=== PATIENT | male | born 1985 | race Caucasian/White ===

== ENCOUNTER 2017-02-12 20:01 | Emergency (ER) | payer MEDICAID ==
--- NOTE | 2017-02-12 22:30 | RADIOLOGY REPORT (SQ) ---
EXAM DESCRIPTION: FINGER RIGHT COMPLETED DATE/TIME: 02/12/2017 10:16 pm REASON FOR STUDY: Pain s/p injury COMPARISON: None. NUMBER OF VIEWS: Three views. TECHNIQUE: AP, lateral, and oblique images acquired of the right second finger. LIMITATIONS: None. FINDINGS: MINERALIZATION: Normal. BONES: No acute fracture or dislocation. No worrisome bone lesions. SOFT TISSUES: No soft tissue swelling. No foreign body. OTHER: No other significant finding. IMPRESSION: NO RADIOGRAPHIC EVIDENCE OF ACUTE INJURY. COMMENT: SITE OF TRAUMA/COMPLAINT MARKED/STAMP COMPLETED: NO. TECHNICAL DOCUMENTATION: JOB ID: [id number] [employer]- All Rights Reserved
--- NOTE | 2017-02-12 22:31 | RADIOLOGY REPORT (SQ) ---
EXAM DESCRIPTION: KNEE RIGHT 3 VIEWS COMPLETED DATE/TIME: 02/12/2017 10:16 pm REASON FOR STUDY: Pain s/p injury COMPARISON: None. NUMBER OF VIEWS: Four views. TECHNIQUE: AP, lateral and a single oblique radiographic images acquired of the right knee. LIMITATIONS: None. FINDINGS: MINERALIZATION: Normal. BONES: No acute fracture or dislocation. No worrisome bone lesions. JOINT: No effusion. SOFT TISSUES: No soft tissue swelling. No radio-opaque foreign body. OTHER: No other significant finding. IMPRESSION: NEGATIVE STUDY OF THE RIGHT KNEE. NO RADIOGRAPHIC EVIDENCE OF ACUTE INJURY. TECHNICAL DOCUMENTATION: JOB ID: [id number] [employer]- All Rights Reserved
[2017-02-12] MEDS ORDERED: IBUPROFEN 800 MG TABLET PO ONE (22:43)
--- NOTE | 2017-02-12 22:43 | ER Document Report ---
HPI - HPI Patient complains to provider of: stepped in hole Onset: Last week Onset/Duration: Gradual Pain Level: 3 Context: 32 yo male stepped in hole and twisted right knee and right index finger. both are swollen and hurt. No fever or chills. Has been to xray already. - CONSTITUTIONAL Constitutional: DENIES: Fever, Chills - EENT EENT: DENIES: Sore Throat, Ear Pain, Congestion - NEURO Neurology: DENIES: Headache - CARDIOVASCULAR Cardiovascular: DENIES: Chest pain - RESPIRATORY Respiratory: DENIES: Trouble Breathing, Coughing - GASTROINTESTINAL Gastrointestinal: DENIES: Abdominal Pain - URINARY Urinary: DENIES: Dysuria - REPRODUCTIVE Reproductive: DENIES: : - MUSCULOSKELETAL Musculoskeletal: REPORTS: Extremity pain - R knee, Swelling - R index finger. DENIES: Back Pain, Neck Pain - DERM Skin Color: Normal, [place] Skin Problems: None - NURSING COMMENTS Comment: Pt presents with c/o R index finger and R knee pain s/p fall while weed eating. States that he must have stepped in a hole and twisted his knee and somehow hurt his finger. R index finger appears swollen, hurts to move. R knee minimal swelling but painful. A/O, ambulates well. Past Medical History - General Information source: Patient - Social History Smoking Status: Current Every Day Smoker Frequency of alcohol use: None Drug Abuse: None Lives with: Family Family History: Reviewed & Not Pertinent Patient has suicidal ideation: No Patient has homicidal ideation: No Endocrine Medical History: Reports: Hx Diabetes Mellitus Type 1, Hx Diabetes Mellitus Type 2 Renal/ Medical History: Denies: Hx Peritoneal Dialysis Past Surgical History: Reports: Hx Orthopedic Surgery - disc suregery L5-S1 - Immunizations Immunizations up to date: Yes Hx Diphtheria, Pertussis, Tetanus Vaccination: Yes Vertical Provider Document - CONSTITUTIONAL Agree With Documented VS: Yes Exam Limitations: No Limitations General Appearance: No Apparent Distress - INFECTION CONTROL TRAVEL OUTSIDE OF THE [place] IN LAST 30 DAYS: No - HEENT HEENT: Normocephalic - NECK Neck: Supple - RESPIRATORY O2 Sat by Pulse Oximetry: 98 - MUSCULOSKELETAL/EXTREMETIES Musculoskeletal/Extremeties: MAEW, FROM, Non-Tender Notes: mild swelling to right index finger, no signs of infection, FROM, no ecchymosis , no swelling or effusion to right knee, non tender. FRM - NEURO Level of Consciousness: Awake, Alert, Appropriate Motor/Sensory: No Motor Deficit, No Sensory Deficit - DERM Integumentary: Warm, Dry, No Rash Course - Re-evaluation Re-evalutation: 02/12/17 22:47 X-rays are negative - Vital Signs Vital signs: Temp Pulse Resp BP Pulse Ox 98.2 F 93 20 139/83 H 98 02/12/17 20:39 02/12/17 20:39 02/12/17 20:39 02/12/17 20:39 02/12/17 20:39 Procedures - Immobilization Right Knee Time completed: 22:47 Pre-Proc Neuro Vasc Exam: Normal Immobilizer type: Gilles wrap Post-Proc Neuro Vasc Exam: Normal Alignment checked and good: Yes Discharge - Discharge Clinical Impression: Right index finger sprain, Right knee sprain Disposition: HOME, SELF-CARE Instructions: Acetaminophen, Anti-Inflammatory Medication ([facility]), Gilles Wrap ([facility]) , Sprained Finger ([facility]), Sprain ([facility]) Additional Instructions: gilles wrap for comfort copy of negative x-rays Return to the emergency room if worse See orthopedic doctor if persists Prescriptions: Ibuprofen [Motrin 800 mg Tablet] 800 mg PO Q8HP PRN #30 tablet PRN Reason: Forms: Return to Work Referrals: ARIEL MONTERO MD [ACTIVE STAFF] - Follow up as needed
[2017-02-12 22:59] VITALS: BP 129/77
== END 2017-02-12 22:57 | disposition home or self-care (01) ==
LOC: ER 20:01
DX: S63.610A Unspecified sprain of right index finger, initial encounter (principal); S83.91XA Sprain of unspecified site of right knee, initial encounter; M25.561 Pain in right knee; M79.644 Pain in right finger(s); M79.89 Other specified soft tissue disorders; W17.2XXA Fall into hole, initial encounter; F17.200 Nicotine dependence, unspecified, uncomplicated
CPT/HCPCS: 99283

== ENCOUNTER 2017-04-29 07:04 | Inpatient (IN) | payer MEDICAID ==
--- NOTE | 2017-04-29 07:49 | ER Document Report ---
ED Neck/Back Problem - General Chief Complaint: Back Pain Stated Complaint: BACK PAIN Time Seen by Provider: 04/29/17 07:49 Information source: Patient Notes: 32 yo smoker, non etoh, No IV drugs, male c/o severe low back pain where the scars are since yesterday morning. Has hardware. Surgery x 2 ortho matthias, herniated discs. Fusion L4-S1. had to dress him, can't walk due to pain. 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 Takes percocet 7.5mg four times per day. Last dose at 0630 with ibuprofen 5 at a times. [facility] integrated pain management, started 2 months ago. Alannah in room, pt is anxious, cussing wanting injection of Dilaudid. She is trying to calm him down. Pt is type 1 diabetic, refusing IV fluid, hx gastritis, nerve problems in legs, medical dr. jaylin tripp. TRAVEL OUTSIDE OF THE [place] IN LAST 30 DAYS: No - Related Data Allergies/Adverse Reactions: Penicillins Allergy (Verified 02/12/17 20:42) Past Medical History - General Information source: Patient - Social History Smoking Status: Current Every Day Smoker Frequency of alcohol use: None Drug Abuse: None Occupation: yard care Lives with: Spouse/Significant other Family History: Reviewed & Not Pertinent Patient has suicidal ideation: No Patient has homicidal ideation: No Endocrine Medical History: Reports: Hx Diabetes Mellitus Type 1 Renal/ Medical History: Denies: Hx Peritoneal Dialysis Past Surgical History: Reports: Hx Orthopedic Surgery - disc suregery L5-S1 - Immunizations Immunizations up to date: Yes Hx Diphtheria, Pertussis, Tetanus Vaccination: Yes Review of Systems - Review of Systems Constitutional: No symptoms reported EENT: No symptoms reported Cardiovascular: No symptoms reported Respiratory: No symptoms reported Gastrointestinal: No symptoms reported Genitourinary: No symptoms reported Male Genitourinary: No symptoms reported Musculoskeletal: See HPI Skin: No symptoms reported Hematologic/Lymphatic: No symptoms reported Neurological/Psychological: No symptoms reported Physical Exam - Vital signs Vitals: Temp Pulse Resp BP Pulse Ox 97.7 F 91 16 134/102 H 100 04/29/17 07:12 04/29/17 07:12 04/29/17 07:12 04/29/17 07:12 04/29/17 07:12 Interpretation: Normal - General General appearance: Alert, Anxious, Other - looks dry In distress: None - HEENT Head: Normocephalic, Atraumatic Eyes: Normal Conjunctiva: Normal Pupils: PERRL Neck: Supple. No: Lymphadenopathy - Respiratory Respiratory status: No respiratory distress Chest status: Nontender Breath sounds: Normal Chest palpation: Normal - Cardiovascular Rhythm: Regular Heart sounds: Normal auscultation Murmur: No - Abdominal Inspection: Normal Distension: No distension Bowel sounds: Normal Tenderness: Nontender. No: Tender Organomegaly: No organomegaly - Back Back: Normal, Nontender, Scars - bilateral lumbar, vertical. No: Tender, CVA tenderness - Extremities General upper extremity: Normal inspection, Nontender, Normal color, Normal ROM , Normal temperature General lower extremity: Normal inspection, Nontender, Normal color, Normal ROM , Normal temperature, Normal weight bearing. No: Yoel's sign - Neurological Neuro grossly intact: Yes Cognition: Normal Orientation: AAOx4 [place] Coma Scale Eye Opening: Spontaneous [place] Coma Scale Verbal: Oriented [place] Coma Scale Motor: Obeys Commands [place] Coma Scale Total: 15 Speech: Normal Motor strength normal: LUE, RUE, LLE, RLE Sensory: Normal Knee - Reflex grade: 2 = Normal Ankle - Reflex grade: 0 = Absent - right, 2+ left (pt unsure when he lost the right ankle reflex. - Psychological Associated symptoms: Normal affect, Normal mood - Skin Skin Temperature: Warm Skin Moisture: Dry Skin Color: Normal Skin irregularity: negative: Rash Course - Re-evaluation Re-evalutation: 04/29/17 09:29 [place], [place] [address] [place] [address] pt. states he will take care of speaking with them about the percocet 7.5 not controlling his pain. He is calm now. Xray shows post surgical changes. 04/29/17 09:32 called Lexii Gomez [employer]PERATOR provider at the office to discuss the case since he was so angry and frustrated as witnessed by his significant other. He has not gotten MR of his spine at his last appt. April 16 and has hx of anxiety. She stated that he has certain time frame for the imaging, which is supposed to be done by next appt. and she states that he is aware of it. 04/29/17 09:53 white count 22,000, discussed case with dr. bryant, getting MRI lumbar combo to r /o abscess. Dr. chacko says its OK to get the MRI 04/29/17 10:05 10 units insulin R IV per dr. bryant 04/29/17 12:51 The MRI shows unchanged protrusion L4-L5, post surgery L5-S1. No abscess. I had the patient sit on the side of the bed there is no ankle reflex on the right which he does not know how long it has been there, he will not stand on his legs he is dramatic complaining that the pain is a lot of pressure on his back, almost drops to the floor. 04/29/17 13:[address] Hernandez and said that the kidneys look okay on MRI because I was thinking of doing need to do any imaging since now his urinalysis shows urinary tract infection I did order Levaquin 750 mg IV to be given, blood cultures and lactic acid have been ordered. 04/29/17 13:[address] calderon who says to try to "sell it" to dr. arizmendi, she doesn't think he necessarily needs to be admitted. pt is hyperglycemic, leukocytosis. called dr. chacko back, no imaging that I can do to prove or disprove pyelonephritis that dr. calderon asked me about. dr. bryant rec. admission. 04/29/17 13:45 04/29/17 13:54 dr arizmendi will observation to medical floor, pt stated his urine has been smelling bad, but no dysuria. - Vital Signs Vital signs: Temp Pulse Resp BP Pulse Ox 97.7 F 94 16 118/72 99 04/29/17 07:15 04/29/17 07:15 04/29/17 12:31 04/29/17 12:31 04/29/17 12:31 - Laboratory Result Diagrams: 04/29/17 09:00 04/29/17 09:00 Laboratory results interpreted by me: 04/29/17 04/29/17 04/29/17 09:00 09:00 09:00 WBC 22.0 H RBC 4.33 L Hgb 12.2 L Hct 36.9 L RDW 14.1 H Seg Neuts % (Manual) 88 H Lymphocytes % (Manual) 8 L Monocytes % (Manual) 1 L Abs Neuts (Manual) 20.0 H ESR 68 H Sodium 132.3 L Glucose 442 H* POC Glucose Direct Bilirubin 0.5 H AST 13 L Alkaline Phosphatase 182 H Urine Protein Urine Glucose (UA) Urine Blood Ur Leukocyte Esterase 04/29/17 04/29/17 11:56 12:02 WBC RBC Hgb Hct RDW Seg Neuts % (Manual) Lymphocytes % (Manual) Monocytes % (Manual) Abs Neuts (Manual) ESR Sodium Glucose POC Glucose 322 H Direct Bilirubin AST Alkaline Phosphatase Urine Protein 30 H Urine Glucose (UA) >=500 H Urine Blood LARGE H Ur Leukocyte Esterase MODERATE H Discharge - Discharge Clinical Impression: Hyperglycemia, mild right disc bulge, unchanged, Right ankle reflex absent Diabetes Qualifiers: Diabetes mellitus type: type 1 Diabetes mellitus complication status: with hyperglycemia Qualified Code(s): E10.65 - Type 1 diabetes mellitus with hyperglycemia Urinary tract infection Qualifiers: Urinary tract infection type: acute cystitis Hematuria presence: with hematuria Qualified Code(s): N30.01 - Acute cystitis with hematuria Chronic low back pain Qualifiers: Back pain laterality: bilateral Sciatica presence: without sciatica Qualified Code(s): M54.5 - Low back pain; G89.29 - Other chronic pain Leukocytosis Qualifiers: Leukocytosis type: other Qualified Code(s): D72.828 - Other elevated white blood cell count Condition: Stable Disposition: ADMITTED OBSERVATION Admitting Provider: Hospitalist Unit Admitted: Medical Floor
[2017-04-29] MEDS ORDERED: ONDANSETRON 4 MG TAB.RAPDIS PO ONE (08:33)
[2017-04-29] MEDS ORDERED: ACETAMINOPHEN 325 MG TABLET PO ONE (08:34)
--- NOTE | 2017-04-29 09:08 | RADIOLOGY REPORT (SQ) ---
EXAM DESCRIPTION: L SPINE WHOLE COMPLETED DATE/TIME: 04/29/2017 8:55 am REASON FOR STUDY: low back pain COMPARISON: None. NUMBER OF VIEWS: Five views including obliques. TECHNIQUE: AP, lateral, oblique, and sacral radiographic images acquired of the lumbar spine. LIMITATIONS: None. FINDINGS: MINERALIZATION: Normal. SEGMENTATION: Normal. No transitional anatomy. ALIGNMENT: Normal. VERTEBRAE: Maintained height. No fracture or worrisome bone lesion. DISCS: Preserved height. No significant osteophytes or end plate irregularity. POSTERIOR ELEMENTS: Pedicles and facets are intact. No pars defect or posterior arch defects. HARDWARE: There are postsurgical changes at L5-S1. PARASPINAL SOFT TISSUES: Normal. PELVIS: Intact as visualized. No fractures or worrisome bone lesions. SI joints intact. OTHER: No other significant finding. IMPRESSION: Postsurgical changes at L5-S1. No acute findings. TECHNICAL DOCUMENTATION: JOB ID: [id number] [employer]- All Rights Reserved
[2017-04-29 09:27] LABS: HEMATOCRIT 36.9 % (37.9-51.0); HEMOGLOBIN 12.2 g/dL (13.5-17.0); HGB HCT DIFFERENCE -0.3; MEAN CORPUSCULAR HEMOGLOBIN 28.2 pg (27.0-33.4); MEAN CORPUSCULAR VOLUME 85 fl (80-97); RED BLOOD COUNT 4.33 10^6/uL (4.35-5.55); RED CELL DISTRIBUTION WIDTH 14.1 % (11.5-14.0)
[2017-04-29 09:47] LABS: ALANINE AMINOTRANSFERASE 27 U/L (21-72); ALBUMIN 3.6 g/dL (3.5-5.0); ALKALINE PHOSPHATASE 182 U/L (38-126); ANION GAP 11 (5-19); ASPARTATE AMINO TRANSFERASE 13 U/L (17-59); BILIRUBIN,DIRECT 0.5 mg/dL (0.0-0.4); BILIRUBIN,TOTAL 1.3 mg/dL (0.2-1.3); BLOOD UREA NITROGEN 15 mg/dL (7-20); CALCIUM 9.5 mg/dL (8.4-10.2); CARBON DIOXIDE 23 mmol/L (22-30); CHLORIDE 98 mmol/L (98-107); CREATININE RESULT 0.95 mg/dL (0.52-1.25); POTASSIUM 4.4 mmol/L (3.6-5.0); SODIUM 132.3 mmol/L (137-145); TOTAL PROTEIN 6.4 g/dL (6.3-8.2)
[2017-04-29 09:57] LABS: BAND NEUTROPHILS % (MANUAL) 3 % (3-5); BASOPHILS % (MANUAL) 0 % (0-2); EOSINOPHILS % (MANUAL) 0 % (0-6); LYMPHOCYTES % (MANUAL) 8 % (13-45); POLYCHROMASIA SLIGHT; TOTAL CELLS COUNTED 100; TOXIC GRANULATION 1+
[2017-04-29 09:58] LABS: GLUCOSE 442 mg/dL (75-110)
[2017-04-29] MEDS ORDERED: NORMAL SALINE 1000 ML 1,000 ML IV ONE ×2 (09:59→13:02)
[2017-04-29] MEDS ORDERED: INSULIN REG, HUMAN 100 UNIT/ML 3 ML VIAL (PYX) IV ONE (10:03)
--- NOTE | 2017-04-29 12:27 | RADIOLOGY REPORT (SQ) ---
EXAM DESCRIPTION: MRI LUMBAR SPINE COMBO COMPLETED DATE/TIME: 04/29/2017 12:07 pm REASON FOR STUDY: low back pain, elevated WBC COMPARISON: 2013. Radiographs from today. TECHNIQUE: Sagittal and Axial imaging includes T1, T1 post gadolinium, T2, STIR and gradient echo se quences. Coronal T2/HASTE imaging. CONTRAST TYPE AND DOSE: 15 mL MultiHance RENAL FUNCTION: GFR > 60. LIMITATIONS: None. FINDINGS: VISUALIZED UPPER ABDOMEN: Limited evaluation. No acute or suspicious findings suggested. SEGMENTATION: No transitional anatomy. The lowest well-developed disc space is labeled L5-S1. ALIGNMENT: Anatomic. VERTEBRAE: Intact. No fractures. BONE MARROW: Normal. No marrow replacement or reactive changes. DISC SIGNAL: Mild decreased signal and height at L4-5. Postoperative artifact obscures the L5-S1 dis c. POSTERIOR ELEMENTS: No pars defect. Bilateral instrumentation at L5-S1, rods and screws and disc fi xation. HARDWARE: As above. CORD AND CONUS: Normal in size and signal intensity. Conus at the appropriate level. SOFT TISSUES: No aortic aneurysm seen. No bulky retroperitoneal adenopathy or mass. No paraspinal mas s or fluid. L1-L2: No significant spinal stenosis or exit foraminal stenosis. L2-L3: No significant spinal stenosis or exit foraminal stenosis. L3-L4: No significant spinal stenosis or exit foraminal stenosis. L4-L5: Mild broad right paracentral protrusion indents the ventral thecal sac. Mild mass-effect on t he proximal left L5 nerve root. L5-S1: Postoperative changes with no evidence of recurrent disc hernia or nerve root compression. No central stenosis. Neural foramina look relatively patent. LOWER THORACIC: Incompletely imaged. No stenosis seen. SACRUM: Visualized upper sacrum intact. ENHANCEMENT: No abnormal enhancement. No evidence of epidural abscess. OTHER: No other significant findings. IMPRESSION: 1. Postoperative changes at L5-S1 without spinal stenosis here. 2. Mild persistent or recurrent disc protrusion at L4-5 with regional mass effect on the thecal sac. 3. No suspicious en hancement. No epidural abscess appreciated. TECHNICAL DOCUMENTATION: JOB ID: [id number] [email or web address]- All Rights Reserved
[2017-04-29 12:49] LABS: APPEARANCE,URINE CLOUDY; BILIRUBIN,URINE NEGATIVE (NEGATIVE); GLUCOSE, URINE >=500 mg/dL (NEGATIVE); KETONES,URINE NEGATIVE (NEGATIVE); LEUKOCYTE ESTERASE,URINE MODERATE (NEGATIVE); NITRITE,URINE NEGATIVE (NEGATIVE); PROTEIN,URINE 30 mg/dL (NEGATIVE); URINE SPECIFIC GRAVITY 1.033; UROBILINOGEN,URINE NEGATIVE mg/dL (<2.0)
[2017-04-29] MEDS ORDERED: HYDROMORPHONE HCL INJ/PF 2 MG/ML AMPULE IV ONE (12:51)
[2017-04-29] MEDS: LEVOFLOXACIN 750 MG/D5W RTU 750 MG/150 ML RTUPB IV SCH ×2 (13:18→13:24)
[2017-04-29 13:26] LABS: URINE BARBITURATES SCREEN NEGATIVE; URINE METHADONE SCREEN NEGATIVE; URINE OPIATES LOW UNCONFIRMED POSITIVE; URINE PHENCYCLIDINE SCREEN NEGATIVE
[2017-04-29] MEDS ORDERED: ONDANSETRON HCL INJ/PF 4 MG/2 ML SDV IV PRN (14:58)
[2017-04-29] MEDS ORDERED: ALBUTEROL SULFATE 0.083% NEB 2.5 MG/3 ML AMPUL NEB PRN (14:58)
[2017-04-29] MEDS ORDERED: ONDANSETRON 4 MG TAB.RAPDIS PO PRN (14:58)
[2017-04-29] MEDS ORDERED: DEXTROSE 40% GEL 15 GM TUBE PO PRN ×2 (15:09)
[2017-04-29] MEDS ORDERED: DEXTROSE 50%-WATER 25 GM/50 ML DISP.SYRIN IV PRN ×2 (15:09)
[2017-04-29] MEDS ORDERED: GLUCAGON,HUMAN RECOMB 1 MG INJ IM PRN (15:09)
--- NOTE | 2017-04-29 15:28 | PDOC H&P ---
History of Present Illness Admission Date/PCP: 04/29/17 14:42 Patient complains of: Back pain History of Present Illness: RAYMOND BRAY is a 32 year old male with a history of chronic low back pain. 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 The patient reports that yesterday he awoke and he had pain in his lower back. It did not radiate. It was worse when he stood up. He did report having some chills but he did not check his temperature. Patient presented to emergency room and was found to have a white count of 22, 000. There was concern of whether this may represent epidural abscess given his history of having back surgery although it has been over 4 years since his back surgery. He had an MRI which showed no obvious abnormalities. Urinalysis did show him to have pyuria consistent with a urinary tract infection and possible pyelonephritis. The patient denies any bowel or bladder dysfunction. He denies any urinary retention. He denies any weakness or paresthesias. Denies any paresthesias in the saddle area. He does have some decreased reflex in the ankles is not sure whether these of been there previously. He normally takes Percocet 7.5 mg 4 times daily. He has required Dilaudid for his pain in the emergency room. Past Medical History Cardiac Medical History: Reports: None Pulmonary Medical History: Reports: None EENT Medical History: Reports: None Neurological History Note: Peripheral neuropathy Endocrine Medical History: Reports: Diabetes Mellitus Type 1 Renal/ Medical History: Reports: None Malignancy Medical History: Reports: None GI Medical History: Reports: Gastroesophageal Reflux Disease Musculoskeletal History Note: Chronic low back pain after a discectomy and then spinal fusion of L5-S1 Skin Medical History: Reports: None Psychiatric Medical History: Reports: None Traumatic Medical History: Reports: None Hematology: Reports: None Infectious Medical History: Reports: None Past Surgical History Past Surgical History: Reports: Orthopedic Surgery - disc suregery L5-S1 Social History Information Source: Patient Lives with: Spouse/Significant other Smoking Status: Current Every Day Smoker Frequency of Alcohol Use: None Hx Recreational Drug Use: No Drugs: None - Advance Directive Resuscitation Status: Full Code Family History Family History: Father 63 alive and has diabetes. Mother 60 alive and healthy. Parental Family History Reviewed: Yes Children Family History Reviewed: No Sibling(s) Family History Reviewed.: No Medication/Allergy Home Medications: Insulin Glargine,Hum.rec.anlog [Lantus Insulin 100 Unit/mL] 50 unit SQ QHS 12/01 Hydrocodone/Acetaminophen [Hydrocodon-Acetaminoph 7.5-325] 1 tab PO Q6HP PRN Insulin Aspart [Novolog Flexpen] 15 unit SQ DAILY 04/29/17 Tizanidine HCl [Zanaflex 4 Mg Tablet] 4 mg PO HSP PRN 04/29/17 Allergies/Adverse Reactions: Penicillins Allergy (Verified 02/12/17 20:42) Review of Systems Constitutional: PRESENT: chills. ABSENT: fever(s), headache(s), weight gain, weight loss Eyes: ABSENT: visual disturbances Ears: ABSENT: hearing changes Cardiovascular: ABSENT: chest pain, dyspnea on exertion, edema, orthropnea, palpitations Respiratory: ABSENT: cough, hemoptysis Gastrointestinal: ABSENT: abdominal pain, constipation, diarrhea, hematemesis, hematochezia, nausea, vomiting Genitourinary: ABSENT: dysuria, hematuria Musculoskeletal: PRESENT: back pain Integumentary: ABSENT: rash, wounds Neurological: ABSENT: abnormal gait, abnormal speech, confusion, dizziness, focal weakness, syncope Psychiatric: ABSENT: anxiety, depression Endocrine: ABSENT: cold intolerance, heat intolerance, polydipsia, polyuria Hematologic/Lymphatic: ABSENT: easy bleeding, easy bruising Physical Exam Vital Signs: Temp Pulse Resp BP Pulse Ox 97.7 F 94 16 124/59 L 98 04/29/17 07:15 04/29/17 07:15 04/29/17 12:31 04/29/17 14:31 04/29/17 14:31 General appearance: PRESENT: no acute distress, well-developed, well-nourished Head exam: PRESENT: atraumatic, normocephalic Eye exam: PRESENT: conjunctiva pink, EOMI, PERRLA. ABSENT: scleral icterus Ear exam: PRESENT: normal external ear exam Mouth exam: PRESENT: moist, tongue midline Neck exam: ABSENT: carotid bruit, JVD, lymphadenopathy, thyromegaly Respiratory exam: PRESENT: clear to auscultation jason. ABSENT: rales, rhonchi, wheezes Cardiovascular exam: PRESENT: RRR. ABSENT: diastolic murmur, rubs, systolic murmur GI/Abdominal exam: PRESENT: normal bowel sounds, soft. ABSENT: distended, guarding, mass, organolmegaly, rebound, tenderness Rectal exam: PRESENT: deferred Extremities exam: ABSENT: calf tenderness, clubbing, pedal edema Neurological exam: PRESENT: alert, awake, oriented to person, oriented to place , oriented to time, oriented to situation, CN II-XII grossly intact, other - Decreased ankle reflex.. ABSENT: motor sensory deficit Psychiatric exam: PRESENT: appropriate affect Skin exam: PRESENT: dry, intact, warm. ABSENT: cyanosis, rash Results Impressions: Lumbar Spine X-Ray 04/29/17 08:35 IMPRESSION: Postsurgical changes at L5-S1. No acute findings. Lumbar Spine MRI 04/29/17 09:48 IMPRESSION: 1. Postoperative changes at L5-S1 without spinal stenosis here. 2. Mild persistent or recurrent disc protrusion at L4-5 with regional mass effect on the thecal sac. 3. No suspicious enhancement. No epidural abscess appreciated. Assessment & Plan - Diagnosis (1) Chronic low back pain Qualifiers: Back pain laterality: bilateral Sciatica presence: without sciatica Qualified Code(s): M54.5 - Low back pain; G89.29 - Other chronic pain Is this a current diagnosis for this admission?: Yes Plan: The patient does not have any CVA tenderness but given his degree of back pain in the pyuria suspicious for possible pyelonephritis. Will start on Levaquin and IV fluids. Patient does not have any point tenderness over the vertebra. The possibility of a vertebral abscess is considered but is unlikely given the lack of point tenderness and a normal MRI. Will give Dilaudid as needed. (2) Urinary tract infection Qualifiers: Urinary tract infection type: acute cystitis Hematuria presence: with hematuria Qualified Code(s): N30.01 - Acute cystitis with hematuria Is this a current diagnosis for this admission?: Yes Plan: The patient has pyuria and back pain. He also is a white count of 22,000. Will give Levaquin and follow. He may have pyelonephritis. (3) Diabetes Qualifiers: Diabetes mellitus type: type 1 Diabetes mellitus complication status: with hyperglycemia Qualified Code(s): E10.65 - Type 1 diabetes mellitus with hyperglycemia Is this a current diagnosis for this admission?: Yes Plan: We will continue with his Lantus and NovoLog insulin. - Time Time Spent: 50 to 70 Minutes - Plan Summary Plan Summary: We will admit as an observation. I anticipate he can be discharged home tomorrow if his pain improves as well as his white count improves.
[2017-04-29] MEDS: NORMAL SALINE 1000 ML 1,000 ML IV PRN (16:38)
[2017-04-29] MEDS: HYDROMORPHONE HCL INJ/PF 2 MG/ML AMPULE IV PRN ×3 (16:38→23:57)
[2017-04-29] MEDS: ACETAMINOPHEN 325 MG TABLET PO PRN ×3 (16:38→23:58)
[2017-04-29] MEDS: INSULIN LISPRO 100 UNIT/ML 3 ML VIAL SUBCUT SCH (16:39)
[2017-04-29] MEDS: INSULIN LISPRO 100 UNIT/ML 3 ML VIAL SUBCUT PRN ×2 (16:39→22:28)
[2017-04-29] MEDS ORDERED: CIPROFLOXACIN 400 MG/D5W RTU 400 MG/200 ML RTUPB IV SCH (18:00)
[2017-04-29] MEDS: INSULIN GLARGINE,HUM.REC.ANLOG 300 UNIT/3 ML INSULN.PEN SUBCUT SCH (22:28)
[2017-04-30] MEDS: ACETAMINOPHEN 325 MG TABLET PO PRN ×2 (03:27→20:16)
[2017-04-30] MEDS: HYDROMORPHONE HCL INJ/PF 2 MG/ML AMPULE IV PRN ×5 (03:27→20:09)
[2017-04-30 07:03] LABS: HEMATOCRIT 33.4 % (37.9-51.0); HEMOGLOBIN 11.4 g/dL (13.5-17.0); HGB HCT DIFFERENCE 0.8; MEAN CORPUSCULAR HEMOGLOBIN 28.8 pg (27.0-33.4); MEAN CORPUSCULAR HGB CONC 34.1 g/dL (32.0-36.0); MEAN CORPUSCULAR VOLUME 84 fl (80-97); RED BLOOD COUNT 3.96 10^6/uL (4.35-5.55); RED CELL DISTRIBUTION WIDTH 14.2 % (11.5-14.0); WHITE BLOOD COUNT 15.3 10^3/uL (4.0-10.5)
[2017-04-30 07:22] LABS: ANION GAP 9 (5-19); BLOOD UREA NITROGEN 10 mg/dL (7-20); CALCIUM 8.8 mg/dL (8.4-10.2); CARBON DIOXIDE 24 mmol/L (22-30); CHLORIDE 104 mmol/L (98-107); CREATININE RESULT 0.76 mg/dL (0.52-1.25); GLUCOSE 67 mg/dL (75-110); POTASSIUM 3.6 mmol/L (3.6-5.0); SODIUM 137.1 mmol/L (137-145)
[2017-04-30] MEDS: INSULIN LISPRO 100 UNIT/ML 3 ML VIAL SUBCUT SCH ×3 (08:18→18:08)
--- NOTE | 2017-04-30 09:42 | Physician Advisory Note ---
Physician Advisor ProgressNote .: Pursuant to the plan for [facility], I have reviewed the medical record for this patient. Physician Advisor Statement: Please consider documentin. "Early Sepsis due to UTI/pyelo, present on admission, evidenced by leukocytosis, tachycardia, (+)BCs" 2. "Acute pyelonephritis" [need to specify ac vs chr] 3. "ACute hyponatremia, suspect due to ____" [?intravascular volume depletion? ] Status: Appropriate to make Inpatient given (+) BCs, ongoing leukocytosis, need for continued IV abx while awaiting cx sensitivities, needing IV Dilaudid 5x already overnight for acute pain control .... Thanks! CK
[2017-04-30] MEDS ORDERED: LEVOFLOXACIN 750 MG/D5W RTU 750 MG/150 ML RTUPB IV SCH (10:00)
[2017-04-30] MEDS: NORMAL SALINE 1000 ML 1,000 ML IV PRN ×2 (11:22→18:11)
[2017-04-30] MEDS ORDERED: ERTAPENEM SODIUM INJ 1 GM VIAL IV SCH (14:30)
--- NOTE | 2017-04-30 14:35 | PDOC PROGRESS REPORT ---
Subjective Progress Note for:: 04/30/17 Subjective:: Patient continues to have some back pain but denies having high fever. No nausea or vomiting. Denies dysuria or hematuria. Denies any recent injury. History of back surgery twice done in [place]. Patient reports no numbness at this time. Physical Exam Vital Signs: Temp Pulse Resp BP Pulse Ox 99.7 F 91 18 125/59 L 94 04/30/17 12:01 04/30/17 12:01 04/30/17 12:01 04/30/17 12:01 04/30/17 12:01 General appearance: PRESENT: no acute distress, cooperative Head exam: PRESENT: normocephalic Eye exam: PRESENT: EOMI Mouth exam: PRESENT: moist, neck supple Neck exam: ABSENT: JVD Respiratory exam: PRESENT: clear to auscultation jason. ABSENT: rhonchi, wheezes Cardiovascular exam: PRESENT: RRR. ABSENT: gallop GI/Abdominal exam: PRESENT: soft. ABSENT: distended, tenderness Extremities exam: ABSENT: pedal edema Neurological exam: PRESENT: alert, awake, oriented to situation Skin exam: PRESENT: dry, warm. ABSENT: cyanosis Results Impressions: Lumbar Spine X-Ray 04/29/17 08:35 IMPRESSION: Postsurgical changes at L5-S1. No acute findings. Lumbar Spine MRI 04/29/17 09:48 IMPRESSION: 1. Postoperative changes at L5-S1 without spinal stenosis here. 2. Mild persistent or recurrent disc protrusion at L4-5 with regional mass effect on the thecal sac. 3. No suspicious enhancement. No epidural abscess appreciated. Assessment & Plan - Diagnosis (1) Sepsis Qualifiers: Sepsis type: sepsis due to unspecified organism Qualified Code(s): A41.9 - Sepsis, unspecified organism Is this a current diagnosis for this admission?: Yes (2) Urinary tract infection Qualifiers: Urinary tract infection type: acute cystitis Hematuria presence: with hematuria Qualified Code(s): N30.01 - Acute cystitis with hematuria Is this a current diagnosis for this admission?: Yes (3) Peripheral neuropathy Qualifiers: Peripheral neuropathy type: polyneuropathy, unspecified Qualified Code(s): G62.9 - Polyneuropathy, unspecified Is this a current diagnosis for this admission?: Yes (4) GERD (gastroesophageal reflux disease) Qualifiers: Esophagitis presence: without esophagitis Qualified Code(s): K21.9 - Gastro -esophageal reflux disease without esophagitis Is this a current diagnosis for this admission?: Yes (5) History of diabetes mellitus Is this a current diagnosis for this admission?: Yes (6) Chronic low back pain Qualifiers: Back pain laterality: bilateral Sciatica presence: without sciatica Qualified Code(s): M54.5 - Low back pain; G89.29 - Other chronic pain Is this a current diagnosis for this admission?: Yes - Time Time Spent with patient: 25-34 minutes - Plan Summary Plan Summary: We are going to try the patient on Flexeril. Discontinue Levaquin and begin intravenous Invanz. Continue hydration. Continue supportive care. Follow cultures.
[2017-04-30] MEDS ORDERED: CYCLOBENZAPRINE HCL 10 MG TABLET PO ONE (14:45)
[2017-04-30] MEDS: ERTAPENEM SODIUM 1 GM in NORMAL SALINE 50 ML IV SCH (15:06)
[2017-04-30] MEDS ORDERED: CIPROFLOXACIN 400 MG/D5W RTU 400 MG/200 ML RTUPB IV SCH (16:00)
[2017-04-30] MEDS: CYCLOBENZAPRINE HCL 10 MG TABLET PO SCH (23:13)
[2017-04-30] MEDS: INSULIN GLARGINE,HUM.REC.ANLOG 300 UNIT/3 ML INSULN.PEN SUBCUT SCH (23:14)
[2017-05-01] MEDS: HYDROMORPHONE HCL INJ/PF 2 MG/ML AMPULE IV PRN ×6 (00:14→23:54)
[2017-05-01] MEDS: NORMAL SALINE 1000 ML 1,000 ML IV PRN ×2 (00:17→05:05)
[2017-05-01 04:20] LABS: HEMATOCRIT 36.8 % (37.9-51.0); HEMOGLOBIN 12.1 g/dL (13.5-17.0); HGB HCT DIFFERENCE -0.5; MEAN CORPUSCULAR HEMOGLOBIN 27.8 pg (27.0-33.4); MEAN CORPUSCULAR HGB CONC 32.9 g/dL (32.0-36.0); MEAN CORPUSCULAR VOLUME 85 fl (80-97); RED BLOOD COUNT 4.35 10^6/uL (4.35-5.55); RED CELL DISTRIBUTION WIDTH 14.3 % (11.5-14.0); WHITE BLOOD COUNT 14.2 10^3/uL (4.0-10.5)
[2017-05-01] MEDS: ACETAMINOPHEN 325 MG TABLET PO PRN ×3 (05:01→18:50)
[2017-05-01] MEDS: CYCLOBENZAPRINE HCL 10 MG TABLET PO SCH ×3 (05:02→22:31)
--- NOTE | 2017-05-01 06:19 | Physician Advisory Note ---
Physician Advisor ProgressNote .: [facility], I have reviewed the medical record for this patient. Physician Advisor Statement: Please consider documentin. "Early Sepsis due to UTI/pyelo, present on admission, evidenced by leukocytosis, tachycardia, (+)BCs, hypotension with MAP as low as 69, total bili 1.3" (meets Sepsis-2 & Sepsis-3/SOFA criteria) 2. "Acute pyelonephritis" [need to specify ac vs chr] 3. "ACute hyponatremia, suspect due to ____" [?intravascular volume depletion? ] Thanks! CK
[2017-05-01] MEDS: INSULIN LISPRO 100 UNIT/ML 3 ML VIAL SUBCUT PRN ×3 (08:32→18:04)
[2017-05-01] MEDS ORDERED: NORMAL SALINE 1000 ML 1,000 ML IV PRN (09:04)
--- NOTE | 2017-05-01 09:12 | PDOC PROGRESS REPORT ---
Subjective Progress Note for:: 05/01/17 Subjective:: Patient continues to have some back pain but denies numbness or tingling sensation in the lower extremities. Patient is able to walk. No diarrhea. No nausea or vomiting. Denies dysuria or hematuria. History of back surgery twice done in [place]. Patient takes 7.5 mg of Percocet every 4 hours as needed at home for pain relief.. Physical Exam Vital Signs: Temp Pulse Resp BP Pulse Ox 98.9 F 76 20 140/70 H 91 L 05/01/17 08:00 05/01/17 08:00 05/01/17 08:00 05/01/17 08:00 05/01/17 08:00 Intake & Output 04/30/17 05/01/17 05/02/17 06:59 06:59 06:59 Intake Total 3670 Output Total 1475 Balance 2195 Weight 76.4 kg General appearance: PRESENT: no acute distress, cooperative Head exam: PRESENT: normocephalic Eye exam: PRESENT: EOMI Mouth exam: PRESENT: moist, neck supple Neck exam: ABSENT: JVD Respiratory exam: PRESENT: clear to auscultation jason. ABSENT: rhonchi, wheezes Cardiovascular exam: PRESENT: RRR. ABSENT: gallop GI/Abdominal exam: PRESENT: soft. ABSENT: distended, tenderness Extremities exam: ABSENT: pedal edema Neurological exam: PRESENT: alert, awake, oriented to situation Skin exam: PRESENT: dry, warm. ABSENT: cyanosis Results Laboratory Results: 05/01/17 04:10 05/01/17 04:10 WBC 14.2 H RBC 4.35 Hgb 12.1 L Hct 36.8 L MCV 85 MCH 27.8 MCHC 32.9 RDW 14.3 H Plt Count 215 Impressions: Lumbar Spine X-Ray 04/29/17 08:35 IMPRESSION: Postsurgical changes at L5-S1. No acute findings. Lumbar Spine MRI 04/29/17 09:48 IMPRESSION: 1. Postoperative changes at L5-S1 without spinal stenosis here. 2. Mild persistent or recurrent disc protrusion at L4-5 with regional mass effect on the thecal sac. 3. No suspicious enhancement. No epidural abscess appreciated. Assessment & Plan - Diagnosis (1) Sepsis Qualifiers: Sepsis type: sepsis due to unspecified organism Qualified Code(s): A41.9 - Sepsis, unspecified organism Is this a current diagnosis for this admission?: Yes (2) Urinary tract infection Qualifiers: Urinary tract infection type: acute cystitis Hematuria presence: with hematuria Qualified Code(s): N30.01 - Acute cystitis with hematuria Is this a current diagnosis for this admission?: Yes (3) Peripheral neuropathy Qualifiers: Peripheral neuropathy type: polyneuropathy, unspecified Qualified Code(s): G62.9 - Polyneuropathy, unspecified Is this a current diagnosis for this admission?: Yes (4) GERD (gastroesophageal reflux disease) Qualifiers: Esophagitis presence: without esophagitis Qualified Code(s): K21.9 - Gastro -esophageal reflux disease without esophagitis Is this a current diagnosis for this admission?: Yes (5) History of diabetes mellitus Is this a current diagnosis for this admission?: Yes (6) Chronic low back pain Qualifiers: Back pain laterality: bilateral Sciatica presence: without sciatica Qualified Code(s): M54.5 - Low back pain; G89.29 - Other chronic pain Is this a current diagnosis for this admission?: Yes - Time Time Spent with patient: 25-34 minutes - Plan Summary Plan Summary: We are going to continue current antibiotics at this time. We will repeat blood cultures. We will plan 7 days of IV antibiotics and subsequently switched to oral. Continue supportive care, as needed muscle relaxant, and add oxycodone as needed for pain. Follow results of cultures.
[2017-05-01] MEDS: INSULIN LISPRO 100 UNIT/ML 3 ML VIAL SUBCUT SCH ×3 (09:51→18:04)
[2017-05-01] MEDS: OXYCODONE HCL IR 5 MG TABLET PO PRN ×3 (14:23→23:54)
--- NOTE | 2017-05-01 15:03 | RADIOLOGY REPORT (SQ) ---
EXAM DESCRIPTION: CHEST SINGLE VIEW COMPLETED DATE/TIME: 05/01/2017 2:35 pm REASON FOR STUDY: Pt has low O2 Sat COMPARISON: 07/03/2016 EXAM PARAMETERS: NUMBER OF VIEWS: One view. TECHNIQUE: Single frontal radiographic view of the chest acquired. RADIATION DOSE: NA LIMITATIONS: None. FINDINGS: LUNGS AND PLEURA: Abnormal density in the right parahilar region and probably the left par ahilar region most consistent with pneumonia. There is a nodular component on the right and follow-u p films after treatment are recommended. No effusions. MEDIASTINUM AND HILAR STRUCTURES: No masses. Contour normal. HEART AND VASCULAR STRUCTURES: Heart normal in size. Normal vasculature. BONES: No acute findings. HARDWARE: None in the chest. OTHER: No other significant finding. IMPRESSION: Abnormal density in the parahilar regions most suggestive of pneumonia. Follow-up films after treatment is recommended. TECHNICAL DOCUMENTATION: JOB ID: [id number]
[2017-05-01] MEDS: ERTAPENEM SODIUM 1 GM in NORMAL SALINE 50 ML IV SCH (16:18)
[2017-05-01] MEDS: INSULIN GLARGINE,HUM.REC.ANLOG 300 UNIT/3 ML INSULN.PEN SUBCUT SCH (22:31)
[2017-05-02] MEDS: OXYCODONE HCL IR 5 MG TABLET PO PRN (04:53)
[2017-05-02] MEDS: HYDROMORPHONE HCL INJ/PF 2 MG/ML AMPULE IV PRN ×4 (04:53→23:00)
[2017-05-02] MEDS: CYCLOBENZAPRINE HCL 10 MG TABLET PO SCH ×3 (05:14→22:59)
[2017-05-02] MEDS: INSULIN LISPRO 100 UNIT/ML 3 ML VIAL SUBCUT PRN ×4 (07:38→23:00)
[2017-05-02] MEDS: INSULIN LISPRO 100 UNIT/ML 3 ML VIAL SUBCUT SCH ×3 (08:26→18:00)
--- NOTE | 2017-05-02 09:39 | PDOC PROGRESS REPORT ---
Subjective Progress Note for:: 05/02/17 Subjective:: Still having back pain and stiffness. No reported chills nor fever. No N/V/ diarrhea. No dysuria, urgency nor frequency. Physical Exam Vital Signs: Temp Pulse Resp BP Pulse Ox 97.4 F 69 18 128/76 H 98 05/02/17 07:46 05/02/17 07:46 05/02/17 07:46 05/02/17 07:46 05/02/17 07:46 Intake & Output 05/01/17 05/02/17 05/03/17 06:59 06:59 06:59 Intake Total 3670 1650 Output Total 1475 625 Balance 2195 1025 Weight 76.4 kg 78.9 kg General appearance: PRESENT: no acute distress, cooperative Head exam: PRESENT: normocephalic Eye exam: PRESENT: EOMI Mouth exam: PRESENT: moist, neck supple Neck exam: ABSENT: JVD Respiratory exam: PRESENT: clear to auscultation jason. ABSENT: rhonchi, wheezes Cardiovascular exam: PRESENT: RRR. ABSENT: gallop GI/Abdominal exam: PRESENT: soft. ABSENT: distended, tenderness Extremities exam: ABSENT: pedal edema Neurological exam: PRESENT: alert, awake, oriented to situation Skin exam: PRESENT: dry, warm. ABSENT: cyanosis Results Laboratory Results: 05/01/17 04:10 Impressions: Lumbar Spine X-Ray 04/29/17 08:35 IMPRESSION: Postsurgical changes at L5-S1. No acute findings. Lumbar Spine MRI 04/29/17 09:48 IMPRESSION: 1. Postoperative changes at L5-S1 without spinal stenosis here. 2. Mild persistent or recurrent disc protrusion at L4-5 with regional mass effect on the thecal sac. 3. No suspicious enhancement. No epidural abscess appreciated. Chest X-Ray 05/01/17 13:55 IMPRESSION: Abnormal density in the parahilar regions most suggestive of pneumonia. Follow-up films after treatment is recommended. Assessment & Plan - Diagnosis (1) Sepsis Qualifiers: Sepsis type: sepsis due to unspecified organism Qualified Code(s): A41.9 - Sepsis, unspecified organism Is this a current diagnosis for this admission?: Yes (2) Urinary tract infection Qualifiers: Urinary tract infection type: acute cystitis Hematuria presence: with hematuria Qualified Code(s): N30.01 - Acute cystitis with hematuria Is this a current diagnosis for this admission?: Yes (3) Peripheral neuropathy Qualifiers: Peripheral neuropathy type: polyneuropathy, unspecified Qualified Code(s): G62.9 - Polyneuropathy, unspecified Is this a current diagnosis for this admission?: Yes (4) GERD (gastroesophageal reflux disease) Qualifiers: Esophagitis presence: without esophagitis Qualified Code(s): K21.9 - Gastro -esophageal reflux disease without esophagitis Is this a current diagnosis for this admission?: Yes (5) History of diabetes mellitus Is this a current diagnosis for this admission?: Yes (6) Chronic low back pain Qualifiers: Back pain laterality: bilateral Sciatica presence: without sciatica Qualified Code(s): M54.5 - Low back pain; G89.29 - Other chronic pain Is this a current diagnosis for this admission?: Yes - Time Time Spent with patient: 25-34 minutes - Plan Summary Plan Summary: Try mobic and decadron. Increase dilaudid and flexeril. Begin PT. Day 4/7 of IV antibiotics. Continue supportive care. D/C IVF. Change antibx to cipro.
[2017-05-02] MEDS ORDERED: DEXAMETHASONE SOD PHOS INJ 10 MG/1 ML VIAL IV ONE (09:45)
[2017-05-02] MEDS ORDERED: MELOXICAM 15 MG TABLET PO ONE (10:00)
[2017-05-02] MEDS: CIPROFLOXACIN 400 MG/D5W RTU 400 MG/200 ML RTUPB IV SCH ×2 (10:26→23:00)
[2017-05-02] MEDS: INSULIN GLARGINE,HUM.REC.ANLOG 300 UNIT/3 ML INSULN.PEN SUBCUT SCH (23:00)
[2017-05-03] MEDS: CYCLOBENZAPRINE HCL 10 MG TABLET PO SCH ×3 (06:03→22:16)
[2017-05-03] MEDS: HYDROMORPHONE HCL INJ/PF 2 MG/ML AMPULE IV PRN ×4 (06:07→22:12)
[2017-05-03] MEDS: INSULIN LISPRO 100 UNIT/ML 3 ML VIAL SUBCUT SCH ×3 (08:40→17:29)
[2017-05-03] MEDS: INSULIN LISPRO 100 UNIT/ML 3 ML VIAL SUBCUT PRN ×4 (08:40→22:16)
--- NOTE | 2017-05-03 09:08 | PDOC PROGRESS REPORT ---
Subjective Progress Note for:: 05/03/17 Subjective:: No reported temperature spikes no respiratory distress. patient anxious about what is going on. He did not complain of pain today regarding his back. Denies any coughing or shortness of breath. He does not think he has pneumonia. He is concerned about the source of the urinary tract infection but denies any recent instrumentation. IV line has been infiltrated last night. WBC was trending down. Chest x-ray suggestive of pneumonia. Physical Exam Vital Signs: Temp Pulse Resp BP Pulse Ox 97.8 F 57 L 16 127/98 H 97 05/03/17 07:39 05/03/17 07:39 05/03/17 07:39 05/03/17 07:39 05/03/17 07:39 Intake & Output 05/02/17 05/03/17 05/04/17 06:59 06:59 06:59 Intake Total 1650 1060 Output Total 625 1 Balance 1025 1059 Weight 78.9 kg 78.7 kg General appearance: PRESENT: no acute distress, cooperative Results Laboratory Results: 05/01/17 04:10 Impressions: Lumbar Spine X-Ray 04/29/17 08:35 IMPRESSION: Postsurgical changes at L5-S1. No acute findings. Lumbar Spine MRI 04/29/17 09:48 IMPRESSION: 1. Postoperative changes at L5-S1 without spinal stenosis here. 2. Mild persistent or recurrent disc protrusion at L4-5 with regional mass effect on the thecal sac. 3. No suspicious enhancement. No epidural abscess appreciated. Chest X-Ray 05/01/17 13:55 IMPRESSION: Abnormal density in the parahilar regions most suggestive of pneumonia. Follow-up films after treatment is recommended. Assessment & Plan - Diagnosis (1) Sepsis Qualifiers: Sepsis type: sepsis due to unspecified organism Qualified Code(s): A41.9 - Sepsis, unspecified organism Is this a current diagnosis for this admission?: Yes (2) Urinary tract infection Qualifiers: Urinary tract infection type: acute cystitis Hematuria presence: with hematuria Qualified Code(s): N30.01 - Acute cystitis with hematuria Is this a current diagnosis for this admission?: Yes (3) Peripheral neuropathy Qualifiers: Peripheral neuropathy type: polyneuropathy, unspecified Qualified Code(s): G62.9 - Polyneuropathy, unspecified Is this a current diagnosis for this admission?: Yes (4) GERD (gastroesophageal reflux disease) Qualifiers: Esophagitis presence: without esophagitis Qualified Code(s): K21.9 - Gastro -esophageal reflux disease without esophagitis Is this a current diagnosis for this admission?: Yes (5) History of diabetes mellitus Is this a current diagnosis for this admission?: Yes (6) Chronic low back pain Qualifiers: Back pain laterality: bilateral Sciatica presence: without sciatica Qualified Code(s): M54.5 - Low back pain; G89.29 - Other chronic pain Is this a current diagnosis for this admission?: Yes - Time Time Spent with patient: 15-24 minutes - Plan Summary Plan Summary: Explained to the patient regarding urinary tract infection and possible source. He understood. Explained to him that he needs 7 days of IV antibiotics and then transitioned to oral if repeat blood cultures were negative. In the meantime IV fluid was discontinued. Patient's appetite is good as per staff. No reported diarrhea. WBC is trending down. We will continue to monitor. Patient is on day 5 of IV antibiotics today.
[2017-05-03] MEDS: CIPROFLOXACIN 400 MG/D5W RTU 400 MG/200 ML RTUPB IV SCH ×2 (09:46→22:16)
[2017-05-03] MEDS: OXYCODONE HCL IR 5 MG TABLET PO PRN (18:58)
[2017-05-03] MEDS: INSULIN GLARGINE,HUM.REC.ANLOG 300 UNIT/3 ML INSULN.PEN SUBCUT SCH (22:16)
[2017-05-04] MEDS: OXYCODONE HCL IR 5 MG TABLET PO PRN (00:40)
[2017-05-04] MEDS: CYCLOBENZAPRINE HCL 10 MG TABLET PO SCH ×3 (05:58→21:44)
[2017-05-04] MEDS: HYDROMORPHONE HCL INJ/PF 2 MG/ML AMPULE IV PRN ×4 (07:27→20:48)
[2017-05-04] MEDS: INSULIN LISPRO 100 UNIT/ML 3 ML VIAL SUBCUT PRN ×2 (08:30→21:44)
[2017-05-04] MEDS: INSULIN LISPRO 100 UNIT/ML 3 ML VIAL SUBCUT SCH ×3 (08:30→16:28)
[2017-05-04] MEDS ORDERED: METHYLPREDNISOLONE DOSEPAK (4 MG/TAB) 21 TAB/DSPK PO PRN (08:46)
--- NOTE | 2017-05-04 08:51 | PDOC PROGRESS REPORT ---
Subjective Progress Note for:: 05/04/17 Subjective:: Back pain is better. Responded to anti-inflammatory well. No diarrhea, chills nor fever, no nausea nor vomiting. Physical Exam Vital Signs: Temp Pulse Resp BP Pulse Ox 97.5 F 54 L 18 140/79 H 97 05/04/17 00:43 05/04/17 00:43 05/04/17 00:43 05/04/17 00:43 05/04/17 00:43 Intake & Output 05/03/17 05/04/17 05/05/17 06:59 06:59 06:59 Intake Total 1060 2840 Output Total 1 Balance 1059 2840 Weight 78.7 kg 78.7 kg General appearance: PRESENT: no acute distress, cooperative Head exam: PRESENT: normocephalic Eye exam: PRESENT: EOMI Mouth exam: PRESENT: moist, neck supple Neck exam: ABSENT: JVD Respiratory exam: PRESENT: clear to auscultation jason. ABSENT: rhonchi, wheezes Cardiovascular exam: PRESENT: RRR GI/Abdominal exam: PRESENT: soft. ABSENT: distended, tenderness Extremities exam: ABSENT: pedal edema Neurological exam: PRESENT: alert, awake, oriented to situation Skin exam: PRESENT: dry, warm. ABSENT: cyanosis Results Laboratory Results: 05/01/17 04:10 Impressions: Lumbar Spine X-Ray 04/29/17 08:35 IMPRESSION: Postsurgical changes at L5-S1. No acute findings. Lumbar Spine MRI 04/29/17 09:48 IMPRESSION: 1. Postoperative changes at L5-S1 without spinal stenosis here. 2. Mild persistent or recurrent disc protrusion at L4-5 with regional mass effect on the thecal sac. 3. No suspicious enhancement. No epidural abscess appreciated. Chest X-Ray 05/01/17 13:55 IMPRESSION: Abnormal density in the parahilar regions most suggestive of pneumonia. Follow-up films after treatment is recommended. Assessment & Plan - Diagnosis (1) Sepsis Qualifiers: Sepsis type: sepsis due to unspecified organism Qualified Code(s): A41.9 - Sepsis, unspecified organism Is this a current diagnosis for this admission?: Yes (2) Urinary tract infection Qualifiers: Urinary tract infection type: acute cystitis Hematuria presence: with hematuria Qualified Code(s): N30.01 - Acute cystitis with hematuria Is this a current diagnosis for this admission?: Yes (3) Peripheral neuropathy Qualifiers: Peripheral neuropathy type: polyneuropathy, unspecified Qualified Code(s): G62.9 - Polyneuropathy, unspecified Is this a current diagnosis for this admission?: Yes (4) GERD (gastroesophageal reflux disease) Qualifiers: Esophagitis presence: without esophagitis Qualified Code(s): K21.9 - Gastro -esophageal reflux disease without esophagitis Is this a current diagnosis for this admission?: Yes (5) History of diabetes mellitus Is this a current diagnosis for this admission?: Yes (6) Chronic low back pain Qualifiers: Back pain laterality: bilateral Sciatica presence: without sciatica Qualified Code(s): M54.5 - Low back pain; G89.29 - Other chronic pain Is this a current diagnosis for this admission?: Yes - Time Time Spent with patient: 25-34 minutes - Plan Summary Plan Summary: Begin medrol dose pack. Continue muscle relaxant and pain management. Day 6/7 of IV antibiotics.
[2017-05-04] MEDS: CIPROFLOXACIN 400 MG/D5W RTU 400 MG/200 ML RTUPB IV SCH ×2 (09:31→17:38)
[2017-05-04] MEDS ORDERED: MEDROL DOSEPAK (DAY 1 LUNCH & SUPPER) (EDIT AFTER 0800) PO SCH ×2 (13:00→18:00)
[2017-05-04] MEDS ORDERED: MEDROL DOSEPAK (DAY 1 BRKFST) (EDIT AFTER 0800) PO SCH (14:00)
[2017-05-04] MEDS: INSULIN GLARGINE,HUM.REC.ANLOG 300 UNIT/3 ML INSULN.PEN SUBCUT SCH (21:43)
[2017-05-04] MEDS ORDERED: MEDROL DOSEPAK (DAY 1 BEDTIME DOSE) (EDIT AFTER 0800) PO SCH ×2 (22:00)
[2017-05-05] MEDS: HYDROMORPHONE HCL INJ/PF 2 MG/ML AMPULE IV PRN ×4 (01:55→16:16)
[2017-05-05] MEDS: CYCLOBENZAPRINE HCL 10 MG TABLET PO SCH ×2 (06:04→13:14)
[2017-05-05] MEDS: CIPROFLOXACIN 400 MG/D5W RTU 400 MG/200 ML RTUPB IV SCH ×2 (06:04→16:16)
[2017-05-05] MEDS: INSULIN LISPRO 100 UNIT/ML 3 ML VIAL SUBCUT PRN ×3 (07:11→16:16)
[2017-05-05] MEDS ORDERED: MEDROL DOSEPAK (DAY 2 BRKFST, LUNCH, SUPPER) PO SCH (08:00)
[2017-05-05] MEDS ORDERED: MEDROL DOSEPAK (DAY 1 BRKFST) (EDIT AFTER 0800) PO SCH (08:00)
[2017-05-05] MEDS: INSULIN LISPRO 100 UNIT/ML 3 ML VIAL SUBCUT SCH ×3 (08:17→16:16)
[2017-05-05] MEDS: MEDROL DOSEPAK (DAY 2 BRKFST, LUNCH, SUPPER) PO SCH ×2 (12:16→16:39)
--- NOTE | 2017-05-05 14:54 | PDOC DISCHARGE SUMMARY ---
General - Admit/Disc Date/PCP Admission Date/Primary Care Provider: 04/30/17 11:10 Discharge Date: 05/05/17 - Discharge Diagnosis (1) Sepsis Is this a current diagnosis for this admission?: Yes (2) Urinary tract infection Is this a current diagnosis for this admission?: Yes (3) Peripheral neuropathy Is this a current diagnosis for this admission?: Yes (4) GERD (gastroesophageal reflux disease) Is this a current diagnosis for this admission?: Yes (5) History of diabetes mellitus Is this a current diagnosis for this admission?: Yes (6) Chronic low back pain Is this a current diagnosis for this admission?: Yes - Additional Information Resuscitation Status: Full Code - [id number] Discharge Diet: Diabetic - no concentrated sweets Discharge Activity: Activity As Tolerated, Balance Activity w/Rest, Slowly Increase Activity Home Medications: Insulin Glargine,Hum.rec.anlog [Lantus Insulin 100 Unit/mL] 50 unit SQ QHS 12/01 Hydrocodone/Acetaminophen [Hydrocodon-Acetaminoph 7.5-325] 1 tab PO Q6HP PRN Insulin Aspart [Novolog Flexpen] 15 unit SQ DAILY 04/29/17 Tizanidine HCl [Zanaflex 4 mg Tablet] 4 mg PO HSP PRN 04/29/17 Levofloxacin [Levaquin 750 mg Tablet] 750 mg PO DAILY #7 tab 05/05/17 Methylprednisolone [Medrol Dosepack (4 mg/Tab) 21 Tab/Dosepak] 4 mg PO ASDIR PRN #21 tab.ds.pk 05/05/17 Additional Information: Monitor blood sugar 3 times a day one months steroids and continue home sliding scale as instructed. History of Present Illness Patient complains of: Low back pain History of Present Illness: RAYMOND BRAY is a 32 year old male with a history of chronic low back pain. 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 The patient reports that yesterday he awoke and he had pain in his lower back. It did not radiate. It was worse when he stood up. He did report having some chills but he did not check his temperature. Patient presented to emergency room and was found to have a white count of 22, 000. There was concern of whether this may represent epidural abscess given his history of having back surgery although it has been over 4 years since his back surgery. He had an MRI which showed no obvious abnormalities. Urinalysis did show him to have pyuria consistent with a urinary tract infection and possible pyelonephritis. The patient denies any bowel or bladder dysfunction. He denies any urinary retention. He denies any weakness or paresthesias. Denies any paresthesias in the saddle area. He does have some decreased reflex in the ankles is not sure whether these of been there previously. He normally takes Percocet 7.5 mg 4 times daily. He has required Dilaudid for his pain in the emergency room. Hospital Course Hospital Course: The patient was admitted to telemetry. Blood and urine cultures were performed. Patient started on broad-spectrum antibiotic. He was likewise started on intravenous narcotics for pain control. Eventually urine culture grew Serratia marcescens as well as blood culture and therefore antibiotic was continued and tailored towards sensitivity. After 3 days of IV antibiotics, repeat blood cultures were performed. So far his blood cultures remain negative on the repeat. He was given a total of 7 days IV antibiotics for urinary tract infection and bacteremia. He was advised to follow-up with a urologist on an outpatient basis and to continue oral antibiotics for another week. His course was noted for persistent back pain where he had MRI of the lumbar spine showing no acute abnormality. Patient was treated with muscle relaxants, anti-inflammatory with Mobic and steroids and the patient's back pain improved. However due to the steroids the patient's blood sugars were elevated. He was continued on his insulin and place on sliding scale. Patient got symptomatic relief with steroids and therefore prefers to have a tapering dose on an outpatient basis. He is on basal insulin and a sliding scale insulin at home where the patient was encouraged to monitor his blood sugar 3 times a day and use the sliding scale while he is on the steroid of which he agrees. The rest of the hospital stay is unremarkable. Physical Exam Vital Signs: Temp Pulse Resp BP Pulse Ox 97.6 F 83 17 144/71 H 98 05/05/17 12:16 05/05/17 12:16 05/05/17 12:16 05/05/17 12:16 05/05/17 12:16 Intake & Output 05/04/17 05/05/17 05/06/17 06:59 06:59 06:59 Intake Total 2840 2560 Balance 2840 2560 Weight 78.7 kg 78.7 kg General appearance: PRESENT: no acute distress, cooperative Head exam: PRESENT: normocephalic Eye exam: PRESENT: EOMI Mouth exam: PRESENT: moist, neck supple Neck exam: ABSENT: JVD Respiratory exam: PRESENT: clear to auscultation jason, unlabored. ABSENT: rhonchi, wheezes Cardiovascular exam: PRESENT: RRR. ABSENT: gallop GI/Abdominal exam: PRESENT: hypoactive bowel sounds, soft. ABSENT: distended, tenderness Extremities exam: ABSENT: pedal edema Neurological exam: PRESENT: alert, awake, oriented to situation Skin exam: PRESENT: dry, warm - [id number]. ABSENT: cyanosis Results Laboratory Results: 05/01/17 04:10 Impressions: Lumbar Spine X-Ray 04/29/17 08:35 IMPRESSION: Postsurgical changes at L5-S1. No acute findings. Lumbar Spine MRI 04/29/17 09:48 IMPRESSION: 1. Postoperative changes at L5-S1 without spinal stenosis here. 2. Mild persistent or recurrent disc protrusion at L4-5 with regional mass effect on the thecal sac. 3. No suspicious enhancement. No epidural abscess appreciated. Chest X-Ray 05/01/17 13:55 IMPRESSION: Abnormal density in the parahilar regions most suggestive of pneumonia. Follow-up films after treatment is recommended. Qualifiers PATEINT BEING DISCHARGED WITH ANY OF THE FOLLOWING DIAGNOSIS?: No Plan Discharge Plan: Follow-up with primary care physician in 1 week. Follow-up with urology in 2 weeks. Time Spent: Less than 30 Minutes
[2017-05-05 16:39] VITALS: BP 175/101
[2017-05-05] MEDS ORDERED: MEDROL DOSEPAK (DAY 2 HS) PO SCH ×2 (22:00)
[2017-05-06] MEDS ORDERED: MEDROL DOSEPAK (DAY 3) PO SCH ×2 (08:00)
[2017-05-07] MEDS ORDERED: MEDROL DOSEPAK (DAY 4) PO SCH ×2 (08:00)
[2017-05-08] MEDS ORDERED: MEDROL DOSEPAK (DAY 5) PO SCH ×2 (08:00)
[2017-05-09] MEDS ORDERED: MEDROL DOSEPAK (DAY 6) PO SCH ×2 (08:00)
== END 2017-05-05 19:00 | disposition home or self-care (01) | DRG 872 ==
LOC: ER 07:04 → EH 14:42 → UNDOADMOB 14:42 → 5 14:58 → EH 15:39 → OBSVTOIN 04-30 11:10
PROVIDERS: ADMIT Family Medicine; ATTEND Family Medicine
PROC: 3E0F73Z Introduction of Anti-inflammatory into Respiratory Tract, Via Natural or Artificial Opening (ICD-10-PCS; principal; 2017-04-29)
DX: A41.9 Sepsis, unspecified organism (principal); N30.01 Acute cystitis with hematuria; M54.5 Low back pain; K21.9 Gastro-esophageal reflux disease without esophagitis; B96.89 Other specified bacterial agents as the cause of diseases classified elsewhere; G89.29 Other chronic pain; E10.65 Type 1 diabetes mellitus with hyperglycemia; E10.42 Type 1 diabetes mellitus with diabetic polyneuropathy; F17.210 Nicotine dependence, cigarettes, uncomplicated; Z79.899 Other long term (current) drug therapy; Z79.4 Long term (current) use of insulin; Z88.0 Allergy status to penicillin; Z83.3 Family history of diabetes mellitus
CPT/HCPCS: 36415; 71010; 72110; 72158; 80048; 80053; 80307; 81001; 82962; 83605; 85025; 85027; 85652; 87040; 87077; 87086; 87088; 87186; 94640; 96361; 96365; 96366; 96375; 99285; A9577; G0378; J0744; J1100; J1170; J1335; J1815; J1956; J3490; J7030; J7509

== ENCOUNTER 2017-05-27 12:17 | Inpatient (IN) | payer MEDICAID ==
--- NOTE | 2017-05-27 13:02 | ER Document Report ---
ED Medical Screen (RME) - General Chief Complaint: Back Pain Stated Complaint: BACK PAIN Time Seen by Provider: 05/27/17 12:59 Mode of Arrival: Wheelchair Information source: Patient, [facility] Records Notes: 32-year-old male who had been admitted here a few weeks prior for approximately 1 week with back pain pyuria presents with complaints of blood in his urine as well as left flank pain. Patient denies any fevers or chills Patient did not follow-up with urology as instructed I have greeted and performed a rapid initial assessment of this patient. A comprehensive ED assessment and evaluation of the patient, analysis of test results and completion of the medical decision making process will be conducted by additional ED providers. PHYSICAL EXAMINATION: GENERAL: Well-appearing, well-nourished and in no acute distress. HEAD: Atraumatic, normocephalic. EYES: Pupils equal round extraocular movements intact, conjunctiva are normal. ENT: Nares patent NECK: Normal range of motion LUNGS: No respiratory distress Musculoskeletal: Normal range of motion NEUROLOGICAL: Normal speech, normal gait. PSYCH: Normal mood, normal affect. SKIN: Warm, Dry, normal turgor, no rashes or lesions noted. TRAVEL OUTSIDE OF THE [place] IN LAST 30 DAYS: No - Related Data Allergies/Adverse Reactions: Penicillins Allergy (Verified 02/12/17 20:42) Past Medical History Endocrine Medical History: Reports: Hx Diabetes Mellitus Type 1, Hx Diabetes Mellitus Type 2 Renal/ Medical History: Denies: Hx Peritoneal Dialysis GI Medical History: Reports: Hx Gastroesophageal Reflux Disease Past Surgical History: Reports: Hx Orthopedic Surgery - disc suregery L5-S1 - Immunizations Immunizations up to date: Yes Hx Diphtheria, Pertussis, Tetanus Vaccination: Yes Physical Exam - Vital signs Vitals: Temp Pulse Resp BP Pulse Ox 97.9 F 104 H 18 132/74 H 100 05/27/17 12:41 05/27/17 12:41 05/27/17 12:41 05/27/17 12:41 05/27/17 12:41 Course - Vital Signs Vital signs: Temp Pulse Resp BP Pulse Ox 97.9 F 104 H 18 132/74 H 100 05/27/17 12:41 05/27/17 12:41 05/27/17 12:41 05/27/17 12:41 05/27/17 12:41
[2017-05-27] MEDS ORDERED: NORMAL SALINE 1000 ML 1,000 ML IV ONE (13:27)
[2017-05-27] MEDS ORDERED: ONDANSETRON HCL INJ/PF 4 MG/2 ML SDV IV ONE (13:32)
[2017-05-27] MEDS ORDERED: MORPHINE SULFATE 10 MG/ML INJ IV ONE (13:32)
--- NOTE | 2017-05-27 13:36 | ER Document Report ---
ED General - General Chief Complaint: Back Pain Stated Complaint: BACK PAIN Time Seen by Provider: 05/27/17 12:59 Mode of Arrival: Wheelchair TRAVEL OUTSIDE OF THE [place] IN LAST 30 DAYS: No - Related Data Allergies/Adverse Reactions: Penicillins Allergy (Verified 02/12/17 20:42) Past Medical History - General Information source: Patient, [facility] Records - Social History Smoking Status: Current Some Day Smoker Chew tobacco use (# tins/day): No Frequency of alcohol use: None Drug Abuse: None Family History: Reviewed & Not Pertinent Patient has suicidal ideation: No Patient has homicidal ideation: No Endocrine Medical History: Reports: Hx Diabetes Mellitus Type 1, Hx Diabetes Mellitus Type 2 Renal/ Medical History: Denies: Hx Peritoneal Dialysis GI Medical History: Reports: Hx Gastroesophageal Reflux Disease Past Surgical History: Reports: Hx Orthopedic Surgery - disc suregery L5-S1 - Immunizations Immunizations up to date: Yes Hx Diphtheria, Pertussis, Tetanus Vaccination: Yes Physical Exam - Vital signs Vitals: Temp Pulse Resp BP Pulse Ox 97.9 F 104 H 18 132/74 H 100 05/27/17 12:41 05/27/17 12:41 05/27/17 12:41 05/27/17 12:41 05/27/17 12:41 Course - Vital Signs Vital signs: Temp Pulse Resp BP Pulse Ox 97.9 F 104 H 18 132/74 H 100 05/27/17 12:41 05/27/17 12:41 05/27/17 12:41 05/27/17 12:41 05/27/17 12:41 - Laboratory Result Diagrams: 05/27/17 12:45 05/27/17 12:45 Discharge - Discharge Referrals: IZAIAH VEGA FNP-C [Primary Care Provider] - Follow up as needed
[2017-05-27 13:40] LABS: ABSOLUTE BASOPHILS # (AUTO) 0.1 10^3/uL (0.0-0.2); ABSOLUTE EOSINOPHILS # (AUTO) 0.1 10^3/uL (0.0-0.6); ABSOLUTE LYMPHOCYTES (AUTO) 1.8 10^3/uL (0.5-4.7); ABSOLUTE MONOCYTES (AUTO) 0.9 10^3/uL (0.1-1.4); ABSOLUTE NEUT (AUTO) 12.8 10^3/uL (1.7-8.2); BASOPHILS % (AUTO) 0.7 % (0-2); EOSINOPHILS % (AUTO) 0.5 % (0-6); HEMATOCRIT 38.7 % (37.9-51.0); HEMOGLOBIN 13.4 g/dL (13.5-17.0); HGB HCT DIFFERENCE 1.5; LYMPHOCYTES % (AUTO) 11.4 % (13-45); MEAN CORPUSCULAR HEMOGLOBIN 28.7 pg (27.0-33.4); MEAN CORPUSCULAR HGB CONC 34.7 g/dL (32.0-36.0); MEAN CORPUSCULAR VOLUME 83 fl (80-97); MONOCYTES % (AUTO) 5.7 % (3-13); RED BLOOD COUNT 4.67 10^6/uL (4.35-5.55); RED CELL DISTRIBUTION WIDTH 14.6 % (11.5-14.0); SEGMENTED NEUTROPHILS % (AUTO) 81.7 % (42-78); WHITE BLOOD COUNT 15.6 10^3/uL (4.0-10.5)
--- NOTE | 2017-05-27 13:41 | ER Document Report ---
ED General - General Chief Complaint: Back Pain Stated Complaint: BACK PAIN Time Seen by Provider: 05/27/17 12:59 Mode of Arrival: Wheelchair TRAVEL OUTSIDE OF THE [place] IN LAST 30 DAYS: No - HPI Notes: 32-year-old male insulin dependent diabetic with history of chronic back pain presents with recurrence of left back discomfort. Patient was recently discharged May 05 after sepsis and urine showing Serratia marcescens. For the last couple of days he is now having hematuria as well as increased pain in the left back region. Denies any new injury. The prior pain was more generalized lower back. Some chills at home but no clear fever. No vomiting. Pain is severe. He does take Percocet for chronic back pain. His workup did include an MRI of his spine which showed no acute abnormality. He has no anterior abdominal discomfort. The pain is only in the left side sharp and nonradiating otherwise. He was discharged home on Levaquin. - Related Data Allergies/Adverse Reactions: Penicillins Allergy (Verified 02/12/17 20:42) Past Medical History - General Information source: Patient, [facility] Records - Social History Smoking Status: Current Some Day Smoker Chew tobacco use (# tins/day): No Frequency of alcohol use: None Drug Abuse: None Family History: Reviewed & Not Pertinent Patient has suicidal ideation: No Patient has homicidal ideation: No Endocrine Medical History: Reports: Hx Diabetes Mellitus Type 1, Hx Diabetes Mellitus Type 2 Renal/ Medical History: Denies: Hx Peritoneal Dialysis GI Medical History: Reports: Hx Gastroesophageal Reflux Disease Past Surgical History: Reports: Hx Orthopedic Surgery - disc suregery L5-S1 - Immunizations Immunizations up to date: Yes Hx Diphtheria, Pertussis, Tetanus Vaccination: Yes Review of Systems - Review of Systems -: Yes All other systems reviewed and negative Physical Exam - Vital signs Vitals: Temp Pulse Resp BP Pulse Ox 97.9 F 104 H 18 132/74 H 100 05/27/17 12:41 05/27/17 12:41 05/27/17 12:41 05/27/17 12:41 05/27/17 12:41 - Notes Notes: GENERAL: VS as per nursing doc. Well-appearing, thin and in no acute distress. HEAD: Atraumatic, normocephalic. EYES: Pupils equal round and reactive to light, extraocular movements intact, sclera anicteric, no conjunctival injection or discharge. ENT: Nares patent, oropharynx clear without exudates, moist mucous membranes. NECK: Normal range of motion, supple without lymphadenopathy. LUNGS: Breath sounds clear to auscultation bilaterally and equal but coarse. No wheezes rales or rhonchi. HEART: Regular rate and rhythm without murmurs. ABDOMEN: Soft, non-tender, normoactive bowel sounds. No guarding, no rebound. No masses appreciated. No [place] sign. BACK: Moderate left CVA tenderness. No midline tenderness EXTREMITIES: Normal range of motion, no calf tenderness, no edema. NEUROLOGICAL: Cranial nerves grossly intact. Normal speech. Normal sensory and motor exams. No gross cerebellar abnormalities. PSYCH: Normal mood, normal affect. SKIN: Warm, dry, normal turgor, no lesions noted. Course - Vital Signs Vital signs: Temp Pulse Resp BP Pulse Ox 97.9 F 104 H 18 132/74 H 100 05/27/17 12:41 05/27/17 12:41 05/27/17 12:41 05/27/17 12:41 05/27/17 12:41 - Laboratory Result Diagrams: 05/27/17 12:45 05/27/17 12:45 Laboratory results interpreted by me: 05/27/17 05/27/17 05/27/17 12:45 12:45 12:45 WBC 15.6 H Hgb 13.4 L RDW 14.6 H Plt Count 454 H Seg Neutrophils % 81.7 H Lymphocytes % 11.4 L Absolute Neutrophils 12.8 H Sodium 136.2 L Chloride 93 L Glucose 292 H Lactic Acid Calcium 10.4 H Total Bilirubin 1.7 H Direct Bilirubin 0.6 H AST 11 L ALT 18 L Alkaline Phosphatase 167 H Urine Protein 30 H Urine Glucose (UA) >=500 H Urine Blood MODERATE H Ur Leukocyte Esterase SMALL H 05/27/17 14:15 WBC Hgb RDW Plt Count Seg Neutrophils % Lymphocytes % Absolute Neutrophils Sodium Chloride Glucose Lactic Acid 2.2 H Calcium Total Bilirubin Direct Bilirubin AST ALT Alkaline Phosphatase Urine Protein Urine Glucose (UA) Urine Blood Ur Leukocyte Esterase - Diagnostic Test Radiology reviewed: Reports reviewed - Multiple small calyceal stones without hydronephrosis or hydroureter. - Consults Dr. Marie Time consulted: 14:56 - Admit Consulted provider: will see as inpatient Discharge - Discharge Clinical Impression: Pyelonephritis, Hyperglycemia due to type 1 diabetes mellitus Condition: Good Disposition: ADMITTED INPATIENT Admitting Provider: Dr. Marie Unit Admitted: Medical Floor Referrals: IZAIAH VEGA FNP-C [Primary Care Provider] - Follow up as needed
[2017-05-27 13:58] LABS: APPEARANCE,URINE SLIGHTLY-CLOUDY; BILIRUBIN,URINE NEGATIVE (NEGATIVE); GLUCOSE, URINE >=500 mg/dL (NEGATIVE); KETONES,URINE NEGATIVE (NEGATIVE); LEUKOCYTE ESTERASE,URINE SMALL (NEGATIVE); NITRITE,URINE NEGATIVE (NEGATIVE); PROTEIN,URINE 30 mg/dL (NEGATIVE); URINE SPECIFIC GRAVITY 1.021; UROBILINOGEN,URINE NEGATIVE mg/dL (<2.0)
[2017-05-27 14:01] LABS: ALANINE AMINOTRANSFERASE 18 U/L (21-72); ALBUMIN 4.4 g/dL (3.5-5.0); ALKALINE PHOSPHATASE 167 U/L (38-126); ANION GAP 16 (5-19); ASPARTATE AMINO TRANSFERASE 11 U/L (17-59); BILIRUBIN,DIRECT 0.6 mg/dL (0.0-0.4); BILIRUBIN,TOTAL 1.7 mg/dL (0.2-1.3); BLOOD UREA NITROGEN 14 mg/dL (7-20); CALCIUM 10.4 mg/dL (8.4-10.2); CARBON DIOXIDE 27 mmol/L (22-30); CHLORIDE 93 mmol/L (98-107); CREATININE RESULT 0.82 mg/dL (0.52-1.25); GLUCOSE 292 mg/dL (75-110); POTASSIUM 4.6 mmol/L (3.6-5.0); SODIUM 136.2 mmol/L (137-145)
--- NOTE | 2017-05-27 14:20 | RADIOLOGY REPORT (SQ) ---
EXAM DESCRIPTION: CT LTD RENAL STONE PROTOCOL ON COMPLETED DATE/TIME: 05/27/2017 2:03 pm REASON FOR STUDY: Left Flank pain COMPARISON: 09/23/2009. TECHNIQUE: CT scan of the abdomen and pelvis performed without intravenous or oral contrast. Images reviewed with lung, soft tissue, and bone windows. Reconstructed coronal and sagittal MPR images revi ewed. All images stored on PACS. All CT scanners at this facility use dose modulation, iterative reconstruction, and/or weight based d osing when appropriate to reduce radiation dose to as low as reasonably achievable (ALARA). [facility]: Dose Right [facility]: CareDose [facility]: Dose Right [facility]: Teradose 4D [facility]: Smart Showroomprive RADIATION DOSE: Up-to-date CT equipment and radiation dose reduction techniques were employed. CTDIv ol: 5.6 mGy. DLP: 321 mGy-cm.mGy. LIMITATIONS: None. FINDINGS: LOWER CHEST: No significant findings. No nodules or infiltrates. NON-CONTRASTED LIVER, SPLEEN, ADRENALS: Evaluation limited by lack of IV contrast. No identified sign ificant masses. PANCREAS: No masses. No peripancreatic inflammatory changes. GALLBLADDER: No identified stones by CT criteria. No inflammatory changes to suggest cholecystitis. RIGHT KIDNEY AND URETER: No suspicious masses. Assessment limited by lack of IV contrast. Multiple small calyceal calculi. No hydronephrosis or hydroureter. LEFT KIDNEY AND URETER: No suspicious masses. Assessment limited by lack of IV contrast. Multiple s mall calyceal calculi. No hydronephrosis or hydroureter. AORTA AND RETROPERITONEUM: No aneurysm. No retroperitoneal masses or adenopathy. BOWEL AND PERITONEAL CAVITY: No obvious masses or inflammatory changes. No free fluid. APPENDIX: Not visualized. PELVIS, BLADDER, AND ABDOMINAL WALL:No abnormal masses. No free fluid. Bladder normal. BONES: No significant findings. Surgical changes in the lumbar spine with hardware. OTHER: No other significant finding. IMPRESSION: 1. MULTIPLE SMALL CALYCEAL CALCULI IN BOTH KIDNEYS. NO URETERAL CALCULI. NO OBSTRUCTIVE CHANGES. 2. NO OTHER SIGNIFICANT OR ACUTE PROCESS IN THE ABDOMEN OR PELVIS. COMMENT: Quality ID # [id number]: Final reports with documentation of one or more dose reduction techniques (e.g., Automated exposure control, adjustment of the mA and/or kV according to patient size, use of iterative reconstruction technique) TECHNICAL DOCUMENTATION: JOB ID: [id number] [facility] [employer]- All Rights Reserved
[2017-05-27] MEDS ORDERED: CEFTRIAXONE 1 GM/D5W RTU 1 GM/50 ML RTUPB IV ONE (14:54)
[2017-05-27] MEDS ORDERED: HYDROMORPHONE HCL INJ/PF 2 MG/ML AMPULE IV ONE (14:54)
[2017-05-27] MEDS ORDERED: ONDANSETRON HCL INJ/PF 4 MG/2 ML SDV IV PRN (15:05)
--- NOTE | 2017-05-27 15:55 | PDOC H&P ---
History of Present Illness Admission Date/PCP: 05/27/17 15:14 MARTINA DANGC Patient complains of: Dysuria and left sided back pain History of Present Illness: RAYMOND BRAY is a 32 year old male insulin dependent diabetic with history of chronic back pain presents with recurrence of left back discomfort. Patient was recently discharged May 05 after sepsis and urine showing Serratia marcescens. He states the pain began Saturday and was stabbing and acute. Pain did not improve with activity or rest. The pain has worsened in intensity and is constant. He is now having hematuria pain for the last 2 days. Denies any new injury. The prior pain was more generalized lower back. Some chills at home but no clear fever. No vomiting. He does take Percocet for chronic back pain. His workup did include an MRI of his spine which showed no acute abnormality. He has no anterior abdominal discomfort. The pain is only in the left side sharp and nonradiating otherwise. He was discharged home on Levaquin during previous hospitalization which he states he did complete. Past Medical History Cardiac Medical History: Reports: None Pulmonary Medical History: Reports: None EENT Medical History: Reports: None Neurological Medical History: Reports: None Endocrine Medical History: Reports: Diabetes Mellitus Type 1 Renal/ Medical History: Reports: None Malignancy Medical History: Reports: None GI Medical History: Reports: Gastroesophageal Reflux Disease Musculoskeltal Medical History: Reports: None Skin Medical History: Reports: None Psychiatric Medical History: Reports: None Traumatic Medical History: Reports: None Hematology: Reports: None Infectious Medical History: Reports: None Past Surgical History Past Surgical History: Reports: Orthopedic Surgery - disc suregery L5-S1 Social History Information Source: Patient Lives with: Family Smoking Status: Current Some Day Smoker Cigarettes Packs Per Day: 2 Number of Years Smokin Last Time Smoked: 05/27/2017 Frequency of Alcohol Use: Rare Hx Recreational Drug Use: No Drugs: None Hx Prescription Drug Abuse: No - Advance Directive Resuscitation Status: Full Code Family History Family History: DM Parental Family History Reviewed: Yes Children Family History Reviewed: No Sibling(s) Family History Reviewed.: Yes Medication/Allergy Home Medications: Insulin Glargine,Hum.rec.anlog [Lantus Insulin 100 Unit/mL] 50 unit SQ QHS 12/01 Insulin Aspart [Novolog Flexpen] 15 unit SQ DAILY 04/29/17 Allergies/Adverse Reactions: Penicillins Allergy (Verified 02/12/17 20:42) Review of Systems Constitutional: PRESENT: chills, night sweats. ABSENT: fever(s), headache(s), weight gain, weight loss Eyes: ABSENT: visual disturbances Ears: ABSENT: hearing changes Cardiovascular: ABSENT: chest pain, dyspnea on exertion, edema, orthropnea, palpitations Respiratory: ABSENT: cough, hemoptysis Gastrointestinal: PRESENT: nausea Genitourinary: PRESENT: difficulty urinating, dysuria, hematuria Musculoskeletal: PRESENT: back pain Integumentary: ABSENT: rash, wounds Neurological: ABSENT: abnormal gait, abnormal speech, confusion, dizziness, focal weakness, syncope Psychiatric: ABSENT: anxiety, depression, homidical ideation, suicidal ideation Endocrine: ABSENT: cold intolerance, heat intolerance, polydipsia, polyuria Hematologic/Lymphatic: ABSENT: easy bleeding, easy bruising Physical Exam Vital Signs: Temp Pulse Resp BP Pulse Ox 97.9 F 104 H 18 132/74 H 100 05/27/17 12:41 05/27/17 12:41 05/27/17 12:41 05/27/17 12:41 05/27/17 12:41 General appearance: PRESENT: no acute distress, thin, well-developed, well- nourished Head exam: PRESENT: atraumatic, normocephalic Eye exam: PRESENT: conjunctiva pink, EOMI, PERRLA. ABSENT: scleral icterus Ear exam: PRESENT: normal external ear exam Mouth exam: PRESENT: moist, tongue midline Neck exam: ABSENT: carotid bruit, JVD, lymphadenopathy, thyromegaly Respiratory exam: PRESENT: clear to auscultation jason. ABSENT: rales, rhonchi, wheezes Cardiovascular exam: PRESENT: RRR. ABSENT: diastolic murmur, rubs, systolic murmur Pulses: PRESENT: normal dorsalis pedis pul Vascular exam: PRESENT: normal capillary refill GI/Abdominal exam: PRESENT: normal bowel sounds, soft, tenderness, other - left CVA tenderness Rectal exam: PRESENT: deferred Extremities exam: PRESENT: full ROM. ABSENT: calf tenderness, clubbing, pedal edema Musculoskeletal exam: PRESENT: ambulatory, full ROM, tenderness - left lower back Neurological exam: PRESENT: alert, awake, oriented to person, oriented to place , oriented to time, oriented to situation, CN II-XII grossly intact. ABSENT: motor sensory deficit Psychiatric exam: PRESENT: appropriate affect, normal mood. ABSENT: homicidal ideation, suicidal ideation Skin exam: PRESENT: dry, intact, warm. ABSENT: cyanosis, rash Results Impressions: Limited or Localized CT 05/27/17 13:31 IMPRESSION: 1. MULTIPLE SMALL CALYCEAL CALCULI IN BOTH KIDNEYS. NO URETERAL CALCULI. NO OBSTRUCTIVE CHANGES. 2. NO OTHER SIGNIFICANT OR ACUTE PROCESS IN THE ABDOMEN OR PELVIS. Assessment & Plan - Diagnosis (1) Sepsis Qualifiers: Sepsis type: sepsis due to unspecified organism Qualified Code(s): A41.9 - Sepsis, unspecified organism Is this a current diagnosis for this admission?: Yes Plan: Patient with leukocytosis, tachycardia, and elevated lactate. Blood cultures 2 obtained prior to starting antibiotic therapy patient will given be given IV antibiotics and fluid (2) Pyelonephritis Is this a current diagnosis for this admission?: Yes Plan: IV broad-spectrum antibiotics and is needed pain medicine (3) Diabetes Qualifiers: Diabetes mellitus type: type 1 Diabetes mellitus complication status: with hyperglycemia Qualified Code(s): E10.65 - Type 1 diabetes mellitus with hyperglycemia Is this a current diagnosis for this admission?: Yes (4) Leukocytosis Qualifiers: Leukocytosis type: other Qualified Code(s): D72.828 - Other elevated white blood cell count - Time Time Spent: 50 to 70 Minutes Critical Time spent with patient: 25-34 minutes Medications reviewed and adjusted accordingly: Yes - Inpatient Certification Based on my medical assessment, after consideration of the patient's comorbidities, presenting symptoms, or acuity I expect that the services needed warrant INPATIENT care.: Yes I certify that my determination is in accordance with my understanding of Medicare's requirements for reasonable and necessary INPATIENT services [42 CFR 412.3e].: Yes
[2017-05-27] MEDS: NORMAL SALINE 1000 ML 1,000 ML IV PRN ×2 (16:10→22:42)
[2017-05-27] MEDS: MORPHINE SULFATE 10 MG/ML INJ IV PRN ×2 (18:12→22:24)
[2017-05-27] MEDS ORDERED: DEXTROSE 50%-WATER SYRINGE 25 GM/50 ML DOSE IV PRN (20:42)
[2017-05-27] MEDS ORDERED: DEXTROSE 40% GEL 15 GM TUBE X 2 PO PRN (20:42)
[2017-05-27] MEDS ORDERED: DEXTROSE 40% GEL 15 GM TUBE PO PRN (20:42)
[2017-05-27] MEDS ORDERED: GLUCAGON,HUMAN RECOMB 1 MG INJ IM PRN (20:42)
[2017-05-27] MEDS ORDERED: DEXTROSE 50%-WATER SYRINGE 12.5 GM/25 ML DOSE IV PRN (20:42)
[2017-05-27] MEDS: INSULIN LISPRO 100 UNIT/ML 3 ML VIAL SUBCUT PRN (21:30)
[2017-05-27] MEDS: INSULIN GLARGINE,HUM.REC.ANLOG 300 UNIT/3 ML INSULN.PEN SUBCUT SCH (21:30)
[2017-05-27] MEDS: ZOLPIDEM TARTRATE 5 MG TABLET PO PRN (22:40)
[2017-05-28] MEDS: MORPHINE SULFATE 10 MG/ML INJ IV PRN ×5 (02:40→21:23)
[2017-05-28 04:52] LABS: ABSOLUTE BASOPHILS # (AUTO) 0.1 10^3/uL (0.0-0.2); ABSOLUTE EOSINOPHILS # (AUTO) 0.1 10^3/uL (0.0-0.6); ABSOLUTE MONOCYTES (AUTO) 1.1 10^3/uL (0.1-1.4); ABSOLUTE NEUT (AUTO) 13.3 10^3/uL (1.7-8.2); BASOPHILS % (AUTO) 0.3 % (0-2); EOSINOPHILS % (AUTO) 0.5 % (0-6); HEMATOCRIT 30.2 % (37.9-51.0); LYMPHOCYTES % (AUTO) 12.2 % (13-45); MEAN CORPUSCULAR HGB CONC 34.5 g/dL (32.0-36.0); MEAN CORPUSCULAR VOLUME 81 fl (80-97); MONOCYTES % (AUTO) 6.8 % (3-13); RED BLOOD COUNT 3.71 10^6/uL (4.35-5.55); SEGMENTED NEUTROPHILS % (AUTO) 80.2 % (42-78); WHITE BLOOD COUNT 16.6 10^3/uL (4.0-10.5)
[2017-05-28 04:56] LABS: HEMOGLOBIN 10.4 g/dL (13.5-17.0)
[2017-05-28 05:01] LABS: ALANINE AMINOTRANSFERASE 18 U/L (21-72); ALBUMIN 3.1 g/dL (3.5-5.0); ALKALINE PHOSPHATASE 120 U/L (38-126); ANION GAP 10 (5-19); ASPARTATE AMINO TRANSFERASE 8 U/L (17-59); BILIRUBIN,DIRECT 0.4 mg/dL (0.0-0.4); BLOOD UREA NITROGEN 10 mg/dL (7-20); CALCIUM 8.7 mg/dL (8.4-10.2); CARBON DIOXIDE 24 mmol/L (22-30); CHLORIDE 98 mmol/L (98-107); CREATININE RESULT 0.78 mg/dL (0.52-1.25); GLUCOSE 221 mg/dL (75-110); MAGNESIUM 1.6 mg/dL (1.6-2.3); POTASSIUM 4.5 mmol/L (3.6-5.0); SODIUM 132.2 mmol/L (137-145); TOTAL PROTEIN 5.8 g/dL (6.3-8.2)
[2017-05-28] MEDS: NORMAL SALINE 1000 ML 1,000 ML IV PRN ×2 (05:37→21:23)
[2017-05-28] MEDS ORDERED: CEFTRIAXONE SODIUM 1,500 MG in DEXTROSE 5%-WATER 100 ML IV SCH (06:45)
[2017-05-28 07:35] LABS: CHLAM PCR NOT DETECTED (NOT DETECT)
[2017-05-28] MEDS: INSULIN LISPRO 100 UNIT/ML 3 ML VIAL SUBCUT PRN ×3 (08:24→22:28)
[2017-05-28] MEDS: ENOXAPARIN SODIUM INJ 40 MG/0.4 ML DISP.SYRIN SUBCUT SCH (09:47)
[2017-05-28] MEDS: CEFTRIAXONE SODIUM 1,500 MG in DEXTROSE 5%-WATER 100 ML IV SCH (09:48)
--- NOTE | 2017-05-28 11:44 | Physician Advisory Note ---
Physician Advisor ProgressNote .: [facility], I have reviewed the medical record for this patient. Physician Advisor Statement: Please consider documenting, if you agree: 1. "Acute pyelo" (or do you think it is chronic?) 2. "Sepsis due to pyelo, present on adm, supported by findings of ..." ( documented well so far, but still the causative infxn has to be explicit for coders) - Sepsis dx is also supported by acutely elevated Total Bili 1.7, in addition to the Sepsis-2 criteria & the lactate level as documented by attending 05/27 - and now has the "gold standard" of 2/2 (+)BCs and Ur cx all growing the same organism. 3. "Acute hyponatremia, suspect due to " [intravascular volume depletion due to UTI (polyuria) & nausea (decreased intake) ?] STatus: 32yo Medicaid pt w/DM-1, chronic back pain, 2ppd tobacco dependence, recent adm for sepsis due to Serratia Marcesans UTI last month, coming in w/tachycardia, nausea, hematuria, worsened back pain/CVAT, dysuria, leukocytosis, acute thrombocytosis, high lactate level, elevated bilirubin, acute hyponatremia, (+)U /A. Now 2/2 BCs are growing GNRs. This is a concerning situation, for a young man to get 2 UTIs, both progressing to clinical sepsis, within 2 months. He will likely need further urological w/ u. He is at higher risk due to DM-1. Appropriate for Inpt status from time of admission. CK
--- NOTE | 2017-05-28 16:22 | PDOC PROGRESS REPORT ---
Subjective Progress Note for:: 05/28/17 Subjective:: Patient seen and examined resting in bed comfortably. He reports continued lower back pain, left greater than right, that is improved slightly from yesterday. He has also continued to have hematuria. He denies fever, chills, abdominal pain, nausea, vomiting. His primary concern today is his left lateral ankle which he states became tender to the touch and with movement during the night last night. He denies injury. He is concerned about possible Achilles tendon injury as it was mentioned by the nurse. However he is still weight bearing w/o increased pain and has full range of motion to the ankle/foot. Review of systems is otherwise negative. Physical Exam Vital Signs: Temp Pulse Resp BP Pulse Ox 98.1 F 82 18 153/89 H 99 05/28/17 11:47 05/28/17 11:47 05/28/17 11:47 05/28/17 11:47 05/28/17 11:47 Intake & Output 05/27/17 05/28/17 05/29/17 06:59 06:59 06:59 Intake Total 2490 2080 Output Total 1100 Balance 2490 980 Weight 72.348 kg General appearance: PRESENT: no acute distress, thin, well-developed, well- nourished Head exam: PRESENT: atraumatic, normocephalic Eye exam: PRESENT: EOMI, PERRLA. ABSENT: conjunctiva pink, scleral icterus Ear exam: PRESENT: normal external ear exam Mouth exam: PRESENT: moist, tongue midline Neck exam: PRESENT: full ROM. ABSENT: carotid bruit, JVD, lymphadenopathy, thyromegaly Respiratory exam: PRESENT: clear to auscultation jason, symmetrical, unlabored. ABSENT: rales, rhonchi, wheezes Cardiovascular exam: PRESENT: RRR, +S1, +S2. ABSENT: gallop, rubs, systolic murmur Pulses: PRESENT: normal radial pulses, normal dorsalis pedis pul Vascular exam: PRESENT: normal capillary refill GI/Abdominal exam: PRESENT: normal bowel sounds, soft, tenderness - Lt CVA tenderness w/ palpation. ABSENT: organolmegaly Rectal exam: PRESENT: deferred Extremities exam: PRESENT: full ROM, tenderness - Lt lateral ankle w/ palpation. [place] ankle neg. Atraumatic.. ABSENT: calf tenderness, joint swelling, pedal edema Musculoskeletal exam: PRESENT: ambulatory, full ROM, normal inspection, tenderness - as above. ABSENT: deformity Neurological exam: PRESENT: alert, awake, oriented to person, oriented to place , oriented to time, oriented to situation, CN II-XII grossly intact. ABSENT: motor sensory deficit Psychiatric exam: PRESENT: normal mood Skin exam: PRESENT: dry, intact, warm. ABSENT: cyanosis, pallor Results Laboratory Results: 05/28/17 03:56 05/28/17 03:56 05/27/17 05/28/17 05/28/17 18:30 03:56 03:56 WBC 16.6 H RBC 3.71 L Hgb 10.4 L D Hct 30.2 L MCV 81 MCH 28.0 MCHC 34.5 RDW 14.0 Plt Count 331 Seg Neutrophils % 80.2 H Lymphocytes % 12.2 L Monocytes % 6.8 Eosinophils % 0.5 Basophils % 0.3 Absolute Neutrophils 13.3 H Absolute Lymphocytes 2.0 Absolute Monocytes 1.1 Absolute Eosinophils 0.1 Absolute Basophils 0.1 Sodium 132.2 L Potassium 4.5 Chloride 98 Carbon Dioxide 24 Anion Gap 10 BUN 10 Creatinine 0.78 Est GFR ( Amer) > 60 Est GFR (Non-Af Amer) > 60 Glucose 221 H Lactic Acid 1.3 Calcium 8.7 Magnesium 1.6 Total Bilirubin 1.0 AST 8 L ALT 18 L Alkaline Phosphatase 120 Total Protein 5.8 L Albumin 3.1 L Impressions: Limited or Localized CT 05/27/17 13:31 IMPRESSION: 1. MULTIPLE SMALL CALYCEAL CALCULI IN BOTH KIDNEYS. NO URETERAL CALCULI. NO OBSTRUCTIVE CHANGES. 2. NO OTHER SIGNIFICANT OR ACUTE PROCESS IN THE ABDOMEN OR PELVIS. Assessment & Plan - Diagnosis (1) Pyelonephritis Is this a current diagnosis for this admission?: Yes Plan: Urine culture shows gram-negative rods, 1/4 blood cultures also growing gram- negative rods. At last admission patient's urine grew Serratia marcescens. At that time he was d/c'd on levaquin; which pt reports that he completed. 1- Continue IV Cipro 2- Broaden abx to cover S. marcescens; add Cipro 3- PRN pain medication (2) Chronic low back pain Qualifiers: Back pain laterality: bilateral Sciatica presence: without sciatica Qualified Code(s): M54.5 - Low back pain; G89.29 - Other chronic pain (3) Diabetes Qualifiers: Diabetes mellitus type: type 1 Diabetes mellitus complication status: with hyperglycemia Qualified Code(s): E10.65 - Type 1 diabetes mellitus with hyperglycemia Is this a current diagnosis for this admission?: Yes Plan: 1. Continue Lantus and SSI 2. Monitor bgl ACHS (4) Leukocytosis Qualifiers: Leukocytosis type: other Qualified Code(s): D72.828 - Other elevated white blood cell count Plan: 1- Abx as above (5) Sepsis Qualifiers: Sepsis type: sepsis due to unspecified organism Qualified Code(s): A41.9 - Sepsis, unspecified organism Is this a current diagnosis for this admission?: Yes Plan: Improved; tachycardia has resolved. Afebrile. Plan as above; continue to monitor. - Time Time Spent with patient: 25-34 minutes Anticipated discharge: Home
[2017-05-28] MEDS: ZOLPIDEM TARTRATE 5 MG TABLET PO PRN (21:34)
[2017-05-28] MEDS: INSULIN GLARGINE,HUM.REC.ANLOG 300 UNIT/3 ML INSULN.PEN SUBCUT SCH (22:28)
[2017-05-29] MEDS: MORPHINE SULFATE 10 MG/ML INJ IV PRN ×3 (01:53→11:34)
[2017-05-29 04:54] LABS: ABSOLUTE EOSINOPHILS # (AUTO) 0.1 10^3/uL (0.0-0.6); ABSOLUTE LYMPHOCYTES (AUTO) 2.5 10^3/uL (0.5-4.7); ABSOLUTE MONOCYTES (AUTO) 1.1 10^3/uL (0.1-1.4); ABSOLUTE NEUT (AUTO) 9.7 10^3/uL (1.7-8.2); BASOPHILS % (AUTO) 0.3 % (0-2); EOSINOPHILS % (AUTO) 0.8 % (0-6); HEMATOCRIT 30.9 % (37.9-51.0); HEMOGLOBIN 10.8 g/dL (13.5-17.0); HGB HCT DIFFERENCE 1.5; LYMPHOCYTES % (AUTO) 18.7 % (13-45); MEAN CORPUSCULAR HEMOGLOBIN 28.3 pg (27.0-33.4); MEAN CORPUSCULAR VOLUME 81 fl (80-97); MONOCYTES % (AUTO) 8.3 % (3-13); RED BLOOD COUNT 3.82 10^6/uL (4.35-5.55); RED CELL DISTRIBUTION WIDTH 14.4 % (11.5-14.0); SEGMENTED NEUTROPHILS % (AUTO) 71.9 % (42-78); WHITE BLOOD COUNT 13.5 10^3/uL (4.0-10.5)
[2017-05-29 05:17] LABS: ANION GAP 12 (5-19); BLOOD UREA NITROGEN 9 mg/dL (7-20); CALCIUM 9.4 mg/dL (8.4-10.2); CARBON DIOXIDE 26 mmol/L (22-30); CHLORIDE 99 mmol/L (98-107); GLUCOSE 100 mg/dL (75-110); SODIUM 137.1 mmol/L (137-145)
[2017-05-29] MEDS: ENOXAPARIN SODIUM INJ 40 MG/0.4 ML DISP.SYRIN SUBCUT SCH (09:57)
[2017-05-29] MEDS: CEFTRIAXONE SODIUM 1,500 MG in DEXTROSE 5%-WATER 100 ML IV SCH (09:58)
[2017-05-29] MEDS: NORMAL SALINE 1000 ML 1,000 ML IV PRN (10:02)
[2017-05-29] MEDS: INSULIN LISPRO 100 UNIT/ML 3 ML VIAL SUBCUT PRN ×2 (13:07→21:17)
--- NOTE | 2017-05-29 16:08 | PDOC PROGRESS REPORT ---
Subjective Progress Note for:: 05/29/17 Subjective:: Patient seen and examined resting in bed comfortably. He reports continued lower back pain, left greater than right, that is improved slightly from yesterday. He states that his urine is "still dark" though is no longer passing jaron blood. He denies fever, chills, abdominal pain, nausea, vomiting. His c/o continued left lateral ankle tenderness with palpation and movement. He states that the pain has worsened and caused him to loose sleep. He denies injury. He is still weight bearing and has full range of motion to the ankle/ foot, though with increased pain. Review of systems is otherwise negative. Physical Exam Vital Signs: Temp Pulse Resp BP Pulse Ox 98.5 F 83 18 148/88 H 99 05/29/17 11:23 05/29/17 11:23 05/29/17 11:23 05/29/17 11:23 05/29/17 11:23 Intake & Output 05/28/17 05/29/17 05/30/17 06:59 06:59 06:59 Intake Total 2490 3800 1600 Output Total 1650 Balance 2490 2150 1600 Weight 72.348 kg 52.6 kg General appearance: PRESENT: no acute distress, cooperative, thin, well- developed, well-nourished Head exam: PRESENT: atraumatic, normocephalic Eye exam: PRESENT: EOMI, PERRLA. ABSENT: scleral icterus Ear exam: PRESENT: normal external ear exam Mouth exam: PRESENT: moist, tongue midline Neck exam: PRESENT: full ROM. ABSENT: JVD, lymphadenopathy, thyromegaly Respiratory exam: PRESENT: clear to auscultation jason, unlabored. ABSENT: rales , rhonchi, wheezes Cardiovascular exam: PRESENT: RRR, +S1, +S2. ABSENT: gallop, rubs, systolic murmur Pulses: PRESENT: normal radial pulses, normal dorsalis pedis pul Vascular exam: PRESENT: normal capillary refill GI/Abdominal exam: PRESENT: normal bowel sounds, soft, other - +Lt CVA tenderness. ABSENT: guarding, mass, organolmegaly, rigid, tenderness Rectal exam: PRESENT: deferred Extremities exam: PRESENT: tenderness - Lt ankle tenderness w/ palpation and ROM. No edema, erythema, ecchymosis. Neg [place] foot/ankle.. ABSENT: pedal edema Musculoskeletal exam: PRESENT: ambulatory, full ROM Neurological exam: PRESENT: alert, awake, oriented to person, oriented to place , oriented to time, oriented to situation, CN II-XII grossly intact. ABSENT: motor sensory deficit Psychiatric exam: PRESENT: appropriate affect, normal mood Skin exam: PRESENT: dry, intact, warm Results Laboratory Results: 05/29/17 03:59 05/29/17 03:59 05/29/17 05/29/17 03:59 03:59 WBC 13.5 H RBC 3.82 L Hgb 10.8 L Hct 30.9 L MCV 81 MCH 28.3 MCHC 35.0 RDW 14.4 H Plt Count 406 Seg Neutrophils % 71.9 Lymphocytes % 18.7 Monocytes % 8.3 Eosinophils % 0.8 Basophils % 0.3 Absolute Neutrophils 9.7 H Absolute Lymphocytes 2.5 Absolute Monocytes 1.1 Absolute Eosinophils 0.1 Absolute Basophils 0.0 Sodium 137.1 Potassium 4.0 Chloride 99 Carbon Dioxide 26 Anion Gap 12 BUN 9 Creatinine 0.70 Est GFR ( Amer) > 60 Est GFR (Non-Af Amer) > 60 Glucose 100 Calcium 9.4 Impressions: Limited or Localized CT 05/27/17 13:31 IMPRESSION: 1. MULTIPLE SMALL CALYCEAL CALCULI IN BOTH KIDNEYS. NO URETERAL CALCULI. NO OBSTRUCTIVE CHANGES. 2. NO OTHER SIGNIFICANT OR ACUTE PROCESS IN THE ABDOMEN OR PELVIS. Assessment & Plan - Diagnosis (1) Pyelonephritis Is this a current diagnosis for this admission?: Yes Plan: Urine culture + Seratia marcscens; received Levaquin x 7 days at last admission. Renal CT demonstrated multiple calculi to bilateral kidneys; likely colonized. BCx w/ Gram negative rods 2:2 bottles. 1- Continue IV Rocephin; will narrow therapy once blood cultures result. Pt improving clinically. 2- PRN pain medication; will transition to PO oxycodone 3- Will have Urology see him when in house on Saturday (2) Diabetes Qualifiers: Diabetes mellitus type: type 1 Diabetes mellitus complication status: with hyperglycemia Qualified Code(s): E10.65 - Type 1 diabetes mellitus with hyperglycemia Is this a current diagnosis for this admission?: Yes Plan: 1. Continue Lantus and SSI 2. Monitor bgl ACHS (3) Ankle pain, left Qualifiers: Chronicity: unspecified Qualified Code(s): M25.572 - Pain in left ankle and joints of left foot Is this a current diagnosis for this admission?: Yes Plan: 1- Will ask ortho to evaluate (4) Chronic low back pain Qualifiers: Back pain laterality: bilateral Sciatica presence: without sciatica Qualified Code(s): M54.5 - Low back pain; G89.29 - Other chronic pain (5) Leukocytosis Qualifiers: Leukocytosis type: other Qualified Code(s): D72.828 - Other elevated white blood cell count Plan: Improving 1- Abx as above (6) Sepsis Qualifiers: Sepsis type: sepsis due to unspecified organism Qualified Code(s): A41.9 - Sepsis, unspecified organism Is this a current diagnosis for this admission?: Yes Plan: Resolved; tachycardia has resolved. Afebrile. Plan as above; continue to monitor. - Time Time Spent with patient: 15-24 minutes Medications reviewed and adjusted accordingly: Yes
[2017-05-29] MEDS: OXYCODONE HCL IR 5 MG TABLET PO PRN ×2 (16:50→21:20)
[2017-05-29] MEDS: INSULIN GLARGINE,HUM.REC.ANLOG 300 UNIT/3 ML INSULN.PEN SUBCUT SCH (21:18)
[2017-05-29] MEDS: ZOLPIDEM TARTRATE 5 MG TABLET PO PRN (21:20)
[2017-05-30] MEDS: OXYCODONE HCL IR 5 MG TABLET PO PRN ×6 (01:18→23:51)
[2017-05-30 04:34] LABS: ABSOLUTE BASOPHILS # (AUTO) 0.1 10^3/uL (0.0-0.2); ABSOLUTE EOSINOPHILS # (AUTO) 0.2 10^3/uL (0.0-0.6); ABSOLUTE LYMPHOCYTES (AUTO) 2.2 10^3/uL (0.5-4.7); ABSOLUTE MONOCYTES (AUTO) 0.9 10^3/uL (0.1-1.4); ABSOLUTE NEUT (AUTO) 8.7 10^3/uL (1.7-8.2); BASOPHILS % (AUTO) 0.5 % (0-2); EOSINOPHILS % (AUTO) 1.6 % (0-6); HEMATOCRIT 29.9 % (37.9-51.0); HEMOGLOBIN 10.3 g/dL (13.5-17.0); LYMPHOCYTES % (AUTO) 18.6 % (13-45); MEAN CORPUSCULAR HEMOGLOBIN 27.8 pg (27.0-33.4); MEAN CORPUSCULAR HGB CONC 34.5 g/dL (32.0-36.0); MEAN CORPUSCULAR VOLUME 81 fl (80-97); MONOCYTES % (AUTO) 7.1 % (3-13); RED BLOOD COUNT 3.71 10^6/uL (4.35-5.55); RED CELL DISTRIBUTION WIDTH 14.2 % (11.5-14.0); SEGMENTED NEUTROPHILS % (AUTO) 72.2 % (42-78)
[2017-05-30] MEDS ORDERED: ONDANSETRON HCL INJ/PF 4 MG/2 ML SDV IV PRN (08:00)
[2017-05-30] MEDS ORDERED: NORMAL SALINE 1000 ML 1,000 ML IV PRN (09:06)
--- NOTE | 2017-05-30 09:14 | PDOC PROGRESS REPORT ---
Subjective Progress Note for:: 05/30/17 Subjective:: Patient seen and examined resting in bed comfortably. He reports continued lower back pain, left greater than right, that has improved significantly overnight. He reports that his urine has also returned to a normal color and is no longer experiencing urgency, frequency, dysuria, or hematuria. He reports increased appetite without nausea and overall is feeling much improved. He is hopeful for discharge home in the next day or 2, however, is appreciative of plan to see urology prior to discharge. He reports that orthopedics saw him early this morning and he has just had an ankle x-ray completed. He reports continued left lateral ankle pain tenderness with palpation and movement. He is ambulatory without difficulty, though with increased pain. Discussed with patient his hypertension. He reports that he has only been hypertensive while in the hospital and at home, or during PCP follow-ups he is normotensive. He is initially resistant to starting hypertensive medication today, however is agreeable to medication while inpatient. Discussed importance of continuing medication until follow-up with PCM. He denies fever, chills, abdominal pain, nausea, vomiting. Review of systems is otherwise negative. Physical Exam Vital Signs: Temp Pulse Resp BP Pulse Ox 97.9 F 80 16 152/81 H 98 05/30/17 07:41 05/30/17 07:41 05/30/17 07:41 05/30/17 07:41 05/30/17 07:41 Intake & Output 05/29/17 05/30/17 05/31/17 06:59 06:59 06:59 Intake Total 3800 4260 Output Total 1650 2320 Balance 2150 1940 Weight 52.6 kg 54.3 kg General appearance: PRESENT: no acute distress, cooperative, thin, well- developed Head exam: PRESENT: atraumatic, normocephalic Eye exam: PRESENT: conjunctiva pink, EOMI, PERRLA. ABSENT: scleral icterus Ear exam: PRESENT: normal external ear exam Mouth exam: PRESENT: moist, tongue midline Neck exam: PRESENT: full ROM. ABSENT: JVD, lymphadenopathy, tenderness, thyromegaly Respiratory exam: PRESENT: clear to auscultation jason, symmetrical, unlabored. ABSENT: crackles, rales, rhonchi, wheezes Cardiovascular exam: PRESENT: RRR, +S1, +S2. ABSENT: clicks, gallop, rubs, systolic murmur Pulses: PRESENT: normal radial pulses, normal dorsalis pedis pul GI/Abdominal exam: PRESENT: normal bowel sounds, soft, other - Left CVA tenderness with palpation. ABSENT: guarding, hernia, mass, tenderness Rectal exam: PRESENT: deferred Extremities exam: PRESENT: full ROM, tenderness - Mild left ankle tenderness with palpation and are warm. No edema, erythema, ecchymosis. Unchanged from yesterday. Musculoskeletal exam: PRESENT: ambulatory, full ROM, normal inspection Neurological exam: PRESENT: alert, awake, oriented to person, oriented to place , oriented to time, oriented to situation, CN II-XII grossly intact. ABSENT: motor sensory deficit Psychiatric exam: PRESENT: appropriate affect, normal mood Skin exam: PRESENT: dry, intact, normal color, warm Results Laboratory Results: 05/30/17 04:01 05/29/17 03:59 05/30/17 04:01 WBC 12.0 H RBC 3.71 L Hgb 10.3 L Hct 29.9 L MCV 81 MCH 27.8 MCHC 34.5 RDW 14.2 H Plt Count 418 Seg Neutrophils % 72.2 Lymphocytes % 18.6 Monocytes % 7.1 Eosinophils % 1.6 Basophils % 0.5 Absolute Neutrophils 8.7 H Absolute Lymphocytes 2.2 Absolute Monocytes 0.9 Absolute Eosinophils 0.2 Absolute Basophils 0.1 Impressions: Limited or Localized CT 05/27/17 13:31 IMPRESSION: 1. MULTIPLE SMALL CALYCEAL CALCULI IN BOTH KIDNEYS. NO URETERAL CALCULI. NO OBSTRUCTIVE CHANGES. 2. NO OTHER SIGNIFICANT OR ACUTE PROCESS IN THE ABDOMEN OR PELVIS. Assessment & Plan - Diagnosis (1) Pyelonephritis Is this a current diagnosis for this admission?: Yes Plan: Urine culture + Seratia marcscens; received Levaquin x 7 days at last admission. Renal CT demonstrated multiple calculi to bilateral kidneys; likely colonized. Urine and blood cultures positive for avila sensitive Serratia Marcescens. 1- Will transition to p.o. Levaquin today 2- PRN pain medication; did well with transition to PO oxycodone 3- Tolerating p.o. intake well; will saline well 3- Will have Urology see him when in house on Saturday (2) Diabetes Qualifiers: Diabetes mellitus type: type 1 Diabetes mellitus complication status: with hyperglycemia Qualified Code(s): E10.65 - Type 1 diabetes mellitus with hyperglycemia Is this a current diagnosis for this admission?: Yes Plan: 1. Continue Lantus 2. Monitor bgl ACHS with SSI coverage; scale adjusted today (3) HTN, goal below 130/80 Is this a current diagnosis for this admission?: Yes Plan: 1- Start Lisinopril 5 mg daily 2- Continue to monitor and adjust accordingly (4) Ankle pain, left Qualifiers: Chronicity: unspecified Qualified Code(s): M25.572 - Pain in left ankle and joints of left foot Is this a current diagnosis for this admission?: Yes Plan: 1-Appreciate orthopedic consultation and recommendations. (5) Chronic low back pain Qualifiers: Back pain laterality: bilateral Sciatica presence: without sciatica Qualified Code(s): M54.5 - Low back pain; G89.29 - Other chronic pain (6) Leukocytosis Qualifiers: Leukocytosis type: other Qualified Code(s): D72.828 - Other elevated white blood cell count Plan: Improvin.6-->13.5-->12.0 1- Abx as above (7) Sepsis Qualifiers: Sepsis type: sepsis due to unspecified organism Qualified Code(s): A41.9 - Sepsis, unspecified organism Is this a current diagnosis for this admission?: Yes Plan: Resolved. Plan as above; continue to monitor. - Time Time Spent with patient: 15-24 minutes Medications reviewed and adjusted accordingly: Yes Anticipated discharge: Home
--- NOTE | 2017-05-30 09:24 | RADIOLOGY REPORT (SQ) ---
EXAM DESCRIPTION: ANKLE LEFT COMPLETE COMPLETED DATE/TIME: 05/30/2017 9:05 am REASON FOR STUDY: pain COMPARISON: None. NUMBER OF VIEWS: Three views. TECHNIQUE: AP, lateral, and oblique radiographic images acquired of the left ankle. LIMITATIONS: None. FINDINGS: MINERALIZATION: Normal. BONES: No acute fracture or dislocation. No worrisome bone lesions. JOINTS: No effusions. SOFT TISSUES: No soft tissue swelling. No foreign body. OTHER: No other significant finding. IMPRESSION: NEGATIVE STUDY OF THE LEFT ANKLE. NO RADIOGRAPHIC EVIDENCE OF ACUTE INJURY. TECHNICAL DOCUMENTATION: JOB ID: [id number] [employer]- All Rights Reserved
[2017-05-30] MEDS: ENOXAPARIN SODIUM INJ 40 MG/0.4 ML DISP.SYRIN SUBCUT SCH (09:41)
[2017-05-30] MEDS: LISINOPRIL 5 MG TABLET PO SCH (09:42)
[2017-05-30] MEDS: LEVOFLOXACIN 750 MG TABLET PO SCH (09:58)
--- NOTE | 2017-05-30 16:46 | PDOC CONSULTATION ---
Consultation Consult Date: 05/30/17 Consult reason:: Left ankle pain History of Present Illness Admission Date/PCP: 05/27/17 15:06 DEENA DANG Patient complains of: Left ankle pain and inability to weight-bear. History of Present Illness: 32-year-old diabetic patient who was admitted for bacteremia and recalcitrant pyelonephritis. Patient states about a week ago started developing left ankle pain and now is to the point where he cannot weight-bear. He states the pain is global medial lateral anterior with palpation and worsened with ambulation. States it feels warm to touch. Pain with range of motion. Denies any injuries or falls or any previous orthopedic injury or surgery. Past Medical History Cardiac Medical History: Reports: None Pulmonary Medical History: Reports: None EENT Medical History: Reports: None Neurological Medical History: Reports: None Endocrine Medical History: Reports: Diabetes Mellitus Type 1, Diabetes Mellitus Type 2 Renal/ Medical History: Reports: None Malignancy Medical History: Reports: None GI Medical History: Reports: Gastroesophageal Reflux Disease Musculoskeltal Medical History: Reports: None Skin Medical History: Reports: None Psychiatric Medical History: Reports: None Traumatic Medical History: Reports: None Hematology: Reports: None Infectious Medical History: Reports: None Past Surgical History Past Surgical History: Reports: Orthopedic Surgery - disc suregery L5-S1 Social History Lives with: Family Smoking Status: Never Smoker Cigarettes Packs Per Day: 2 Number of Years Smokin Last Time Smoked: 05/27/2017 Frequency of Alcohol Use: None Hx Recreational Drug Use: No Drugs: None Hx Prescription Drug Abuse: No - Advance Directive Resuscitation Status: Full Code Family History Family History: DM Parental Family History Reviewed: No Children Family History Reviewed: No Sibling(s) Family History Reviewed.: No Medication/Allergy Home Medications: Cyclobenzaprine HCl [Flexeril 10 mg Tablet] 10 mg PO TIDP PRN 05/27/17 Insulin Aspart [Novolog Flexpen] 0 unit SUBCUT .SLD SCALE 05/27/17 Insulin Aspart [Novolog Flexpen] 15 unit SUBCUT AC 05/27/17 Insulin Glargine,Hum.rec.anlog [Lantus Solostar] 50 unit SQ QHS 05/27/17 Oxycodone HCl/Acetaminophen [Percocet 10-325 Mg Tablet] 1 each PO Q6HP PRN 05/27 Allergies/Adverse Reactions: Penicillins Allergy (Verified 02/12/17 20:42) Review of Systems All systems: reviewed and no additional remarkable complaints except as stated Physical Exam Vital Signs: Temp Pulse Resp BP Pulse Ox 36.7 C 78 16 159/93 H 100 05/30/17 15:33 05/30/17 15:33 05/30/17 15:33 05/30/17 15:33 05/30/17 15:33 Intake & Output 05/29/17 05/30/17 05/31/17 06:59 06:59 06:59 Intake Total 3800 4260 Output Total 1650 2320 Balance 2150 1940 Weight 52.6 kg 54.3 kg General appearance: PRESENT: no acute distress Eye exam: PRESENT: EOMI, PERRLA Neck exam: PRESENT: lymphadenopathy. ABSENT: tenderness, thyromegaly Respiratory exam: PRESENT: symmetrical, unlabored Pulses: PRESENT: normal dorsalis pedis pul Vascular exam: PRESENT: normal capillary refill GI/Abdominal exam: PRESENT: soft. ABSENT: organolmegaly, tenderness Skin exam: PRESENT: erythema - Over lateral aspect of the ankle especially in the distribution of the peroneal tendons., intact, warm Adult Front & Back Image: 1 - Erythema that is curvilinear from the posterior malleolus distally running with the peroneal tendons. He is globally tender to palpation over the lateral anterior medial aspect of the ankle. Able to move dorsiflexion plantarflexion although with pain. Good sensation to light touch grossly. Good capillary refill. Ankle is warm to touch. I question if there is any effusion of the ankle joint Results Laboratory Results: 05/30/17 04:01 05/29/17 03:59 05/30/17 04:01 WBC 12.0 H RBC 3.71 L Hgb 10.3 L Hct 29.9 L MCV 81 MCH 27.8 MCHC 34.5 RDW 14.2 H Plt Count 418 Seg Neutrophils % 72.2 Lymphocytes % 18.6 Monocytes % 7.1 Eosinophils % 1.6 Basophils % 0.5 Absolute Neutrophils 8.7 H Absolute Lymphocytes 2.2 Absolute Monocytes 0.9 Absolute Eosinophils 0.2 Absolute Basophils 0.1 Impressions: Limited or Localized CT 05/27/17 13:31 IMPRESSION: 1. MULTIPLE SMALL CALYCEAL CALCULI IN BOTH KIDNEYS. NO URETERAL CALCULI. NO OBSTRUCTIVE CHANGES. 2. NO OTHER SIGNIFICANT OR ACUTE PROCESS IN THE ABDOMEN OR PELVIS. Ankle X-Ray 05/30/17 00:00 IMPRESSION: NEGATIVE STUDY OF THE LEFT ANKLE. NO RADIOGRAPHIC EVIDENCE OF ACUTE INJURY. Status: Image reviewed by me Assessment & Plan - Diagnosis (1) Ankle pain, left Qualifiers: Chronicity: unspecified Qualified Code(s): M25.572 - Pain in left ankle and joints of left foot Is this a current diagnosis for this admission?: Yes Plan: 32-year-old diabetic patient with bacteremia for Serratia. Patient does have a white count. X-rays are negative for fracture dislocation. Patient has pain with weightbearing and erythema. I want to order an MRI to see if there is a knee effusion and if so any other areas of concern for potential seeded infection. MRI will help us notify the location if so. Patient was seen patient sed rate and CRP was ordered as well. If patient has an effusion I will proceed with an aspiration tomorrow and potential irrigation debridement if positive for septic arthritis.
[2017-05-30] MEDS: INSULIN LISPRO 100 UNIT/ML 3 ML VIAL SUBCUT PRN (16:58)
--- NOTE | 2017-05-30 18:47 | RADIOLOGY REPORT (SQ) ---
EXAM DESCRIPTION: MRI LT LOWER JOINT WITHOUT COMPLETED DATE/TIME: 05/30/2017 6:22 pm REASON FOR STUDY: rule out septic arthritis COMPARISON: Plain radiograph TECHNIQUE: Left ankle images acquired and stored on PACS. Multiplanar images include fat sensitive s equences as T1, fluid sensitive sequences as FST2/STIR, cartilage sensitive sequences as FSPD, and gr adient echo sequences. LIMITATIONS: None. FINDINGS: BONE MARROW: No alteration of signal to suggest marrow replacement or edema. No occult fra cture. No large osteophytes. EFFUSIONS: Small subtalar and tibiotalar effusions. OSSEOUS ARTICULATIONS: Normal tibiotalar, subtalar, talonavicular and calcaneocuboid joints. TALAR DOME AND TIBIAL PLAFOND: Normal cartilage. No osteochondral defect. ACHILLES TENDON: Intact without partial or full-thickness tear. No adjacent bursal fluid or edema. TIBIALIS ANTERIOR TENDON: Intact without edema at the 1st MT attachment. TIBIALIS POSTERIOR TENDON: Fluid in the tendon sheaths. Normal morphology without tear. FLEXOR HALLUCIS LONGUS AND FLEXOR DIGITORUM TENDONS: Fluid in the tendon sheaths. Normal morphology without tear. PERONEUS LONGUS AND BREVIS TENDON: Fluid in the tendon sheaths. No tear. ATFL, CFL, PTFL: Intact. No thickening or signal alteration. No alfa-ligamentous fluid. DELTOID LIGAMENT: Visualized components intact. TARSAL TUNNEL: No masses. No muscle atrophy. SINUS TARSI: No fluid. No reactive marrow edema or erosions. PLANTAR FASCIA: No signal alteration or tear. ADJACENT SOFT TISSUES: Soft tissue edema in the subcutaneous soft tissues. OTHER: No other significant finding. IMPRESSION: Joint effusions. Fluid in all the tendon sheaths. Subcutaneous soft tissue edema. No evidence for osteomyelitis. TECHNICAL DOCUMENTATION: JOB ID: [id number] [employer]- All Rights Reserved
[2017-05-30] MEDS: INSULIN GLARGINE,HUM.REC.ANLOG 300 UNIT/3 ML INSULN.PEN SUBCUT SCH (22:12)
[2017-05-30] MEDS: ZOLPIDEM TARTRATE 5 MG TABLET PO PRN (22:13)
[2017-05-31] MEDS: OXYCODONE HCL IR 5 MG TABLET PO PRN ×5 (04:03→23:48)
[2017-05-31 05:00] LABS: ABSOLUTE BASOPHILS # (AUTO) 0.1 10^3/uL (0.0-0.2); ABSOLUTE EOSINOPHILS # (AUTO) 0.2 10^3/uL (0.0-0.6); ABSOLUTE LYMPHOCYTES (AUTO) 2.9 10^3/uL (0.5-4.7); ABSOLUTE MONOCYTES (AUTO) 0.8 10^3/uL (0.1-1.4); ABSOLUTE NEUT (AUTO) 7.2 10^3/uL (1.7-8.2); BASOPHILS % (AUTO) 0.5 % (0-2); EOSINOPHILS % (AUTO) 2.1 % (0-6); HEMATOCRIT 30.9 % (37.9-51.0); HEMOGLOBIN 10.6 g/dL (13.5-17.0); HGB HCT DIFFERENCE 0.9; LYMPHOCYTES % (AUTO) 25.5 % (13-45); MEAN CORPUSCULAR HEMOGLOBIN 27.5 pg (27.0-33.4); MEAN CORPUSCULAR HGB CONC 34.3 g/dL (32.0-36.0); MEAN CORPUSCULAR VOLUME 80 fl (80-97); MONOCYTES % (AUTO) 7.5 % (3-13); RED BLOOD COUNT 3.86 10^6/uL (4.35-5.55); RED CELL DISTRIBUTION WIDTH 14.3 % (11.5-14.0); SEGMENTED NEUTROPHILS % (AUTO) 64.4 % (42-78); WHITE BLOOD COUNT 11.2 10^3/uL (4.0-10.5)
[2017-05-31] MEDS ORDERED: ONDANSETRON HCL INJ/PF 4 MG/2 ML SDV ONE (07:56)
[2017-05-31] MEDS ORDERED: DEXAMETHASONE SOD PHOSPHATE INJ 4 MG/1 ML VIAL ONE (07:56)
[2017-05-31] MEDS ORDERED: LIDOCAINE 2% INJ-PF (20 MG/ML) 10 ML AMPUL ONE (07:56)
[2017-05-31] MEDS: LISINOPRIL 5 MG TABLET PO SCH (09:27)
[2017-05-31] MEDS: LEVOFLOXACIN 750 MG TABLET PO SCH (09:27)
[2017-05-31] MEDS: ENOXAPARIN SODIUM INJ 40 MG/0.4 ML DISP.SYRIN SUBCUT SCH (09:28)
--- NOTE | 2017-05-31 10:46 | PDOC PROGRESS REPORT ---
Subjective Progress Note for:: 05/31/17 Subjective:: Patient seen and examined resting in bed comfortably. He reports that his back pain has nearly resolved and only has occasional tenderness w/ sudden movements. He reports increased appetite without nausea and overall is feeling much improved. He completed an MRI of his left ankle yesterday. He reports reports that the orthopedic surgeon is planning to aspirate the joint to check for infection. He states that at this time the left ankle is his primary source of pain; worsened since yesterday. He is no longer able to bare weight to that extremity 2/2 pain. He denies knee or hip pain. He denies additional joint pain. He denies fever, chills, abdominal pain, nausea, vomiting. Review of systems is otherwise negative. Physical Exam Vital Signs: Temp Pulse Resp BP Pulse Ox 98.4 F 90 16 142/76 H 100 05/31/17 07:24 05/31/17 07:24 05/31/17 07:24 05/31/17 07:24 05/31/17 07:24 Intake & Output 05/30/17 05/31/17 06/01/17 06:59 06:59 06:59 Intake Total 4260 4130 Output Total 2320 3800 Balance 1940 330 Weight 54.3 kg 69.7 kg General appearance: PRESENT: no acute distress, cooperative, thin, well- developed Head exam: PRESENT: atraumatic, normocephalic Eye exam: PRESENT: conjunctiva pink, EOMI, PERRLA. ABSENT: scleral icterus Ear exam: PRESENT: normal external ear exam Mouth exam: PRESENT: moist, tongue midline Neck exam: PRESENT: full ROM. ABSENT: JVD, lymphadenopathy, tenderness, thyromegaly Respiratory exam: PRESENT: clear to auscultation jason, symmetrical, unlabored. ABSENT: crackles, rales, rhonchi, wheezes Cardiovascular exam: PRESENT: +S1, +S2, tachycardia. ABSENT: clicks, gallop, rubs, systolic murmur Pulses: PRESENT: normal radial pulses, normal dorsalis pedis pul GI/Abdominal exam: PRESENT: normal bowel sounds, soft, tenderness - mild Lt CVA tenderness; improved from yesterday. ABSENT: guarding, mass, organolmegaly, rebound Rectal exam: PRESENT: deferred Extremities exam: PRESENT: joint swelling - minimal Lt pedial edeam, tenderness - Left medial/lateral ankle tenderness w/ palpation and ROM Musculoskeletal exam: PRESENT: ambulatory, tenderness - As above Neurological exam: PRESENT: alert, awake, oriented to person, oriented to time, oriented to situation, CN II-XII grossly intact. ABSENT: motor sensory deficit , normal gait Psychiatric exam: PRESENT: appropriate affect, normal mood Skin exam: PRESENT: dry, erythema - Slight errytema measuring 2 x 5 cm to lateral/posterior ankle, intact, normal color, warm Results Laboratory Results: 05/31/17 03:39 05/29/17 03:59 05/30/17 05/31/17 16:00 03:39 WBC 11.2 H RBC 3.86 L Hgb 10.6 L Hct 30.9 L MCV 80 MCH 27.5 MCHC 34.3 RDW 14.3 H Plt Count 525 H Seg Neutrophils % 64.4 Lymphocytes % 25.5 Monocytes % 7.5 Eosinophils % 2.1 Basophils % 0.5 Absolute Neutrophils 7.2 Absolute Lymphocytes 2.9 Absolute Monocytes 0.8 Absolute Eosinophils 0.2 Absolute Basophils 0.1 C-Reactive Protein 86.7 H Impressions: Limited or Localized CT 05/27/17 13:31 IMPRESSION: 1. MULTIPLE SMALL CALYCEAL CALCULI IN BOTH KIDNEYS. NO URETERAL CALCULI. NO OBSTRUCTIVE CHANGES. 2. NO OTHER SIGNIFICANT OR ACUTE PROCESS IN THE ABDOMEN OR PELVIS. Ankle X-Ray 05/30/17 00:00 IMPRESSION: NEGATIVE STUDY OF THE LEFT ANKLE. NO RADIOGRAPHIC EVIDENCE OF ACUTE INJURY. Lower Extremity MRI 05/30/17 00:00 IMPRESSION: Joint effusions. Fluid in all the tendon sheaths. Subcutaneous soft tissue edema. No evidence for osteomyelitis. Assessment & Plan - Diagnosis (1) Pyelonephritis Is this a current diagnosis for this admission?: Yes Plan: Urine culture + Seratia marcscens; received Levaquin x 7 days at last admission. Renal CT demonstrated multiple calculi to bilateral kidneys; likely colonized. Urine and blood cultures positive for avila sensitive Serratia Marcescens. 1- Continue Levaquin 2- PRN pain medication; doing well with PO oxycodone 3- Tolerating p.o. intake well; will saline well 4- Appreciate Urology consultation; hopefully will be seen today (2) Ankle pain, left Qualifiers: Chronicity: unspecified Qualified Code(s): M25.572 - Pain in left ankle and joints of left foot Is this a current diagnosis for this admission?: Yes Plan: 1- Appreciate orthopedic consultation and recommendations; concerned for septic arthritis. MRI demonstrates effusion with edema to the tendon sheaths. Plan for aspiration today with potential irrigation debridement. 2- Continue p.o. Levaquin; may require escalation of abx based on aspiration results (3) Diabetes Qualifiers: Diabetes mellitus type: type 1 Diabetes mellitus complication status: with hyperglycemia Qualified Code(s): E10.65 - Type 1 diabetes mellitus with hyperglycemia Is this a current diagnosis for this admission?: Yes Plan: 1. Continue Lantus 2. Monitor bgl ACHS with SSI coverage (4) HTN, goal below 130/80 Is this a current diagnosis for this admission?: Yes Plan: 1- Continue Lisinopril 5 mg daily 2- Continue to monitor and adjust accordingly (5) Chronic low back pain Qualifiers: Back pain laterality: bilateral Sciatica presence: without sciatica Qualified Code(s): M54.5 - Low back pain; G89.29 - Other chronic pain (6) Leukocytosis Qualifiers: Leukocytosis type: other Qualified Code(s): D72.828 - Other elevated white blood cell count Plan: Improvin.6-->13.5-->12.0-->11.2 1- Abx as above (7) Sepsis Qualifiers: Sepsis type: sepsis due to unspecified organism Qualified Code(s): A41.9 - Sepsis, unspecified organism Is this a current diagnosis for this admission?: Yes Plan: Resolved. Plan as above; continue to monitor. - Time Time Spent with patient: 25-34 minutes Medications reviewed and adjusted accordingly: Yes
[2017-05-31] MEDS ORDERED: LIDOCAINE 1% INJ-PF (10 MG/ML) 30 ML SDV ONE ×2 (13:26→16:04)
--- NOTE | 2017-05-31 14:57 | PDOC CONSULTATION ---
Consultation Consult Date: 05/31/17 Consult reason:: Sepsis, renal stones History of Present Illness Admission Date/PCP: 05/27/17 15:06 DEENA DANG Patient complains of: Sepsis, left flank pain, difficulty urinating History of Present Illness: 32-year-old diabetic patient who was admitted for bacteremia and recalcitrant pyelonephritis. Patient states about a week ago started developing left ankle pain and now is to the point where he cannot weight-bear. He states the pain is global medial lateral anterior with palpation and worsened with ambulation. States it feels warm to touch. Pain with range of motion. Denies any injuries or falls or any previous orthopedic injury or surgery. Past Medical History Cardiac Medical History: Reports: None Pulmonary Medical History: Reports: None EENT Medical History: Reports: None Neurological Medical History: Reports: None Endocrine Medical History: Reports: Diabetes Mellitus Type 1, Diabetes Mellitus Type 2 Renal/ Medical History: Reports: None, Nephrolithiasis Malignancy Medical History: Reports: None GI Medical History: Reports: Gastroesophageal Reflux Disease Musculoskeltal Medical History: Reports: None Skin Medical History: Reports: None Psychiatric Medical History: Reports: None Traumatic Medical History: Reports: None Hematology: Reports: None Infectious Medical History: Reports: None Past Surgical History Past Surgical History: No surgery history Past Surgical History: Reports: Orthopedic Surgery - disc suregery L5-S1 Social History Lives with: Family Smoking Status: Never Smoker Cigarettes Packs Per Day: 2 Number of Years Smokin Last Time Smoked: 05/27/2017 Frequency of Alcohol Use: None Hx Recreational Drug Use: No Drugs: None Hx Prescription Drug Abuse: No - Advance Directive Resuscitation Status: Full Code Family History Family History: DM Parental Family History Reviewed: No Children Family History Reviewed: No Sibling(s) Family History Reviewed.: No Medication/Allergy Home Medications: Cyclobenzaprine HCl [Flexeril 10 mg Tablet] 10 mg PO TIDP PRN 05/27/17 Insulin Aspart [Novolog Flexpen] 0 unit SUBCUT .SLD SCALE 05/27/17 Insulin Aspart [Novolog Flexpen] 15 unit SUBCUT AC 05/27/17 Insulin Glargine,Hum.rec.anlog [Lantus Solostar] 50 unit SQ QHS 05/27/17 Oxycodone HCl/Acetaminophen [Percocet 10-325 Mg Tablet] 1 each PO Q6HP PRN 05/27 Allergies/Adverse Reactions: Penicillins Allergy (Verified 02/12/17 20:42) Physical Exam Vital Signs: Temp Pulse Resp BP Pulse Ox 98.2 F 95 16 122/72 100 05/31/17 11:23 05/31/17 11:23 05/31/17 11:23 05/31/17 11:23 05/31/17 11:23 Intake & Output 05/30/17 05/31/17 06/01/17 06:59 06:59 06:59 Intake Total 4260 4130 Output Total 2320 3800 Balance 1940 330 Weight 54.3 kg 69.7 kg Exam: Mild left flank tenderness Results Laboratory Results: 05/31/17 03:39 05/29/17 03:59 05/30/17 05/31/17 16:00 03:39 WBC 11.2 H RBC 3.86 L Hgb 10.6 L Hct 30.9 L MCV 80 MCH 27.5 MCHC 34.3 RDW 14.3 H Plt Count 525 H Seg Neutrophils % 64.4 Lymphocytes % 25.5 Monocytes % 7.5 Eosinophils % 2.1 Basophils % 0.5 Absolute Neutrophils 7.2 Absolute Lymphocytes 2.9 Absolute Monocytes 0.8 Absolute Eosinophils 0.2 Absolute Basophils 0.1 C-Reactive Protein 86.7 H Impressions: Limited or Localized CT 05/27/17 13:31 IMPRESSION: 1. MULTIPLE SMALL CALYCEAL CALCULI IN BOTH KIDNEYS. NO URETERAL CALCULI. NO OBSTRUCTIVE CHANGES. 2. NO OTHER SIGNIFICANT OR ACUTE PROCESS IN THE ABDOMEN OR PELVIS. Ankle X-Ray 05/30/17 00:00 IMPRESSION: NEGATIVE STUDY OF THE LEFT ANKLE. NO RADIOGRAPHIC EVIDENCE OF ACUTE INJURY. Lower Extremity MRI 05/30/17 00:00 IMPRESSION: Joint effusions. Fluid in all the tendon sheaths. Subcutaneous soft tissue edema. No evidence for osteomyelitis. Assessment & Plan - Diagnosis (2) Pyelonephritis Is this a current diagnosis for this admission?: Yes (3) Sepsis Qualifiers: Sepsis type: sepsis due to unspecified organism Qualified Code(s): A41.9 - Sepsis, unspecified organism Is this a current diagnosis for this admission?: Yes - Time Time Spent: 30 to 50 Minutes Critical Time spent with patient: Less than 15 minutes
[2017-05-31] MEDS ORDERED: BUPIVACAINE HCL 0.5 % INJ/PF 30 ML SDV ONE (16:04)
[2017-05-31] MEDS ORDERED: BACITRACIN INJ 50,000 UNIT VIAL ONE (16:04)
[2017-05-31] MEDS ORDERED: MIDAZOLAM 2 MG/2 ML INJ ONE (16:23)
[2017-05-31] MEDS ORDERED: FENTANYL CITRATE INJ/PF 100 MCG/2 ML AMPUL ONE ×2 (16:23)
[2017-05-31] MEDS ORDERED: PROPOFOL INJ 200 MG/20 ML VIAL IV ONE (16:24)
[2017-05-31] MEDS ORDERED: MORPHINE SULFATE 10 MG/ML INJ ONE (16:24)
--- NOTE | 2017-05-31 16:50 | PDOC PROGRESS REPORT ---
Subjective Progress Note for:: 05/31/17 Subjective:: 32-year-old male who was admitted for pyelonephritis, bacteremia and cellulitis. Patient continues to have discomfort in his left ankle. Has noted some improvement with his current antibiotic regimen but continues to have discomfort with motion of the ankle and weightbearing. Currently denies fever chills or sweats. Pain 10/10 with motion. Physical Exam Vital Signs: Temp Pulse Resp BP Pulse Ox 98.3 F 83 16 137/80 H 100 05/31/17 16:16 05/31/17 16:16 05/31/17 16:16 05/31/17 16:16 05/31/17 16:16 Intake & Output 05/30/17 05/31/17 06/01/17 06:59 06:59 06:59 Intake Total 4260 4130 Output Total 2320 3800 Balance 1940 330 Weight 54.3 kg 69.7 kg Musculoskeletal exam: PRESENT: other - Left left ankle: Tenderness along the joint line medially. Notable redness laterally along the peroneal tendons and medially along the posterior tibialis. Pain with range of motion of the ankle significantly exacerbated with terminal flexion and extension. Patient hesitant to produce motion secondary to the pain. No sensory deficits. Intact flexion of the toes. No tracking erythema proximally. Results Laboratory Results: 05/31/17 03:39 05/29/17 03:59 05/30/17 05/31/17 16:00 03:39 WBC 11.2 H RBC 3.86 L Hgb 10.6 L Hct 30.9 L MCV 80 MCH 27.5 MCHC 34.3 RDW 14.3 H Plt Count 525 H Seg Neutrophils % 64.4 Lymphocytes % 25.5 Monocytes % 7.5 Eosinophils % 2.1 Basophils % 0.5 Absolute Neutrophils 7.2 Absolute Lymphocytes 2.9 Absolute Monocytes 0.8 Absolute Eosinophils 0.2 Absolute Basophils 0.1 C-Reactive Protein 86.7 H Impressions: Limited or Localized CT 05/27/17 13:31 IMPRESSION: 1. MULTIPLE SMALL CALYCEAL CALCULI IN BOTH KIDNEYS. NO URETERAL CALCULI. NO OBSTRUCTIVE CHANGES. 2. NO OTHER SIGNIFICANT OR ACUTE PROCESS IN THE ABDOMEN OR PELVIS. Ankle X-Ray 05/30/17 00:00 IMPRESSION: NEGATIVE STUDY OF THE LEFT ANKLE. NO RADIOGRAPHIC EVIDENCE OF ACUTE INJURY. Lower Extremity MRI 05/30/17 00:00 IMPRESSION: Joint effusions. Fluid in all the tendon sheaths. Subcutaneous soft tissue edema. No evidence for osteomyelitis. Assessment & Plan - Diagnosis (1) Septic arthritis of ankle Qualifiers: Septic arthritis organism: due to unspecified organism Laterality: left Qualified Code(s): M00.9 - Pyogenic arthritis, unspecified Is this a current diagnosis for this admission?: Yes Plan: Patient has known history of bacteremia along with diabetes. He continues to have discomfort in his left ankle without notable improvement over the past few days. Given the MRI findings of fluid within the ankle joint combined with patient's leukocytosis evaded CRP and sed rate this is likely underlying septic arthritis thus we discussed treatment options including observation and continuing antibiotics versus operative intervention. Given the patient's young age and likelihood of septic arthritis I have recommended operative intervention which includes irrigation and debridement of patient's left ankle. He will be started on IV antibiotics once again afterwards which should be continued for 72 hours and then transition to p.o. as per culture findings. If culture findings are negative would recommend continuing coverage for Serratia marcescens
[2017-05-31] MEDS ORDERED: CEFTRIAXONE INJ 1000 MG VIAL ONE (17:01)
[2017-05-31] MEDS ORDERED: FENTANYL CITRATE INJ/PF 100 MCG/2 ML AMPUL IV PRN (17:09)
[2017-05-31] MEDS ORDERED: PROMETHAZINE HCL INJ 25 MG/1 ML VIAL IV PRN (17:09)
[2017-05-31] MEDS ORDERED: MORPHINE SULFATE 10 MG/ML INJ IV PRN (17:09)
[2017-05-31] MEDS ORDERED: MEPERIDINE HCL/PF INJ 25 MG/1 ML DISP.SYRIN IV PRN (17:09)
[2017-05-31] MEDS ORDERED: DIPHENHYDRAMINE HCL 50 MG/ML VIAL IV PRN (17:09)
--- NOTE | 2017-05-31 17:18 | Operative Report ---
Operative Report DATE OF SURGERY: 05/31/17 PREOPERATIVE DIAGNOSIS: Septic Arthritis Left Ankle POSTOPERATIVE DIAGNOSIS: Same OPERATION: I&D Left Ankle (tibiotalar joint) SURGEON: ZIA BERTRAND ANESTHESIA: GA TISSUE REMOVED OR ALTERED: Aerobic/Anaerobic Cultures COMPLICATIONS: None ESTIMATED BLOOD LOSS: Minimal INTRAOPERATIVE FINDINGS: Cloudy joint fluid no gross purulence PROCEDURE: Indication for above procedure: 32-year-old male with recent history of pyelonephritis or leading to bacteremia. He then developed left ankle pain. It progressively worsened although he has seen some minor improvement over the past 24 hours this continues to cause some discomfort. At that point we discussed treatment options and given his MRI findings of intra-articular effusion and concern for possible septic arthritis the decision was made to proceed with operative intervention. Risks and benefits were explained to the patient verbalized understanding and consented for the procedure. Procedure In Detail: Patient was seen and evaluated in the preoperative holding area. The LEFT lower extremity was initialized and marked. Patient received 1 g of Rocephin after cultures were obtained. Patient was taken back to the operative room where transferred to the operative table and placed under general anesthesia. Once they were adequately anesthetized a nonsterile tourniquet was placed on the lower extremity. A surgical team debriefing was performed ensuring all instrumentation was available, the surgical procedure was discussed with possible concerns reviewed. The lower extremity was prepped with ChloraPrep and draped in a sterile fashion. A timeout was done identifying correct patient, procedure and extremity everyone in attendance agree with this and verbalized no concerns. The extremity was elevated and the tourniquet was inflated to 300 mmHg. Longitudinal 3 cm skin incision was made just medial to the anterior tibialis tendon. Blunt dissection was performed down to the capsule of the tibiotalar joint medially. A capsulotomy was made there was evidence of cloudy appearing fluid but no gross purulence appreciated. Cultures were obtained from the tibiotalar joint which will be sent for aerobic and anaerobic cultures. The wound was then copiously irrigated with normal saline a total of 3 L was utilized. After cultures were obtained patient received Rocephin. There is no evidence of tracking erythema throughout the soft tissues. The wound was then dressed with Xeroform 4 x 4's and patient was placed in a soft dressing and tourniquet was deflated. Sponge counts, instrument counts, needle counts counts were correct. Patient was then awoken from anesthesia. Transferred from the operating room table to the operating room stretcher. There was no intraoperative complications patient tolerated procedure well stable to PACU. Postoperative plan: Patient will be started on IV Rocephin until cultures of the ankle are final if cultures are final and negative would recommend discharge home on p.o. Levaquin.
[2017-05-31] MEDS: FENTANYL CITRATE INJ/PF 100 MCG/2 ML AMPUL ONE ×2 (17:45→17:50)
[2017-05-31] MEDS: INSULIN LISPRO 100 UNIT/ML 3 ML VIAL SUBCUT PRN (21:32)
[2017-05-31] MEDS: INSULIN GLARGINE,HUM.REC.ANLOG 300 UNIT/3 ML INSULN.PEN SUBCUT SCH (21:32)
[2017-05-31] MEDS: ZOLPIDEM TARTRATE 5 MG TABLET PO PRN (21:32)
[2017-06-01] MEDS: INSULIN LISPRO 100 UNIT/ML 3 ML VIAL SUBCUT PRN ×3 (05:56→17:57)
[2017-06-01] MEDS: OXYCODONE HCL IR 5 MG TABLET PO PRN ×4 (06:02→20:21)
[2017-06-01 06:10] LABS: ABSOLUTE BASOPHILS # (AUTO) 0.1 10^3/uL (0.0-0.2); ABSOLUTE LYMPHOCYTES (AUTO) 1.4 10^3/uL (0.5-4.7); ABSOLUTE MONOCYTES (AUTO) 1.1 10^3/uL (0.1-1.4); ABSOLUTE NEUT (AUTO) 11.4 10^3/uL (1.7-8.2); BASOPHILS % (AUTO) 0.7 % (0-2); EOSINOPHILS % (AUTO) 0.1 % (0-6); HEMATOCRIT 33.1 % (37.9-51.0); HEMOGLOBIN 11.3 g/dL (13.5-17.0); HGB HCT DIFFERENCE 0.8; LYMPHOCYTES % (AUTO) 10.2 % (13-45); MEAN CORPUSCULAR HEMOGLOBIN 27.9 pg (27.0-33.4); MEAN CORPUSCULAR HGB CONC 34.1 g/dL (32.0-36.0); MEAN CORPUSCULAR VOLUME 82 fl (80-97); RED BLOOD COUNT 4.04 10^6/uL (4.35-5.55); RED CELL DISTRIBUTION WIDTH 14.3 % (11.5-14.0); WHITE BLOOD COUNT 14.1 10^3/uL (4.0-10.5)
[2017-06-01 06:23] LABS: ANION GAP 15 (5-19); BLOOD UREA NITROGEN 24 mg/dL (7-20); CALCIUM 10.4 mg/dL (8.4-10.2); CARBON DIOXIDE 26 mmol/L (22-30); CHLORIDE 96 mmol/L (98-107); CREATININE RESULT 0.89 mg/dL (0.52-1.25); GLUCOSE 395 mg/dL (75-110); POTASSIUM 5.1 mmol/L (3.6-5.0); SODIUM 136.5 mmol/L (137-145)
--- NOTE | 2017-06-01 09:53 | PDOC PROGRESS REPORT ---
Subjective Progress Note for:: 06/01/17 Subjective:: Patient seen and examined resting in bed comfortably. He reports that his back pain has resolved entirely. He reports normal appetite without nausea and overall is feeling much improved. He went to the OR yesterday evening with Dr. Nguyen (Orthopedics) for aspiration of his left ankle. He states that his pain was well controlled overnight and is actually feeling quite better today. He states he also had the opportunity to speak with Dr. Gates (Urology), and is happy that the plan is for continued antibiotics and outpatient follow-up in 2-3 weeks. He denies fever, chills, abdominal pain, nausea, vomiting. Review of systems is otherwise negative. Physical Exam Vital Signs: Temp Pulse Resp BP Pulse Ox 97.7 F 84 18 128/70 H 100 06/01/17 07:28 06/01/17 07:28 06/01/17 07:28 06/01/17 07:28 06/01/17 07:28 Intake & Output 05/31/17 06/01/17 06/02/17 06:59 06:59 06:59 Intake Total 4130 3000 Output Total 3800 5200 Balance 330 -2200 Weight 69.7 kg 69.7 kg General appearance: PRESENT: no acute distress, well-developed, well-nourished Head exam: PRESENT: atraumatic, normocephalic Eye exam: PRESENT: conjunctiva pink, EOMI, PERRLA. ABSENT: scleral icterus Ear exam: PRESENT: normal external ear exam Mouth exam: PRESENT: moist, tongue midline Neck exam: ABSENT: carotid bruit, JVD, lymphadenopathy, thyromegaly Respiratory exam: PRESENT: clear to auscultation jason, symmetrical, unlabored. ABSENT: rales, rhonchi, wheezes Cardiovascular exam: PRESENT: RRR. ABSENT: diastolic murmur, rubs, systolic murmur Pulses: PRESENT: normal dorsalis pedis pul Vascular exam: PRESENT: normal capillary refill GI/Abdominal exam: PRESENT: normal bowel sounds, soft, other - No CVA tenderness on percussion. ABSENT: distended, guarding, mass, organolmegaly, rebound, tenderness Rectal exam: PRESENT: deferred Extremities exam: PRESENT: tenderness - Lt ankle tenderness. Lt ankle w/ malik wrap in place.. ABSENT: calf tenderness, clubbing, pedal edema Musculoskeletal exam: PRESENT: ambulatory Neurological exam: PRESENT: alert, awake, oriented to person, oriented to place , oriented to time, oriented to situation, CN II-XII grossly intact. ABSENT: motor sensory deficit Psychiatric exam: PRESENT: appropriate affect, normal mood. ABSENT: homicidal ideation, suicidal ideation Skin exam: PRESENT: dry, intact, warm. ABSENT: cyanosis, rash Results Laboratory Results: 06/01/17 05:51 06/01/17 05:51 06/01/17 06/01/17 05:51 05:51 WBC 14.1 H RBC 4.04 L Hgb 11.3 L Hct 33.1 L MCV 82 MCH 27.9 MCHC 34.1 RDW 14.3 H Plt Count 615 H Seg Neutrophils % 81.0 H Lymphocytes % 10.2 L Monocytes % 8.0 Eosinophils % 0.1 Basophils % 0.7 Absolute Neutrophils 11.4 H Absolute Lymphocytes 1.4 Absolute Monocytes 1.1 Absolute Eosinophils 0.0 Absolute Basophils 0.1 Sodium 136.5 L Potassium 5.1 H Chloride 96 L Carbon Dioxide 26 Anion Gap 15 BUN 24 H Creatinine 0.89 Est GFR ( Amer) > 60 Est GFR (Non-Af Amer) > 60 Glucose 395 H Calcium 10.4 H Impressions: Limited or Localized CT 05/27/17 13:31 IMPRESSION: 1. MULTIPLE SMALL CALYCEAL CALCULI IN BOTH KIDNEYS. NO URETERAL CALCULI. NO OBSTRUCTIVE CHANGES. 2. NO OTHER SIGNIFICANT OR ACUTE PROCESS IN THE ABDOMEN OR PELVIS. Ankle X-Ray 05/30/17 00:00 IMPRESSION: NEGATIVE STUDY OF THE LEFT ANKLE. NO RADIOGRAPHIC EVIDENCE OF ACUTE INJURY. Lower Extremity MRI 05/30/17 00:00 IMPRESSION: Joint effusions. Fluid in all the tendon sheaths. Subcutaneous soft tissue edema. No evidence for osteomyelitis. Assessment & Plan - Diagnosis (1) Pyelonephritis Is this a current diagnosis for this admission?: Yes Plan: Improving. Urine culture + Seratia marcscens; received Levaquin x 7 days at last admission. Renal CT demonstrated multiple calculi to bilateral kidneys; likely colonized. Urine and blood cultures positive for avila sensitive Serratia Marcescens. 1- Continue Levaquin 2- PRN pain medication; doing well with PO oxycodone 3- Tolerating p.o. intake well; will saline well 4- Appreciate Urology consultation; will follow-up as outpatient (2) Ankle pain, left Qualifiers: Chronicity: unspecified Qualified Code(s): M25.572 - Pain in left ankle and joints of left foot Is this a current diagnosis for this admission?: Yes Plan: MRI demonstrates left ankle effusion with edema to the tendon sheaths. Now status post aspiration. Cultures pending. 1- Appreciate orthopedic consultation and recommendations; concerned for septic arthritis. 2- Continue IV Levaquin and Rocephin; will narrow abx as cultures result 3- Oxycodone prn pain (3) Diabetes Qualifiers: Diabetes mellitus type: type 1 Diabetes mellitus complication status: with hyperglycemia Qualified Code(s): E10.65 - Type 1 diabetes mellitus with hyperglycemia Is this a current diagnosis for this admission?: Yes Plan: 1. Continue Lantus 2. Monitor bgl ACHS with SSI coverage (4) HTN, goal below 130/80 Is this a current diagnosis for this admission?: Yes Plan: Improved 1- Continue Lisinopril 5 mg daily 2- Continue to monitor and adjust accordingly (5) Chronic low back pain Qualifiers: Back pain laterality: bilateral Sciatica presence: without sciatica Qualified Code(s): M54.5 - Low back pain; G89.29 - Other chronic pain (6) Leukocytosis Qualifiers: Leukocytosis type: other Qualified Code(s): D72.828 - Other elevated white blood cell count Plan: Trendin.6-->13.5-->12.0-->11.2-->14.1 Abx while admitted: Levaguin, Rocephin 1- Abx as above (7) Sepsis Qualifiers: Sepsis type: sepsis due to unspecified organism Qualified Code(s): A41.9 - Sepsis, unspecified organism Is this a current diagnosis for this admission?: Yes Plan: Resolved. Plan as above; continue to monitor. - Time Time Spent with patient: 25-34 minutes Medications reviewed and adjusted accordingly: Yes
[2017-06-01] MEDS: CEFTRIAXONE 1 GM/D5W RTU 1 GM/50 ML RTUPB IV SCH (10:57)
[2017-06-01] MEDS: ENOXAPARIN SODIUM INJ 40 MG/0.4 ML DISP.SYRIN SUBCUT SCH (10:57)
[2017-06-01] MEDS: LEVOFLOXACIN 750 MG/D5W RTU 750 MG/150 ML RTUPB IV SCH (10:57)
[2017-06-01] MEDS: LISINOPRIL 5 MG TABLET PO SCH (10:57)
--- NOTE | 2017-06-01 13:21 | PDOC PROGRESS REPORT ---
Subjective Subjective:: 32-year-old male who was admitted for pyelonephritis, bacteremia and cellulitis. Patient states his ankle pain has significantly improved after operative intervention. Notes he has more motion less discomfort since yesterday. Denies fever chills or sweats. Physical Exam Vital Signs: Temp Pulse Resp BP Pulse Ox 97.7 F 93 18 137/72 H 100 06/01/17 11:47 06/01/17 11:47 06/01/17 11:47 06/01/17 11:47 06/01/17 11:47 Intake & Output 05/31/17 06/01/17 06/02/17 06:59 06:59 06:59 Intake Total 4130 3000 Output Total 3800 5200 Balance 330 -2200 Weight 69.7 kg 69.7 kg Musculoskeletal exam: PRESENT: other - Left ankle: Dressing clean/dry/intact no erythema or drainage. Intact plantar flexion/dorsiflexion. No sensory deficits. Cap refill less than 2 seconds. Results Laboratory Results: 06/01/17 05:51 06/01/17 05:51 06/01/17 06/01/17 05:51 05:51 WBC 14.1 H RBC 4.04 L Hgb 11.3 L Hct 33.1 L MCV 82 MCH 27.9 MCHC 34.1 RDW 14.3 H Plt Count 615 H Seg Neutrophils % 81.0 H Lymphocytes % 10.2 L Monocytes % 8.0 Eosinophils % 0.1 Basophils % 0.7 Absolute Neutrophils 11.4 H Absolute Lymphocytes 1.4 Absolute Monocytes 1.1 Absolute Eosinophils 0.0 Absolute Basophils 0.1 Sodium 136.5 L Potassium 5.1 H Chloride 96 L Carbon Dioxide 26 Anion Gap 15 BUN 24 H Creatinine 0.89 Est GFR ( Amer) > 60 Est GFR (Non-Af Amer) > 60 Glucose 395 H Calcium 10.4 H Impressions: Limited or Localized CT 05/27/17 13:31 IMPRESSION: 1. MULTIPLE SMALL CALYCEAL CALCULI IN BOTH KIDNEYS. NO URETERAL CALCULI. NO OBSTRUCTIVE CHANGES. 2. NO OTHER SIGNIFICANT OR ACUTE PROCESS IN THE ABDOMEN OR PELVIS. Ankle X-Ray 05/30/17 00:00 IMPRESSION: NEGATIVE STUDY OF THE LEFT ANKLE. NO RADIOGRAPHIC EVIDENCE OF ACUTE INJURY. Lower Extremity MRI 05/30/17 00:00 IMPRESSION: Joint effusions. Fluid in all the tendon sheaths. Subcutaneous soft tissue edema. No evidence for osteomyelitis. Assessment & Plan - Diagnosis (1) Septic arthritis of ankle Qualifiers: Septic arthritis organism: due to unspecified organism Laterality: left Qualified Code(s): M00.9 - Pyogenic arthritis, unspecified Is this a current diagnosis for this admission?: Yes Plan: Patient is doing well postoperatively after irrigation and debridement left ankle. Patient will be continued on IV Levaquin until culture results are final and negative I have discontinued Rocephin given patient's history of penicillin allergy. If cultures are negative would recommend 4 weeks of p.o. Levaquin. Will start the patient on physical therapy he may be weightbearing as tolerated with an assistive device.
[2017-06-01] MEDS: INSULIN LISPRO 100 UNIT/ML 3 ML VIAL SUBCUT SCH (17:57)
[2017-06-01] MEDS: INSULIN GLARGINE,HUM.REC.ANLOG 300 UNIT/3 ML INSULN.PEN SUBCUT SCH (21:11)
[2017-06-01] MEDS: ZOLPIDEM TARTRATE 5 MG TABLET PO PRN (21:11)
[2017-06-02] MEDS: OXYCODONE HCL IR 5 MG TABLET PO PRN ×6 (00:28→22:30)
[2017-06-02] MEDS: ACETAMINOPHEN 325 MG TABLET PO PRN ×5 (04:34→23:41)
[2017-06-02 04:42] LABS: HEMATOCRIT 31.8 % (37.9-51.0); HEMOGLOBIN 10.7 g/dL (13.5-17.0); HGB HCT DIFFERENCE 0.3; MEAN CORPUSCULAR HEMOGLOBIN 27.2 pg (27.0-33.4); MEAN CORPUSCULAR HGB CONC 33.5 g/dL (32.0-36.0); MEAN CORPUSCULAR VOLUME 81 fl (80-97); RED BLOOD COUNT 3.92 10^6/uL (4.35-5.55); RED CELL DISTRIBUTION WIDTH 14.4 % (11.5-14.0); WHITE BLOOD COUNT 13.9 10^3/uL (4.0-10.5)
[2017-06-02 05:10] LABS: ANION GAP 13 (5-19); BLOOD UREA NITROGEN 19 mg/dL (7-20); CALCIUM 9.7 mg/dL (8.4-10.2); CARBON DIOXIDE 26 mmol/L (22-30); CHLORIDE 100 mmol/L (98-107); CREATININE RESULT 0.79 mg/dL (0.52-1.25); GLUCOSE 154 mg/dL (75-110); POTASSIUM 4.4 mmol/L (3.6-5.0); SODIUM 139.2 mmol/L (137-145)
[2017-06-02] MEDS: INSULIN LISPRO 100 UNIT/ML 3 ML VIAL SUBCUT PRN (08:20)
[2017-06-02] MEDS ORDERED: INSULIN LISPRO 100 UNIT/ML 3 ML VIAL SUBCUT ONE (08:30)
--- NOTE | 2017-06-02 09:40 | PDOC PROGRESS REPORT ---
Subjective Progress Note for:: 06/02/17 Subjective:: Patient seen and examined resting in bed comfortably eating breakfast. He complains of slightly increased left ankle pain today. He does admit to having been more ambulatory yesterday "may have overdone it." He is now using crutches and will be seen by physical therapy today. Otherwise he has no other complaints or concerns. He denies fever, chills, abdominal pain, nausea, vomiting. Review of systems is otherwise negative. Physical Exam Vital Signs: Temp Pulse Resp BP Pulse Ox 97.4 F 80 18 139/85 H 100 06/02/17 07:29 06/02/17 07:29 06/02/17 07:29 06/02/17 07:29 06/02/17 07:29 Intake & Output 06/01/17 06/02/17 06/03/17 06:59 06:59 06:59 Intake Total 3000 2735 Output Total 5200 Balance -2200 2735 Weight 69.7 kg 71.2 kg General appearance: PRESENT: no acute distress, well-developed, well-nourished Head exam: PRESENT: atraumatic, normocephalic Eye exam: PRESENT: conjunctiva pink, EOMI, PERRLA. ABSENT: scleral icterus Ear exam: PRESENT: normal external ear exam Mouth exam: PRESENT: moist, tongue midline Neck exam: ABSENT: carotid bruit, JVD, lymphadenopathy, thyromegaly Respiratory exam: PRESENT: clear to auscultation jason. ABSENT: rales, rhonchi, wheezes Cardiovascular exam: PRESENT: RRR. ABSENT: diastolic murmur, rubs, systolic murmur Pulses: PRESENT: normal dorsalis pedis pul Vascular exam: PRESENT: normal capillary refill GI/Abdominal exam: PRESENT: normal bowel sounds, soft. ABSENT: distended, guarding, mass, organolmegaly, rebound, tenderness Rectal exam: PRESENT: deferred Extremities exam: PRESENT: full ROM, pedal edema - Left foot w/ trace edema, tenderness - S/p lt ankle aspiration; tenderness w/ wt baring. ABSENT: calf tenderness, clubbing Musculoskeletal exam: PRESENT: ambulatory - w/ crutches Neurological exam: PRESENT: alert, awake, oriented to person, oriented to place , oriented to time, oriented to situation, CN II-XII grossly intact. ABSENT: motor sensory deficit Psychiatric exam: PRESENT: appropriate affect, normal mood. ABSENT: homicidal ideation, suicidal ideation Skin exam: PRESENT: dry, intact, warm. ABSENT: cyanosis, rash Results Laboratory Results: 06/02/17 04:02 06/02/17 04:02 06/02/17 06/02/17 04:02 04:02 WBC 13.9 H RBC 3.92 L Hgb 10.7 L Hct 31.8 L MCV 81 MCH 27.2 MCHC 33.5 RDW 14.4 H Plt Count 618 H Sodium 139.2 Potassium 4.4 Chloride 100 Carbon Dioxide 26 Anion Gap 13 BUN 19 Creatinine 0.79 Est GFR ( Amer) > 60 Est GFR (Non-Af Amer) > 60 Glucose 154 H Calcium 9.7 Impressions: Limited or Localized CT 05/27/17 13:31 IMPRESSION: 1. MULTIPLE SMALL CALYCEAL CALCULI IN BOTH KIDNEYS. NO URETERAL CALCULI. NO OBSTRUCTIVE CHANGES. 2. NO OTHER SIGNIFICANT OR ACUTE PROCESS IN THE ABDOMEN OR PELVIS. Ankle X-Ray 05/30/17 00:00 IMPRESSION: NEGATIVE STUDY OF THE LEFT ANKLE. NO RADIOGRAPHIC EVIDENCE OF ACUTE INJURY. Lower Extremity MRI 05/30/17 00:00 IMPRESSION: Joint effusions. Fluid in all the tendon sheaths. Subcutaneous soft tissue edema. No evidence for osteomyelitis. Assessment & Plan - Diagnosis (1) Ankle pain, left Qualifiers: Chronicity: unspecified Qualified Code(s): M25.572 - Pain in left ankle and joints of left foot Is this a current diagnosis for this admission?: Yes Plan: MRI demonstrates left ankle effusion with edema to the tendon sheaths. Now status post aspiration for culture: NGTD. 1- Appreciate orthopedic consultation and recommendations; concerned for septic arthritis. 2- Continue IV Levaquin until cultures result; if negative, plan to d/c on PO Levaquin x 4 weeks per Ortho recommendations 3- Oxycodone prn pain (2) Pyelonephritis Is this a current diagnosis for this admission?: Yes Plan: Improving. Urine culture + Seratia marcscens; received Levaquin x 7 days at last admission. Renal CT demonstrated multiple calculi to bilateral kidneys; likely colonized. Urine and blood cultures positive for avila sensitive Serratia Marcescens. 1- Continue Levaquin 2- PRN pain medication; doing well with PO oxycodone 3- Tolerating p.o. intake well; will saline well 4- Appreciate Urology consultation; will follow-up as outpatient (3) Leukocytosis Qualifiers: Leukocytosis type: other Qualified Code(s): D72.828 - Other elevated white blood cell count Plan: Trendin.6-->13.5-->12.0-->11.2-->14.1-->13.9 Abx while admitted: Andrew Yu 1- Abx as above (4) Diabetes Qualifiers: Diabetes mellitus type: type 1 Diabetes mellitus complication status: with hyperglycemia Qualified Code(s): E10.65 - Type 1 diabetes mellitus with hyperglycemia Is this a current diagnosis for this admission?: Yes Plan: 1. Continue Lantus 2. Monitor bgl ACHS with SSI coverage (5) HTN, goal below 130/80 Is this a current diagnosis for this admission?: Yes Plan: Improved 1- Continue Lisinopril 5 mg daily; will continue at discharge 2- Continue to monitor and adjust accordingly (6) Sepsis Qualifiers: Sepsis type: sepsis due to unspecified organism Qualified Code(s): A41.9 - Sepsis, unspecified organism Is this a current diagnosis for this admission?: Yes Plan: Resolved. Plan as above; continue to monitor. (7) Chronic low back pain Qualifiers: Back pain laterality: bilateral Sciatica presence: without sciatica Qualified Code(s): M54.5 - Low back pain; G89.29 - Other chronic pain - Time Time Spent with patient: 15-24 minutes Medications reviewed and adjusted accordingly: Yes Anticipated discharge: Home Within: within 72 hours
[2017-06-02] MEDS: CEFTRIAXONE 1 GM/D5W RTU 1 GM/50 ML RTUPB IV SCH (10:13)
[2017-06-02] MEDS: LISINOPRIL 5 MG TABLET PO SCH (10:13)
[2017-06-02] MEDS: ENOXAPARIN SODIUM INJ 40 MG/0.4 ML DISP.SYRIN SUBCUT SCH (10:14)
[2017-06-02] MEDS: LEVOFLOXACIN 750 MG/D5W RTU 750 MG/150 ML RTUPB IV SCH (11:09)
[2017-06-02] MEDS: INSULIN LISPRO 100 UNIT/ML 3 ML VIAL SUBCUT SCH ×2 (12:37→18:53)
--- NOTE | 2017-06-02 18:52 | PDOC PROGRESS REPORT ---
Subjective Subjective:: 32-year-old male who was admitted for pyelonephritis, bacteremia and cellulitis. Patient states his ankle pain has significantly improved after operative intervention. It is slightly more sore today but was up and around placing weight on his ankle and feels he may have overdone it. Denies fever chills or sweats. Physical Exam Vital Signs: Temp Pulse Resp BP Pulse Ox 97.7 F 84 18 126/68 H 100 06/02/17 15:33 06/02/17 15:33 06/02/17 15:33 06/02/17 15:33 06/02/17 15:33 Intake & Output 06/01/17 06/02/17 06/03/17 06:59 06:59 06:59 Intake Total 3000 2735 Output Total 5200 Balance -2200 2735 Weight 69.7 kg 71.2 kg Musculoskeletal exam: PRESENT: other - Left ankle: Dressing removed today. Surgical incision well approximated no erythema or drainage. Mild swelling medially and laterally. No pain with ankle range of motion. Mild discomfort with forced terminal dorsiflexion. No sensory deficits. Results Laboratory Results: 06/02/17 04:02 06/02/17 04:02 06/02/17 06/02/17 04:02 04:02 WBC 13.9 H RBC 3.92 L Hgb 10.7 L Hct 31.8 L MCV 81 MCH 27.2 MCHC 33.5 RDW 14.4 H Plt Count 618 H Sodium 139.2 Potassium 4.4 Chloride 100 Carbon Dioxide 26 Anion Gap 13 BUN 19 Creatinine 0.79 Est GFR ( Amer) > 60 Est GFR (Non-Af Amer) > 60 Glucose 154 H Calcium 9.7 Impressions: Limited or Localized CT 05/27/17 13:31 IMPRESSION: 1. MULTIPLE SMALL CALYCEAL CALCULI IN BOTH KIDNEYS. NO URETERAL CALCULI. NO OBSTRUCTIVE CHANGES. 2. NO OTHER SIGNIFICANT OR ACUTE PROCESS IN THE ABDOMEN OR PELVIS. Ankle X-Ray 05/30/17 00:00 IMPRESSION: NEGATIVE STUDY OF THE LEFT ANKLE. NO RADIOGRAPHIC EVIDENCE OF ACUTE INJURY. Lower Extremity MRI 05/30/17 00:00 IMPRESSION: Joint effusions. Fluid in all the tendon sheaths. Subcutaneous soft tissue edema. No evidence for osteomyelitis. Assessment & Plan - Diagnosis (1) Septic arthritis of ankle Qualifiers: Septic arthritis organism: due to unspecified organism Laterality: left Qualified Code(s): M00.9 - Pyogenic arthritis, unspecified Is this a current diagnosis for this admission?: Yes Plan: Patient is doing well postoperatively after irrigation and debridement left ankle. Patient will be continued on IV Levaquin until culture results are final and negative. If cultures are negative would recommend 4 weeks of p.o. Levaquin. Will start the patient on physical therapy he may be weightbearing as tolerated with an assistive device.
[2017-06-02] MEDS: ZOLPIDEM TARTRATE 5 MG TABLET PO PRN (22:30)
[2017-06-02] MEDS: INSULIN GLARGINE,HUM.REC.ANLOG 300 UNIT/3 ML INSULN.PEN SUBCUT SCH (22:35)
[2017-06-03] MEDS: OXYCODONE HCL IR 5 MG TABLET PO PRN ×3 (02:38→11:40)
[2017-06-03] MEDS: ACETAMINOPHEN 325 MG TABLET PO PRN (06:46)
[2017-06-03] MEDS: INSULIN LISPRO 100 UNIT/ML 3 ML VIAL SUBCUT SCH (07:51)
--- NOTE | 2017-06-03 08:03 | PDOC PROGRESS REPORT ---
Subjective Subjective:: 32-year-old male who was admitted for pyelonephritis, bacteremia and cellulitis. Patient states his ankle pain has significantly improved after operative intervention. States he continues to show improvement, denies fever chills or sweats. Physical Exam Vital Signs: Temp Pulse Resp BP Pulse Ox 97.8 F 97 16 146/83 H 100 06/03/17 01:26 06/03/17 01:26 06/03/17 01:26 06/03/17 01:26 06/03/17 01:26 Intake & Output 06/02/17 06/03/17 06/04/17 06:59 06:59 06:59 Intake Total 2735 2260 Output Total 400 Balance 2735 1860 Weight 71.2 kg 68.2 kg Musculoskeletal exam: PRESENT: other - Left ankle: No significant effusion. No tenderness laterally mild tenderness medially there is persistent swelling medially and laterally but no swelling anteriorly. No pain with ankle range of motion. Mild discomfort with terminal dorsiflexion. Surgical incision well approximated no erythema or drainage. Results Laboratory Results: 06/02/17 04:02 06/02/17 04:02 Impressions: Limited or Localized CT 05/27/17 13:31 IMPRESSION: 1. MULTIPLE SMALL CALYCEAL CALCULI IN BOTH KIDNEYS. NO URETERAL CALCULI. NO OBSTRUCTIVE CHANGES. 2. NO OTHER SIGNIFICANT OR ACUTE PROCESS IN THE ABDOMEN OR PELVIS. Ankle X-Ray 05/30/17 00:00 IMPRESSION: NEGATIVE STUDY OF THE LEFT ANKLE. NO RADIOGRAPHIC EVIDENCE OF ACUTE INJURY. Lower Extremity MRI 05/30/17 00:00 IMPRESSION: Joint effusions. Fluid in all the tendon sheaths. Subcutaneous soft tissue edema. No evidence for osteomyelitis. Assessment & Plan - Diagnosis (1) Septic arthritis of ankle Qualifiers: Septic arthritis organism: due to unspecified organism Laterality: left Qualified Code(s): M00.9 - Pyogenic arthritis, unspecified Is this a current diagnosis for this admission?: Yes Plan: Patient is doing well postoperatively after irrigation and debridement left ankle. Patient will be continued on IV Levaquin until culture results are final and negative. If cultures are negative would recommend 4 weeks of p.o. Levaquin. Will start the patient on physical therapy he may be weightbearing as tolerated with an assistive device.
[2017-06-03 08:13] VITALS: BP 164/83
[2017-06-03] MEDS: LEVOFLOXACIN 750 MG/D5W RTU 750 MG/150 ML RTUPB IV SCH (09:20)
[2017-06-03] MEDS: LISINOPRIL 5 MG TABLET PO SCH (09:21)
[2017-06-03] MEDS: ENOXAPARIN SODIUM INJ 40 MG/0.4 ML DISP.SYRIN SUBCUT SCH (09:21)
[2017-06-03] MEDS: CEFTRIAXONE 1 GM/D5W RTU 1 GM/50 ML RTUPB IV SCH (09:21)
--- NOTE | 2017-06-03 10:19 | PDOC DISCHARGE SUMMARY ---
General - Admit/Disc Date/PCP Admission Date/Primary Care Provider: 05/27/17 15:06 JESSICA DANG-Chapis Discharge Date: 06/03/17 - Discharge Diagnosis (1) Ankle pain, left Is this a current diagnosis for this admission?: Yes Summary: Pt developed left ankle pain with medial and lateral erythema. Orthopedics was consulted and imaging ordered. MRI demonstrated a joint effusion and fluid in all the tendon sheaths. He went to the OR on 06/03 for joint irrigation and debridement with quickly improving erythema and pain afterward. Wound culture is negative. He is ambulatory with crutches and will be discharged on po Levaquin. (2) Pyelonephritis Is this a current diagnosis for this admission?: Yes Summary: Improved with IV Levaquin. Urine and blood cultures positive for avila sensitive Seratia marcescens. Urology was consulted for small bilateral renal calculi that are likely colonized. Recommended continued Levaquin with outpatient follow-up in 2 weeks. (3) Leukocytosis Summary: Improved with treatment as above. (4) Diabetes Is this a current diagnosis for this admission?: Yes Summary: Received Lantus with sliding scale insulin. No hypoglycemic events while inpatient. (5) HTN, goal below 130/80 Is this a current diagnosis for this admission?: Yes Summary: Improved with initiation of p.o. lisinopril 5 mg. (6) Sepsis Is this a current diagnosis for this admission?: Yes Summary: Resolved with treatment aligned above. - Additional Information Resuscitation Status: Full Code Discharge Diet: Diabetic Discharge Activity: Activity As Tolerated Home Medications: Cyclobenzaprine HCl [Flexeril 10 mg Tablet] 10 mg PO TIDP PRN 05/27/17 Insulin Aspart [Novolog Flexpen] 0 unit SUBCUT .SLD SCALE 05/27/17 Insulin Aspart [Novolog Flexpen] 15 unit SUBCUT AC 05/27/17 Insulin Glargine,Hum.rec.anlog [Lantus Solostar] 50 unit SQ QHS 05/27/17 Oxycodone HCl/Acetaminophen [Percocet 10-325 Mg Tablet] 1 each PO Q6HP PRN 05/27 Acetaminophen [Tylenol 325 mg Tablet] 650 mg PO Q4HP PRN tablet 06/03/17 Levofloxacin [Levaquin 750 mg Tablet] 750 mg PO DAILY #30 tablet 06/03/17 Lisinopril [Prinivil 5 mg Tablet] 5 mg PO DAILY #30 tablet 06/03/17 History of Present Illness Patient complains of: Reports mild left ankle pain. He reports that it has improved from yesterday. He has no other complaints or concerns and is anxious for discharge home. History of Present Illness: Per H&P by Natali Robles: RAYMOND BRAY is a 32 year old male insulin-dependent diabetic with history of chronic back pain presents with recurrence of left back discomfort. Patient was recently discharged May 05 after sepsis and urine showing Serratia marcescens. He states the pain began Saturday and was stabbing and acute. Pain did not improve with activity or rest. The pain has worsened in intensity and is constant. He is now having hematuria pain for the last 2 days. Denies new injury. The prior pain was more generalized lower back. Some chills at home but no clear fever. No vomiting. He does take Percocet for chronic back pain. His workup did include an MRI of his spine which showed no acute abnormality. He has no anterior abdominal discomfort. The pain is only in the left side sharp and nonradiating otherwise. He was discharged home on Levaquin during previous hospitalization which he states he did complete. Hospital Course Hospital Course: Patient was admitted for pyelonephritis and placed on broad spectrum antibiotics. He improved quickly with IV fluids and antibiotics. CT renal protocol demonstrated multiple bilateral stones, and in consideration of his recent treatment failure, urology was consulted for presumed colonization of the renal calculi. Urology determined that he needed no immediate intervention and recommended continue antibiotics with outpatient follow-up. Blood cultures and urine cultures resulted avila sensitive Serratia marcescens. His antibiotics were narrowed, however, the following day patient had developed left ankle erythema and pain with palpation and movement. Orthopedics was then consulted with imaging demonstrating joint effusion with tendon sheath edema. He had irrigation and debridement of the left ankle on May 31. The pain, edema, erythema quickly improved following surgical intervention. Final results of the joint aspirate culture demonstrated no growth. He is discharged home on p.o. Levaquin with recommendations for follow-up with both urology and orthopedics as an outpatient. Physical Exam Vital Signs: Temp Pulse Resp BP Pulse Ox 98.3 F 96 16 164/83 H 98 06/03/17 07:31 06/03/17 07:31 06/03/17 07:31 06/03/17 07:31 06/03/17 07:31 Intake & Output 06/02/17 06/03/17 06/04/17 06:59 06:59 06:59 Intake Total 2735 2260 Output Total 400 Balance 2735 1860 Weight 71.2 kg 68.2 kg General appearance: PRESENT: no acute distress, well-developed, well-nourished Head exam: PRESENT: atraumatic, normocephalic Eye exam: PRESENT: conjunctiva pink, EOMI, PERRLA. ABSENT: scleral icterus Ear exam: PRESENT: normal external ear exam Mouth exam: PRESENT: moist, tongue midline Neck exam: ABSENT: carotid bruit, JVD, lymphadenopathy, thyromegaly Respiratory exam: PRESENT: clear to auscultation jason. ABSENT: rales, rhonchi, wheezes Cardiovascular exam: PRESENT: RRR. ABSENT: diastolic murmur, rubs, systolic murmur Pulses: PRESENT: normal dorsalis pedis pul Vascular exam: PRESENT: normal capillary refill GI/Abdominal exam: PRESENT: normal bowel sounds, soft. ABSENT: distended, guarding, mass, organolmegaly, rebound, tenderness Rectal exam: PRESENT: deferred Extremities exam: PRESENT: full ROM. ABSENT: calf tenderness, clubbing, pedal edema Musculoskeletal exam: PRESENT: tenderness - Slight edema and ecchymosis of the left ankle. No erythema. Slight tenderness, improved from yesterday. Ambulatory w/ crutches. Neurological exam: PRESENT: alert, awake, oriented to person, oriented to place , oriented to time, oriented to situation, CN II-XII grossly intact. ABSENT: motor sensory deficit Psychiatric exam: PRESENT: appropriate affect, normal mood. ABSENT: homicidal ideation, suicidal ideation Skin exam: PRESENT: dry, intact, warm. ABSENT: cyanosis, rash Results Laboratory Results: 06/02/17 04:02 06/02/17 04:02 05/31/17 16:55 Ankle - Left Gram Stain - Final 05/31/17 16:55 Ankle - Left Wound Culture - Final NO AEROBIC OR ANAEROBIC ORGANISMS RECOVERED Impressions: Limited or Localized CT 05/27/17 13:31 IMPRESSION: 1. MULTIPLE SMALL CALYCEAL CALCULI IN BOTH KIDNEYS. NO URETERAL CALCULI. NO OBSTRUCTIVE CHANGES. 2. NO OTHER SIGNIFICANT OR ACUTE PROCESS IN THE ABDOMEN OR PELVIS. Ankle X-Ray 05/30/17 00:00 IMPRESSION: NEGATIVE STUDY OF THE LEFT ANKLE. NO RADIOGRAPHIC EVIDENCE OF ACUTE INJURY. Lower Extremity MRI 05/30/17 00:00 IMPRESSION: Joint effusions. Fluid in all the tendon sheaths. Subcutaneous soft tissue edema. No evidence for osteomyelitis. Plan Discharge Plan: Discharge home with p.o. Levaquin 30 days. Follow-up with colon primary care provider in 7-10 days, urology in 14 days, orthopedics in 4 weeks. Time Spent: Less than 30 Minutes
== END 2017-06-03 11:58 | disposition home or self-care (01) | DRG 854 ==
LOC: ER 12:17 → 5 15:06 → UNDOADMIN 15:14 → EH 15:14 → 5 16:47
PROVIDERS: ADMIT Internal Medicine; ATTEND Internal Medicine
PROC: 0S9G0ZZ Drainage of Left Ankle Joint, Open Approach (ICD-10-PCS; principal; 2017-05-31 16:30)
DX: A41.89 Other specified sepsis (principal); N12 Tubulo-interstitial nephritis, not specified as acute or chronic; M00.872 Arthritis due to other bacteria, left ankle and foot; B96.89 Other specified bacterial agents as the cause of diseases classified elsewhere; E10.65 Type 1 diabetes mellitus with hyperglycemia; N20.0 Calculus of kidney; I10 Essential (primary) hypertension; K21.9 Gastro-esophageal reflux disease without esophagitis; M54.5 Low back pain; G89.29 Other chronic pain; Z79.4 Long term (current) use of insulin; Z79.899 Other long term (current) drug therapy; Z88.0 Allergy status to penicillin
CPT/HCPCS: 01470; 36415; 76380; 80048; 80053; 81001; 82962; 83036; 83605; 83735; 85025; 85027; 85652; 86140; 87040; 87070; 87075; 87077; 87086; 87088; 87186; 87205; 87491; 87591; 96374; 96375; 99284; G8978-GP; G8979-GP; J0696; J1100; J1170; J1650; J1815; J1956; J2250; J2270; J2405; J2704; J3010; J3490; J7030

== ENCOUNTER 2017-07-20 15:25 | Inpatient (IN) | payer MEDICAID ==
[2017-07-20 16:50] LABS: PROTHROMBIN TIME 13.6 SEC (11.4-15.4)
[2017-07-20 16:52] LABS: APPEARANCE,URINE CLEAR; BILIRUBIN,URINE NEGATIVE (NEGATIVE); GLUCOSE, URINE >=500 mg/dL (NEGATIVE); KETONES,URINE NEGATIVE (NEGATIVE); LEUKOCYTE ESTERASE,URINE TRACE (NEGATIVE); NITRITE,URINE NEGATIVE (NEGATIVE); PROTEIN,URINE NEGATIVE (NEGATIVE); URINE SPECIFIC GRAVITY 1.024; UROBILINOGEN,URINE NEGATIVE mg/dL (<2.0)
[2017-07-20 16:52] LABS: HEMATOCRIT 35.2 % (37.9-51.0); HEMOGLOBIN 11.2 g/dL (13.5-17.0); HGB HCT DIFFERENCE -1.6; MEAN CORPUSCULAR HEMOGLOBIN 25.9 pg (27.0-33.4); MEAN CORPUSCULAR HGB CONC 31.9 g/dL (32.0-36.0); MEAN CORPUSCULAR VOLUME 81 fl (80-97); RED BLOOD COUNT 4.35 10^6/uL (4.35-5.55); RED CELL DISTRIBUTION WIDTH 16.4 % (11.5-14.0); WHITE BLOOD COUNT 23.1 10^3/uL (4.0-10.5)
[2017-07-20 16:57] LABS: ALANINE AMINOTRANSFERASE 14 U/L (21-72); ALBUMIN 4.3 g/dL (3.5-5.0); ALKALINE PHOSPHATASE 171 U/L (38-126); ASPARTATE AMINO TRANSFERASE 9 U/L (17-59); BILIRUBIN,DIRECT 0.5 mg/dL (0.0-0.4); BILIRUBIN,TOTAL 0.7 mg/dL (0.2-1.3); BLOOD UREA NITROGEN 13 mg/dL (7-20); CARBON DIOXIDE 27 mmol/L (22-30); CHLORIDE 86 mmol/L (98-107); POTASSIUM 4.7 mmol/L (3.6-5.0); SODIUM 133.3 mmol/L (137-145); TOTAL PROTEIN 7.8 g/dL (6.3-8.2)
--- NOTE | 2017-07-20 16:57 | ER Document Report ---
ED GI/ - General Mode of Arrival: Ambulatory Information source: Patient TRAVEL OUTSIDE OF THE [place] IN LAST 30 DAYS: No - HPI Patient complains to provider of: Dysuria, Flank pain, Hematuria Onset: Last week <RAD BYRNES - Last Filed: 07/20/17 23:45> <ALEXANDR BARBA - Last Filed: 07/20/17 23:50> - General Chief Complaint: Flank Pain Stated Complaint: FLANK PAIN Time Seen by Provider: 07/20/17 15:48 Notes: Patient is a 32 year old, insulin dependent diabetic male with a history of pyelonephritis and sepsis is presenting to the emergency department complaining of flank pain onset a week ago. Patient also has associated symptoms of diaphoresis, dysuria, chills, decreased appetite and occasional hematuria. Patients describes the severity of his pain a 05/19. Patient states his flank pain is more severe in his right side. Patient also states that it hurts when he coughs. Patient denies vomiting or nausea. Patient's last visit to the emergency department was on 2016 for sepsis pyelonephritis. (RAD BYRNES) - Related Data Allergies/Adverse Reactions: Penicillins Allergy (Verified 07/20/17 16:31) Past Medical History - General Information source: Patient - Social History Smoking Status: Current Every Day Smoker Chew tobacco use (# tins/day): No Smoking Education Provided: Yes - > 4 minutes Frequency of alcohol use: None Drug Abuse: None Family History: DM Patient has suicidal ideation: No Patient has homicidal ideation: No Endocrine Medical History: Reports: Hx Diabetes Mellitus Type 1, Hx Diabetes Mellitus Type 2 GI Medical History: Reports: Hx Gastroesophageal Reflux Disease Past Surgical History: Reports: Hx Orthopedic Surgery - disc suregery L5-S1 - Immunizations Immunizations up to date: Yes Hx Diphtheria, Pertussis, Tetanus Vaccination: Yes <RAD BYRNES - Last Filed: 07/20/17 23:45> Review of Systems - Review of Systems Constitutional: See HPI, Chills, Diaphoresis EENT: No symptoms reported Cardiovascular: No symptoms reported Respiratory: No symptoms reported Gastrointestinal: No symptoms reported Genitourinary: See HPI, Dysuria, Flank pain, Hematuria - occasional, Urgency -: Yes All other systems reviewed and negative <RAD BYRNES - Last Filed: 07/20/17 23:45> Physical Exam <RAD BYRNES - Last Filed: 07/20/17 23:45> <ALEXANDR BARBA - Last Filed: 07/20/17 23:50> - Vital signs Vitals: Temp Pulse Resp BP Pulse Ox 98.1 F 95 20 127/64 H 100 07/20/17 15:36 07/20/17 15:36 07/20/17 15:36 07/20/17 15:36 07/20/17 15:36 - Notes Notes: GENERAL: Alert, interacts well. No acute distress. HEAD: Normocephalic, atraumatic. EYES: Pupils equal, round, and reactive to light. Extraocular movements intact. ENT: Oral mucosa moist, tongue midline. NECK: Full range of motion. Supple. Trachea midline. LUNGS: Clear to auscultation bilaterally, no wheezes, rales, or rhonchi. No respiratory distress. HEART: Tachycardic. No murmurs, gallops, or rubs. ABDOMEN: Soft, tender to palpation in the RUQ. Non-distended. Bowel sounds present in all 4 quadrants. EXTREMITIES: Moves all 4 extremities spontaneously. No edema, radial and dorsalis pedis pulses 2/4 bilaterally. No cyanosis. NEUROLOGICAL: Alert and oriented x3. Normal speech. . Biceps and patellar DTRs 2 + bilaterally. PSYCH: Normal affect, normal mood. SKIN: Warm, dry, normal turgor. No rashes or lesions noted. BACK: right paraspinal muscle tenderness to palpation at the throacolumbar junction. (RAD BYRNES) Course - Laboratory Result Diagrams: 07/20/17 16:00 07/20/17 16:00 <RAD BYRNES - Last Filed: 07/20/17 23:45> - Laboratory Result Diagrams: 07/20/17 16:00 07/20/17 16:00 <ALEXANDR BARBA - Last Filed: 07/20/17 23:50> - Re-evaluation Re-evalutation: 07/20/17 22:06 CBC shows marked leukocytosis of 23.1 with mild anemia with hemoglobin 11.2, platelets elevated at 590, coags normal, venous blood gas is only mildly acidotic with a pH of 7.34, this is surprising considering the elevated lactic acid at 3.7 as well as the hyperglycemia, I expected to see ketosis although this is not there. No evidence of diabetic ketoacidosis at this time although there is an elevated anion gap at 20. There is a pseudohyponatremia at 133.3, glucose quite elevated at 643, LFTs relatively normal, lipase normal, urinalysis shows greater than 500 glucose, no ketones, small blood, trace leukocyte esterase and trace bacteria. Patient is treated empirically for sepsis from an unknown source, initially treated with cefepime and Zosyn, after reviewing prior urinalyses and culture results this was narrowed to Rocephin. Patient given 2 L of normal saline, started on an insulin drip for the market hyperglycemia. Blood sugar responded well and the hyperglycemia is resolving, insulin drip has stopped. Lactic acid has continued to decrease at 2.5. Given the right upper quadrant abdominal pain and positive Starks sign patient was sent for ultrasound of the gallbladder, this was negative for obstruction or acute cholecystitis. Patient was discussed with Dr. Lopez who agreed to admit the patient to his service on the telemetry care floor. (ALEXANDR BARBA) - Vital Signs Vital signs: Temp Pulse Resp BP Pulse Ox 98.1 F 95 29 H 146/79 H 99 07/20/17 15:36 07/20/17 15:36 07/20/17 22:01 07/20/17 22:01 07/20/17 21:01 - Laboratory Laboratory results interpreted by me: 07/20/17 07/20/17 07/20/17 15:45 16:00 16:00 WBC 23.1 H Hgb 11.2 L Hct 35.2 L MCH 25.9 L MCHC 31.9 L RDW 16.4 H Plt Count 590 H Seg Neuts % (Manual) 82 H Abs Neuts (Manual) 18.9 H Sodium 133.3 L Chloride 86 L Anion Gap 20 H Glucose 643 H* POC Glucose Lactic Acid Direct Bilirubin 0.5 H AST 9 L ALT 14 L Alkaline Phosphatase 171 H Urine Glucose (UA) >=500 H Urine Blood SMALL H Ur Leukocyte Esterase TRACE H 07/20/17 07/20/17 07/20/17 16:00 19:07 19:53 WBC Hgb Hct MCH MCHC RDW Plt Count Seg Neuts % (Manual) Abs Neuts (Manual) Sodium Chloride Anion Gap Glucose POC Glucose 410 H* Lactic Acid 3.7 H 2.5 H Direct Bilirubin AST ALT Alkaline Phosphatase Urine Glucose (UA) Urine Blood Ur Leukocyte Esterase 07/20/17 20:31 WBC Hgb Hct MCH MCHC RDW Plt Count Seg Neuts % (Manual) Abs Neuts (Manual) Sodium Chloride Anion Gap Glucose POC Glucose 356 H Lactic Acid Direct Bilirubin AST ALT Alkaline Phosphatase Urine Glucose (UA) Urine Blood Ur Leukocyte Esterase Critical Care Note - Critical Care Note Total time excluding time spent on procedures (mins): 35 <ALEXANDR BARBA - Last Filed: 07/20/17 23:50> Discharge <RAD BYRNES - Last Filed: 07/20/17 23:45> - Discharge Admitting Provider: [facility] Unit Admitted: Telemetry <ALEXANDR BARBA - Last Filed: 07/20/17 23:50> - Discharge Clinical Impression: Hyperglycemia due to type 1 diabetes mellitus Sepsis Qualifiers: Sepsis type: sepsis due to unspecified organism Qualified Code(s): A41.9 - Sepsis, unspecified organism Condition: Serious Disposition: ADMITTED INPATIENT Scribe Attestation: 07/20/17 23:50 I personally performed the services described in the documentation, reviewed and edited the documentation which was dictated to the scribe in my presence, and it accurately records my words and actions. (ALEXANDR BARBA) Scribe Documentation - Scribe Written by Scribe:: Henrique Hicks, 07/20/2017 17:38 acting as scribe for :: Gordon <RAD BYRNES - Last Filed: 07/20/17 23:45> Sepsis <RAD BYRNES - Last Filed: 07/20/17 23:45> - Sepsis Documentation Sepsis Patient: Yes - Vital Signs Interpretation: Hypertensive, Tachypneic - Cardiovascular Peripheral Pulse Strength: Normal Capillary refill: < 3 seconds Rhythm: Regular Heart Sounds: Normal auscultation - Respiratory Breath Sounds: Clear Respiratory Status: No respiratory distress, Tachypnea - Skin Skin Color: Normal <ALEXANDR BARBA - Last Filed: 07/20/17 23:50> - Vital Signs Vitals: Temp Pulse Resp BP Pulse Ox 98.1 F 95 29 H 146/79 H 99 07/20/17 15:36 07/20/17 15:36 07/20/17 22:01 07/20/17 22:01 07/20/17 21:01 - Skin Notes: This is my reassessment after 2 L of fluid. (ALEXANDR BARBA)
[2017-07-20 17:00] LABS: VENOUS BLOOD BASE EXCESS 3.1 mmol/L; VENOUS BLOOD HCO3 30.3 mmol/L (20-32); VENOUS BLOOD PCO2 57.3 mmHg (35-63); VENOUS BLOOD PH 7.34 (7.30-7.42)
[2017-07-20 17:11] LABS: ANION GAP 20 (5-19)
[2017-07-20 17:19] LABS: GLUCOSE 643 mg/dL (75-110)
[2017-07-20] MEDS ORDERED: INSULIN REG, HUMAN 100 UNIT/ML 3 ML VIAL (PYX) IV ONE (17:21)
[2017-07-20 17:39] LABS: BASOPHILS % (MANUAL) 0 % (0-2); EOSINOPHILS % (MANUAL) 0 % (0-6); LYMPHOCYTES % (MANUAL) 14 % (13-45); TOTAL CELLS COUNTED 100
[2017-07-20 17:40] LABS: ANISOCYTOSIS 1+; POLYCHROMASIA SLIGHT
--- NOTE | 2017-07-20 17:41 | RADIOLOGY REPORT (SQ) ---
EXAM DESCRIPTION: CT LTD RENAL STONE PROTOCOL ON COMPLETED DATE/TIME: 07/20/2017 5:27 pm REASON FOR STUDY: B/L flank pain, hematuria, ?stone COMPARISON: 05/27/2017 TECHNIQUE: CT scan of the abdomen and pelvis performed without intravenous or oral contrast. Images reviewed with lung, soft tissue, and bone windows. Reconstructed coronal and sagittal MPR images revi ewed. All images stored on PACS. All CT scanners at this facility use dose modulation, iterative reconstruction, and/or weight based d osing when appropriate to reduce radiation dose to as low as reasonably achievable (ALARA). [facility]: Dose Right [facility]: CareDose [facility]: Dose Right [facility]: Teradose 4D [facility]: [employer] RADIATION DOSE: mGy. LIMITATIONS: None. FINDINGS: LOWER CHEST: No significant findings. No nodules or infiltrates. NON-CONTRASTED LIVER, SPLEEN, ADRENALS: Evaluation limited by lack of IV contrast. No identified sign ificant masses. PANCREAS: No masses. No peripancreatic inflammatory changes. GALLBLADDER: No identified stones by CT criteria. No inflammatory changes to suggest cholecystitis. RIGHT KIDNEY AND URETER: No suspicious masses. Assessment limited by lack of IV contrast. Multiple nonobstructing calyceal calculi unchanged from comparison imaging. Mild hydronephrosis. No signifi cant hydroureter. LEFT KIDNEY AND URETER: No suspicious masses. Assessment limited by lack of IV contrast. Multiple n onobstructing calyceal calculi unchanged from comparison imaging. No hydronephrosis or hydroureter. AORTA AND RETROPERITONEUM: No aneurysm. No retroperitoneal masses or adenopathy. BOWEL AND PERITONEAL CAVITY: No obvious masses or inflammatory changes. No free fluid. APPENDIX: Normal. PELVIS, BLADDER, AND ABDOMINAL WALL:No abnormal masses. No free fluid. Bladder normal. BONES: Status post lumbar sacral fusion without evidence of gross complication. OTHER: No other significant finding. IMPRESSION: Mild right-sided hydronephrosis without obstructing urolithiasis demonstrated. These fi ndings are nonspecific, and may represent sequela of a recently passed stone versus pyelonephritis. COMMENT: Quality ID # [id number]: Final reports with documentation of one or more dose reduction techniques (e.g., Automated exposure control, adjustment of the mA and/or kV according to patient size, use of iterative reconstruction technique) TECHNICAL DOCUMENTATION: JOB ID: [id number] All Rights Reserved
[2017-07-20] MEDS: NORMAL SALINE 1000 ML 1,000 ML IV PRN ×2 (17:48→18:32)
[2017-07-20] MEDS ORDERED: VANCOMYCIN HCL INJ 1000 MG VIAL IV ONE (17:48)
[2017-07-20] MEDS ORDERED: CEFEPIME 1 GM/D5W RTU 1 GM/50 ML RTUPB IV ONE (17:48)
[2017-07-20] MEDS ORDERED: HYDROMORPHONE HCL INJ/PF 2 MG/ML AMPULE IV ONE ×2 (17:49→22:15)
--- NOTE | 2017-07-20 20:48 | RADIOLOGY REPORT (SQ) ---
EXAM DESCRIPTION: U/S ABDOMEN LIMITED W/O DOP COMPLETED DATE/TIME: 07/20/2017 8:32 pm REASON FOR STUDY: RUQ pain, r/o cholecystitis COMPARISON: None. TECHNIQUE: Dynamic and static grayscale images acquired of the abdomen and recorded on PACS. Additio nal selected color Doppler and spectral images recorded. LIMITATIONS: None. FINDINGS: PANCREAS: No masses. Visualized pancreatic duct normal caliber. LIVER: No masses. Echotexture normal. LIVER VASCULATURE: Normal directional flow of the main portal vein and hepatic veins. GALLBLADDER: Contracted. No stones. Normal wall thickness. No pericholecystic fluid. ULTRASOUND-DETECTED LUJAN'S SIGN: Negative. INTRAHEPATIC DUCTS AND COMMON DUCT: CBD and intrahepatic ducts normal caliber. No filling defects. INFERIOR VENA CAVA: Normal flow. AORTA: No aneurysm of the proximal or mid aorta. The distal aorto was not visualized due to interven ing bowel gas. RIGHT KIDNEY: Normal size. Normal echogenicity. No solid or suspicious masses. No hydronephrosis. No calcifications. PERITONEAL AND RIGHT PLEURAL SPACE: No ascites or effusions. OTHER: No other significant findings. IMPRESSION: NORMAL RIGHT UPPER QUADRANT ULTRASOUND. TECHNICAL DOCUMENTATION: JOB ID: [id number]- All Rights Reserved
[2017-07-20] MEDS ORDERED: IPRATROPIUM/ALBUTEROL 0.5-2.5 MG/3 ML AMPUL NEB PRN (21:53)
[2017-07-20] MEDS ORDERED: GLUCAGON,HUMAN RECOMB 1 MG INJ IM PRN (21:53)
[2017-07-20] MEDS ORDERED: MAG HYDROX/AL HYDROX/SIMETH SUSP 30 ML UDCUP PO PRN (21:53)
[2017-07-20] MEDS ORDERED: DEXTROSE 40% GEL 15 GM TUBE PO PRN ×2 (21:53)
[2017-07-20] MEDS ORDERED: ONDANSETRON HCL INJ/PF 4 MG/2 ML SDV IV PRN (21:53)
[2017-07-20] MEDS ORDERED: DEXTROSE 50%-WATER 25 GM/50 ML DISP.SYRIN IV PRN ×2 (21:53)
[2017-07-20] MEDS ORDERED: CEFTRIAXONE 1 GM/D5W RTU 1 GM/50 ML RTUPB IV ONE (21:54)
[2017-07-20] MEDS ORDERED: INSULIN GLARGINE,HUM.REC.ANLOG 300 UNIT/3 ML INSULN.PEN SUBCUT ONE (22:27)
[2017-07-20] MEDS: INSULIN GLARGINE,HUM.REC.ANLOG 300 UNIT/3 ML INSULN.PEN SUBCUT SCH (22:36)
[2017-07-20] MEDS: HEPARIN SOD (PORCINE) 5,000 UNIT/ML 1 ML SYRINGE SUBCUT SCH (22:37)
[2017-07-21] MEDS: NORMAL SALINE 1000 ML 1,000 ML IV SCH ×3 (01:36→05:30)
[2017-07-21] MEDS: ACETAMINOPHEN 325 MG TABLET PO PRN ×3 (01:39→10:39)
[2017-07-21 04:44] LABS: ABSOLUTE LYMPHOCYTES (AUTO) 2.3 10^3/uL (0.5-4.7); ABSOLUTE MONOCYTES (AUTO) 1.4 10^3/uL (0.1-1.4); ABSOLUTE NEUT (AUTO) 13.3 10^3/uL (1.7-8.2); BASOPHILS % (AUTO) 0.2 % (0-2); EOSINOPHILS % (AUTO) 0.3 % (0-6); HEMATOCRIT 28.1 % (37.9-51.0); HEMOGLOBIN 9.4 g/dL (13.5-17.0); HGB HCT DIFFERENCE 0.1; LYMPHOCYTES % (AUTO) 13.3 % (13-45); MEAN CORPUSCULAR HEMOGLOBIN 25.9 pg (27.0-33.4); MEAN CORPUSCULAR HGB CONC 33.5 g/dL (32.0-36.0); MONOCYTES % (AUTO) 8.1 % (3-13); RED BLOOD COUNT 3.63 10^6/uL (4.35-5.55); RED CELL DISTRIBUTION WIDTH 16.1 % (11.5-14.0); SEGMENTED NEUTROPHILS % (AUTO) 78.1 % (42-78)
[2017-07-21 04:50] LABS: MEAN CORPUSCULAR VOLUME 77 fl (80-97)
[2017-07-21 05:23] LABS: ANION GAP 13 (5-19); BLOOD UREA NITROGEN 10 mg/dL (7-20); CALCIUM 8.6 mg/dL (8.4-10.2); CARBON DIOXIDE 24 mmol/L (22-30); CHLORIDE 101 mmol/L (98-107); GLUCOSE 304 mg/dL (75-110); POTASSIUM 3.9 mmol/L (3.6-5.0); SODIUM 138.2 mmol/L (137-145)
[2017-07-21] MEDS: HEPARIN SOD (PORCINE) 5,000 UNIT/ML 1 ML SYRINGE SUBCUT SCH ×3 (05:30→21:14)
--- NOTE | 2017-07-21 06:43 | PDOC H&P ---
History of Present Illness Admission Date/PCP: 07/20/17 21:53 Patient complains of: Fever and myalgia History of Present Illness: RAYMOND BRAY is a 32 year old male with a past medical history of insulin- dependent diabetes and recurrent bacteremia and pyelonephritis with Serratia marcescens to spite appropriate antibiotic coverage. He presents with approximately 2 weeks of myalgia and low-grade fever prompting evaluation emergency room where he was found to have leukocytosis and referred to the hospitalist for admission. Patient reports symptoms similar to initial pyelonephritis in April, poor appetite and difficulty controlling blood sugars. Past Medical History Cardiac Medical History: Reports: None, Heart Murmur Pulmonary Medical History: Reports: None EENT Medical History: Reports: None Neurological Medical History: Reports: None Endocrine Medical History: Reports: Diabetes Mellitus Type 1 GI Medical History: Reports: Gastroesophageal Reflux Disease Musculoskeltal Medical History: Reports: None Skin Medical History: Reports: None Psychiatric Medical History: Reports: None Traumatic Medical History: Reports: None Hematology: Reports: None Infectious Medical History: Reports: Other Past Surgical History Past Surgical History: Reports: Orthopedic Surgery - disc suregery L5-S1 Social History Information Source: Patient Lives with: Family Smoking Status: Current Every Day Smoker Cigarettes Packs Per Day: 2 Last Time Smoked: 07/20/2017 Frequency of Alcohol Use: None Hx Recreational Drug Use: No Drugs: None Hx Prescription Drug Abuse: No - Advance Directive Resuscitation Status: Full Code Family History Family History: DM Parental Family History Reviewed: Yes Children Family History Reviewed: Yes Sibling(s) Family History Reviewed.: Yes Medication/Allergy Home Medications: Insulin Aspart [Novolog Flexpen] 0 unit SUBCUT .SLD SCALE 05/27/17 Insulin Aspart [Novolog Flexpen] 15 unit SUBCUT AC 05/27/17 Insulin Glargine,Hum.rec.anlog [Lantus Solostar] 50 unit SQ QHS 05/27/17 Allergies/Adverse Reactions: Penicillins Allergy (Verified 07/20/17 16:31) Review of Systems Constitutional: PRESENT: as per HPI, anorexia, chills, fatigue, fever(s), weight loss Eyes: ABSENT: visual disturbances Ears: ABSENT: hearing changes Cardiovascular: ABSENT: chest pain, dyspnea on exertion, edema, orthropnea, palpitations Respiratory: ABSENT: cough, hemoptysis Gastrointestinal: ABSENT: abdominal pain, constipation, diarrhea, hematemesis, hematochezia, nausea, vomiting Genitourinary: PRESENT: as per HPI, dysuria Musculoskeletal: ABSENT: joint swelling Integumentary: ABSENT: rash, wounds Neurological: ABSENT: abnormal gait, abnormal speech, confusion, dizziness, focal weakness, syncope Psychiatric: ABSENT: anxiety, depression, homidical ideation, suicidal ideation Endocrine: ABSENT: cold intolerance, heat intolerance, polydipsia, polyuria Hematologic/Lymphatic: ABSENT: easy bleeding, easy bruising Physical Exam Vital Signs: Temp Pulse Resp BP Pulse Ox 99.2 F 95 18 146/74 H 99 07/21/17 01:13 07/21/17 02:00 07/21/17 01:13 07/21/17 01:13 07/21/17 01:13 Intake & Output 07/19/17 07/20/17 07/21/17 11:59 11:59 11:59 Intake Total 1999 Balance 1999 General appearance: PRESENT: mild distress, thin Head exam: PRESENT: atraumatic, normocephalic Eye exam: PRESENT: conjunctiva pink, EOMI, PERRLA. ABSENT: scleral icterus Ear exam: PRESENT: normal external ear exam Mouth exam: PRESENT: moist, tongue midline Neck exam: ABSENT: carotid bruit, JVD, lymphadenopathy, thyromegaly Respiratory exam: PRESENT: clear to auscultation jason. ABSENT: rales, rhonchi, wheezes Cardiovascular exam: PRESENT: RRR. ABSENT: diastolic murmur, rubs, systolic murmur Pulses: PRESENT: normal dorsalis pedis pul Vascular exam: PRESENT: normal capillary refill GI/Abdominal exam: PRESENT: normal bowel sounds, soft. ABSENT: distended, guarding, mass, organolmegaly, rebound, tenderness Rectal exam: PRESENT: deferred Gentrourinary exam: PRESENT: other - Right-sided flank pain Extremities exam: PRESENT: full ROM. ABSENT: calf tenderness, clubbing, pedal edema Neurological exam: PRESENT: alert, awake, oriented to person, oriented to place , oriented to time, oriented to situation, CN II-XII grossly intact. ABSENT: motor sensory deficit Psychiatric exam: PRESENT: appropriate affect, normal mood. ABSENT: homicidal ideation, suicidal ideation Skin exam: PRESENT: dry, intact, warm. ABSENT: cyanosis, rash Results Laboratory Results: 07/21/17 04:11 07/21/17 04:11 07/21/17 07/21/17 04:11 04:11 WBC 17.0 H RBC 3.63 L Hgb 9.4 L Hct 28.1 L MCV 77 L D MCH 25.9 L MCHC 33.5 RDW 16.1 H Plt Count 446 Seg Neutrophils % 78.1 H Lymphocytes % 13.3 Monocytes % 8.1 Eosinophils % 0.3 Basophils % 0.2 Absolute Neutrophils 13.3 H Absolute Lymphocytes 2.3 Absolute Monocytes 1.4 Absolute Eosinophils 0.0 Absolute Basophils 0.0 Sodium 138.2 Potassium 3.9 Chloride 101 Carbon Dioxide 24 Anion Gap 13 BUN 10 Creatinine 0.80 Est GFR ( Amer) > 60 Est GFR (Non-Af Amer) > 60 Glucose 304 H Calcium 8.6 Impressions: Limited or Localized CT 07/20/17 17:03 IMPRESSION: Mild right-sided hydronephrosis without obstructing urolithiasis demonstrated. These findings are nonspecific, and may represent sequela of a recently passed stone versus pyelonephritis. Abdomen Ultrasound 07/20/17 17:49 IMPRESSION: NORMAL RIGHT UPPER QUADRANT ULTRASOUND. Assessment & Plan - Diagnosis (1) Pyelonephritis Is this a current diagnosis for this admission?: Yes Plan: Severe leukocytosis, no evidence for abscess or obstruction, Serratia marcescens positive, on multiple previous cultures sensitive to Rocephin which is initiated, reculture urine and blood. Concern for bacteremia and endocarditis with known murmur 2D echo ordered (2) Bacteremia Is this a current diagnosis for this admission?: Yes Plan: Please see #1 (3) Hyperglycemia due to type 1 diabetes mellitus Is this a current diagnosis for this admission?: Yes Plan: Home regiment with sliding scale insulin. - Time Time Spent: 50 to 70 Minutes - Inpatient Certification Medical Necessity: Need Close Monitoring Due to Risk of Patient Decompensation
[2017-07-21] MEDS: INSULIN LISPRO 100 UNIT/ML 3 ML VIAL SUBCUT SCH ×3 (07:28→16:24)
[2017-07-21] MEDS: INSULIN LISPRO 100 UNIT/ML 3 ML VIAL SUBCUT PRN ×2 (07:52→16:24)
[2017-07-21] MEDS ORDERED: (PENDING PHARMACY ID) (Insulin Aspart [Novolog Flexpen] 10 UNIT) SUBCUT SCH (08:00)
[2017-07-21] MEDS: DOCUSATE SODIUM 100 MG CAPSULE PO SCH ×2 (09:03→17:18)
[2017-07-21] MEDS: CEFTRIAXONE 1 GM/D5W RTU 1 GM/50 ML RTUPB IV SCH (09:04)
--- NOTE | 2017-07-21 11:18 | PDOC PROGRESS REPORT ---
Subjective Progress Note for:: 07/21/17 Subjective:: The patient presents to the hospital with a 2 week history of chills and back pain. He has also had intermittent hematuria. Currently, he is in the hospital with the diagnosis of sepsis secondary to pyelonephritis. The patient' s condition has recurred 3 times in the last 3-4 months. We are also concerned about the possibility of endocarditis. In addition, the patient is fairly anemic which needs to be worked up further. The patient is a type I diabetic and has had type 1 diabetes for approximately 9 years. His diabetes is poorly controlled. He is set up to see an follow up manager in [place] in the near future. Physical Exam Vital Signs: Temp Pulse Resp BP Pulse Ox 98.2 F 88 17 132/70 H 100 07/21/17 07:52 07/21/17 08:09 07/21/17 08:09 07/21/17 07:52 07/21/17 08:09 Intake & Output 07/20/17 07/21/17 07/22/17 06:59 06:59 06:59 Intake Total 2380 Balance 2380 Weight 67 kg Additional comments: Patient is thin. He is not in any distress and he does not appear to be toxic. He is quite pale. His facial appearance is otherwise normal. He has minor dental caries. He does not have any JVD present. His neck is supple. His lungs are clear to auscultation bilaterally. His cardiac exam is regular without murmurs, gallops or rubs. Again, I did not appreciate a murmur this morning. The patient's abdomen is soft and flat. Bowel sounds are present. There is no guarding or rebound noted and there are no hernias or masses present. Patient is exquisitely tender over the right flank. Even minimal palpation elicits pain. The patient's lower extremities are warm to touch. I do not see any embolic phenomena on the skin. There is no edema. The left ankle scar from surgery during the patient's prior admission is healing well. Results Laboratory Results: 07/21/17 04:11 07/21/17 04:11 07/21/17 07/21/17 04:11 04:11 WBC 17.0 H RBC 3.63 L Hgb 9.4 L Hct 28.1 L MCV 77 L D MCH 25.9 L MCHC 33.5 RDW 16.1 H Plt Count 446 Seg Neutrophils % 78.1 H Lymphocytes % 13.3 Monocytes % 8.1 Eosinophils % 0.3 Basophils % 0.2 Absolute Neutrophils 13.3 H Absolute Lymphocytes 2.3 Absolute Monocytes 1.4 Absolute Eosinophils 0.0 Absolute Basophils 0.0 Sodium 138.2 Potassium 3.9 Chloride 101 Carbon Dioxide 24 Anion Gap 13 BUN 10 Creatinine 0.80 Est GFR ( Amer) > 60 Est GFR (Non-Af Amer) > 60 Glucose 304 H Calcium 8.6 Impressions: Limited or Localized CT 07/20/17 17:03 IMPRESSION: Mild right-sided hydronephrosis without obstructing urolithiasis demonstrated. These findings are nonspecific, and may represent sequela of a recently passed stone versus pyelonephritis. Abdomen Ultrasound 07/20/17 17:49 IMPRESSION: NORMAL RIGHT UPPER QUADRANT ULTRASOUND. Assessment & Plan - Diagnosis (1) Hydronephrosis Is this a current diagnosis for this admission?: Yes (2) Bacteremia Is this a current diagnosis for this admission?: Yes (3) Hyperglycemia due to type 1 diabetes mellitus Is this a current diagnosis for this admission?: Yes (4) Sepsis Qualifiers: Sepsis type: sepsis due to unspecified organism Qualified Code(s): A41.9 - Sepsis, unspecified organism Is this a current diagnosis for this admission?: Yes (5) Leukocytosis Qualifiers: Leukocytosis type: other Qualified Code(s): D72.828 - Other elevated white blood cell count (6) Nephrolithiasis Is this a current diagnosis for this admission?: Yes (7) Pyelonephritis Is this a current diagnosis for this admission?: Yes - Time Time Spent with patient: 25-34 minutes - Inpatient Certification Medical Necessity: Need Close Monitoring Due to Risk of Patient Decompensation, Need For Continuous Telemetry Monitoring, Need for IV Antibiotics, Risk of Complication if Not Cared For in Hospital - Plan Summary Plan Summary: The patient is currently admitted with sepsis due to pyelonephritis. Upon presentation the patient was tachycardic with a significant leukocytosis. Blood cultures are already showing evidence of gram-negative rods. We are presuming that this is a recurrent infection with Serratia marcescens. The patient has had previous blood cultures with Serratia marcescens dating back to April 2017. We know that this organism was previously sensitive to ceftriaxone. Patient is currently receiving ceftriaxone. The patient's limited CT scan does show bilateral renal stones and mild hydronephrosis on the right. I will need to discuss the case with urology. Transfer may be indicated. I am also concerned about the possibility of endocarditis. An urgent echocardiogram has been ordered. Potentially, a transesophageal echocardiogram will be needed. The patient is also noted to be anemic. Anemia workup will need to be pursued. We will continue his basal and sliding scale insulin coverage for his diabetes. His diabetes is under very poor control. He tells me that his hemoglobin A1c is usually in the range of 12. His blood sugars generally run 250 or higher. He is scheduled to see an follow up manager in the near future and keep Cooper and he plans on making sure that he keeps this appointment.
[2017-07-21] MEDS: HYDROCODONE/ACETAMINOPHEN 5-325 MG TABLET PO PRN ×3 (12:19→21:14)
[2017-07-21] MEDS: INSULIN GLARGINE,HUM.REC.ANLOG 300 UNIT/3 ML INSULN.PEN SUBCUT SCH (21:14)
[2017-07-22] MEDS ORDERED: MAGNESIUM SULFATE/D5W 1 GM/100 ML RTUPB IV ONE ×2 (03:00→03:30)
[2017-07-22] MEDS ORDERED: ASPIRIN 81 MG TABLET, CHEWABLE PO ONE (03:24)
[2017-07-22 03:57] LABS: ABSOLUTE EOSINOPHILS # (AUTO) 0.1 10^3/uL (0.0-0.6); ABSOLUTE LYMPHOCYTES (AUTO) 2.8 10^3/uL (0.5-4.7); ABSOLUTE MONOCYTES (AUTO) 0.8 10^3/uL (0.1-1.4); BASOPHILS % (AUTO) 0.2 % (0-2); EOSINOPHILS % (AUTO) 1.2 % (0-6); HEMATOCRIT 27.7 % (37.9-51.0); HEMOGLOBIN 9.1 g/dL (13.5-17.0); HGB HCT DIFFERENCE -0.4; LYMPHOCYTES % (AUTO) 22.2 % (13-45); MEAN CORPUSCULAR HEMOGLOBIN 25.6 pg (27.0-33.4); MEAN CORPUSCULAR VOLUME 78 fl (80-97); RED BLOOD COUNT 3.57 10^6/uL (4.35-5.55); RED CELL DISTRIBUTION WIDTH 16.1 % (11.5-14.0); SEGMENTED NEUTROPHILS % (AUTO) 70.4 % (42-78); WHITE BLOOD COUNT 12.8 10^3/uL (4.0-10.5)
[2017-07-22 04:22] LABS: PHOSPHORUS 4.1 mg/dL (2.5-4.5)
[2017-07-22 04:35] LABS: CREATINE KINASE MB 0.64 ng/mL (<4.55)
[2017-07-22 04:39] LABS: TROPONIN I < 0.012 ng/mL
[2017-07-22 04:49] LABS: ANION GAP 13 (5-19); BLOOD UREA NITROGEN 10 mg/dL (7-20); CALCIUM 9.2 mg/dL (8.4-10.2); CARBON DIOXIDE 24 mmol/L (22-30); CHLORIDE 103 mmol/L (98-107); CREATINE KINASE 30 U/L (55-170); CREATININE RESULT 0.67 mg/dL (0.52-1.25); GLUCOSE 232 mg/dL (75-110); POTASSIUM 4.5 mmol/L (3.6-5.0); SODIUM 139.6 mmol/L (137-145)
[2017-07-22] MEDS: HEPARIN SOD (PORCINE) 5,000 UNIT/ML 1 ML SYRINGE SUBCUT SCH ×3 (05:26→21:22)
[2017-07-22] MEDS: INSULIN LISPRO 100 UNIT/ML 3 ML VIAL SUBCUT PRN (05:40)
[2017-07-22] MEDS: INSULIN LISPRO 100 UNIT/ML 3 ML VIAL SUBCUT SCH ×3 (09:43→17:12)
[2017-07-22] MEDS: DOCUSATE SODIUM 100 MG CAPSULE PO SCH ×2 (09:43→17:12)
[2017-07-22] MEDS: CEFTRIAXONE 1 GM/D5W RTU 1 GM/50 ML RTUPB IV SCH (09:44)
--- NOTE | 2017-07-22 09:45 | EKG REPORT ---
SEVERITY:- ABNORMAL ECG - SINUS RHYTHM CONSIDER LEFT VENTRICULAR HYPERTROPHY ABNORMAL T, PROBABLE ISCHEMIA, ANT-LAT LEADS : Confirmed by: Meaghan Salas 22-Jul-2017 09:44:25
--- NOTE | 2017-07-22 10:24 | PDOC PROGRESS REPORT ---
Subjective Progress Note for:: 07/22/17 Subjective:: The patient presents to the hospital with a 2 week history of chills and back pain. He has also had intermittent hematuria. Currently, he is in the hospital with the diagnosis of sepsis secondary to pyelonephritis. The patient' s condition has recurred 3 times in the last 3-4 months. We are also concerned about the possibility of endocarditis. In addition, the patient is fairly anemic which needs to be worked up further. The patient is a type I diabetic and has had type 1 diabetes for approximately 9 years. His diabetes is poorly controlled. He is set up to see an commercial fishing vessel operator in [place] in the near future. Overnight, the patient had tachy arrhythmias into the 200 range. These aborted spontaneously. The patient had electrolytes checked which were unremarkable. Troponin was unremarkable. Echocardiogram is pending for today. I spoke with Dr. Salas who agrees to read the echocardiogram. The patient has never had an arrhythmia that he is aware of. He was asymptomatic at that time. I spoke to the patient about following up with urology. Apparently, during the patient's last hospitalization he saw a [facility] urologist. This provider did not have an office in the local area. I did recommend that the patient see the [facility] urology in [place]. He states that he can easily get to [place] and he is willing to travel for that appointment. I did explain that he has bilateral kidney stones. These are too small for intervention at this time. I did speak to the urologist on-call yesterday and he did not see any significant hydronephrosis. Therefore, stenting is not recommended. The patient will need chronic suppression with daily antibiotics at least until he gets in to see a urologist. He did tell me that upon his last discharge he did complete 30 days of Levaquin that was recommended. Physical Exam Vital Signs: Temp Pulse Resp BP Pulse Ox 97.5 F 61 16 136/79 H 100 07/22/17 04:32 07/22/17 04:32 07/22/17 04:32 07/22/17 04:32 07/22/17 04:32 Intake & Output 07/21/17 07/22/17 07/23/17 06:59 06:59 06:59 Intake Total 2380 1990 Balance 2380 1990 Weight 67 kg 69 kg Additional comments: When I entered the room the patient was laying in bed flat. He did not appear to be toxic or in any distress. His facial appearance is normal. Again, dental caries are noted. His lungs are clear to auscultation bilaterally. His cardiac exam is regular. At this time I do not appreciate any murmurs, gallops or rubs. The abdomen is soft and flat. Bowel sounds are present. The patient has no guarding or rebound noted. The lower extremities are warm to touch without edema. The skin is warm dry and intact without lesions or rashes. Results Laboratory Results: 07/22/17 03:31 07/22/17 03:31 07/22/17 07/22/17 07/22/17 03:31 03:31 03:31 WBC 12.8 H RBC 3.57 L Hgb 9.1 L Hct 27.7 L MCV 78 L MCH 25.6 L MCHC 33.0 RDW 16.1 H Plt Count 412 Seg Neutrophils % 70.4 Lymphocytes % 22.2 Monocytes % 6.0 Eosinophils % 1.2 Basophils % 0.2 Absolute Neutrophils 9.0 H Absolute Lymphocytes 2.8 Absolute Monocytes 0.8 Absolute Eosinophils 0.1 Absolute Basophils 0.0 Retic Count (auto) 1.06 Absolute Retic 0.038 Sodium 139.6 Potassium 4.5 Chloride 103 Carbon Dioxide 24 Anion Gap 13 BUN 10 Creatinine 0.67 Est GFR ( Amer) > 60 Est GFR (Non-Af Amer) > 60 Glucose 232 H Calcium 9.2 Phosphorus 4.1 Magnesium 2.0 Iron 36.4 L TIBC 218 L % Saturation 17 Ferritin 199.00 Vitamin B12 528.0 Folate 13.10 TSH 07/22/17 03:31 WBC RBC Hgb Hct MCV MCH MCHC RDW Plt Count Seg Neutrophils % Lymphocytes % Monocytes % Eosinophils % Basophils % Absolute Neutrophils Absolute Lymphocytes Absolute Monocytes Absolute Eosinophils Absolute Basophils Retic Count (auto) Absolute Retic Sodium Potassium Chloride Carbon Dioxide Anion Gap BUN Creatinine Est GFR ( Amer) Est GFR (Non-Af Amer) Glucose Calcium Phosphorus Magnesium Iron TIBC % Saturation Ferritin Vitamin B12 Folate TSH 2.28 07/22/17 07/22/17 03:31 03:31 Creatine Kinase 30 L CK-MB (CK-2) 0.64 Troponin I < 0.012 Impressions: Limited or Localized CT 07/20/17 17:03 IMPRESSION: Mild right-sided hydronephrosis without obstructing urolithiasis demonstrated. These findings are nonspecific, and may represent sequela of a recently passed stone versus pyelonephritis. Abdomen Ultrasound 07/20/17 17:49 IMPRESSION: NORMAL RIGHT UPPER QUADRANT ULTRASOUND. Assessment & Plan - Diagnosis (1) Hydronephrosis Is this a current diagnosis for this admission?: Yes Plan: I spoke to the urologist on-call for [facility] yesterday. He was able to review the patient's films. No significant hydronephrosis is present. The patient does not require intervention with stenting at this time. As discussed above he will need to be kept on antibiotic suppression indefinitely. He will need to follow-up with urology. I have recommended that the patient see Dr. Mariely Echols at [facility] urology in [place]. (2) Bacteremia Is this a current diagnosis for this admission?: Yes Plan: 1 of 2 blood culture bottles are growing gram-negative rods. Presumably, this is the same species which is growing in the urine. The patient is again a growing Serratia marcescens. The urine specimen is sensitive to ceftriaxone. At this time, we will continue ceftriaxone. (3) Hyperglycemia due to type 1 diabetes mellitus Is this a current diagnosis for this admission?: Yes Plan: Continue basal insulin, mealtime coverage and sliding scale. (4) Sepsis Qualifiers: Sepsis type: sepsis due to unspecified organism Qualified Code(s): A41.9 - Sepsis, unspecified organism Is this a current diagnosis for this admission?: Yes Plan: Patient presented with significant tachycardia and leukocytosis. He meets criteria for sepsis. He is improving. (5) Leukocytosis Qualifiers: Leukocytosis type: other Qualified Code(s): D72.828 - Other elevated white blood cell count Is this a current diagnosis for this admission?: Yes Plan: Improving. (6) Nephrolithiasis Is this a current diagnosis for this admission?: Yes Plan: See the discussion above. The patient will need to follow-up with urology. I would recommend that he see Dr. Jason Echols of the [facility] urology in [facility]. The patient will need to be on daily suppressive therapy after discharge. This can be accomplished with Macrodantin or Bactrim. (7) Pyelonephritis Is this a current diagnosis for this admission?: Yes Plan: As above and continue ceftriaxone. (8) Tachyarrhythmia Is this a current diagnosis for this admission?: Yes Plan: We will continue telemetry monitoring. Electrolytes are in acceptable range. Echocardiogram is pending. - Time Time Spent with patient: 25-34 minutes - Inpatient Certification Medical Necessity: Significant Comorbidiites Make Outpatient Treatment Too Risky , Need Close Monitoring Due to Risk of Patient Decompensation, Need For Continuous Telemetry Monitoring, Need for IV Antibiotics, Risk of Complication if Not Cared For in Hospital
[2017-07-22 11:06] LABS: TROPONIN I < 0.012 ng/mL
[2017-07-22] MEDS: HYDROCODONE/ACETAMINOPHEN 5-325 MG TABLET PO PRN ×2 (12:14→21:20)
--- NOTE | 2017-07-22 13:45 | XCELERA REPORT ---
[address] [address] Transthoracic Echocardiogram Report Name: RAYMOND BRAY Age: 32 yrs Gender: Male : 1985 Patient Status: Inpatient Patient Location: [address] [place] [address] Study Date: 07/22/2017 10:20 AM Height: 70 in Weight: 145 lb BSA: 1.8 m2 Procedure: A complete two-dimensional transthoracic echocardiogram was performed (2D, M-mode, spectral and color flow Doppler). The study was technically adequate with some images being suboptimal in quality. Reason For Study: recurrent bacteremia Ordering Physician: RAYMOND KIM Performed By: Crystal Thakkar Interpretation Summary The left ventricular ejection fraction is within normal limits. There is normal left ventricular wall thickness. The left ventricle is grossly normal size. Doppler measurements suggest normal left ventricular diastolic function No regional wall motion abnormalities noted. The right ventricular systolic function is normal. The left atrial size is normal. The right atrium is normal in size There is a trace to mild amount of mitral regurgitation There is no mitral valve stenosis. No aortic regurgitation is present. There is no aortic valve stenosis There is a trace or physiologic amount of tricuspid regurgitation Tricuspid regurgitation jet envelope not well defined to measure RV systolic pressure accurately. The aortic root is not well visualized but is probably normal size. The inferior vena cava appeared normal and decreased > 50% with respiration (RAP 5-10 mmHg) There is no pericardial effusion. MMode/2D Measurements & Calculations RVDd: 2.7 cm LVIDd: 4.6 cm FS: 37.0 % Ao root diam: 2.8 cm IVSd: 0.87 cm LVIDs: 2.9 cm EDV(Teich): 95.4 ml LVPWd: 0.92 cm ESV(Teich): 31.5 ml Ao root area: 6.0 cm2 EF(Teich): 67.0 % Doppler Measurements & Calculations MV E max marina: MV dec slope: Ao V2 max: LV V1 max P.4 cm/sec 157.5 cm/sec 6.8 mmHg MV A max marina: 650.6 cm/sec2 Ao max PG: LV V1 max: 67.6 cm/sec MV dec time: 9.9 mmHg 130.6 cm/sec MV E/A: 1.7 0.18 sec PA V2 max: 101.3 cm/sec PA max P.1 mmHg Left Ventricle The left ventricle is grossly normal size. There is normal left ventricular wall thickness. The left ventricular ejection fraction is within normal limits. Doppler measurements suggest normal left ventricular diastolic function. No regional wall motion abnormalities noted. Right Ventricle The right ventricle is grossly normal size. There is normal right ventricular wall thickness. The right ventricular systolic function is normal. Atria The right atrium is normal in size. The left atrial size is normal. Interarterial septum not well visualized and not well dopplered. Cannot comment on ASD/PFO presence. Mitral Valve The mitral valve is grossly normal. There is no mitral valve stenosis. There is a trace to mild amount of mitral regurgitation. Aortic Valve The aortic valve is grossly normal. There is no aortic valve stenosis. No aortic regurgitation is present. Tricuspid Valve The tricuspid valve is not well visualized, but is grossly normal. There is no tricuspid stenosis. There is a trace or physiologic amount of tricuspid regurgitation. Tricuspid regurgitation jet envelope not well defined to measure RV systolic pressure accurately. Pulmonic Valve The pulmonic valve is not well visualized. Great Vessels The aortic root is not well visualized but is probably normal size. The inferior vena cava appeared normal and decreased > 50% with respiration (RAP 5-10 mmHg). Effusions There is no pericardial effusion. : RAYMOND KIM > Meaghan Salas
[2017-07-22 17:37] LABS: CREATINE KINASE MB 1.19 ng/mL (<4.55)
[2017-07-22 17:38] LABS: TROPONIN I < 0.012 ng/mL
--- NOTE | 2017-07-22 18:43 | Progress Note ---
Provider Note Provider Note: The patient's baseline echocardiogram is normal. I spoke with Dr. Salas about this earlier today. Due to long-standing bacteremia in a patient with uncontrolled diabetes consider further evaluation with transesophageal echocardiogram to rule out endocarditis.
[2017-07-22] MEDS: INSULIN GLARGINE,HUM.REC.ANLOG 300 UNIT/3 ML INSULN.PEN SUBCUT SCH (21:21)
--- NOTE | 2017-07-22 21:57 | PDOC CONSULTATION ---
Consultation Consult Date: 07/22/17 Attending physician:: KODY HOLGUIN Consult reason:: SVT History of Present Illness Admission Date/PCP: 07/20/17 21:53 Patient complains of: Admitted with fever and chills History of Present Illness: RAYMOND BRAY is a 32 year old male admitted for fever and myalgias. Pt was found to have Serratia bactermia and Serratia in urine. Pt had been on antibiotics for 30 days and then ran out of antibiotics. Pt states that he did not have antibiotics for 1-2 months. pt states that he was told that he would need to follow up with Urology but did not. Pt was admitted an placed on antibiotics. Pt demonstrated improvement during hospitalization. Pt was found to have a HBgA1C 10.1. Pt was told that he would have to do a greater job with controlling blood glucose. While patient being monitored on the floor, he was noted to have a cardiac dysrhythmia. I was therefore asked to evaluate patient. Also of note patient had positive blood cultures and I believe, may need to rule out endocarditis. Patient does have a source of infection however. On questioning patient denied any prior history of heart problems, endocarditis. He denied any syncope or near syncope. He denied any history of sustained palpitations. Past Medical History Cardiac Medical History: Reports: None, Heart Murmur Pulmonary Medical History: Reports: None EENT Medical History: Reports: None Neurological Medical History: Reports: None Endocrine Medical History: Reports: Diabetes Mellitus Type 1, Diabetes Mellitus Type 2 GI Medical History: Reports: Gastroesophageal Reflux Disease Musculoskeltal Medical History: Reports: None Skin Medical History: Reports: None Psychiatric Medical History: Reports: None Traumatic Medical History: Reports: None Hematology: Reports: None Infectious Medical History: Reports: Other Past Surgical History Past Surgical History: Reports: Orthopedic Surgery - disc suregery L5-S1 Social History Information Source: Patient Lives with: Family Smoking Status: Current Every Day Smoker Cigarettes Packs Per Day: 2 Last Time Smoked: 07/20/2017 Frequency of Alcohol Use: None Hx Recreational Drug Use: No Drugs: None Hx Prescription Drug Abuse: No - Advance Directive Resuscitation Status: Full Code Surrogate healthcare decision maker:: Patient's father is the surrogate decision-maker Family History Family History: DM Parental Family History Reviewed: Yes Children Family History Reviewed: Yes Sibling(s) Family History Reviewed.: Yes - Negative for premature coronary artery disease or sudden cardiac in the family amongst first degree relatives. Medication/Allergy Home Medications: Insulin Aspart [Novolog Flexpen] 0 unit SUBCUT .SLD SCALE 05/27/17 Insulin Aspart [Novolog Flexpen] 15 unit SUBCUT AC 05/27/17 Insulin Glargine,Hum.rec.anlog [Lantus Solostar] 50 unit SQ QHS 05/27/17 Levofloxacin [Levaquin 500 mg Tablet] 500 mg PO DAILY #30 tablet 07/25/17 Oxycodone HCl/Acetaminophen [Percocet 5-325 mg Tablet] 1 tab PO Q6HP PRN #8 tablet 07/25/17 Allergies/Adverse Reactions: Penicillins Allergy (Verified 07/20/17 16:31) Review of Systems Review of Systems: Please see history of present illness and past medical history as wall. Constitutional: Admitted with fever and chills reported. Head : No recent chronic headaches, recent head injury. Eyes: No recent eye pain, diplopia, redness, discharge, acute visual changes. Ears: No recent chronic ear pain, acute hearing loss, ear discharge. Oral cavity: No recent ulcerations, bleeding, oral cavity discomfort. Neck: No recent acute neck pain reported. Hematologic: No recent easy bruising or bleeding or hematologic malignancy reported. Lymphatic: No recent lymphatic malignancy, chronic lymphadenopathy reported yet Cardiovascular system review: See history of present illness. Respiratory system review: No recent chronic cough, hemoptysis, blood clots in the lungs reported. Mild Shortness of breath on exertion Gastrointestinal system review: Negative for any recent acute or chronic abdominal pain, hematemesis, melena, recent change in bowel habits. Genitourinary system review: No recent acute or chronic hematuria, flank pain, UTI etc. reported. Skin system review: Negative for any recent abnormal bruising, no rash, no pruritus reported. Neurologic: No prior history of strokes, mini strokes, seizure disorder. Psychologic: No history of major psychosis or major depression reported. Musculoskeletal: Minor aches and pains reported. No acute joint swelling reported. Endocrine: No recent polyuria, polydipsia, recent heat or cold intolerance. Physical Exam Vital Signs: Temp Pulse Resp BP Pulse Ox 98.3 F 76 16 128/71 H 99 07/22/17 21:34 07/22/17 21:34 07/22/17 21:34 07/22/17 21:34 07/22/17 21:34 Intake & Output 07/21/17 07/22/17 07/23/17 06:59 06:59 06:59 Intake Total 2380 1990 700 Output Total 500 Balance 2380 1990 200 Weight 67 kg 69 kg Exam: GENERAL: well-nourished and in no acute distress. Alert and oriented x3 HEAD: Atraumatic, normocephalic. EYES: Pupils equal round and reactive to light, extraocular movements intact, sclera anicteric, conjunctiva are normal. ENT: TMs normal, nares patent, oropharynx clear without exudates. Moist mucous membranes. No oral ulcerations or bleeding gums noted NECK: supple without lymphadenopathy. Trachea is central. No cervical or axillary lymphadenopathy noted. Carotids are 2+, JVD WNL LUNGS: Respiration seems nonlabored, no significant accessory muscle action noted. Breath sounds clear to auscultation bilaterally and equal noted. No wheezes rales or rhonchi noted. No significant dullness noted on percussion. CHEST: Palpation of the chest wall shows no significant chest wall tenderness. No other significant abnormalities noted. 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 ABDOMEN: Soft, no significant tenderness appreciated, normoactive bowel sounds. No guarding, no rebound. No rigidity noted . No masses appreciated. EXTREMITIES: Pedal pulses are 1-2+, no calf tenderness noted. No clubbing or cyanosis.trace to 1+ pedal edema noted NEUROLOGICAL: Focused neurological exam showed no significant neurologic deficit. Normal speech, no focal weakness appreciated. PSYCH: Normal mood, normal affect. Judgment and insight within normal limits. SKIN: No significant ecchymosis, rash, ulcerations or signs of pruritus noted. MUSCULOSKELETAL EXAM: No significant joint swelling noted. Results Laboratory Results: 07/22/17 03:31 07/22/17 03:31 07/22/17 07/22/17 07/22/17 03:31 03:31 03:31 WBC 12.8 H RBC 3.57 L Hgb 9.1 L Hct 27.7 L MCV 78 L MCH 25.6 L MCHC 33.0 RDW 16.1 H Plt Count 412 Seg Neutrophils % 70.4 Lymphocytes % 22.2 Monocytes % 6.0 Eosinophils % 1.2 Basophils % 0.2 Absolute Neutrophils 9.0 H Absolute Lymphocytes 2.8 Absolute Monocytes 0.8 Absolute Eosinophils 0.1 Absolute Basophils 0.0 Retic Count (auto) 1.06 Absolute Retic 0.038 Sodium 139.6 Potassium 4.5 Chloride 103 Carbon Dioxide 24 Anion Gap 13 BUN 10 Creatinine 0.67 Est GFR ( Amer) > 60 Est GFR (Non-Af Amer) > 60 Glucose 232 H Calcium 9.2 Phosphorus 4.1 Magnesium 2.0 Iron 36.4 L TIBC 218 L % Saturation 17 Ferritin 199.00 Vitamin B12 528.0 Folate 13.10 TSH 07/22/17 03:31 WBC RBC Hgb Hct MCV MCH MCHC RDW Plt Count Seg Neutrophils % Lymphocytes % Monocytes % Eosinophils % Basophils % Absolute Neutrophils Absolute Lymphocytes Absolute Monocytes Absolute Eosinophils Absolute Basophils Retic Count (auto) Absolute Retic Sodium Potassium Chloride Carbon Dioxide Anion Gap BUN Creatinine Est GFR ( Amer) Est GFR (Non-Af Amer) Glucose Calcium Phosphorus Magnesium Iron TIBC % Saturation Ferritin Vitamin B12 Folate TSH 2.28 07/22/17 07/22/17 07/22/17 03:31 03:31 09:52 Creatine Kinase 30 L < 20 L CK-MB (CK-2) 0.64 Troponin I < 0.012 07/22/17 07/22/17 07/22/17 09:52 15:36 15:36 Creatine Kinase 30 L CK-MB (CK-2) 0.70 1.19 Troponin I < 0.012 < 0.012 EKG Comments: Sinus rhythm, no acute ST-T wave changes noted. Impressions: Limited or Localized CT 07/20/17 17:03 IMPRESSION: Mild right-sided hydronephrosis without obstructing urolithiasis demonstrated. These findings are nonspecific, and may represent sequela of a recently passed stone versus pyelonephritis. Abdomen Ultrasound 07/20/17 17:49 IMPRESSION: NORMAL RIGHT UPPER QUADRANT ULTRASOUND. Assessment & Plan - Diagnosis (1) Cardiac dysrhythmia, unspecified Qualifiers: Arrhythmia type: unspecified cardiac arrhythmia Qualified Code(s): I49.9 - Cardiac arrhythmia, unspecified Is this a current diagnosis for this admission?: Yes (2) Diabetes Qualifiers: Diabetes mellitus type: other specified (including MALACHI) Diabetes mellitus complication status: with hyperglycemia Diabetes mellitus manager terminal insulin use: unspecified alf insulin use status Qualified Code(s): E13.65 - Other specified diabetes mellitus with hyperglycemia Is this a current diagnosis for this admission?: Yes (3) Serratia septicemia Is this a current diagnosis for this admission?: Yes (4) Tachyarrhythmia Is this a current diagnosis for this admission?: Yes (5) Urinary tract infection Qualifiers: Urinary tract infection type: acute cystitis Hematuria presence: with hematuria Qualified Code(s): N30.01 - Acute cystitis with hematuria Is this a current diagnosis for this admission?: Yes - Notes Notes: ECHO WNL Rhythm strips show muscle artifacts from chills. No real Dysrhythmia. Cardiac dysrhythmia: This was the reason for consult. Close review of monitoring strips shows that patient had muscle artifact most likely from shivering. Did not think these were to cardiac dysrhythmia. Serratia septicemia: Have ordered a 2D echo to look for any endocarditis. Currently patient on adequate therapy. Diabetes: Recommend good control of blood sugar. However should avoid any hypoglycemia. Patient being expertly managed by primary care MKrish Tachycardia: Sinus related to fever and sepsis. UTI: Being expertly managed by hospitalist. - Time Time Spent: 30 to 50 Minutes - CODE STATUS was discussed, patient remains full code. Surrogate decision-maker unchanged. Multiple medical problems were addressed. More than 50% of the time spent coordinating care, discussing management plans with involved caregivers. Management plans discussed with involved personnels. Medical decision making was of moderate to high complexity , patient's has multiple comorbidities. Medications reviewed and adjusted accordingly: Yes
[2017-07-23] MEDS: HYDROCODONE/ACETAMINOPHEN 5-325 MG TABLET PO PRN ×4 (05:24→21:35)
[2017-07-23] MEDS: INSULIN LISPRO 100 UNIT/ML 3 ML VIAL SUBCUT PRN (05:24)
[2017-07-23] MEDS: HEPARIN SOD (PORCINE) 5,000 UNIT/ML 1 ML SYRINGE SUBCUT SCH ×3 (05:24→21:35)
[2017-07-23 07:27] LABS: ABSOLUTE BASOPHILS # (AUTO) 0.1 10^3/uL (0.0-0.2); ABSOLUTE EOSINOPHILS # (AUTO) 0.2 10^3/uL (0.0-0.6); ABSOLUTE LYMPHOCYTES (AUTO) 2.6 10^3/uL (0.5-4.7); ABSOLUTE MONOCYTES (AUTO) 0.7 10^3/uL (0.1-1.4); ABSOLUTE NEUT (AUTO) 7.7 10^3/uL (1.7-8.2); BASOPHILS % (AUTO) 0.7 % (0-2); EOSINOPHILS % (AUTO) 1.8 % (0-6); HEMATOCRIT 29.8 % (37.9-51.0); HEMOGLOBIN 9.9 g/dL (13.5-17.0); HGB HCT DIFFERENCE -0.1; LYMPHOCYTES % (AUTO) 22.7 % (13-45); MEAN CORPUSCULAR HEMOGLOBIN 25.4 pg (27.0-33.4); MEAN CORPUSCULAR HGB CONC 33.2 g/dL (32.0-36.0); MEAN CORPUSCULAR VOLUME 77 fl (80-97); MONOCYTES % (AUTO) 6.3 % (3-13); RED BLOOD COUNT 3.89 10^6/uL (4.35-5.55); RED CELL DISTRIBUTION WIDTH 16.1 % (11.5-14.0); SEGMENTED NEUTROPHILS % (AUTO) 68.5 % (42-78); WHITE BLOOD COUNT 11.3 10^3/uL (4.0-10.5)
[2017-07-23 08:01] LABS: ANION GAP 12 (5-19); BLOOD UREA NITROGEN 12 mg/dL (7-20); CALCIUM 9.3 mg/dL (8.4-10.2); CARBON DIOXIDE 26 mmol/L (22-30); CHLORIDE 105 mmol/L (98-107); CREATININE RESULT 0.69 mg/dL (0.52-1.25); GLUCOSE 148 mg/dL (75-110); POTASSIUM 4.2 mmol/L (3.6-5.0); SODIUM 143.3 mmol/L (137-145)
[2017-07-23] MEDS: INSULIN LISPRO 100 UNIT/ML 3 ML VIAL SUBCUT SCH ×3 (08:34→15:54)
--- NOTE | 2017-07-23 09:33 | EKG REPORT ---
SEVERITY:- NORMAL ECG - SINUS RHYTHM LVH : Confirmed by: Meaghan Salas 23-Jul-2017 09:33:11
[2017-07-23] MEDS: DOCUSATE SODIUM 100 MG CAPSULE PO SCH ×2 (10:06→17:50)
[2017-07-23] MEDS: CEFTRIAXONE 1 GM/D5W RTU 1 GM/50 ML RTUPB IV SCH (10:16)
--- NOTE | 2017-07-23 14:36 | PDOC PROGRESS REPORT ---
Subjective Progress Note for:: 07/23/17 Subjective:: Feeling much better today. Denies fevers, chills, CP, SOB, abdominal pain, NV. Energy level improved. Continues to have mild back pain which is secondary to chronic back pain due to herniated disk. Tolerating PO diet and ambulating without difficulty. In good spirits overall. Physical Exam Vital Signs: Temp Pulse Resp BP Pulse Ox 97.7 F 68 16 117/73 100 07/23/17 07:18 07/23/17 07:18 07/23/17 07:18 07/23/17 07:18 07/23/17 07:18 Intake & Output 07/22/17 07/23/17 07/24/17 06:59 06:59 06:59 Intake Total 1990 1539 Output Total 1899 Balance 1990 Weight 69 kg 69.7 kg General appearance: PRESENT: no acute distress, well-developed, well-nourished Head exam: PRESENT: atraumatic, normocephalic Eye exam: PRESENT: conjunctiva pink. ABSENT: scleral icterus Mouth exam: PRESENT: moist Teeth exam: PRESENT: dental caries Neck exam: ABSENT: carotid bruit, JVD, lymphadenopathy, thyromegaly Respiratory exam: PRESENT: clear to auscultation jason. ABSENT: rales, rhonchi, wheezes Cardiovascular exam: PRESENT: RRR, other - no murmurs appeciated. ABSENT: diastolic murmur, rubs, systolic murmur Vascular exam: PRESENT: normal capillary refill GI/Abdominal exam: PRESENT: normal bowel sounds, soft. ABSENT: distended, guarding, mass, organolmegaly, rebound, tenderness Rectal exam: PRESENT: deferred Extremities exam: PRESENT: full ROM. ABSENT: calf tenderness, clubbing, pedal edema Neurological exam: PRESENT: alert, awake, oriented to person, oriented to place , oriented to time, oriented to situation, CN II-XII grossly intact. ABSENT: motor sensory deficit Psychiatric exam: PRESENT: appropriate affect, normal mood. ABSENT: homicidal ideation, suicidal ideation Skin exam: PRESENT: dry, intact, warm. ABSENT: cyanosis, rash Results Laboratory Results: 07/23/17 06:45 07/23/17 06:45 07/22/17 07/23/17 07/23/17 03:31 06:45 06:45 WBC 11.3 H RBC 3.89 L Hgb 9.9 L Hct 29.8 L MCV 77 L MCH 25.4 L MCHC 33.2 RDW 16.1 H Plt Count 564 H Seg Neutrophils % 68.5 Lymphocytes % 22.7 Monocytes % 6.3 Eosinophils % 1.8 Basophils % 0.7 Absolute Neutrophils 7.7 Absolute Lymphocytes 2.6 Absolute Monocytes 0.7 Absolute Eosinophils 0.2 Absolute Basophils 0.1 Sodium 143.3 Potassium 4.2 Chloride 105 Carbon Dioxide 26 Anion Gap 12 BUN 12 Creatinine 0.69 Est GFR ( Amer) > 60 Est GFR (Non-Af Amer) > 60 Glucose 148 H Calcium 9.3 Transferrin 147 L 07/22/17 07/22/17 07/22/17 03:31 03:31 09:52 Creatine Kinase 30 L < 20 L CK-MB (CK-2) 0.64 Troponin I < 0.012 07/22/17 07/22/17 07/22/17 09:52 15:36 15:36 Creatine Kinase 30 L CK-MB (CK-2) 0.70 1.19 Troponin I < 0.012 < 0.012 EKG Comments: Normal sinus rhythm Impressions: Limited or Localized CT 07/20/17 17:03 IMPRESSION: Mild right-sided hydronephrosis without obstructing urolithiasis demonstrated. These findings are nonspecific, and may represent sequela of a recently passed stone versus pyelonephritis. Abdomen Ultrasound 07/20/17 17:49 IMPRESSION: NORMAL RIGHT UPPER QUADRANT ULTRASOUND. Assessment & Plan - Diagnosis (1) Serratia septicemia Plan: Blood cultures positive for serratia from 07/20 in 1/2 bottles. Urine culture also positive for serratia from admission. Has been on IV antibiotics since admission. Continues to be improving symptomatically. Vitals: afebrile and HDS. Seen by cardiology -- no evidence of murmur, making need for KHAI to rule out endocarditis. On my exam today, I did not appreciate a murmur. 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 Jason Echols at [facility] in [facility] - Agree that KHAI would not be necessary given lack of objective cardiac findings on exam; does not meet Brooke criteria for IE evaluation (2) Chronic low back pain Qualifiers: Back pain laterality: bilateral Sciatica presence: without sciatica Qualified Code(s): M54.5 - Low back pain; G89.29 - Other chronic pain Plan: Chronic issue, has PRN Tylenol and [place] ordered. CTM. (3) Nephrolithiasis Is this a current diagnosis for this admission?: Yes Plan: See plan above. Will be evaluated by Urology as outpatient. - Time Time Spent with patient: 15-24 minutes Critical Time spent with patient: 15-24 minutes Anticipated discharge: Home Within: within 48 hours - Plan Summary Plan Summary: + blood culture for serratia. Continue IV antibiotics for now. Re-check blood cultures today. Likely d/c to home within 48 hours to home if cultures are negative.
[2017-07-23] MEDS: INSULIN GLARGINE,HUM.REC.ANLOG 300 UNIT/3 ML INSULN.PEN SUBCUT SCH (21:33)
[2017-07-24] MEDS: HYDROCODONE/ACETAMINOPHEN 5-325 MG TABLET PO PRN ×2 (02:36→08:29)
[2017-07-24] MEDS: HEPARIN SOD (PORCINE) 5,000 UNIT/ML 1 ML SYRINGE SUBCUT SCH ×3 (05:41→21:46)
[2017-07-24 07:19] LABS: ABSOLUTE BASOPHILS # (AUTO) 0.1 10^3/uL (0.0-0.2); ABSOLUTE EOSINOPHILS # (AUTO) 0.3 10^3/uL (0.0-0.6); ABSOLUTE MONOCYTES (AUTO) 0.9 10^3/uL (0.1-1.4); ABSOLUTE NEUT (AUTO) 8.8 10^3/uL (1.7-8.2); BASOPHILS % (AUTO) 0.5 % (0-2); HEMATOCRIT 30.7 % (37.9-51.0); HEMOGLOBIN 10.2 g/dL (13.5-17.0); HGB HCT DIFFERENCE -0.1; LYMPHOCYTES % (AUTO) 23.2 % (13-45); MEAN CORPUSCULAR HEMOGLOBIN 25.5 pg (27.0-33.4); MEAN CORPUSCULAR HGB CONC 33.1 g/dL (32.0-36.0); MEAN CORPUSCULAR VOLUME 77 fl (80-97); RED BLOOD COUNT 3.99 10^6/uL (4.35-5.55); RED CELL DISTRIBUTION WIDTH 16.2 % (11.5-14.0); SEGMENTED NEUTROPHILS % (AUTO) 67.3 % (42-78); WHITE BLOOD COUNT 13.1 10^3/uL (4.0-10.5)
[2017-07-24 08:18] LABS: ANION GAP 15 (5-19); BLOOD UREA NITROGEN 10 mg/dL (7-20); CALCIUM 9.6 mg/dL (8.4-10.2); CARBON DIOXIDE 24 mmol/L (22-30); CHLORIDE 106 mmol/L (98-107); CREATININE RESULT 0.68 mg/dL (0.52-1.25); GLUCOSE 107 mg/dL (75-110); POTASSIUM 4.2 mmol/L (3.6-5.0); SODIUM 145.1 mmol/L (137-145)
[2017-07-24] MEDS: INSULIN LISPRO 100 UNIT/ML 3 ML VIAL SUBCUT SCH ×3 (08:36→16:23)
--- NOTE | 2017-07-24 09:44 | PDOC PROGRESS REPORT ---
Subjective Progress Note for:: 07/23/17 Subjective:: Patient seems to be doing better with gradual improvement. Pt is denying any chest arm or neck discomfort. Patient denying any PND, orthopnea. Patient denied any sustained palpitations, dizziness, syncope, near syncope. Patient denying any fever chills. Patient denying any other significant discomfort. Patient is maintaining sinus rhythm. Review of systems: Rest review of systems negative. Medications: Medications have been reviewed. Physical Exam Vital Signs: Temp Pulse Resp BP Pulse Ox 98.7 F 76 14 129/79 H 97 07/23/17 21:45 07/23/17 21:45 07/23/17 21:45 07/23/17 21:45 07/23/17 21:45 Intake & Output 07/22/17 07/23/17 07/24/17 06:59 06:59 06:59 Intake Total 19900 1989 Output Total 0 2250 Balance 1990 -360 -260 Weight 69 kg 69.7 kg Exam: GENERAL: well-nourished and in no acute distress. Alert and oriented x3 HEAD: Atraumatic, normocephalic. EYES: Pupils equal round and reactive to light, extraocular movements intact, sclera anicteric, conjunctiva are normal. ENT: TMs normal, nares patent, oropharynx clear without exudates. Moist mucous membranes. No oral ulcerations or bleeding gums noted NECK: supple without lymphadenopathy. Trachea is central. No cervical or axillary lymphadenopathy noted. Carotids are 2+, JVD WNL LUNGS: Respiration seems nonlabored, no significant accessory muscle action noted. Breath sounds clear to auscultation bilaterally and equal noted. No wheezes rales or rhonchi noted. No significant dullness noted on percussion. CHEST: Palpation of the chest wall shows no significant chest wall tenderness. No other significant abnormalities noted. HEART: [place] [employer], No PSH, 1/6 OBDULIA aortic area, 1/6 avila systolic murmur mitral area, no rubs, no gallops. ABDOMEN: Soft, no significant tenderness appreciated, normoactive bowel sounds. No guarding, no rebound. No rigidity noted . No masses appreciated. EXTREMITIES: Pedal pulses are 1-2+, no calf tenderness noted. No clubbing or cyanosis.trace to 1+ pedal edema noted NEUROLOGICAL: Focused neurological exam showed no significant neurologic deficit. Normal speech, no focal weakness appreciated. PSYCH: Normal mood, normal affect. Judgment and insight within normal limits. SKIN: No significant ecchymosis, rash, ulcerations or signs of pruritus noted. MUSCULOSKELETAL EXAM: No significant joint swelling noted. Results Laboratory Results: 07/23/17 06:45 07/23/17 06:45 07/22/17 07/23/17 07/23/17 03:31 06:45 06:45 WBC 11.3 H RBC 3.89 L Hgb 9.9 L Hct 29.8 L MCV 77 L MCH 25.4 L MCHC 33.2 RDW 16.1 H Plt Count 564 H Seg Neutrophils % 68.5 Lymphocytes % 22.7 Monocytes % 6.3 Eosinophils % 1.8 Basophils % 0.7 Absolute Neutrophils 7.7 Absolute Lymphocytes 2.6 Absolute Monocytes 0.7 Absolute Eosinophils 0.2 Absolute Basophils 0.1 Sodium 143.3 Potassium 4.2 Chloride 105 Carbon Dioxide 26 Anion Gap 12 BUN 12 Creatinine 0.69 Est GFR ( Amer) > 60 Est GFR (Non-Af Amer) > 60 Glucose 148 H Calcium 9.3 Transferrin 147 L 07/22/17 07/22/17 07/22/17 03:31 03:31 09:52 Creatine Kinase 30 L < 20 L CK-MB (CK-2) 0.64 Troponin I < 0.012 07/22/17 07/22/17 07/22/17 09:52 15:36 15:36 Creatine Kinase 30 L CK-MB (CK-2) 0.70 1.19 Troponin I < 0.012 < 0.012 EKG Comments: Telemetry strips strip mainly shows sinus rhythm with rare tachycardia. No ectopic arrhythmias or malignant arrhythmias noted. Impressions: Limited or Localized CT 07/20/17 17:03 IMPRESSION: Mild right-sided hydronephrosis without obstructing urolithiasis demonstrated. These findings are nonspecific, and may represent sequela of a recently passed stone versus pyelonephritis. Abdomen Ultrasound 07/20/17 17:49 IMPRESSION: NORMAL RIGHT UPPER QUADRANT ULTRASOUND. Assessment & Plan - Diagnosis (1) Cardiac dysrhythmia, unspecified Qualifiers: Arrhythmia type: unspecified cardiac arrhythmia Qualified Code(s): I49.9 - Cardiac arrhythmia, unspecified Is this a current diagnosis for this admission?: Yes (2) Diabetes Qualifiers: Diabetes mellitus type: other specified (including MALACHI) Diabetes mellitus complication status: with hyperglycemia Diabetes mellitus local intermodal truck driver insulin use: unspecified alf insulin use status Qualified Code(s): E13.65 - Other specified diabetes mellitus with hyperglycemia Is this a current diagnosis for this admission?: Yes (3) Serratia septicemia Is this a current diagnosis for this admission?: Yes (4) Tachyarrhythmia Is this a current diagnosis for this admission?: Yes (5) Urinary tract infection Qualifiers: Urinary tract infection type: acute cystitis Hematuria presence: with hematuria Qualified Code(s): N30.01 - Acute cystitis with hematuria Is this a current diagnosis for this admission?: Yes - Notes Notes: 2D echo results are discussed with the patient. Telemetry strips reviewed showed no recurrence of any significant tachyarrhythmia. Patient heart rate remains relatively stable. Will follow 1 more day. And if patient continues to do well will sign off. - Time Time with patient: 15-25 minutes Medications reviewed and adjusted accordingly: Yes
[2017-07-24] MEDS: CEFTRIAXONE 1 GM/D5W RTU 1 GM/50 ML RTUPB IV SCH (11:15)
[2017-07-24] MEDS: OXYCODONE HCL IR 5 MG TABLET PO PRN ×2 (11:15→17:26)
[2017-07-24] MEDS: OXYCODONE-ACETAMINOPHEN 5-325 MG TABLET PO PRN ×2 (11:16→17:25)
[2017-07-24] MEDS: DOCUSATE SODIUM 100 MG CAPSULE PO SCH ×2 (12:03→17:27)
--- NOTE | 2017-07-24 14:36 | PDOC PROGRESS REPORT ---
Subjective Progress Note for:: 07/24/17 Subjective:: Pt states that he is having back pain. Pt states that he is doing better. Physical Exam Vital Signs: Temp Pulse Resp BP Pulse Ox 98.7 F 76 14 129/79 H 97 07/23/17 21:45 07/23/17 21:45 07/23/17 21:45 07/23/17 21:45 07/23/17 21:45 Intake & Output 07/23/17 07/24/17 07/25/17 06:59 06:59 06:59 Intake Total 1540 2415 Output Total 1900 3230 Balance -360 -815 Weight 69.7 kg 68.2 kg General appearance: PRESENT: no acute distress, well-developed, well-nourished Head exam: PRESENT: atraumatic, normocephalic Eye exam: PRESENT: conjunctiva pink, EOMI, PERRLA. ABSENT: scleral icterus Ear exam: PRESENT: normal external ear exam Mouth exam: PRESENT: moist, tongue midline Neck exam: ABSENT: carotid bruit, JVD, lymphadenopathy, thyromegaly Respiratory exam: PRESENT: clear to auscultation jason. ABSENT: rales, rhonchi, wheezes Cardiovascular exam: PRESENT: RRR. ABSENT: diastolic murmur, rubs, systolic murmur Pulses: PRESENT: normal carotid pulses Vascular exam: PRESENT: normal capillary refill GI/Abdominal exam: PRESENT: normal bowel sounds, soft. ABSENT: distended, guarding, mass, organolmegaly, rebound, tenderness Rectal exam: PRESENT: deferred Extremities exam: PRESENT: full ROM. ABSENT: calf tenderness, clubbing, pedal edema Neurological exam: PRESENT: alert, awake, oriented to person, oriented to place , oriented to time, oriented to situation, CN II-XII grossly intact. ABSENT: motor sensory deficit Psychiatric exam: PRESENT: appropriate affect, normal mood. ABSENT: homicidal ideation, suicidal ideation Skin exam: PRESENT: dry, intact, warm. ABSENT: cyanosis, rash Results Laboratory Results: 07/24/17 07:01 07/24/17 07:01 07/24/17 07/24/17 07:01 07:01 WBC 13.1 H RBC 3.99 L Hgb 10.2 L Hct 30.7 L MCV 77 L MCH 25.5 L MCHC 33.1 RDW 16.2 H Plt Count 578 H Seg Neutrophils % 67.3 Lymphocytes % 23.2 Monocytes % 7.0 Eosinophils % 2.0 Basophils % 0.5 Absolute Neutrophils 8.8 H Absolute Lymphocytes 3.0 Absolute Monocytes 0.9 Absolute Eosinophils 0.3 Absolute Basophils 0.1 Sodium 145.1 H Potassium 4.2 Chloride 106 Carbon Dioxide 24 Anion Gap 15 BUN 10 Creatinine 0.68 Est GFR ( Amer) > 60 Est GFR (Non-Af Amer) > 60 Glucose 107 Calcium 9.6 07/22/17 07/22/17 07/22/17 03:31 03:31 09:52 Creatine Kinase 30 L < 20 L CK-MB (CK-2) 0.64 Troponin I < 0.012 07/22/17 07/22/17 07/22/17 09:52 15:36 15:36 Creatine Kinase 30 L CK-MB (CK-2) 0.70 1.19 Troponin I < 0.012 < 0.012 Impressions: Limited or Localized CT 07/20/17 17:03 IMPRESSION: Mild right-sided hydronephrosis without obstructing urolithiasis demonstrated. These findings are nonspecific, and may represent sequela of a recently passed stone versus pyelonephritis. Abdomen Ultrasound 07/20/17 17:49 IMPRESSION: NORMAL RIGHT UPPER QUADRANT ULTRASOUND. Assessment & Plan - Diagnosis (1) Sepsis Qualifiers: Sepsis type: sepsis due to unspecified organism Qualified Code(s): A41.9 - Sepsis, unspecified organism Is this a current diagnosis for this admission?: Yes Plan: Secondary to Serratia: Will continue current ABX. (2) Hyperglycemia due to type 1 diabetes mellitus Is this a current diagnosis for this admission?: Yes Plan: Continue current treatment. (3) Chronic low back pain Qualifiers: Back pain laterality: bilateral Sciatica presence: without sciatica Qualified Code(s): M54.5 - Low back pain; G89.29 - Other chronic pain Is this a current diagnosis for this admission?: Yes Plan: Pt's correct pain medication was obtained. Will continue with new order placed this morning. (4) Nephrolithiasis Is this a current diagnosis for this admission?: Yes Plan: with colonization Serratia: Will follow up with Urology to stone removal. - Time Time Spent with patient: Less than 15 minutes
[2017-07-24] MEDS: INSULIN GLARGINE,HUM.REC.ANLOG 300 UNIT/3 ML INSULN.PEN SUBCUT SCH (21:44)
[2017-07-24] MEDS: INSULIN LISPRO 100 UNIT/ML 3 ML VIAL SUBCUT PRN (21:46)
[2017-07-25] MEDS: OXYCODONE HCL IR 5 MG TABLET PO PRN ×2 (02:06→12:20)
[2017-07-25] MEDS: HEPARIN SOD (PORCINE) 5,000 UNIT/ML 1 ML SYRINGE SUBCUT SCH (05:34)
[2017-07-25] MEDS: OXYCODONE-ACETAMINOPHEN 5-325 MG TABLET PO PRN ×2 (06:00→12:19)
[2017-07-25] MEDS: INSULIN LISPRO 100 UNIT/ML 3 ML VIAL SUBCUT SCH ×2 (08:30→11:29)
[2017-07-25] MEDS: CEFTRIAXONE 1 GM/D5W RTU 1 GM/50 ML RTUPB IV SCH (09:41)
[2017-07-25] MEDS: DOCUSATE SODIUM 100 MG CAPSULE PO SCH (10:43)
[2017-07-25] MEDS ORDERED: IPRATROPIUM/ALBUTEROL 0.5-2.5 MG/3 ML AMPUL NEB PRN (11:30)
[2017-07-25] MEDS ORDERED: ACETAMINOPHEN 325 MG TABLET PO PRN (11:30)
[2017-07-25] MEDS ORDERED: MAG HYDROX/AL HYDROX/SIMETH SUSP 30 ML UDCUP PO PRN (11:30)
[2017-07-25] MEDS ORDERED: ONDANSETRON HCL INJ/PF 4 MG/2 ML SDV IV PRN (11:30)
[2017-07-25 12:26] VITALS: BP 139/68
--- NOTE | 2017-07-25 12:26 | PDOC DISCHARGE SUMMARY ---
General - Admit/Disc Date/PCP Admission Date/Primary Care Provider: 07/20/17 21:53 Discharge Date: 07/25/17 - Discharge Diagnosis (1) Sepsis Is this a current diagnosis for this admission?: Yes Summary: Secondary to Serratia Acute Cystitis with Colonization of Kidney Stone: Pt will be discharged home on Levaquin. Pt states that he ran out of Levaquin for 1 to 2 months which lead to this visit. (2) Hyperglycemia due to type 1 diabetes mellitus Is this a current diagnosis for this admission?: Yes Summary: Pt to use insulin as directed. (3) Chronic low back pain Is this a current diagnosis for this admission?: Yes Summary: Pt written for small quantity of pain medication. (4) Nephrolithiasis Is this a current diagnosis for this admission?: Yes Summary: Pt will follow up with Urology in 1-2 weeks for kidney stone removal. - Additional Information Resuscitation Status: Full Code Discharge Diet: Diabetic Discharge Activity: Activity As Tolerated Home Medications: Insulin Aspart [Novolog Flexpen] 0 unit SUBCUT .SLD SCALE 05/27/17 Insulin Aspart [Novolog Flexpen] 15 unit SUBCUT AC 05/27/17 Insulin Glargine,Hum.rec.anlog [Lantus Solostar] 50 unit SQ QHS 05/27/17 Levofloxacin [Levaquin 500 mg Tablet] 500 mg PO DAILY #30 tablet 07/25/17 Oxycodone HCl/Acetaminophen [Percocet 5-325 mg Tablet] 1 tab PO Q6HP PRN #8 tablet 07/25/17 History of Present Illness Patient complains of: Fever and myalgia History of Present Illness: RAYMOND BRAY is a 32 year old male admitted for fever and myalgias. Pt was found to have Serratia bactermia and Serratia in urine. Pt had been on antibiotics for 30 days and then ran out of antibiotics. Pt states that he did not have antibiotics for 1-2 months. pt states that he was told that he would need to follow up with Urology but did not. Pt was admitted an placed on antibiotics. Pt demonstrated improvement during hospitalization. Pt was found to have a HBgA1C 10.1. Pt was told that he would have to do a greater job with controlling blood glucose. Hospital Course Hospital Course: RAYMOND BRAY is a 32 year old male admitted for fever and myalgias. Pt was found to have Serratia bactermia and Serratia in urine. Pt had been on antibiotics for 30 days and then ran out of antibiotics. Pt states that he did not have antibiotics for 1-2 months. pt states that he was told that he would need to follow up with Urology but did not. Pt was admitted an placed on antibiotics. Pt demonstrated improvement during hospitalization. Pt was found to have a HBgA1C 10.1. Pt was told that he would have to do a greater job with controlling blood glucose. Physical Exam Vital Signs: Temp Pulse Resp BP Pulse Ox 98.1 F 77 16 130/76 H 100 07/25/17 08:06 07/25/17 08:06 07/25/17 08:06 07/25/17 08:06 07/25/17 08:06 Intake & Output 07/24/17 07/25/17 07/26/17 06:59 06:59 06:59 Intake Total 2415 2090 Output Total 3230 1790 Balance -815 300 Weight 68.2 kg 68.3 kg General appearance: PRESENT: no acute distress, well-developed, well-nourished Head exam: PRESENT: atraumatic, normocephalic Eye exam: PRESENT: conjunctiva pink, EOMI, PERRLA. ABSENT: scleral icterus Ear exam: PRESENT: normal external ear exam Mouth exam: PRESENT: moist, tongue midline Neck exam: ABSENT: carotid bruit, JVD, lymphadenopathy, thyromegaly Respiratory exam: PRESENT: clear to auscultation jason. ABSENT: rales, rhonchi, wheezes Cardiovascular exam: PRESENT: RRR. ABSENT: diastolic murmur, rubs, systolic murmur Pulses: PRESENT: normal dorsalis pedis pul Vascular exam: PRESENT: normal capillary refill GI/Abdominal exam: PRESENT: normal bowel sounds, soft. ABSENT: distended, guarding, mass, organolmegaly, rebound, tenderness Rectal exam: PRESENT: deferred Extremities exam: PRESENT: full ROM. ABSENT: calf tenderness, clubbing, pedal edema Neurological exam: PRESENT: alert, awake, oriented to person, oriented to place , oriented to time, oriented to situation, CN II-XII grossly intact. ABSENT: motor sensory deficit Psychiatric exam: PRESENT: appropriate affect, normal mood. ABSENT: homicidal ideation, suicidal ideation Skin exam: PRESENT: dry, intact, warm. ABSENT: cyanosis, rash Results Laboratory Results: 07/24/17 07:01 07/24/17 07:01 07/22/17 07/22/17 07/22/17 03:31 03:31 09:52 Creatine Kinase 30 L < 20 L CK-MB (CK-2) 0.64 Troponin I < 0.012 07/22/17 07/22/17 07/22/17 09:52 15:36 15:36 Creatine Kinase 30 L CK-MB (CK-2) 0.70 1.19 Troponin I < 0.012 < 0.012 Impressions: Limited or Localized CT 07/20/17 17:03 IMPRESSION: Mild right-sided hydronephrosis without obstructing urolithiasis demonstrated. These findings are nonspecific, and may represent sequela of a recently passed stone versus pyelonephritis. Abdomen Ultrasound 07/20/17 17:49 IMPRESSION: NORMAL RIGHT UPPER QUADRANT ULTRASOUND. Plan Time Spent: Greater than 30 Minutes
== END 2017-07-25 13:37 | disposition home or self-care (01) | DRG 872 ==
LOC: ER 15:25 → EH 21:53 → 5 07-21 00:18
PROVIDERS: ADMIT Internal Medicine; ATTEND Internal Medicine
PROC: 3E0F73Z Introduction of Anti-inflammatory into Respiratory Tract, Via Natural or Artificial Opening (ICD-10-PCS; principal; 2017-07-20)
DX: A41.53 Sepsis due to Serratia (principal); N30.01 Acute cystitis with hematuria; N13.30 Unspecified hydronephrosis; N20.0 Calculus of kidney; E10.65 Type 1 diabetes mellitus with hyperglycemia; G89.29 Other chronic pain; M54.5 Low back pain; K21.9 Gastro-esophageal reflux disease without esophagitis; F17.210 Nicotine dependence, cigarettes, uncomplicated; I49.9 Cardiac arrhythmia, unspecified; K02.9 Dental caries, unspecified; Z79.4 Long term (current) use of insulin; Z88.0 Allergy status to penicillin; Z83.3 Family history of diabetes mellitus; Z82.49 Family history of ischemic heart disease and other diseases of the circulatory system
CPT/HCPCS: 36415; 76380; 76705; 80048; 80053; 81001; 82550; 82553; 82607; 82728; 82746; 82803; 82962; 83036; 83540; 83550; 83605; 83690; 83735; 84100; 84443; 84466; 84484; 85025; 85045; 85610; 87040; 87077; 87086; 87088; 87186; 93005; 93010; 93306; 96365; 96368; 96375; 99291; 99406; J0692; J0696; J1170; J1644; J1815; J3370; J3475; J7030

== ENCOUNTER 2017-10-30 21:01 | Inpatient (IN) | payer MEDICAID ==
[2017-10-30 21:55] LABS: APPEARANCE,URINE SLIGHTLY-CLOUDY; BILIRUBIN,URINE NEGATIVE (NEGATIVE); COLOR,URINE YELLOW; GLUCOSE, URINE >=500 mg/dL (NEGATIVE); KETONES,URINE NEGATIVE (NEGATIVE); LEUKOCYTE ESTERASE,URINE MODERATE (NEGATIVE); NITRITE,URINE NEGATIVE (NEGATIVE); PROTEIN,URINE 30 mg/dL (NEGATIVE); URINE SPECIFIC GRAVITY 1.026; UROBILINOGEN,URINE NEGATIVE mg/dL (<2.0)
--- NOTE | 2017-10-30 23:22 | ER Document Report ---
ED Medical Screen (RME) - General Chief Complaint: R flank pain, Sciatic pain Stated Complaint: FLANK PAIN Time Seen by Provider: 10/30/17 23:16 Mode of Arrival: Ambulatory Information source: Patient Notes: 32 yo diabetic type I male c/o right flank pain intermittent for 1 1/2 months. Hx stones and UTI. Was on antibiotics until july. Thinks he has another infection. Chills and sweats. Appt. with urologist november 11. Also c/o left sided lumbar back for 5 days (previous diskectomy and fusion L5-S1). Glucose 500 20 minutes ago, took novolog 14 units while waiting, always high. Sepsis with serratia marcescens (at [facility]) twice. TRAVEL OUTSIDE OF THE [place] IN LAST 30 DAYS: No - Related Data Allergies/Adverse Reactions: Penicillins Allergy (Verified 07/20/17 16:31) Past Medical History - Past Medical History Cardiac Medical History: Reports: Hx Heart Murmur Endocrine Medical History: Reports: Hx Diabetes Mellitus Type 1, Hx Diabetes Mellitus Type 2 Renal/ Medical History: Denies: Hx Peritoneal Dialysis GI Medical History: Reports: Hx Gastroesophageal Reflux Disease Past Surgical History: Reports: Hx Orthopedic Surgery - disc suregery L5-S1 - Immunizations Immunizations up to date: Yes Hx Diphtheria, Pertussis, Tetanus Vaccination: Yes History of Influenza Vaccine for 06/2017 - 11/2017 Season: Refused Physical Exam - Vital signs Vitals: Temp Pulse Resp BP Pulse Ox 99.7 F 95 18 132/65 H 98 10/30/17 21:15 10/30/17 21:15 10/30/17 21:15 10/30/17 21:15 10/30/17 21:15 Course - Vital Signs Vital signs: Temp Pulse Resp BP Pulse Ox 99.7 F 95 18 132/65 H 98 10/30/17 21:15 10/30/17 21:15 10/30/17 21:15 10/30/17 21:15 10/30/17 21:15 - Laboratory Laboratory results interpreted by me: 10/30/17 21:16 Urine Protein 30 H Urine Glucose (UA) >=500 H Ur Leukocyte Esterase MODERATE H
[2017-10-30] MEDS ORDERED: CIPROFLOXACIN HCL 500 MG TABLET PO ONE (23:24)
[2017-10-31 00:27] LABS: ABSOLUTE BASOPHILS # (AUTO) 0.1 10^3/uL (0.0-0.2); ABSOLUTE LYMPHOCYTES (AUTO) 1.5 10^3/uL (0.5-4.7); ABSOLUTE MONOCYTES (AUTO) 0.8 10^3/uL (0.1-1.4); BASOPHILS % (AUTO) 0.5 % (0-2); HEMATOCRIT 33.9 % (37.9-51.0); HEMOGLOBIN 11.1 g/dL (13.5-17.0); LYMPHOCYTES % (AUTO) 8.4 % (13-45); MEAN CORPUSCULAR HEMOGLOBIN 26.3 pg (27.0-33.4); MEAN CORPUSCULAR HGB CONC 32.7 g/dL (32.0-36.0); MEAN CORPUSCULAR VOLUME 81 fl (80-97); MONOCYTES % (AUTO) 4.7 % (3-13); PLATELET COUNT 436 10^3/uL (150-450); RED BLOOD COUNT 4.22 10^6/uL (4.35-5.55); RED CELL DISTRIBUTION WIDTH 15.7 % (11.5-14.0); SEGMENTED NEUTROPHILS % (AUTO) 86.4 % (42-78); TOTAL CELLS COUNTED % (AUTO) 100 %; WHITE BLOOD COUNT 17.4 10^3/uL (4.0-10.5)
[2017-10-31 00:37] LABS: ALANINE AMINOTRANSFERASE 12 U/L (21-72); ALBUMIN 3.7 g/dL (3.5-5.0); ALKALINE PHOSPHATASE 120 U/L (38-126); ANION GAP 14 (5-19); ASPARTATE AMINO TRANSFERASE 9 U/L (17-59); BILIRUBIN,DIRECT 0.4 mg/dL (0.0-0.4); BILIRUBIN,TOTAL 0.6 mg/dL (0.2-1.3); BLOOD UREA NITROGEN 15 mg/dL (7-20); CALCIUM 9.4 mg/dL (8.4-10.2); CARBON DIOXIDE 24 mmol/L (22-30); CHLORIDE 93 mmol/L (98-107); POTASSIUM 4.1 mmol/L (3.6-5.0); SODIUM 131.4 mmol/L (137-145); TOTAL PROTEIN 6.8 g/dL (6.3-8.2)
[2017-10-31 00:45] LABS: GLUCOSE 526 mg/dL (75-110)
[2017-10-31] MEDS ORDERED: NORMAL SALINE 1000 ML 1,000 ML IV ONE ×2 (00:48→03:38)
[2017-10-31] MEDS ORDERED: CEFEPIME 2 GM/D5W RTU 2 GM/50 ML RTUPB IV ONE (01:34)
--- NOTE | 2017-10-31 02:59 | ER Document Report ---
ED GI/ - General Mode of Arrival: Ambulatory Information source: Patient TRAVEL OUTSIDE OF THE [place] IN LAST 30 DAYS: No <VIANNEY MONTGOMERY - Last Filed: 10/31/17 05:23> <RICO BARNARD - Last Filed: 10/31/17 05:48> - General Chief Complaint: Flank Pain Stated Complaint: FLANK PAIN Time Seen by Provider: 10/30/17 23:16 Notes: Patient is a 32 year old male that presents to the emergency department today with complaints of bilateral back pain. Patient states the pain on the right side feels like "kidney pain" and the pain on the left side feels like " sciatica pain". Patient has an extensive history of kidney stones with recurrent urinary tract infections and is supposed to be on daily antibiotics ( Levaquin). Patient states he has not been on any antibiotics recently because he missed his appointment with his urologist. Patient states he has an appointment with [facility] on November 11. Patient states he had hematuria about a week ago. Patient denies any dysuria or cough. Patient was eating Cheetos and drinking Mountain Dew for the duration of the interaction. (VIANNEY MONTGOMERY) - Related Data Allergies/Adverse Reactions: Penicillins Allergy (Verified 07/20/17 16:31) Past Medical History - General Information source: Patient - Social History Smoking Status: Current Every Day Smoker Cigarette use (# per day): Yes Frequency of alcohol use: None Drug Abuse: None Lives with: Family Family History: Reviewed & Not Pertinent, DM Patient has suicidal ideation: No Patient has homicidal ideation: No - Past Medical History Cardiac Medical History: Reports: Hx Heart Murmur Endocrine Medical History: Reports: Hx Diabetes Mellitus Type 2 GI Medical History: Reports: Hx Gastroesophageal Reflux Disease Past Surgical History: Reports: Hx Orthopedic Surgery - disc surgery L5-S1 - Immunizations Immunizations up to date: Yes Hx Diphtheria, Pertussis, Tetanus Vaccination: Yes <VIANNEY MONTGOMERY - Last Filed: 10/31/17 05:23> Review of Systems - Review of Systems Constitutional: No symptoms reported EENT: No symptoms reported Cardiovascular: No symptoms reported Respiratory: denies: Cough Gastrointestinal: No symptoms reported Genitourinary: See HPI, Flank pain - right, Hematuria - 'a week or so ago'. denies: Dysuria Male Genitourinary: No symptoms reported Musculoskeletal: See HPI, Back pain - left sided Skin: No symptoms reported Hematologic/Lymphatic: No symptoms reported Neurological/Psychological: No symptoms reported -: Yes All other systems reviewed and negative <VIANNEY MONTGOMERY - Last Filed: 10/31/17 05:23> Physical Exam <VIANNEY MONTGOMERY - Last Filed: 10/31/17 05:23> <RICO BARNARD - Last Filed: 10/31/17 05:48> - Vital signs Vitals: Temp Pulse Resp BP Pulse Ox 99.7 F 95 18 132/65 H 98 10/30/17 21:15 10/30/17 21:15 10/30/17 21:15 10/30/17 21:15 10/30/17 21:15 - Notes Notes: Physical Exam: General: Alert, appears well. HEENT: Normocephalic. Atraumatic. PERRL. Extraocular movements intact. Oropharynx clear. Dry mucous membranes. Neck: Supple. Non-tender. Respiratory: No respiratory distress. Clear and equal breath sounds bilaterally. Cardiovascular: Regular rate and rhythm. Abdominal: Normal Inspection. Non-tender. No distension. Normal Bowel Sounds. Back: Bilateral flank tenderness with percussion. Left buttock tenderness with palpation. No deformity or step off. Extremities: Moves all four extremities. Upper extremities: Normal inspection. Normal ROM. Lower extremities: Normal inspection. No edema. Normal ROM. Neurological: Normal cognition. AAOx4. Normal speech. Psychological: Normal affect. Normal Mood. Skin: Warm. Dry. Normal color. (VIANNEY MONTGOMERY) Course - Laboratory Result Diagrams: 10/31/17 00:04 10/31/17 00:04 <VIANNEY MONTGOMERY - Last Filed: 10/31/17 05:23> - Laboratory Result Diagrams: 10/31/17 00:04 10/31/17 00:04 <RICO BARNARD - Last Filed: 10/31/17 05:48> - Re-evaluation Re-evalutation: 10/31/17 Patient is a 32-year-old male who comes in complaining of flank pain and sciatica. Patient is a type I diabetic who has a history of elevated hemoglobin A1c's and poor control of his blood sugar. Patient was supposed to follow-up with urology but has not. He has been admitted before for urinary tract infection/pyelonephritis, with bacteremia. It appears that he is in the same state this evening although he is in no acute distress in the room. He is currently afebrile. He is feeling better after fluids. Due to his leukocytosis , hyperglycemia, and history of septicemia from a urinary source, patient will be kept at this time until his blood cultures have resulted. Patient is agreeable to this plan. Stable at the time of admission to the hospitalist service. (RICO BARNARD) - Vital Signs Vital signs: Temp Pulse Resp BP Pulse Ox 98.2 F 75 16 134/72 H 98 10/31/17 05:05 10/31/17 05:05 10/31/17 05:05 10/31/17 05:05 10/31/17 05:05 - Laboratory Laboratory results interpreted by me: 10/30/17 10/31/17 10/31/17 21:16 00:04 00:04 WBC 17.4 H RBC 4.22 L Hgb 11.1 L Hct 33.9 L MCH 26.3 L RDW 15.7 H Seg Neutrophils % 86.4 H Lymphocytes % 8.4 L Absolute Neutrophils 15.0 H Sodium 131.4 L Chloride 93 L Glucose 526 H* Hemoglobin A1c % AST 9 L ALT 12 L Urine Protein 30 H Urine Glucose (UA) >=500 H Ur Leukocyte Esterase MODERATE H 10/31/17 00:04 WBC RBC Hgb Hct MCH RDW Seg Neutrophils % Lymphocytes % Absolute Neutrophils Sodium Chloride Glucose Hemoglobin A1c % 9.8 H AST ALT Urine Protein Urine Glucose (UA) Ur Leukocyte Esterase Critical Care Note - Critical Care Note Total time excluding time spent on procedures (mins): 35 - Evaluation and management of hyperglycemia in a type I diabetic, fluid resuscitation, pyelonephritis, coordination of admission, counseling of patient, multiple re- evaluations <RICO BARNARD - Last Filed: 10/31/17 05:48> Discharge <VIANNEY MONTGOMERY - Last Filed: 10/31/17 05:23> - Discharge Admitting Provider: Hospitalist - [facility] Unit Admitted: Telemetry <RICO BARNARD - Last Filed: 10/31/17 05:48> - Discharge Clinical Impression: Bacteremia, Pyelonephritis Condition: Stable Disposition: ADMITTED INPATIENT Scribe Attestation: 10/31/17 05:48 I personally performed the services described in the documentation, reviewed and edited the documentation which was dictated to the scribe in my presence, and it accurately records my words and actions. (RICO BARNARD) Scribe Documentation - Scribe Written by Scribe:: Henrique Rae, 10/31/2017 0309 acting as scribe for :: Kirill <VIANNEY MONTGOMERY - Last Filed: 10/31/17 05:23>
[2017-10-31] MEDS ORDERED: OXYCODONE-ACETAMINOPHEN 5-325 MG TABLET PO ONE (03:03)
[2017-10-31] MEDS ORDERED: INSULIN REG, HUMAN 100 UNIT/ML 3 ML VIAL (PYX) IV ONE (03:13)
[2017-10-31] MEDS ORDERED: ALBUTEROL SULFATE 0.083% NEB 2.5 MG/3 ML AMPUL NEB PRN (04:06)
[2017-10-31] MEDS ORDERED: OXYCODONE HCL IR 5 MG TABLET PO PRN (04:06)
[2017-10-31] MEDS ORDERED: ONDANSETRON HCL INJ/PF 4 MG/2 ML SDV IV PRN (04:06)
[2017-10-31] MEDS ORDERED: ACETAMINOPHEN 325 MG TABLET PO PRN (04:06)
[2017-10-31] MEDS ORDERED: DEXTROSE 40% GEL 15 GM TUBE PO PRN ×2 (04:08)
[2017-10-31] MEDS ORDERED: GLUCAGON,HUMAN RECOMB 1 MG INJ IM PRN (04:08)
[2017-10-31] MEDS ORDERED: DEXTROSE 50%-WATER 25 GM/50 ML DISP.SYRIN IV PRN ×2 (04:08)
--- NOTE | 2017-10-31 06:40 | PDOC H&P ---
History of Present Illness Admission Date/PCP: ELIANA ANTUNEZ MD Patient complains of: Intermittent fever/chills and worsening lower back pain for the last 2 weeks. Persistent fever for the last 3 nights. History of Present Illness: RAYMOND BRAY is a 32 year old male smoker with history of type 1 diabetes mellitus (uncontrolled), nephrolithiasis and recurrent UTIs/sepsis was admitted with above-mentioned complaints. The patient is complaining of left-sided lower back pain which he attributes it to radiculopathy. He said that he lifted something heavy about 5 days ago which aggravated his pain. He also mentioned that he had some right-sided lower back pain for the last 2 weeks 10/ 10 in intensity which improved to 6/10 intensity with Percocet given in the ED. He denied any dysuria but he said that he had some hematuria with blood clots 3 weeks ago. He also has urgency but he is able to void. He also mentioned that he was having intermittent fever and chills for the last 2 weeks which became persistent in the last 3 nights. He was also diaphoretic but he denied any abdominal pain, diarrhea or constipation. He mentioned that his appetite has been poor and he has been feeling generalized weakness. He denied any chest pain, shortness of breath, cough or any sputum. In the ED, his temperature was 99.7, heart rate 95, respiratory rate 18, blood pressure 132/65 with oxygen saturation of 98% on room air. his WBC was 17.4. and his blood glucose was 526 with anion gap of 14. His UA was positive. He received 2 g IV cefepime 1, 500 mg oral Cipro 1, 6 units of regular insulin and 2 L of normal saline with improvement in his symptoms. Past Medical History Cardiac Medical History: Reports: Heart Murmur Endocrine Medical History: Reports: Diabetes Mellitus Type 1 Renal/ Medical History: Reports: Nephrolithiasis, Other - UTIs GI Medical History: Reports: Gastroesophageal Reflux Disease Musculoskeltal Medical History: Reports: Other - lower back pain post surgery x2. Past Surgical History Past Surgical History: Reports: Orthopedic Surgery - disc surgery L5-S1., Other - left ankle surgery due to infection in 2017. Social History Lives with: Family Smoking Status: Current Every Day Smoker Cigarettes Packs Per Day: 2 - for 17 years Frequency of Alcohol Use: None Hx Recreational Drug Use: Yes - marijuana Drugs: Marijuana Hx Prescription Drug Abuse: No Family History Family History: DM Parental Family History Reviewed: Yes - Father:DM2 Children Family History Reviewed: No Sibling(s) Family History Reviewed.: Yes Medication/Allergy Home Medications: Insulin Aspart [Novolog Flexpen] 0 unit SUBCUT .SLD SCALE 05/27/17 Insulin Aspart [Novolog Flexpen] 15 unit SUBCUT AC 05/27/17 Insulin Glargine,Hum.rec.anlog [Lantus Solostar] 50 unit SQ QHS 05/27/17 Levofloxacin [Levaquin 500 mg Tablet] 500 mg PO DAILY #30 tablet 07/25/17 Oxycodone HCl/Acetaminophen [Percocet 5-325 mg Tablet] 1 tab PO Q6HP PRN #8 tablet 07/25/17 Allergies/Adverse Reactions: Penicillins Allergy (Verified 07/20/17 16:31) Review of Systems Constitutional: PRESENT: as per HPI Eyes: PRESENT: as per HPI Ears: PRESENT: as per HPI Nose, Mouth, and Throat: PRESENT: as per HPI Breasts: PRESENT: as per HPI Cardiovascular: PRESENT: as per HPI Respiratory: PRESENT: as per HPI Gastrointestinal: PRESENT: as per HPI Genitourinary: PRESENT: as per HPI Musculoskeletal: PRESENT: as per HPI Integumentary: PRESENT: as per HPI Neurological: PRESENT: as per HPI Psychiatric: PRESENT: as per HPI Endocrine: PRESENT: as per HPI Hematologic/Lymphatic: PRESENT: as per HPI Allergic/Immunologic: PRESENT: as per HPI - Pertinent positives and negatives per HPI. Physical Exam Vital Signs: Temp Pulse Resp BP Pulse Ox 97.6 F 95 18 132/65 H 98 10/31/17 03:11 10/30/17 21:15 10/30/17 21:15 10/30/17 21:15 10/30/17 21:15 Intake & Output 10/29/17 10/30/17 10/31/17 06:59 06:59 06:59 Weight 69.7 kg General appearance: PRESENT: no acute distress, well-developed Head exam: PRESENT: atraumatic, normocephalic Eye exam: PRESENT: conjunctiva pink, PERRLA. ABSENT: scleral icterus Mouth exam: PRESENT: moist, tongue midline Respiratory exam: PRESENT: clear to auscultation jason. ABSENT: rales, rhonchi, wheezes Cardiovascular exam: PRESENT: RRR - S1 S2 normal Pulses: PRESENT: normal dorsalis pedis pul Vascular exam: PRESENT: normal capillary refill GI/Abdominal exam: PRESENT: normal bowel sounds, soft. ABSENT: distended, guarding, rebound, tenderness Rectal exam: PRESENT: deferred Extremities exam: PRESENT: full ROM. ABSENT: pedal edema Neurological exam: PRESENT: alert, awake, oriented to person, oriented to place , oriented to time, oriented to situation, motor sensory deficit - Peripheral neuropathy bilateral feet up to the ankle. Psychiatric exam: PRESENT: appropriate affect, normal mood. ABSENT: homicidal ideation, suicidal ideation Skin exam: PRESENT: dry, intact, warm. ABSENT: cyanosis, rash Results Laboratory Results: 10/31/17 00:04 10/31/17 00:04 10/30/17 10/31/17 10/31/17 21:16 00:04 00:04 WBC 17.4 H RBC 4.22 L Hgb 11.1 L Hct 33.9 L MCV 81 MCH 26.3 L MCHC 32.7 RDW 15.7 H Plt Count 436 Seg Neutrophils % 86.4 H Lymphocytes % 8.4 L Monocytes % 4.7 Eosinophils % 0.0 Basophils % 0.5 Absolute Neutrophils 15.0 H Absolute Lymphocytes 1.5 Absolute Monocytes 0.8 Absolute Eosinophils 0.0 Absolute Basophils 0.1 Sodium 131.4 L Potassium 4.1 Chloride 93 L Carbon Dioxide 24 Anion Gap 14 BUN 15 Creatinine 0.94 Est GFR ( Amer) > 60 Est GFR (Non-Af Amer) > 60 Glucose 526 H* Calcium 9.4 Total Bilirubin 0.6 AST 9 L ALT 12 L Alkaline Phosphatase 120 Total Protein 6.8 Albumin 3.7 Urine Color YELLOW Urine Appearance SLIGHTLY-CLOUDY Urine pH 5.0 Ur Specific [place]lin 1.026 Urine Protein 30 H Urine Glucose (UA) >=500 H Urine Ketones NEGATIVE Urine Blood NEGATIVE Urine Nitrite NEGATIVE Ur Leukocyte Esterase MODERATE H Urine WBC (Auto) 79 Urine RBC (Auto) 3 Assessment & Plan - Diagnosis (1) Pyelonephritis Is this a current diagnosis for this admission?: Yes Plan: Acute, his urinalysis is again positive. The patient has been hospitalized 3 times since April 2017 with the same problem. His urine cultures on 04/29/2017 , 05/27/2017 and 07/20/2017 grew serratia marcescens. We will start Rocephin awaiting urine culture sensitivity. Of note, the patient has a history of nephrolithiasis (nonobstructive) and recurrent UTIs. He has been scheduled to see urology as outpatient on 11/11/2017. We will check a kidney ultrasound. (2) Sepsis Qualifiers: Sepsis type: sepsis due to unspecified organism Qualified Code(s): A41.9 - Sepsis, unspecified organism Is this a current diagnosis for this admission?: Yes Plan: Sepsis by criteria given leukocytosis and reported fever but the patient does not look clinically septic. We will follow-up septic workup including lactic acid and continue antibiotics as mentioned above. (3) Type 1 diabetes mellitus Qualifiers: Diabetes mellitus complication status: with neurologic complications Diabetes mellitus complication detail: with unspecified neuropathy Qualified Code(s): E10.40 - Type 1 diabetes mellitus with diabetic neuropathy, unspecified Is this a current diagnosis for this admission?: Yes Plan: Uncontrolled. According to the patient, he is compliant with his insulin but not with his diabetic diet. We will resume his 50 units of Lantus nightly in addition to 15 units of lispro before meals. The patient is also on insulin sliding scale at home which will order. (4) Chronic low back pain Qualifiers: Back pain laterality: left Sciatica presence: without sciatica Qualified Code(s): M54.5 - Low back pain; G89.29 - Other chronic pain; G89.29 - Other chronic pain Is this a current diagnosis for this admission?: Yes Plan: the patient is supposed to follow-up with orthopedics as outpatient for a third surgical intervention. (5) Smoker Is this a current diagnosis for this admission?: Yes Plan: He smokes about 2 packs a day for more than 10 years. He does not seem to be motivated to quit. He refused a nicotine patch. - Time Time Spent: Greater than 70 Minutes Smoking Cessation Education: 3 to 10 minutes Anticipated discharge: Home - Inpatient Certification Based on my medical assessment, after consideration of the patient's comorbidities, presenting symptoms, or acuity I expect that the services needed warrant INPATIENT care.: Yes I certify that my determination is in accordance with my understanding of Medicare's requirements for reasonable and necessary INPATIENT services [42 CFR 412.3e].: Yes
[2017-10-31] MEDS: INSULIN LISPRO 100 UNIT/ML 3 ML VIAL SUBCUT SCH ×3 (07:47→16:48)
[2017-10-31] MEDS ORDERED: INSULIN GLARGINE,HUM.REC.ANLOG 300 UNIT/3 ML INSULN.PEN SUBCUT SCH (10:00)
[2017-10-31] MEDS: CEFTRIAXONE 2 GM/D5W RTU 2 GM/50 ML RTUPB IV SCH (10:03)
[2017-10-31] MEDS: INSULIN LISPRO 100 UNIT/ML 3 ML VIAL SUBCUT PRN ×3 (12:39→21:26)
--- NOTE | 2017-10-31 12:48 | RADIOLOGY REPORT (SQ) ---
EXAM DESCRIPTION: U/S RETROPERITON (RENAL/AORTA) COMPLETED DATE/TIME: 10/31/2017 12:16 pm REASON FOR STUDY: recurrent UTIs and history of nephrolithiasis COMPARISON: Abdominal ultrasound 07/20/2017 CT abdomen pelvis 07/20/2017, 05/27/2017 TECHNIQUE: Dynamic and static grayscale images acquired of the kidneys and bladder and recorded on P ACS. Additional selected color Doppler and spectral images recorded. LIMITATIONS: None. FINDINGS: No hydronephrosis. Bilateral ureteral jets are identified into the bladder. Both kidneys are normal in size, without cysts or masses. Small bilateral intrarenal stones seen on CT exam 07/20/2017 are difficult to identify by ultrasound. Normal urinary bladder. IMPRESSION: Tiny bilateral intrarenal stones seen on CT exam 07/20/2017 are not apparent by ultrasou nd. No hydronephrosis. Bilateral ureteral jets are identified into the bladder. TECHNICAL DOCUMENTATION: JOB ID: [id number] [facility]- All Rights Reserved
[2017-10-31] MEDS: OXYCODONE HCL IR 5 MG TABLET PO PRN (16:48)
[2017-10-31] MEDS ORDERED: INSULIN GLARGINE,HUM.REC.ANLOG 1,000 UNIT/10 ML UNIT SUBCUT SCH (21:00)
[2017-10-31] MEDS: NORMAL SALINE 1000 ML 1,000 ML IV SCH (22:10)
[2017-11-01] MEDS: OXYCODONE HCL IR 5 MG TABLET PO PRN ×4 (00:07→16:50)
[2017-11-01] MEDS: NORMAL SALINE 1000 ML 1,000 ML IV SCH (05:43)
[2017-11-01 06:15] LABS: HEMATOCRIT 31.5 % (37.9-51.0); HEMOGLOBIN 10.6 g/dL (13.5-17.0); MEAN CORPUSCULAR HEMOGLOBIN 26.6 pg (27.0-33.4); MEAN CORPUSCULAR HGB CONC 33.6 g/dL (32.0-36.0); MEAN CORPUSCULAR VOLUME 79 fl (80-97); PLATELET COUNT 388 10^3/uL (150-450); RED BLOOD COUNT 3.99 10^6/uL (4.35-5.55); RED CELL DISTRIBUTION WIDTH 16.1 % (11.5-14.0); WHITE BLOOD COUNT 13.9 10^3/uL (4.0-10.5)
[2017-11-01 06:28] LABS: ANION GAP 11 (5-19); BLOOD UREA NITROGEN 10 mg/dL (7-20); CALCIUM 9.3 mg/dL (8.4-10.2); CARBON DIOXIDE 24 mmol/L (22-30); CHLORIDE 102 mmol/L (98-107); GLUCOSE 205 mg/dL (75-110); PHOSPHORUS 3.6 mg/dL (2.5-4.5); SODIUM 136.8 mmol/L (137-145)
[2017-11-01] MEDS: INSULIN LISPRO 100 UNIT/ML 3 ML VIAL SUBCUT SCH ×3 (07:48→17:30)
[2017-11-01] MEDS: INSULIN LISPRO 100 UNIT/ML 3 ML VIAL SUBCUT PRN ×4 (07:49→22:09)
[2017-11-01] MEDS: CEFTRIAXONE 2 GM/D5W RTU 2 GM/50 ML RTUPB IV SCH (09:13)
[2017-11-01] MEDS: MAGNESIUM SULFATE/D5W 1 GM/100 ML RTUPB IV SCH ×2 (10:23→11:32)
--- NOTE | 2017-11-01 12:09 | PDOC PROGRESS REPORT ---
Subjective Progress Note for:: 11/01/17 Subjective:: The patient is a 32-year-old male who has type 1 diabetes. He has had 3 admissions to the hospital since April 2017 for recurrent pyelonephritis with Serratia marcescens. Today, he tells me that he is not feeling better. His pain is uncontrolled. He tells me that he has been having chills and sweats throughout the night. However, his leukocytosis is improving and he has had no documented fevers since he was admitted. He is eating without any trouble. He says he has not yet had a bowel movement but he feels that he is going to be able to have a bowel movement today. He does have follow-up with urology on November 11, 2017. Reason For Visit: ACUTE PYLEONEPHRITIS Physical Exam Vital Signs: Temp Pulse Resp BP Pulse Ox 97.8 F 69 12 123/80 97 11/01/17 10:00 11/01/17 10:00 11/01/17 10:00 11/01/17 10:00 11/01/17 10:00 Intake & Output 10/31/17 11/01/17 11/02/17 06:59 06:59 06:59 Intake Total 3839 Output Total 2200 Balance 1639 Weight 66.1 kg Additional comments: The patient is a thin, white male in no distress. His cognition and mentation are normal. He is very cooperative today. His facial appearance is unremarkable. His lungs are clear to auscultation bilaterally. He does not have any severe CVA tenderness today. His cardiac exam is regular without murmurs, gallops or rubs. The abdomen is soft and flat. Bowel sounds are present. He does not have guarding or rebound noted and there are no hernias or masses present. The lower extremities are warm to touch without edema. The skin is warm, clean, dry and intact. Results Laboratory Results: 11/01/17 05:27 11/01/17 05:27 11/01/17 11/01/17 05:27 05:27 WBC 13.9 H RBC 3.99 L Hgb 10.6 L Hct 31.5 L MCV 79 L MCH 26.6 L MCHC 33.6 RDW 16.1 H Plt Count 388 Sodium 136.8 L Potassium 4.0 Chloride 102 Carbon Dioxide 24 Anion Gap 11 BUN 10 Creatinine 0.74 Est GFR ( Amer) > 60 Est GFR (Non-Af Amer) > 60 Glucose 205 H Calcium 9.3 Phosphorus 3.6 Magnesium 1.4 L Impressions: Renal Ultrasound 10/31/17 00:00 IMPRESSION: Tiny bilateral intrarenal stones seen on CT exam 07/20/2017 are not apparent by ultrasound. No hydronephrosis. Bilateral ureteral jets are identified into the bladder. Assessment & Plan - Diagnosis (1) Pyelonephritis Is this a current diagnosis for this admission?: Yes Plan: The patient appears to be improving by his resolving leukocytosis. He has not had any additional fevers. His culture is sensitive to ceftriaxone. I see no indication change therapy at this time. (2) Sepsis Qualifiers: Sepsis type: sepsis due to unspecified organism Qualified Code(s): A41.9 - Sepsis, unspecified organism Is this a current diagnosis for this admission?: Yes Plan: Clinically resolving. (3) Smoker Is this a current diagnosis for this admission?: Yes (4) Type 1 diabetes mellitus Qualifiers: Diabetes mellitus complication status: with neurologic complications Diabetes mellitus complication detail: with unspecified neuropathy Qualified Code(s): E10.40 - Type 1 diabetes mellitus with diabetic neuropathy, unspecified Is this a current diagnosis for this admission?: Yes Plan: Continue basal insulin, mealtime insulin and sliding scale coverage. (5) Chronic low back pain Qualifiers: Back pain laterality: left Sciatica presence: without sciatica Qualified Code(s): M54.5 - Low back pain; G89.29 - Other chronic pain; G89.29 - Other chronic pain Is this a current diagnosis for this admission?: Yes Plan: Stable - Time Time Spent with patient: 15-24 minutes - Inpatient Certification Medical Necessity: Need for IV Antibiotics
[2017-11-01] MEDS: MAGNESIUM OXIDE 400 MG TABLET PO SCH (16:50)
[2017-11-01] MEDS: HYDROMORPHONE HCL INJ/PF 2 MG/ML AMPULE IV PRN (20:31)
[2017-11-01] MEDS: INSULIN GLARGINE,HUM.REC.ANLOG 300 UNIT/3 ML INSULN.PEN SUBCUT SCH (22:09)
[2017-11-02] MEDS: HYDROMORPHONE HCL INJ/PF 2 MG/ML AMPULE IV PRN ×6 (00:18→22:32)
[2017-11-02] MEDS: OXYCODONE HCL IR 5 MG TABLET PO PRN ×3 (06:10→21:02)
[2017-11-02] MEDS: INSULIN LISPRO 100 UNIT/ML 3 ML VIAL SUBCUT SCH ×3 (08:23→16:17)
[2017-11-02] MEDS: CEFTRIAXONE 2 GM/D5W RTU 2 GM/50 ML RTUPB IV SCH (09:15)
[2017-11-02] MEDS: MAGNESIUM OXIDE 400 MG TABLET PO SCH ×2 (09:15→17:12)
--- NOTE | 2017-11-02 15:49 | PDOC PROGRESS REPORT ---
Subjective Progress Note for:: 11/02/17 Subjective:: The patient is a 32-year-old male who has type 1 diabetes. He has had 3 admissions to the hospital since April 2017 for recurrent pyelonephritis with Serratia marcescens. Yesterday, he told me that his pain was poorly controlled. His nurse confirmed that he was at times in exquisite pain. Therefore, I added IV Dilaudid to the oxycodone. Today, the patient's pain is better but he feels that he is having these intense intermittent cramps. I suspect, that he does have a retained stone. He tells me that he has been having chills and sweats throughout the night. However, his leukocytosis is improving and he has had no documented fevers since he was admitted. He is eating without any trouble. He says he has not yet had a bowel movement but he feels that he is going to be able to have a bowel movement today. He does have follow-up with urology on November 11, 2017. Reason For Visit: ACUTE PYLEONEPHRITIS Physical Exam Vital Signs: Temp Pulse Resp BP Pulse Ox 98.3 F 79 16 135/77 H 97 11/02/17 12:00 11/02/17 12:00 11/02/17 12:00 11/02/17 12:00 11/02/17 12:00 Intake & Output 11/01/17 11/02/17 11/03/17 06:59 06:59 06:59 Intake Total 3839 3046 Output Total 2200 1800 Balance 1639 1246 Weight 66.1 kg 70.8 kg Additional comments: The patient appears to be more comfortable today. His cognition and mentation are appropriate. His facial appearance is unremarkable. His lungs are noted to be clear bilaterally. His cardiac exam is regular without murmurs, gallops or rubs. The abdomen is soft and flat. Bowel sounds are present in the lower quadrants. He does not have any guarding or rebound noted and there are no hernias or masses present. The lower extremities do not show any edema. The skin does show a dry scaly rash behind the knees. It appears to be either eczema or psoriasis. Results Laboratory Results: 11/01/17 05:27 11/01/17 05:27 Impressions: Renal Ultrasound 10/31/17 00:00 IMPRESSION: Tiny bilateral intrarenal stones seen on CT exam 07/20/2017 are not apparent by ultrasound. No hydronephrosis. Bilateral ureteral jets are identified into the bladder. Assessment & Plan - Diagnosis (1) Pyelonephritis Is this a current diagnosis for this admission?: Yes Plan: The patient appears to be improving by his resolving leukocytosis. He has not had any additional fevers. His culture is sensitive to ceftriaxone. I see no indication change therapy at this time. (2) Sepsis Qualifiers: Sepsis type: sepsis due to unspecified organism Qualified Code(s): A41.9 - Sepsis, unspecified organism Is this a current diagnosis for this admission?: Yes Plan: Clinically resolving. (3) Smoker Is this a current diagnosis for this admission?: Yes (4) Type 1 diabetes mellitus Qualifiers: Diabetes mellitus complication status: with neurologic complications Diabetes mellitus complication detail: with unspecified neuropathy Qualified Code(s): E10.40 - Type 1 diabetes mellitus with diabetic neuropathy, unspecified Is this a current diagnosis for this admission?: Yes Plan: Continue basal insulin, mealtime insulin and sliding scale coverage. (5) Chronic low back pain Qualifiers: Back pain laterality: left Sciatica presence: without sciatica Qualified Code(s): M54.5 - Low back pain; G89.29 - Other chronic pain; G89.29 - Other chronic pain Is this a current diagnosis for this admission?: Yes Plan: The patient's pain from yesterday appears to be from ureteral spasm. His back pain appears to be stable. IV Dilaudid was added for breakthrough pain yesterday. (6) Rash Is this a current diagnosis for this admission?: Yes Plan: We will begin a low dose topical steroid. - Time Time Spent with patient: 15-24 minutes - Inpatient Certification Medical Necessity: Need for Pain Control, Need for IV Antibiotics
[2017-11-02] MEDS ORDERED: TRIAMCINOLONE ACETONIDE 0.1% CREAM 15 GM TOP PRN (15:52)
[2017-11-02] MEDS: INSULIN LISPRO 100 UNIT/ML 3 ML VIAL SUBCUT PRN ×2 (16:17→22:32)
[2017-11-02] MEDS: INSULIN GLARGINE,HUM.REC.ANLOG 300 UNIT/3 ML INSULN.PEN SUBCUT SCH (21:02)
[2017-11-03] MEDS: OXYCODONE HCL IR 5 MG TABLET PO PRN ×5 (02:09→22:15)
[2017-11-03] MEDS: HYDROMORPHONE HCL INJ/PF 2 MG/ML AMPULE IV PRN ×2 (05:10→05:38)
[2017-11-03 05:14] LABS: ABSOLUTE EOSINOPHILS # (AUTO) 0.3 10^3/uL (0.0-0.6); ABSOLUTE LYMPHOCYTES (AUTO) 2.4 10^3/uL (0.5-4.7); ABSOLUTE MONOCYTES (AUTO) 0.7 10^3/uL (0.1-1.4); ABSOLUTE NEUT (AUTO) 6.6 10^3/uL (1.7-8.2); BASOPHILS % (AUTO) 0.3 % (0-2); EOSINOPHILS % (AUTO) 2.7 % (0-6); HEMATOCRIT 32.1 % (37.9-51.0); HEMOGLOBIN 10.9 g/dL (13.5-17.0); LYMPHOCYTES % (AUTO) 24.1 % (13-45); MEAN CORPUSCULAR HEMOGLOBIN 26.8 pg (27.0-33.4); MEAN CORPUSCULAR VOLUME 79 fl (80-97); MONOCYTES % (AUTO) 6.9 % (3-13); PLATELET COUNT 465 10^3/uL (150-450); RED BLOOD COUNT 4.07 10^6/uL (4.35-5.55); RED CELL DISTRIBUTION WIDTH 15.9 % (11.5-14.0); TOTAL CELLS COUNTED % (AUTO) 100 %
[2017-11-03 05:47] LABS: ANION GAP 14 (5-19); BLOOD UREA NITROGEN 11 mg/dL (7-20); CARBON DIOXIDE 28 mmol/L (22-30); CHLORIDE 97 mmol/L (98-107); GLUCOSE 141 mg/dL (75-110); POTASSIUM 4.4 mmol/L (3.6-5.0); SODIUM 138.6 mmol/L (137-145)
[2017-11-03] MEDS: INSULIN LISPRO 100 UNIT/ML 3 ML VIAL SUBCUT SCH ×3 (08:45→17:42)
[2017-11-03] MEDS: MAGNESIUM OXIDE 400 MG TABLET PO SCH ×2 (11:32→17:43)
[2017-11-03] MEDS: CEFTRIAXONE 2 GM/D5W RTU 2 GM/50 ML RTUPB IV SCH (11:32)
--- NOTE | 2017-11-03 11:34 | PDOC CONSULTATION ---
Consultation Consult Date: 11/03/17 Consult reason:: Renal calculi, recurrent UTIs History of Present Illness Admission Date/PCP: 10/31/17 04:26 ELIANA ANTUNEZ MD Patient complains of: Right flank pain History of Present Illness: RAYMOND BRAY is a 32 year old male smoker with history of type 1 diabetes mellitus (uncontrolled), nephrolithiasis and recurrent UTIs/sepsis was admitted with above-mentioned complaints. The patient is complaining of left-sided lower back pain which he attributes it to radiculopathy. He said that he lifted something heavy about 5 days ago which aggravated his pain. He also mentioned that he had some right-sided lower back pain for the last 2 weeks 10/ 10 in intensity which improved to 6/10 intensity with Percocet given in the ED. He denied any dysuria but he said that he had some hematuria with blood clots 3 weeks ago. He also has urgency but he is able to void. He also mentioned that he was having intermittent fever and chills for the last 2 weeks which became persistent in the last 3 nights. He was also diaphoretic but he denied any abdominal pain, diarrhea or constipation. He mentioned that his appetite has been poor and he has been feeling generalized weakness. He denied any chest pain, shortness of breath, cough or any sputum. In the ED, his temperature was 99.7, heart rate 95, respiratory rate 18, blood pressure 132/65 with oxygen saturation of 98% on room air. his WBC was 17.4. and his blood glucose was 526 with anion gap of 14. His UA was positive. He received 2 g IV cefepime 1, 500 mg oral Cipro 1, 6 units of regular insulin and 2 L of normal saline with improvement in his symptoms. Past Medical History Cardiac Medical History: Reports: Heart Murmur Endocrine Medical History: Reports: Diabetes Mellitus Type 1, Diabetes Mellitus Type 2 Renal/ Medical History: Reports: Nephrolithiasis, Other - UTIs GI Medical History: Reports: Gastroesophageal Reflux Disease Musculoskeltal Medical History: Reports: Other - lower back pain post surgery x2. Psychiatric Medical History: Denies: Depression Past Surgical History Past Surgical History: Reports: Orthopedic Surgery - disc surgery L5-S1., Other - left ankle surgery due to infection in 2017. Social History Lives with: Family Smoking Status: Current Every Day Smoker Cigarettes Packs Per Day: 2 - for 17 years Frequency of Alcohol Use: None Hx Recreational Drug Use: Yes - marijuana Drugs: Marijuana Hx Prescription Drug Abuse: No - Advance Directive Resuscitation Status: Full Code Family History Family History: DM Parental Family History Reviewed: No Children Family History Reviewed: No Sibling(s) Family History Reviewed.: No Medication/Allergy Home Medications: Insulin Aspart [Novolog Flexpen] 0 unit SUBCUT .SLD SCALE 10/31/17 Insulin Aspart [Novolog Flexpen] 15 unit SUBCUT AC 10/31/17 Insulin Glargine,Hum.rec.anlog [Lantus Solostar] 50 unit SQ QHS 10/31/17 Allergies/Adverse Reactions: Penicillins Allergy (Verified 07/20/17 16:31) Physical Exam Vital Signs: Temp Pulse Resp BP Pulse Ox 97.8 F 82 16 144/79 H 99 11/03/17 06:38 11/03/17 06:38 11/03/17 06:38 11/03/17 06:38 11/03/17 06:38 Intake & Output 11/02/17 11/03/17 11/04/17 06:59 06:59 06:59 Intake Total 3046 2610 Output Total 1800 3800 Balance 1246 -1190 Weight 70.8 kg 67.4 kg GI/Abdominal exam: PRESENT: tenderness - Right sided discomfort with deep breath Results Laboratory Results: 11/03/17 04:03 11/03/17 04:03 11/03/17 11/03/17 04:03 04:03 WBC 10.0 RBC 4.07 L Hgb 10.9 L Hct 32.1 L MCV 79 L MCH 26.8 L MCHC 34.0 RDW 15.9 H Plt Count 465 H Seg Neutrophils % 66.0 Lymphocytes % 24.1 Monocytes % 6.9 Eosinophils % 2.7 Basophils % 0.3 Absolute Neutrophils 6.6 Absolute Lymphocytes 2.4 Absolute Monocytes 0.7 Absolute Eosinophils 0.3 Absolute Basophils 0.0 Sodium 138.6 Potassium 4.4 Chloride 97 L Carbon Dioxide 28 Anion Gap 14 BUN 11 Creatinine 0.70 Est GFR ( Amer) > 60 Est GFR (Non-Af Amer) > 60 Glucose 141 H Calcium 9.0 Magnesium 1.7 Impressions: Renal Ultrasound 10/31/17 00:00 IMPRESSION: Tiny bilateral intrarenal stones seen on CT exam 07/20/2017 are not apparent by ultrasound. No hydronephrosis. Bilateral ureteral jets are identified into the bladder. Assessment & Plan - Diagnosis (1) Urinary tract infection Qualifiers: Urinary tract infection type: acute cystitis Hematuria presence: with hematuria Qualified Code(s): N30.01 - Acute cystitis with hematuria - Plan Summary Plan Summary: This patient is a 32-year-old male who has been admitted multiple times with complaints of infection and flank pain. A CT scan done in July 2017 showed bilateral small stones. None of these stones was obstructing. On admission a renal ultrasound was obtained. There was no hydronephrosis. No large stones were seen on the ultrasound imaging. No stones were apparent, indicating the stones are probably small if still present. There was no hydronephrosis present. A urine culture was obtained on admission and is growing Serratia. It is sensitive to numerous antibiotics, including oral medications. He does give a history of voiding visible blood with some clots over a month ago which spontaneously resolved. It may have been related to stone passage although no stone was caught. During this consultation, he did not seem to be in much pain but did complain of some discomfort on deep breathing. He is not having any typical stone pain, which correlates with his studies. I discussed the findings of infection and his current status. He does appear to be able to be discharged this point with no severe pain and no fever or white count. He should be able to be discharged on oral antibiotics which should be continued until seen by urology. He has a urology appointment on November 11 with [facility]. After 10 days or so, he may be able to be switched to a maintenance dose of antibiotics until then. I will be available until November 07 for any problems.
[2017-11-03] MEDS: INSULIN LISPRO 100 UNIT/ML 3 ML VIAL SUBCUT PRN ×2 (12:42→22:15)
--- NOTE | 2017-11-03 12:43 | RADIOLOGY REPORT (SQ) ---
EXAM DESCRIPTION: CHEST PA/LAT COMPLETED DATE/TIME: 11/03/2017 12:33 pm REASON FOR STUDY: Pleurisy COMPARISON: 07/03/2016 EXAM PARAMETERS: NUMBER OF VIEWS: two views TECHNIQUE: Digital Frontal and Lateral radiographic views of the chest acquired. RADIATION DOSE: NA LIMITATIONS: none FINDINGS: LUNGS AND PLEURA: Bilateral lower lobe airspace disease with trace pleural effusions. MEDIASTINUM AND HILAR STRUCTURES: No masses or contour abnormalities. HEART AND VASCULAR STRUCTURES: Heart normal size. No evidence for failure. BONES: No acute findings. HARDWARE: None in the chest. OTHER: No other significant finding. IMPRESSION: BILATERAL LOWER LOBE AIRSPACE DISEASE WITH TRACE PLEURAL EFFUSIONS PRESUMABLY REPRESENTS PNEUMONIA WITH PARAPNEUMONIC EFFUSIONS. RECOMMEND FOLLOWUP RADIOGRAPHS 4 TO 6 WEEKS TO ENSURE RESOL UTION. TECHNICAL DOCUMENTATION: JOB ID: [id number] [facility]- All Rights Reserved Reading location - IP/workstation name: [email or web address]
[2017-11-03] MEDS ORDERED: KETOROLAC TROMETHAMINE INJ/PF 30 MG/1 ML SDV IV ONE (14:00)
--- NOTE | 2017-11-03 14:37 | PDOC PROGRESS REPORT ---
Subjective Progress Note for:: 11/03/17 Subjective:: The patient is a 32-year-old male who has type 1 diabetes. He has had 3 admissions to the hospital since April 2017 for recurrent pyelonephritis with Serratia marcescens. The patient today was still having pain. In fact, he was complaining of pleuritic chest pain. Therefore, I ordered a chest x-ray. He does have some atelectasis in the bases and small effusions. I do not agree with the diagnosis of pneumonia because the patient is afebrile without leukocytosis. I also asked urology to come by. Dr. Gates feels that the patient can be discharged from a urological standpoint. Reason For Visit: ACUTE PYLEONEPHRITIS Physical Exam Vital Signs: Temp Pulse Resp BP Pulse Ox 98.5 F 79 16 153/82 H 97 11/03/17 11:43 11/03/17 11:43 11/03/17 11:43 11/03/17 11:43 11/03/17 11:43 Intake & Output 11/02/17 11/03/17 11/04/17 06:59 06:59 06:59 Intake Total 3046 2610 Output Total 1800 3800 Balance 1246 -1190 Weight 70.8 kg 67.4 kg Additional comments: The patient does not appear to be in any distress but he is continuing to say that he has exquisite pain when he takes a deep breath and. He also has pain when sneezing or coughing. His facial appearance is unremarkable. His lungs are clear to auscultation bilaterally. His cardiac exam is regular without murmurs, gallops or rubs. The abdomen is soft and flat. Bowel sounds are present. He does not have guarding or rebound noted and there are no hernias or masses present. The lower extremities are warm to touch without edema. The skin is clean, warm, dry and intact without lesions or rashes. Results Laboratory Results: 11/03/17 04:03 11/03/17 04:03 11/03/17 11/03/17 04:03 04:03 WBC 10.0 RBC 4.07 L Hgb 10.9 L Hct 32.1 L MCV 79 L MCH 26.8 L MCHC 34.0 RDW 15.9 H Plt Count 465 H Seg Neutrophils % 66.0 Lymphocytes % 24.1 Monocytes % 6.9 Eosinophils % 2.7 Basophils % 0.3 Absolute Neutrophils 6.6 Absolute Lymphocytes 2.4 Absolute Monocytes 0.7 Absolute Eosinophils 0.3 Absolute Basophils 0.0 Sodium 138.6 Potassium 4.4 Chloride 97 L Carbon Dioxide 28 Anion Gap 14 BUN 11 Creatinine 0.70 Est GFR ( Amer) > 60 Est GFR (Non-Af Amer) > 60 Glucose 141 H Calcium 9.0 Magnesium 1.7 Impressions: Renal Ultrasound 10/31/17 00:00 IMPRESSION: Tiny bilateral intrarenal stones seen on CT exam 07/20/2017 are not apparent by ultrasound. No hydronephrosis. Bilateral ureteral jets are identified into the bladder. Chest X-Ray 11/03/17 00:00 IMPRESSION: BILATERAL LOWER LOBE AIRSPACE DISEASE WITH TRACE PLEURAL EFFUSIONS PRESUMABLY REPRESENTS PNEUMONIA WITH PARAPNEUMONIC EFFUSIONS. RECOMMEND FOLLOWUP RADIOGRAPHS 4 TO 6 WEEKS TO ENSURE RESOLUTION. Assessment & Plan - Diagnosis (1) Pyelonephritis Is this a current diagnosis for this admission?: Yes Plan: I greatly appreciate the recommendations from Dr. Gates. I am going to switch the patient to oral ciprofloxacin. I will continue full strength oral ciprofloxacin until the patient is seen by urology on November 11. (2) Sepsis Qualifiers: Sepsis type: sepsis due to unspecified organism Qualified Code(s): A41.9 - Sepsis, unspecified organism Is this a current diagnosis for this admission?: Yes Plan: Clinically resolving. (3) Smoker Is this a current diagnosis for this admission?: Yes (4) Type 1 diabetes mellitus Qualifiers: Diabetes mellitus complication status: with neurologic complications Diabetes mellitus complication detail: with unspecified neuropathy Qualified Code(s): E10.40 - Type 1 diabetes mellitus with diabetic neuropathy, unspecified Is this a current diagnosis for this admission?: Yes Plan: Continue basal insulin, mealtime insulin and sliding scale coverage. (5) Chronic low back pain Qualifiers: Back pain laterality: left Sciatica presence: without sciatica Qualified Code(s): M54.5 - Low back pain; G89.29 - Other chronic pain; G89.29 - Other chronic pain Is this a current diagnosis for this admission?: Yes Plan: She will continue oxycodone. Dilaudid will be discontinued. Dr. Gates also ordered 1 dose of Toradol. (6) Rash Is this a current diagnosis for this admission?: Yes Plan: We will begin a low dose topical steroid. (7) Abnormal chest x-ray Is this a current diagnosis for this admission?: Yes Plan: The patient's chest x-ray shows small bilateral pleural effusions. This is likely from the patient being in bed for so long. He does not clinically have evidence of pneumonia. He is afebrile. He does not have leukocytosis. He does not have a productive cough. However, he does have pleurisy likely associated with the effusion. I am going to give him a dose of Lasix and repeat the chest x-ray in the morning. Hopefully, this will resolve and he will not require any additional invasive treatment such as thoracentesis. - Time Time Spent with patient: 25-34 minutes - Inpatient Certification Medical Necessity: Need for Pain Control, Risk of Diagnosis Which Will Require Inpatient Eval/Care/Monitoring
[2017-11-03] MEDS ORDERED: FUROSEMIDE INJ/PF 40 MG/4 ML SDV IV ONE (15:15)
[2017-11-03] MEDS ORDERED: HYDRALAZINE HCL INJ/PF 20 MG/1 ML SDV IV PRN (15:59)
[2017-11-03] MEDS: CIPROFLOXACIN HCL 500 MG TABLET PO SCH (21:55)
[2017-11-03] MEDS: INSULIN GLARGINE,HUM.REC.ANLOG 300 UNIT/3 ML INSULN.PEN SUBCUT SCH (22:15)
[2017-11-04] MEDS: OXYCODONE HCL IR 5 MG TABLET PO PRN ×3 (04:48→14:27)
--- NOTE | 2017-11-04 08:13 | RADIOLOGY REPORT (SQ) ---
EXAM DESCRIPTION: CHEST PA/LAT COMPLETED DATE/TIME: 11/04/2017 7:50 am REASON FOR STUDY: Pleural effusions COMPARISON: 11/03/2017 EXAM PARAMETERS: NUMBER OF VIEWS: two views TECHNIQUE: Digital Frontal and Lateral radiographic views of the chest acquired. RADIATION DOSE: NA LIMITATIONS: none FINDINGS: LUNGS AND PLEURA: Minimal improved aeration of the bases. Persistent small effusions. MEDIASTINUM AND HILAR STRUCTURES: No masses or contour abnormalities. HEART AND VASCULAR STRUCTURES: Heart normal size. No evidence for failure. BONES: No acute findings. HARDWARE: None in the chest. OTHER: No other significant finding. IMPRESSION: Minimal improved aeration of the lung bases. TECHNICAL DOCUMENTATION: JOB ID: [id number] [employer]- All Rights Reserved Reading location - IP/workstation name: [email or web address]
[2017-11-04] MEDS: INSULIN LISPRO 100 UNIT/ML 3 ML VIAL SUBCUT SCH ×3 (08:51→17:05)
[2017-11-04] MEDS: CIPROFLOXACIN HCL 500 MG TABLET PO SCH (09:52)
[2017-11-04] MEDS: MAGNESIUM OXIDE 400 MG TABLET PO SCH ×2 (09:52→17:06)
--- NOTE | 2017-11-04 11:46 | RADIOLOGY REPORT (SQ) ---
EXAM DESCRIPTION: CT CHEST WITHOUT COMPLETED DATE/TIME: 11/04/2017 11:21 am REASON FOR STUDY: Effusions COMPARISON: None. TECHNIQUE: CT scan performed of the chest without intravenous contrast. Images reviewed with lung, soft tissue and bone windows. Reconstructed coronal and sagittal MPR images reviewed. All images st ored on PACS. All CT scanners at this facility use dose modulation, iterative reconstruction, and/or weight based d osing when appropriate to reduce radiation dose to as low as reasonably achievable (ALARA). [facility]: Dose Right [facility]: CareDose [facility]: Dose Right [facility]: Teradose 4D [facility]: REH RADIATION DOSE: CT Rad equipment meets quality standard of care and radiation dose reduction techniq ues were employed. CTDIvol: 6.3 mGy. DLP: 227 mGy-cm. mGy. LIMITATIONS: No technical limitations. FINDINGS: LUNGS AND PLEURA: There is atelectasis in the right and left posterior costophrenic sulci, and bandlike atelectasis in the lingula. Trace pleural fluid bilaterally. No fluffy alveolar infiltrates worrisome for pulmonary edema or pneumonia. No worrisome pulmonary no dules. HILAR AND MEDIASTINAL STRUCTURES: No identified masses or abnormal nodes. No obvious aneurysm. HEART AND VASCULAR STRUCTURES: No aneurysm. No pericardial effusion. UPPER ABDOMEN: No significant findings. Limited exam. THYROID AND OTHER SOFT TISSUES: No masses. No adenopathy. BONES: No significant finding. HARDWARE: None in the chest. OTHER: No other significant findings. IMPRESSION: Bibasilar atelectasis. Trace pleural fluid bilaterally. TECHNICAL DOCUMENTATION: JOB ID: [id number] Quality ID # [id number]: Final reports with documentation of one or more dose reduction techniques (e.g., Au tomated exposure control, adjustment of the mA and/or kV according to patient size, use of iterative reconstruction technique) 2010 [employer]- All Rights Reserved Reading location - IP/workstation name: [email or web address]
--- NOTE | 2017-11-04 16:16 | RADIOLOGY REPORT (SQ) ---
EXAM DESCRIPTION: CTA CHEST COMPLETED DATE/TIME: 11/04/2017 3:56 pm REASON FOR STUDY: Rule out pe COMPARISON: CT chest without contrast 11/04/2017, 1113 hours TECHNIQUE: CT scan of the chest performed using helical scanning technique with dynamic intravenous contrast injection. Images reviewed with lung, soft tissue and bone windows. Reconstructed coronal and sagittal MPR images reviewed. Additional 3 dimensional post-processing performed to develop Maximal Intensity Projection images ([place] P). All images stored on PACS. All CT scanners at this facility use dose modulation, iterative reconstruction, and/or weight based d osing when appropriate to reduce radiation dose to as low as reasonably achievable (ALARA). [facility]: Dose Right [facility]: CareDose [facility]: Dose Right [facility]: Teradose 4D [facility]: [employer] CONTRAST TYPE AND DOSE: contrast/concentration: Isovue 370.00 mg/ml; Total Contrast Delivered: 47.0 ml; Total Saline Delivered: 77.1 ml Contrast bolus adequate for pulmonary arteries and aorta. RENAL FUNCTION: Creatinine 0.7 RADIATION DOSE: CT Rad equipment meets quality standard of care and radiation dose reduction techniq ues were employed. CTDIvol: 3.9 - 16.9 mGy. DLP: 1001 mGy-cm. . LIMITATIONS: Suboptimal contrast bolus for the pulmonary arteries FINDINGS: LUNGS AND PLEURA: There is dependent atelectasis in the right and left posterior costophre laci sulci with trace pleural fluid bilaterally. Minimal bandlike atelectasis in the lingula. Lungs are otherwise well inflated and clear. No alveolar opacities worrisome for alveolar edema. AORTA AND GREAT VESSELS: No thoracic aortic dissection or aneurysm. HEART: No pericardial effusion. No significant coronary artery calcifications. PULMONARY ARTERIES: No emboli identified in the main, right or left lobar, or proximal segmental pulm onary arteries. HILAR AND MEDIASTINAL STRUCTURES: No identified masses or abnormal nodes. HARDWARE: None in the chest. UPPER ABDOMEN: No significant findings. Limited exam. THYROID AND OTHER SOFT TISSUES: No masses. No adenopathy. BONES: No acute or significant finding. 3D MIPS: Confirm above findings. OTHER: No other significant finding. IMPRESSION: No CT angio evidence of acute pulmonary emboli or thoracic aortic dissection. There is trace bilateral pleural fluid with bibasilar bandlike consolidation likely atelectasis. COMMENT: Quality ID # [id number]: Final reports with documentation of one or more dose reduction techniques (e.g., Automated exposure control, adjustment of the mA and/or kV according to patient size, use of iterative reconstruction technique) TECHNICAL DOCUMENTATION: JOB ID: [id number] [employer]- All Rights Reserved Reading location - IP/workstation name: [email or web address]
--- NOTE | 2017-11-04 16:27 | RADIOLOGY REPORT (SQ) ---
EXAM DESCRIPTION: CT ABD/PELVIS WITH IV ONLY COMPLETED DATE/TIME: 11/04/2017 3:56 pm REASON FOR STUDY: Back pain with pyelonephritis COMPARISON: CT abdomen pelvis 09/23/2009, 05/27/2017 CT chest 11/04/2017 TECHNIQUE: CT scan of the abdomen and pelvis performed using helical scanning technique with dynamic intravenous contrast injection. No oral contrast. Images reviewed with lung, soft tissue, and bone windows. Reconstructed coronal and sagittal MPR images reviewed. Delayed images for evaluation of the urinary system also acquired. All images stored on PACS. All CT scanners at this facility use dose modulation, iterative reconstruction, and/or weight based d osing when appropriate to reduce radiation dose to as low as reasonably achievable (ALARA). [facility]: Dose Right [facility]: CareDose [facility]: Dose Right [facility]: Teradose 4D [facility]: [employer] CONTRAST TYPE AND DOSE: 50 mL Isovue-370 RENAL FUNCTION: Creatinine 0.7 RADIATION DOSE: 11 mGy. LIMITATIONS: None. FINDINGS: There is a massive amount of stool throughout the colon particularly on the right side. N o CT evidence of bowel obstruction, appendicitis or diverticulitis. Tiny bilateral intrarenal nonobstructive stones are present in both kidneys. No ureteral calculi. N o hydronephrosis or hydroureter. There is minimal soft tissue stranding in the subcutaneous fat right lower quadrant coronal image 13, question subcutaneous injections LOWER CHEST: Trace bilateral pleural effusions with bibasilar bandlike atelectasis LIVER: Normal size. No masses. No dilated ducts. SPLEEN: Normal size. No focal lesions. PANCREAS: No masses. No significant calcifications. No adjacent inflammation or peripancreatic fluid collections. Pancreatic duct not dilated. GALLBLADDER: No identified stones by CT criteria. No inflammatory changes to suggest cholecystitis. ADRENAL GLANDS: No significant masses or asymmetry. RIGHT KIDNEY AND URETER: No solid masses. Multiple less than 3 mm right-sided intrarenal nonobstruc tive stones are present. No hydronephrosis or hydroureter. LEFT KIDNEY AND URETER: No solid masses. Multiple less than 3 mm left-sided intrarenal nonobstructi ve stones are present. No hydronephrosis or hydroureter. AORTA AND VESSELS: No aneurysm. No dissection. Renal arteries, SMA, celiac without stenosis. RETROPERITONEUM: No retroperitoneal adenopathy, hemorrhage or masses. BOWEL AND PERITONEAL CAVITY: No oral contrast. Massive amount of stool in the ascending and transver se colon. No CT evidence of bowel obstruction, free intraperitoneal air or fluid. APPENDIX: Normal appendix on coronal image 31 and sagittal image 23-26, retrocecal in the right abdom en PELVIS: No mass. No free fluid. Normal bladder. ABDOMINAL WALL: Soft tissue stranding in the right lower quadrant anterior abdominal wall, question s ubcutaneous injection versus focal cellulitis or contusion BONES: Post fusion at the L5-S1 level with dorsal fixation plates and a metallic disc spacer OTHER: No other significant finding. IMPRESSION: Massive amount of stool in the ascending and transverse colon Bilateral intrarenal nonobstructive renal calculi Trace bilateral pleural effusions with bibasilar atelectasis TECHNICAL DOCUMENTATION: JOB ID: [id number] Quality ID # [id number]: Final reports with documentation of one or more dose reduction techniques (e.g., Au tomated exposure control, adjustment of the mA and/or kV according to patient size, use of iterative reconstruction technique) 2010 [employer]- All Rights Reserved Reading location - IP/workstation name: [facility]
--- NOTE | 2017-11-04 17:08 | PDOC DISCHARGE SUMMARY ---
General - Admit/Disc Date/PCP Admission Date/Primary Care Provider: 10/31/17 04:26 ELIANA ANTUNEZ MD Discharge Date: 11/04/17 - Discharge Diagnosis (1) Pyelonephritis Is this a current diagnosis for this admission?: Yes (2) Sepsis Is this a current diagnosis for this admission?: Yes (3) Smoker Is this a current diagnosis for this admission?: Yes (4) Type 1 diabetes mellitus Is this a current diagnosis for this admission?: Yes (5) Chronic low back pain Is this a current diagnosis for this admission?: Yes (6) Rash Is this a current diagnosis for this admission?: Yes (7) Atelectasis Is this a current diagnosis for this admission?: Yes (8) Constipation Is this a current diagnosis for this admission?: Yes - Additional Information Resuscitation Status: Full Code Discharge Diet: Diabetic Discharge Activity: Activity As Tolerated, Slowly Increase Activity Home Medications: Insulin Aspart [Novolog Flexpen] 0 unit SUBCUT .SLD SCALE 10/31/17 Insulin Aspart [Novolog Flexpen] 15 unit SUBCUT AC 10/31/17 Insulin Glargine,Hum.rec.anlog [Lantus Solostar] 50 unit SQ QHS 10/31/17 History of Present Illness History of Present Illness: RAYMOND BRAY is a 32 year old male smoker with history of type 1 diabetes mellitus (uncontrolled), nephrolithiasis and recurrent UTIs/sepsis was admitted with above-mentioned complaints. The patient is complaining of left-sided lower back pain which he attributes it to radiculopathy. He said that he lifted something heavy about 5 days ago which aggravated his pain. He also mentioned that he had some right-sided lower back pain for the last 2 weeks 10/ 10 in intensity which improved to 6/10 intensity with Percocet given in the ED. He denied any dysuria but he said that he had some hematuria with blood clots 3 weeks ago. He also has urgency but he is able to void. He also mentioned that he was having intermittent fever and chills for the last 2 weeks which became persistent in the last 3 nights. He was also diaphoretic but he denied any abdominal pain, diarrhea or constipation. He mentioned that his appetite has been poor and he has been feeling generalized weakness. He denied any chest pain, shortness of breath, cough or any sputum. In the ED, his temperature was 99.7, heart rate 95, respiratory rate 18, blood pressure 132/65 with oxygen saturation of 98% on room air. his WBC was 17.4. and his blood glucose was 526 with anion gap of 14. His UA was positive. He received 2 g IV cefepime 1, 500 mg oral Cipro 1, 6 units of regular insulin and 2 L of normal saline with improvement in his symptoms. Hospital Course Hospital Course: The patient was admitted with a presumptive diagnosis of pyelonephritis. His urine culture again demonstrated Serratia marcescens. The patient was initially treated with IV ceftriaxone. Once the patient had a normal white blood cell count and was afebrile he was switched to oral ciprofloxacin. During this hospitalization the patient was seen by urology on 11/03/17. Dr. Gates concurred with oral antibiotics and felt that the patient was stable for discharge. Despite being afebrile with no leukocytosis the patient continued to complain of right-sided back pain. Eventually, he developed Rales in the right lung base. I was concerned about a possible parapneumonic effusion from hospital-acquired pneumonia, versus an abdominal process. After the initial CT scan did not demonstrate a parapneumonic effusion I performed a CTA of the chest with CT abdomen and pelvis. No pulmonary emboli were present. There were no major findings in the chest, abdomen or pelvis with the exception of constipation. The patient received oxycodone with Dilaudid IV for breakthrough pain in the hospital. He will be discharged on oxycodone for a short duration. If additional pain management is needed he will need to be seen by his primary care provider. He will also continue ciprofloxacin at full dose until he is seen by Dr. Sharif Rodriguez at [facility] in [place], [place] on November 11, 2017. The patient developed a rash behind his knees during this hospitalization. This appears to be consistent with eczema or psoriasis. He was started on low-dose triamcinolone cream. When this hospitalization the patient was continued on his basal insulin, carbohydrate coverage and sliding scale. Initially, his sugars were noted to be poorly controlled but they improved throughout this hospitalization. Physical Exam Vital Signs: Temp Pulse Resp BP Pulse Ox 98.3 F 80 15 143/85 H 100 11/04/17 15:59 11/04/17 15:59 11/04/17 15:59 11/04/17 15:59 11/04/17 15:59 Intake & Output 11/03/17 11/04/17 11/05/17 06:59 06:59 06:59 Intake Total 2610 77 Output Total 3800 4200 Balance -1190 -2688 Weight 67.4 kg 71.4 kg Additional comments: I have seen the patient throughout the day today. Initially, I saw him while he was going on for his chest x-ray. He does not appear to be in any distress. His facial appearance is unremarkable. His neck is supple. His lungs do demonstrate rails in the right base. He does not have egophony or increased fremitus. His cardiac exam is regular without murmurs, gallops or rubs. The abdomen is soft and flat. Bowel sounds are present. He does not have guarding or rebound and there are no hernias or masses present. The lower extremities are unremarkable. The patient does have a scaly rash behind his knees which is likely eczema. Results Laboratory Results: 11/03/17 04:03 11/03/17 04:03 Impressions: Renal Ultrasound 10/31/17 00:00 IMPRESSION: Tiny bilateral intrarenal stones seen on CT exam 07/20/2017 are not apparent by ultrasound. No hydronephrosis. Bilateral ureteral jets are identified into the bladder. Abdomen/Pelvis CT 11/04/17 00:00 IMPRESSION: Massive amount of stool in the ascending and transverse colon Bilateral intrarenal nonobstructive renal calculi Trace bilateral pleural effusions with bibasilar atelectasis Chest CT 11/04/17 00:00 IMPRESSION: Bibasilar atelectasis. Trace pleural fluid bilaterally. Chest X-Ray 11/04/17 00:00 IMPRESSION: Minimal improved aeration of the lung bases. Chest/Abdomen CTA 11/04/17 00:00 IMPRESSION: No CT angio evidence of acute pulmonary emboli or thoracic aortic dissection. There is trace bilateral pleural fluid with bibasilar bandlike consolidation likely atelectasis. Qualifiers - * PATEINT BEING DISCHARGED WITH ANY OF THE FOLLOWING DIAGNOSIS?: No Plan Discharge Plan: 1. Discharge diet is diabetic. 2. Discharge activity: Slowly increase activity. 3. Use incentive spirometry every hour while awake. 4. Follow-up with primary child care leader in 1 week with repeat PA and lateral chest x-ray. 5. Follow-up with urology as scheduled on November 11, 2017. Time Spent: Greater than 30 Minutes
[2017-11-04 17:49] VITALS: BP 139/79
== END 2017-11-04 18:00 | disposition home or self-care (01) | DRG 872 ==
LOC: ER 21:01 → EH 10-31 04:26 → 4W 10-31 05:42 → 2N 11-03 06:05
PROVIDERS: ADMIT Internal Medicine Geriatric Medicine; ATTEND Internal Medicine Geriatric Medicine
PROC: 3E0F73Z Introduction of Anti-inflammatory into Respiratory Tract, Via Natural or Artificial Opening (ICD-10-PCS; principal; 2017-10-31)
DX: A41.9 Sepsis, unspecified organism (principal); N12 Tubulo-interstitial nephritis, not specified as acute or chronic; N30.01 Acute cystitis with hematuria; G89.29 Other chronic pain; M54.5 Low back pain; R21 Rash and other nonspecific skin eruption; K59.00 Constipation, unspecified; E10.65 Type 1 diabetes mellitus with hyperglycemia; N20.0 Calculus of kidney; K21.9 Gastro-esophageal reflux disease without esophagitis; F17.210 Nicotine dependence, cigarettes, uncomplicated; E10.40 Type 1 diabetes mellitus with diabetic neuropathy, unspecified; F17.200 Nicotine dependence, unspecified, uncomplicated; Z79.4 Long term (current) use of insulin; Z88.0 Allergy status to penicillin; Z79.899 Other long term (current) drug therapy; Z83.3 Family history of diabetes mellitus
CPT/HCPCS: 36415; 71046; 71250; 71275; 74177; 76770; 80048; 80053; 81001; 82962; 83036; 83605; 83735; 84100; 85025; 85027; 87040; 87086; 87088; 87186; 96361; 96365; 99291; J0692; J0696; J1170; J1815; J1885; J1940; J3475; J3490; J7030

== ENCOUNTER 2017-12-02 22:08 | Emergency (ER) | payer MEDICAID ==
[2017-12-03] MEDS ORDERED: IBUPROFEN 800 MG TABLET PO ONE (00:25)
--- NOTE | 2017-12-03 00:27 | ER Document Report ---
ED Medical Screen (RME) - General Chief Complaint: Shoulder Pain Stated Complaint: SHOULDER PAIN Time Seen by Provider: 12/03/17 00:24 Mode of Arrival: Ambulatory Information source: Patient Notes: 32-year-old male presented to ED for complaint of left shoulder pain. Stated started Saturday morning when he woke up. States he is unable to move his arm. States he has pain when he coughs turns his neck or moves his arm. States it feels like a grinding pain. When patient came in in triage his temp was 100.3 now it is 99.1 pulse is 99 and O2 sat is 99%. Will order x-ray of the shoulder. Has pain to the top and back of shoulder with palpation. Will not let me move the shoulder. I have greeted and performed a rapid initial assessment of this patient. A comprehensive ED assessment and evaluation of the patient, analysis of test results and completion of medical decision making process will be conducted by an additional ED providers. TRAVEL OUTSIDE OF THE [place] IN LAST 30 DAYS: No - Related Data Allergies/Adverse Reactions: Penicillins Allergy (Verified 07/20/17 16:31) Past Medical History - Past Medical History Cardiac Medical History: Reports: Hx Heart Murmur Endocrine Medical History: Reports: Hx Diabetes Mellitus Type 1, Hx Diabetes Mellitus Type 2 Renal/ Medical History: Denies: Hx Peritoneal Dialysis GI Medical History: Reports: Hx Gastroesophageal Reflux Disease Psychiatric Medical History: Denies: Hx Depression Past Surgical History: Reports: Hx Orthopedic Surgery - disc surgery L5-S1., Other - left ankle surgery due to infection in 2017. - Immunizations Immunizations up to date: Yes Hx Diphtheria, Pertussis, Tetanus Vaccination: Yes History of Influenza Vaccine for 06/2017 - 11/2017 Season: Refused Physical Exam - Vital signs Vitals: Temp Pulse Resp BP Pulse Ox 100.3 F 106 H 20 146/80 H 99 12/02/17 22:13 12/02/17 22:13 12/02/17 22:13 12/02/17 22:13 12/02/17 22:13 Course - Vital Signs Vital signs: Temp Pulse Resp BP Pulse Ox 100.3 F 106 H 20 146/80 H 99 12/02/17 22:13 12/02/17 22:13 12/02/17 22:13 12/02/17 22:13 12/02/17 22:13
--- NOTE | 2017-12-03 00:56 | RADIOLOGY REPORT (SQ) ---
EXAM DESCRIPTION: SHOULDER LEFT 2 OR MORE VIEWS CLINICAL HISTORY: 32 years, Male, pain with any movement COMPARISON: None. NUMBER OF VIEWS: 3 Findings: Bones, joints, and soft tissues of SHOULDER LEFT appear intact. No significant effusion. IMPRESSION: No acute findings.
[2017-12-03] MEDS ORDERED: LIDOCAINE 5% (700 MG) TRANSDERMAL ADH..PATCH TP ONE (01:48)
--- NOTE | 2017-12-03 02:01 | ER Document Report ---
ED General - General Chief Complaint: Shoulder Pain Stated Complaint: SHOULDER PAIN Time Seen by Provider: 12/03/17 00:24 Mode of Arrival: Ambulatory TRAVEL OUTSIDE OF THE [place] IN LAST 30 DAYS: No - HPI Patient complains to provider of: Left scapula pain Notes: Patient coming in for evaluation of sacral pain ongoing since Saturday. Patient states difficulty moving his left shoulder denies any trauma. Patient denies any fevers chills nausea vomiting. Patient resting comfortably upon my evaluation. Explained to patient that we would need to remove his shirt for physical examination which the patient was able to do lifting his arm straight. Patient denies rashes or erythema to the area. States he has been compliant with his home medications. Denies any other complaints. - Related Data Allergies/Adverse Reactions: Penicillins Allergy (Verified 07/20/17 16:31) Past Medical History - General Information source: Patient - Social History Smoking Status: Unknown if Ever Smoked Family History: DM Patient has suicidal ideation: No Patient has homicidal ideation: No - Past Medical History Cardiac Medical History: Reports: Hx Heart Murmur Endocrine Medical History: Reports: Hx Diabetes Mellitus Type 1, Hx Diabetes Mellitus Type 2 Renal/ Medical History: Denies: Hx Peritoneal Dialysis GI Medical History: Reports: Hx Gastroesophageal Reflux Disease Psychiatric Medical History: Denies: Hx Depression Past Surgical History: Reports: Hx Orthopedic Surgery - disc surgery L5-S1., Other - left ankle surgery due to infection in 2017. - Immunizations Immunizations up to date: Yes Hx Diphtheria, Pertussis, Tetanus Vaccination: Yes Review of Systems - Review of Systems Constitutional: No symptoms reported EENT: No symptoms reported Cardiovascular: No symptoms reported Respiratory: No symptoms reported Gastrointestinal: No symptoms reported Genitourinary: No symptoms reported Male Genitourinary: No symptoms reported Musculoskeletal: Other - Left shoulder pain scapula/pain Skin: No symptoms reported Hematologic/Lymphatic: No symptoms reported Neurological/Psychological: No symptoms reported Physical Exam - Vital signs Vitals: Temp Pulse Resp BP Pulse Ox 100.3 F 106 H 20 146/80 H 99 12/02/17 22:13 12/02/17 22:13 12/02/17 22:13 12/02/17 22:13 12/02/17 22:13 Interpretation: Normal - General General appearance: Appears well, Alert - HEENT Head: Normocephalic, Atraumatic Eyes: Normal Pupils: PERRL Ears: Normal External canal: Normal Tympanic membrane: Normal Nasal: Normal Mouth/Lips: Normal Mucous membranes: Normal Pharynx: Normal Neck: Normal - No midline or paraspinal tenderness. No if adenopathy - Respiratory Respiratory status: No respiratory distress Chest status: Nontender Breath sounds: Normal Chest palpation: Normal - Cardiovascular Rhythm: Regular Heart sounds: Normal auscultation Murmur: No - Abdominal Inspection: Normal Distension: No distension Bowel sounds: Normal Tenderness: Nontender Organomegaly: No organomegaly - Back Back: Normal, Nontender - Extremities General upper extremity: Normal inspection, Nontender, Normal color, Normal ROM , Normal temperature, Other - No overt tenderness or tissue texture changes palpation of the left scapula. Patient is able to raise his arm above his head to remove his shirt. Examination of left shoulder does not reveal any redness or erythema also palpation of the clavicle does not reveal any tenderness. General lower extremity: Normal inspection, Nontender, Normal color, Normal ROM , Normal temperature, Normal weight bearing. No: Yoel's sign - Neurological Neuro grossly intact: Yes Cognition: Normal Orientation: AAOx4 [place] Coma Scale Eye Opening: Spontaneous [place] Coma Scale Verbal: Oriented [place] Coma Scale Motor: Obeys Commands [place] Coma Scale Total: 15 Speech: Normal Motor strength normal: LUE, RUE, LLE, RLE Sensory: Normal - Psychological Associated symptoms: Normal affect, Normal mood - Skin Skin Temperature: Warm Skin Moisture: Dry Skin Color: Normal Course - Re-evaluation Re-evalutation: 12/03/17 01:58 X-ray was performed negative. Unclear etiology of the patient's pain. Patient will be given lidocaine patch and encouraged use Tylenol Motrin for pain control will be discharged home. - Vital Signs Vital signs: Temp Pulse Resp BP Pulse Ox 100.3 F 106 H 20 146/80 H 99 12/02/17 22:13 12/02/17 22:13 12/02/17 22:13 12/02/17 22:13 12/02/17 22:13 Discharge - Discharge Clinical Impression: Left shoulder pain Qualifiers: Chronicity: acute Qualified Code(s): M25.512 - Pain in left shoulder Condition: Good Disposition: HOME, SELF-CARE Instructions: Shoulder Injury ([facility]), Muscle Strain ([facility]) Additional Instructions: Your x-ray examination did not reveal any clear etiology for your pain. Recommend follow-up with your primary care physician return to ER symptoms worsen. Prescriptions: Tramadol HCl [Ultram 50 mg Tablet] 50 mg PO ASDIR PRN #10 tablet PRN Reason: Forms: Return to Work
[2017-12-03 03:07] VITALS: BP 134/68
== END 2017-12-03 02:27 | disposition home or self-care (01) ==
LOC: ER 22:08
DX: M25.512 Pain in left shoulder (principal); E11.9 Type 2 diabetes mellitus without complications
CPT/HCPCS: 99283; 73030; J3490

== ENCOUNTER 2018-01-07 22:11 | Emergency (ER) | payer MEDICAID ==
[2018-01-07] MEDS ORDERED: ASPIRIN 81 MG TABLET, CHEWABLE PO ONE (22:54)
[2018-01-08 00:26] LABS: ABSOLUTE BASOPHILS # (AUTO) 0.1 10^3/uL (0.0-0.2); ABSOLUTE EOSINOPHILS # (AUTO) 0.1 10^3/uL (0.0-0.6); ABSOLUTE LYMPHOCYTES (AUTO) 3.2 10^3/uL (0.5-4.7); ABSOLUTE MONOCYTES (AUTO) 0.7 10^3/uL (0.1-1.4); ABSOLUTE NEUT (AUTO) 7.9 10^3/uL (1.7-8.2); BASOPHILS % (AUTO) 0.5 % (0-2); EOSINOPHILS % (AUTO) 0.9 % (0-6); HEMATOCRIT 32.6 % (37.9-51.0); HEMOGLOBIN 10.8 g/dL (13.5-17.0); LYMPHOCYTES % (AUTO) 26.8 % (13-45); MEAN CORPUSCULAR HEMOGLOBIN 26.1 pg (27.0-33.4); MEAN CORPUSCULAR HGB CONC 33.1 g/dL (32.0-36.0); MEAN CORPUSCULAR VOLUME 79 fl (80-97); MONOCYTES % (AUTO) 5.9 % (3-13); PLATELET COUNT 528 10^3/uL (150-450); RED BLOOD COUNT 4.13 10^6/uL (4.35-5.55); SEGMENTED NEUTROPHILS % (AUTO) 65.9 % (42-78); TOTAL CELLS COUNTED % (AUTO) 100 %; WHITE BLOOD COUNT 11.9 10^3/uL (4.0-10.5)
[2018-01-08 00:34] LABS: ANION GAP 11 (5-19); BLOOD UREA NITROGEN 21 mg/dL (7-20); CARBON DIOXIDE 28 mmol/L (22-30); CHLORIDE 102 mmol/L (98-107); GLUCOSE 162 mg/dL (75-110); POTASSIUM 3.9 mmol/L (3.6-5.0); SODIUM 140.6 mmol/L (137-145); TOTAL PROTEIN 7.4 g/dL (6.3-8.2)
[2018-01-08 00:35] LABS: ALANINE AMINOTRANSFERASE 26 U/L (21-72); ALKALINE PHOSPHATASE 146 U/L (38-126); ASPARTATE AMINO TRANSFERASE 16 U/L (17-59); BILIRUBIN,DIRECT 0.2 mg/dL (0.0-0.4); BILIRUBIN,TOTAL 0.2 mg/dL (0.2-1.3); CALCIUM 9.8 mg/dL (8.4-10.2); CREATINE KINASE 67 U/L (55-170)
[2018-01-08] MEDS ORDERED: ALBUTEROL SULFATE 0.083% NEB 2.5 MG/3 ML AMPUL NEB ONE (00:40)
--- NOTE | 2018-01-08 00:55 | RADIOLOGY REPORT (SQ) ---
EXAM DESCRIPTION: CHEST 2 VIEWS CLINICAL HISTORY: cp COMPARISON: 11/04/2017 FINDINGS: Frontal and lateral views of the chest. The cardiomediastinal silhouette has normal size and contour. No consolidation, pneumothorax, or pleural effusion. No displaced rib fractures identified. Upper abdominal soft tissues are unremarkable. IMPRESSION: 1. No acute pulmonary process identified.
[2018-01-08 00:57] LABS: CREATINE KINASE MB 2.61 ng/mL (<4.55)
--- NOTE | 2018-01-08 00:57 | ER Document Report ---
ED Cardiac - General Chief Complaint: Chest Pain Stated Complaint: CHEST PAIN Time Seen by Provider: 01/08/18 00:32 Notes: 32-year-old male to the emergency department chief complaint of chest pain on and off for approximately 2 weeks. States that he was recently hospitalized. Has had multiple issues as of recent. Over the last couple weeks has been having some pain in the chest. Worse with deep inspiration. Intermittent worsening cough. Does smoke. TRAVEL OUTSIDE OF THE [place] IN LAST 30 DAYS: No - HPI Patient complains to provider of: Chest pain, Shortness of breath Chest pain location: Substernal - Related Data Allergies/Adverse Reactions: Penicillins Allergy (Verified 01/07/18 22:14) Past Medical History - General Information source: Patient - Social History Smoking Status: Current Every Day Smoker Cigarette use (# per day): Yes Smoking Education Provided: Yes Frequency of alcohol use: None Lives with: Family Family History: Reviewed & Not Pertinent, DM - Past Medical History Cardiac Medical History: Reports: Hx Heart Murmur Endocrine Medical History: Reports: Hx Diabetes Mellitus Type 1, Hx Diabetes Mellitus Type 2 Renal/ Medical History: Denies: Hx Peritoneal Dialysis GI Medical History: Reports: Hx Gastroesophageal Reflux Disease Psychiatric Medical History: Denies: Hx Depression Past Surgical History: Reports: Hx Orthopedic Surgery - disc surgery L5-S1., Other - left ankle surgery due to infection in 2017. - Immunizations Immunizations up to date: Yes Hx Diphtheria, Pertussis, Tetanus Vaccination: Yes Review of Systems - Review of Systems Constitutional: No symptoms reported EENT: No symptoms reported Cardiovascular: Chest pain Respiratory: Cough, Hurts to breathe, Short of breath. denies: Hemoptysis, Sputum, Stridor, Wheezing Gastrointestinal: No symptoms reported Genitourinary: No symptoms reported Male Genitourinary: No symptoms reported Musculoskeletal: No symptoms reported Skin: No symptoms reported Hematologic/Lymphatic: No symptoms reported Neurological/Psychological: No symptoms reported Physical Exam - Vital signs Vitals: Temp Pulse Resp BP Pulse Ox 98.0 F 97 18 151/86 H 99 01/07/18 22:22 01/07/18 22:22 01/07/18 22:22 01/07/18 22:22 01/07/18 22:22 Interpretation: Normal - General General appearance: Appears well, Alert - HEENT Head: Normocephalic, Atraumatic Eyes: Normal Pupils: PERRL - Respiratory Respiratory status: No respiratory distress Chest status: Nontender Breath sounds: Normal Chest palpation: Normal - Cardiovascular Rhythm: Regular Heart sounds: Normal auscultation Murmur: No - Abdominal Inspection: Normal Distension: No distension Bowel sounds: Normal Tenderness: Nontender Organomegaly: No organomegaly - Back Back: Normal, Nontender - Extremities General upper extremity: Normal inspection, Nontender, Normal color, Normal ROM , Normal temperature General lower extremity: Normal inspection, Nontender, Normal color, Normal ROM , Normal temperature, Normal weight bearing. No: Yoel's sign - Neurological Neuro grossly intact: Yes Cognition: Normal Orientation: AAOx4 [place] Coma Scale Eye Opening: Spontaneous [place] Coma Scale Verbal: Oriented [place] Coma Scale Motor: Obeys Commands [place] Coma Scale Total: 15 Speech: Normal Motor strength normal: LUE, RUE, LLE, RLE Sensory: Normal - Psychological Associated symptoms: Normal affect, Normal mood - Skin Skin Temperature: Warm Skin Moisture: Dry Skin Color: Normal Course - Re-evaluation Re-evalutation: 01/08/18 02:24 Labs fairly unremarkable. Chest x-ray fairly unremarkable. Breathing treatment made symptoms a little better. Definitely having some more coarse breath sounds after breathing treatment. More likely represents a low bronchitis. Will start him on some antibiotics, breathing treatments, anti- inflammatories. Return for any worsening symptoms. - Vital Signs Vital signs: Temp Pulse Resp BP Pulse Ox 98.0 F 97 18 151/86 H 99 01/07/18 22:22 01/07/18 22:22 01/07/18 22:22 01/07/18 22:22 01/07/18 22:22 - Laboratory Result Diagrams: 01/07/18 23:55 01/07/18 23:55 Laboratory results interpreted by me: 01/07/18 01/07/18 23:55 23:55 WBC 11.9 H RBC 4.13 L Hgb 10.8 L Hct 32.6 L MCV 79 L MCH 26.1 L RDW 16.0 H Plt Count 528 H BUN 21 H Glucose 162 H AST 16 L Alkaline Phosphatase 146 H - EKG Interpretation by Co EKG shows normal: Sinus rhythm, [place], Intervals, QRS Complexes. abnormal: ST-T Waves Additional EKG results interpreted by ri: 01/08/18 00:57 T-wave inversions anterior lateral leads. Unchanged from prior EKG. Discharge - Discharge Clinical Impression: Chest pain Qualifiers: Chest pain type: unspecified Qualified Code(s): R07.9 - Chest pain, unspecified Condition: Good Disposition: HOME, SELF-CARE Instructions: Chest Pain of Unclear Cause ([facility]), Bronchitis ([facility]) Prescriptions: Albuterol Sulfate [Proair HFA Inhalation Aerosol 8.5 gm MDI] 2 puff IH Q4H PRN # 1 mdi PRN Reason: Albuterol Sulfate [Albuterol Sulfate 2.5mg/3 mL] 2.5 mg IH QID PRN 7 Days #25 inh PRN Reason: Azithromycin 250 mg PO DAILY 7 Days #7 tablet Nebulizer [Nebulizer Machine] 1 each MC ASDIR PRN #1 kit PRN Reason:
[2018-01-08 00:58] LABS: TROPONIN I < 0.012 ng/mL
[2018-01-08] MEDS ORDERED: KETOROLAC TROMETHAMINE INJ/PF 30 MG/1 ML SDV IV ONE (01:08)
[2018-01-08] MEDS ORDERED: IBUPROFEN 800 MG TABLET PO ONE (01:21)
[2018-01-08] MEDS ORDERED: AZITHROMYCIN 250 MG TABLET PO ONE (02:24)
[2018-01-08 06:26] VITALS: BP 130/87
--- NOTE | 2018-01-08 09:08 | EKG REPORT ---
SEVERITY:- ABNORMAL ECG - SINUS RHYTHM PROBABLE LEFT ATRIAL ABNORMALITY PROBABLE LVH WITH SECONDARY REPOL ABNRM : Confirmed by: Meaghan Salas 08-Jan-2018 09:08:09
== END 2018-01-08 03:50 | disposition home or self-care (01) ==
LOC: ER 22:11
DX: R07.89 Other chest pain (principal); R06.02 Shortness of breath; R05 Cough; F17.210 Nicotine dependence, cigarettes, uncomplicated; E11.9 Type 2 diabetes mellitus without complications; Z88.0 Allergy status to penicillin
CPT/HCPCS: 93005; 94640; 99285; 36415; 82553; 82550; 85025; 80053; 84484; 71046; 93010; Q0144; J3490

== ENCOUNTER 2018-01-24 | Emergency (ER) | payer MEDICAID | END 2018-01-24 23:58 | disposition left against medical advice (07) | DX: Z53.21 Procedure and treatment not carried out due to patient leaving prior to being seen by health care provider (principal) ==

== ENCOUNTER 2018-03-09 14:22 | Emergency (ER) | payer MEDICAID ==
--- NOTE | 2018-03-09 15:36 | ER Document Report ---
ED Neck/Back Problem - General Mode of Arrival: Ambulatory Information source: Patient TRAVEL OUTSIDE OF THE [place] IN LAST 30 DAYS: No - General Chief Complaint: Neck and Upper Back Pain Stated Complaint: SHOULDER/NECK PAIN Time Seen by Provider: 03/09/18 15:30 Notes: 33-year-old male presenting today with request for an MRI for his chronic left shoulder pain. Patient states he thinks he has a pinched nerve because when he turns his neck he feels numbness and tingling down his left arm. Patient requesting pain meds as well. Patient has been seen in this emergency department for painful complaints several times in the past upon reviewing records. Patient denies any trauma, falls, or new injury to this area. (VIANNEY MONTGOMERY) - Related Data Allergies/Adverse Reactions: Penicillins Allergy (Verified 01/07/18 22:14) Past Medical History - General Information source: Patient - Social History Smoking Status: Never Smoker Cigarette use (# per day): No Frequency of alcohol use: None Drug Abuse: None Lives with: Family Family History: Reviewed & Not Pertinent, DM - Past Medical History Cardiac Medical History: Reports: Hx Heart Murmur Endocrine Medical History: Reports: Hx Diabetes Mellitus Type 1, Hx Diabetes Mellitus Type 2 GI Medical History: Reports: Hx Gastroesophageal Reflux Disease Past Surgical History: Reports: Hx Orthopedic Surgery - disc surgery L5-S1., Other - left ankle surgery due to infection in 2017. - Immunizations Immunizations up to date: Yes Hx Diphtheria, Pertussis, Tetanus Vaccination: Yes Review of Systems - Review of Systems Constitutional: No symptoms reported EENT: No symptoms reported Cardiovascular: No symptoms reported Respiratory: No symptoms reported Gastrointestinal: No symptoms reported Genitourinary: No symptoms reported Male Genitourinary: No symptoms reported Musculoskeletal: See HPI, Joint pain - left shoulder, Other - left trapezius pain Skin: No symptoms reported Hematologic/Lymphatic: No symptoms reported Neurological/Psychological: No symptoms reported -: Yes All other systems reviewed and negative Physical Exam - Vital signs Vitals: Temp Pulse Resp BP Pulse Ox 97.9 F 99 16 124/73 100 03/09/18 14:40 03/09/18 14:40 03/09/18 14:40 03/09/18 14:40 03/09/18 14:40 - Notes Notes: Physical Exam: General: Alert, appears well. HEENT: Normocephalic. Atraumatic. PERRLA. Extraocular movements intact. Oropharynx clear. Neck: Supple. Respiratory: No respiratory distress. Abdominal: Normal Inspection. No distension. Back: Left trapezius spasm and tenderness with palpation. Extremities: Moves all four extremities. Neurological: Normal cognition. AAOx4. Normal speech. Psychological: Normal affect. Normal Mood. Skin: Warm. Dry. Normal color. (VIANNEY MONTGOMERY) Course - Re-evaluation Re-evalutation: 03/09/18 15:36 Patient states he has been having 2-3 days of right trapezius tightening and pain when he moves his neck he has tingling that goes down his left arm. No recent fevers or illnesses. No apparent weakness of bilateral upper extremities. Patient requesting pain medication states that he has tried taking gabapentin and it has not helped also states he tried taking ibuprofen does not help. I discussed that this type of pain is not in the category for opioids at this time. He states he does have a spinal surgeon as it has lumbar spinal surgery in the past due to herniated disc. He has follow-up appointment in a week and a half with this spinal surgeon. Advise a follow-up if the symptoms are continuing for reevaluation. (ОЛЬГА COLLINS) - Vital Signs Vital signs: Temp Pulse Resp BP Pulse Ox 98 F 88 16 121/72 100 03/09/18 15:42 03/09/18 15:42 03/09/18 15:42 03/09/18 15:42 03/09/18 15:42 Discharge - Discharge Clinical Impression: Cervical radiculopathy Condition: Good Disposition: HOME, SELF-CARE Instructions: Radiculopathy ([facility]) Additional Instructions: Please follow-up with your spinal surgeon as previously discussed for follow-up symptoms are continuing. Prescriptions: Methocarbamol [Robaxin 750 mg Tablet] 750 mg PO TID #30 tablet Referrals: ELIANA ANTUNEZ MD [Primary Care Provider] - Follow up as needed Scribe Attestation: 03/12/18 18:45 I personally performed the services described documentation, reviewed and edited the documentation which was dictated to describe my presence, and it accurately records my words and actions. (ОЛЬГА COLLINS) Scribe Documentation - Scribe Written by Scribe:: Henrique Rae, 03/09/2018 1544 acting as scribe for :: Zaki
[2018-03-09 15:53] VITALS: BP 121/72
== END 2018-03-09 15:42 | disposition home or self-care (01) ==
LOC: ER 14:22
DX: M54.12 Radiculopathy, cervical region (principal); M54.2 Cervicalgia; M54.6 Pain in thoracic spine; M25.512 Pain in left shoulder; G89.29 Other chronic pain; R20.0 Anesthesia of skin; E11.9 Type 2 diabetes mellitus without complications
CPT/HCPCS: 99283

== ENCOUNTER 2018-03-10 06:23 | Emergency (ER) | payer MEDICAID ==
[2018-03-10] MEDS ORDERED: LIDOCAINE 1% INJ (10 MG/ML) 10 ML MDV INJ ONE (06:46)
--- NOTE | 2018-03-10 06:50 | ER Document Report ---
ED General - General Chief Complaint: Shoulder Pain Stated Complaint: SHOULDER, NECK PAIN Time Seen by Provider: 03/10/18 06:40 Mode of Arrival: Ambulatory Information source: Patient Notes: 33-year-old male with a history of type 1 diabetes, chronic neck pain presents with complaint of left shoulder and left-sided neck pain that started 4 days prior to arrival upon awakening. Patient denies any injury. He was seen yesterday for similar symptoms and the plan was to follow-up with his primary care physician and orthopedic surgeon. Patient does have an upcoming appointment but states that it is not not for a few weeks. Pain is described as throbbing, aching with radiation down his left arm. Patient has tried ibuprofen, gabapentin without relief. TRAVEL OUTSIDE OF THE [place] IN LAST 30 DAYS: No - HPI Onset: Other Onset/Duration: Gradual Quality of pain: Throbbing Severity: Moderate Pain Level: 2 Associated symptoms: None Exacerbated by: Movement Relieved by: Denies Similar symptoms previously: Yes Recently seen / treated by doctor: Yes - Related Data Allergies/Adverse Reactions: Penicillins Allergy (Verified 01/07/18 22:14) Past Medical History - General Information source: Patient - Social History Smoking Status: Current Every Day Smoker Cigarette use (# per day): Yes - 8 Smoking Education Provided: Yes Frequency of alcohol use: Occasional Drug Abuse: None Lives with: Family Family History: Reviewed & Not Pertinent, DM Patient has suicidal ideation: No Patient has homicidal ideation: No - Past Medical History Cardiac Medical History: Reports: Hx Heart Murmur Endocrine Medical History: Reports: Hx Diabetes Mellitus Type 1, Hx Diabetes Mellitus Type 2 Renal/ Medical History: Denies: Hx Peritoneal Dialysis GI Medical History: Reports: Hx Gastroesophageal Reflux Disease Psychiatric Medical History: Denies: Hx Depression Past Surgical History: Reports: Hx Orthopedic Surgery - disc surgery L5-S1., Other - left ankle surgery due to infection in 2017. - Immunizations Immunizations up to date: Yes Hx Diphtheria, Pertussis, Tetanus Vaccination: Yes Review of Systems - Review of Systems Notes: REVIEW OF SYSTEMS: CONSTITUTIONAL : Denies fever, chills, or sweats. Denies recent illness. Denies weight loss, recent hospitalizations. EENT: Denies visual changes, eye pain. Denies nasal or sinus congestion or discharge. Denies sore throat, oral lesions, difficulty swallowing. CARDIOVASCULAR: Denies chest pain. Denies palpitations. Denies lower extremity edema. RESPIRATORY: Denies cough, cold, or chest congestion. Denies shortness of breath, wheezing. GASTROINTESTINAL: Denies abdominal pain or distention. Denies nausea, vomiting , or diarrhea. Denies blood in vomitus, stools, or per rectum. Denies black, tarry stools. Denies constipation. GENITOURINARY: Denies difficulty urinating, painful urination, frequency, blood in urine, or vaginal discharge. MUSCULOSKELETAL: Denies back pain or stiffness. Denies joint pain or swelling. SKIN: Denies rash, lesions or sores. HEMATOLOGIC : Denies easy bruising or bleeding. LYMPHATIC: Denies swollen glands. NEUROLOGICAL: Denies confusion or altered mental status. Denies passing out or loss of consciousness. Denies dizziness or lightheadedness. Denies headache. Denies weakness or paralysis. Denies problems difficulty with ambulation, slurred speech. Denies sensory loss, numbness, or tingling. Denies seizures. PSYCHIATRIC: Denies anxiety or stress. Denies depression, suicidal ideation, or homicidal ideation. Denies visual or auditory hallucinations. Physical Exam - Vital signs Vitals: Temp Pulse Resp BP Pulse Ox 97.6 F 100 18 140/76 H 100 03/10/18 06:28 03/10/18 06:28 03/10/18 06:28 03/10/18 06:28 03/10/18 06:28 - Notes Notes: PHYSICAL EXAMINATION: GENERAL: Well-appearing, well-nourished and in no acute distress. HEAD: Atraumatic, normocephalic. EYES: Pupils equal round and reactive to light, extraocular movements intact, sclera anicteric, conjunctiva are normal. ENT: Nares patent, oropharynx clear without exudates. Moist mucous membranes. NECK: Normal range of motion, supple without lymphadenopathy LUNGS: Breath sounds clear to auscultation bilaterally and equal. No wheezes rales or rhonchi. HEART: Regular rate and rhythm without murmurs ABDOMEN: Soft, nontender, nondistended abdomen. No guarding, no rebound. No masses appreciated. Musculoskeletal: Increased muscle tonicity and tenderness along the left trapezius and left scapula. Full range of motion of the left shoulder. Radial pulse intact. No neuro deficits. NEUROLOGICAL: Cranial nerves grossly intact. Normal speech, normal gait. Normal sensory, motor exams PSYCH: Normal mood, normal affect. SKIN: Warm, Dry, normal turgor, no rashes or lesions noted. Course - Re-evaluation Re-evalutation: 03/10/18 11:41 33-year-old male with a history of chronic neck and shoulder pain presents with complaint of exacerbation of his chronic pain. Patient denies any recent injury. Exam is significant for increased muscle tonicity along the left trapezius and tenderness to palpation along the left scapula. Patient was seen by myself upon arrival. Vital signs were reviewed. Patient is afebrile, normotensive and not hypoxic. Patient does not appear toxic or dehydrated. They are in no acute distress. Previous medical records and nursing notes reviewed. Trigger point injections performed with 1% lidocaine. Patient's left trapezius and left scapular area injected with a total of 8 cc of lidocaine. Patient does report improvement of pain prior to discharge. Patient already has Flexeril at home from his visit yesterday to the emergency department. I did explain to him that he needs to see his primary care physician for further pain management. Patient provided the opportunity to ask questions, and express concerns. Discharge instructions discussed. Patient is agreeable with discharge home. Return indications explained and discussed with the patient who displays understanding. Patient encouraged to return to the emergency department immediately with any concerns. 03/10/18 11:42 - Vital Signs Vital signs: Temp Pulse Resp BP Pulse Ox 97.4 F 87 18 135/73 H 100 03/10/18 07:52 03/10/18 07:52 03/10/18 07:52 03/10/18 07:52 03/10/18 07:52 Discharge - Discharge Clinical Impression: Cervical paraspinal muscle spasm, Trapezius muscle spasm Condition: Good Disposition: HOME, SELF-CARE Instructions: Muscle Strain ([facility]), Myalagia (Muscle Pain) ([facility]) Additional Instructions: Please follow-up with your primary care physician for further pain management. Forms: Elevated Blood Pressure Referrals: ELIANA ANTUNEZ MD [Primary Care Provider] - Follow up as needed
[2018-03-10] MEDS ORDERED: LIDOCAINE 1% INJ-PF (10 MG/ML) 30 ML SDV ONE (07:09)
[2018-03-10] MEDS ORDERED: MORPHINE SULFATE 10 MG/ML INJ IM ONE (07:28)
[2018-03-10] MEDS ORDERED: DIAZEPAM 5 MG TABLET PO ONE (07:28)
[2018-03-10 07:56] VITALS: BP 135/73
== END 2018-03-10 08:14 | disposition home or self-care (01) ==
LOC: ER 06:23
DX: M62.830 Muscle spasm of back (principal); M54.2 Cervicalgia; M25.512 Pain in left shoulder; G89.29 Other chronic pain; F17.210 Nicotine dependence, cigarettes, uncomplicated; E10.9 Type 1 diabetes mellitus without complications; Z88.0 Allergy status to penicillin
CPT/HCPCS: 99283; 96372; J3490 ×2; J2270

== ENCOUNTER 2018-03-23 13:04 | Emergency (ER) | payer MEDICAID ==
--- NOTE | 2018-03-23 13:20 | ER Document Report ---
ED Medical Screen (RME) - General Chief Complaint: Flank Pain Stated Complaint: FLANK PAIN, FEVER, CHILLS Time Seen by Provider: 03/23/18 13:09 Mode of Arrival: Ambulatory Information source: Patient Notes: 33-year-old male with previous history of pyelonephritis presents with complaint of right flank pain, dysuria, foul-smelling and dark urine that started 4 days prior to arrival. Patient describes the flank pain as aching, throbbing. Patient also reports several weeks of chills, sweats and fatigue. Patient states that he has had elevated glucose readings over the last week. I have greeted and performed a rapid initial assessment of this patient. A comprehensive ED assessment and evaluation of the patient including analysis of labs and imaging ( if obtained) and completion of medical decision making will be conducted by an additional ED provider. PHYSICAL EXAMINATION: GENERAL: Well-appearing, well-nourished and in no acute distress. HEAD: Atraumatic, normocephalic. EYES: Pupils equal round extraocular movements intact, conjunctiva are normal. ENT: Nares patent NECK: Normal range of motion LUNGS: No respiratory distress Musculoskeletal: Normal range of motion NEUROLOGICAL: Normal speech, normal gait. PSYCH: Normal mood, normal affect. SKIN: Warm, Dry, normal turgor, no rashes or lesions noted. TRAVEL OUTSIDE OF THE [place] IN LAST 30 DAYS: No - Related Data Allergies/Adverse Reactions: Penicillins Allergy (Verified 01/07/18 22:14) Past Medical History - Past Medical History Cardiac Medical History: Reports: Hx Heart Murmur Endocrine Medical History: Reports: Hx Diabetes Mellitus Type 1, Hx Diabetes Mellitus Type 2 Renal/ Medical History: Denies: Hx Peritoneal Dialysis GI Medical History: Reports: Hx Gastroesophageal Reflux Disease Psychiatric Medical History: Denies: Hx Depression Past Surgical History: Reports: Hx Orthopedic Surgery - disc surgery L5-S1., Other - left ankle surgery due to infection in 2017. - Immunizations Immunizations up to date: Yes Hx Diphtheria, Pertussis, Tetanus Vaccination: Yes History of Influenza Vaccine for 06/2017 - 11/2017 Season: Refused Physical Exam - Vital signs Vitals: Temp Pulse Resp BP Pulse Ox 98.1 F 87 18 142/74 H 98 03/23/18 13:11 03/23/18 13:11 03/23/18 13:11 03/23/18 13:11 03/23/18 13:11 Course - Vital Signs Vital signs: Temp Pulse Resp BP Pulse Ox 98.1 F 87 18 142/74 H 98 03/23/18 13:11 03/23/18 13:11 03/23/18 13:11 03/23/18 13:11 03/23/18 13:11 Doctor's Discharge - Discharge Referrals: ELIANA ANUTNEZ MD [Primary Care Provider] - Follow up as needed
[2018-03-23 14:05] LABS: ABSOLUTE LYMPHOCYTES (AUTO) 1.5 10^3/uL (0.5-4.7); ABSOLUTE MONOCYTES (AUTO) 0.7 10^3/uL (0.1-1.4); ABSOLUTE NEUT (AUTO) 9.3 10^3/uL (1.7-8.2); BASOPHILS % (AUTO) 0.4 % (0-2); EOSINOPHILS % (AUTO) 0.3 % (0-6); HEMATOCRIT 34.1 % (37.9-51.0); HEMOGLOBIN 11.3 g/dL (13.5-17.0); LYMPHOCYTES % (AUTO) 12.8 % (13-45); MEAN CORPUSCULAR HEMOGLOBIN 26.4 pg (27.0-33.4); MEAN CORPUSCULAR VOLUME 80 fl (80-97); PLATELET COUNT 386 10^3/uL (150-450); RED BLOOD COUNT 4.26 10^6/uL (4.35-5.55); RED CELL DISTRIBUTION WIDTH 16.3 % (11.5-14.0); SEGMENTED NEUTROPHILS % (AUTO) 80.5 % (42-78); TOTAL CELLS COUNTED % (AUTO) 100 %; WHITE BLOOD COUNT 11.6 10^3/uL (4.0-10.5)
[2018-03-23 14:13] LABS: APPEARANCE,URINE CLEAR; BILIRUBIN,URINE NEGATIVE (NEGATIVE); COLOR,URINE STRAW; GLUCOSE, URINE >=500 mg/dL (NEGATIVE); KETONES,URINE NEGATIVE (NEGATIVE); LEUKOCYTE ESTERASE,URINE NEGATIVE (NEGATIVE); NITRITE,URINE NEGATIVE (NEGATIVE); PROTEIN,URINE NEGATIVE (NEGATIVE); URINE SPECIFIC GRAVITY 1.027; UROBILINOGEN,URINE NEGATIVE mg/dL (<2.0)
[2018-03-23 14:17] LABS: ANION GAP 14 (5-19); BLOOD UREA NITROGEN 17 mg/dL (7-20); CALCIUM 9.6 mg/dL (8.4-10.2); CARBON DIOXIDE 29 mmol/L (22-30); CHLORIDE 95 mmol/L (98-107); POTASSIUM 4.3 mmol/L (3.6-5.0); SODIUM 137.5 mmol/L (137-145)
[2018-03-23 14:27] LABS: GLUCOSE 611 mg/dL (75-110)
[2018-03-23] MEDS ORDERED: NORMAL SALINE 1000 ML 1,000 ML IV ONE ×2 (14:43→14:48)
[2018-03-23] MEDS ORDERED: INSULIN REG, HUMAN 100 UNIT/ML 3 ML VIAL (PYX) IV ONE (14:58)
--- NOTE | 2018-03-23 15:01 | ER Document Report ---
ED General - General Chief Complaint: Flank Pain Stated Complaint: FLANK PAIN, FEVER, CHILLS Time Seen by Provider: 03/23/18 13:09 Mode of Arrival: Ambulatory Information source: Patient Notes: Patient reports a four-day history of right flank pain. Patient states he has noticed an odor to his urine. Patient does complain of nausea. Patient denies any vomiting or diarrhea. Patient reports elevated blood sugar has been running in the 300s recently. Patient states he has been compliant with his medications. Patient has a history of kidney stones and suspects the same today. Patient reports that he has had pyelonephritis in the past and would like to be evaluated for this today. TRAVEL OUTSIDE OF THE [place] IN LAST 30 DAYS: No - HPI Onset: Other - 4 days Onset/Duration: Persistent Quality of pain: Achy, Sharp Pain Level: 4 Associated symptoms: Nausea. denies: Nonproductive cough, Productive cough, Diarrhea, Fever, Vomiting Exacerbated by: Denies Relieved by: Denies Similar symptoms previously: Yes Recently seen / treated by doctor: No - Related Data Allergies/Adverse Reactions: Penicillins Allergy (Verified 01/07/18 22:14) Past Medical History - General Information source: Patient - Social History Smoking Status: Current Every Day Smoker Chew tobacco use (# tins/day): No Smoking Education Provided: Yes Frequency of alcohol use: Rare Drug Abuse: None Occupation: None Family History: Reviewed & Not Pertinent, DM Patient has suicidal ideation: No Patient has homicidal ideation: No - Past Medical History Cardiac Medical History: Reports: Hx Heart Murmur Endocrine Medical History: Reports: Hx Diabetes Mellitus Type 1 Renal/ Medical History: Reports: Hx Kidney Stones. Denies: Hx Peritoneal Dialysis GI Medical History: Reports: Hx Gastroesophageal Reflux Disease Psychiatric Medical History: Denies: Hx Depression Past Surgical History: Reports: Hx Orthopedic Surgery - disc surgery L5-S1., Other - left ankle surgery due to infection in 2017. - Immunizations Immunizations up to date: Yes Hx Diphtheria, Pertussis, Tetanus Vaccination: Yes Review of Systems - Review of Systems Constitutional: No symptoms reported. denies: Fever EENT: No symptoms reported Cardiovascular: No symptoms reported. denies: Chest pain Respiratory: No symptoms reported. denies: Cough, Short of breath Gastrointestinal: Nausea. denies: Abdominal pain, Diarrhea, Vomiting Genitourinary: Flank pain. denies: Dysuria Male Genitourinary: No symptoms reported Musculoskeletal: Back pain Skin: No symptoms reported Hematologic/Lymphatic: No symptoms reported Neurological/Psychological: No symptoms reported Physical Exam - Vital signs Vitals: Temp Pulse Resp BP Pulse Ox 98.1 F 87 18 142/74 H 98 03/23/18 13:11 03/23/18 13:11 03/23/18 13:11 03/23/18 13:11 03/23/18 13:11 - General General appearance: Appears well, Alert In distress: None - HEENT Head: Normocephalic, Atraumatic Eyes: Normal Conjunctiva: Normal Nasal: Normal Mouth/Lips: Normal Mucous membranes: Normal Neck: Normal, Supple. No: Lymphadenopathy - Respiratory Respiratory status: No respiratory distress Chest status: Nontender Breath sounds: Normal. No: Rales, Rhonchi, Stridor, Wheezing Chest palpation: Normal - Cardiovascular Rhythm: Regular Heart sounds: S1 appreciated, S2 appreciated - Abdominal Inspection: Normal Distension: No distension Bowel sounds: Normal Tenderness: Nontender - Back Back: CVA tenderness - right - Extremities General upper extremity: Normal inspection, Normal ROM General lower extremity: Normal inspection, Normal ROM - Neurological Neuro grossly intact: Yes Cognition: Normal Hussein Coma Scale Eye Opening: Spontaneous [place] Coma Scale Verbal: Oriented Hussein Coma Scale Motor: Obeys Commands Hussein Coma Scale Total: 15 - Psychological Associated symptoms: Normal affect, Normal mood - Skin Skin Temperature: Warm Skin Moisture: Dry Skin Color: Normal Course - Re-evaluation Re-evalutation: 03/23/18 15:00 Patient's glucose is 611. Consulted with Dr. Bob regarding management. Patient states that he has not had anything to eat since last p.m. Patient states that he did take 18 units of his Humalog around [address] Bob states that there is a mismatch between patient's laboratory presentation and reported history. Advises giving 5 units insulin IV and giving a couple liters of fluid and monitoring BGL. 03/23/18 17:58 Patient nontoxic in appearance. No concern for obstructive uropathy or pyelonephritis at this time. Patient blood glucose level is trending downward. No concern for DKA. Consulted with Dr. Bob who is in agreement with discharge plan of care at this time. Patient encouraged to follow-up with his urologist for further evaluation of his flank pain. - Vital Signs Vital signs: Temp Pulse Resp BP Pulse Ox 98.1 F 69 18 140/82 H 100 03/23/18 18:25 03/23/18 18:25 03/23/18 18:25 03/23/18 18:25 03/23/18 18:25 - Laboratory Result Diagrams: 03/23/18 13:35 03/23/18 13:35 Laboratory results interpreted by me: 03/23/18 03/23/18 03/23/18 13:35 13:35 13:35 WBC 11.6 H RBC 4.26 L Hgb 11.3 L Hct 34.1 L MCH 26.4 L RDW 16.3 H Seg Neutrophils % 80.5 H Lymphocytes % 12.8 L Absolute Neutrophils 9.3 H VBG pH VBG pCO2 VBG HCO3 Chloride 95 L Glucose 611 H* POC Glucose Urine Glucose (UA) >=500 H Urine Blood SMALL H 03/23/18 03/23/18 03/23/18 15:14 16:08 17:06 WBC RBC Hgb Hct MCH RDW Seg Neutrophils % Lymphocytes % Absolute Neutrophils VBG pH 7.48 H VBG pCO2 20.0 L VBG HCO3 14.5 L Chloride Glucose POC Glucose 455 H* 340 H Urine Glucose (UA) Urine Blood 03/23/18 18:11 Labs- Entire Visit 03/23/18 03/23/18 03/23/18 13:35 13:35 13:35 WBC 11.6 H RBC 4.26 L Hgb 11.3 L Hct 34.1 L MCV 80 MCH 26.4 L MCHC 33.0 RDW 16.3 H Plt Count 386 Seg Neutrophils % 80.5 H Lymphocytes % 12.8 L Monocytes % 6.0 Eosinophils % 0.3 Basophils % 0.4 Absolute Neutrophils 9.3 H Absolute Lymphocytes 1.5 Absolute Monocytes 0.7 Absolute Eosinophils 0.0 Absolute Basophils 0.0 VBG pH VBG pCO2 VBG HCO3 VBG Base Excess Sodium 137.5 Potassium 4.3 Chloride 95 L Carbon Dioxide 29 Anion Gap 14 BUN 17 Creatinine 0.78 Est GFR ( Amer) > 60 Est GFR (Non-Af Amer) > 60 Glucose 611 H* POC Glucose Calcium 9.6 Urine Color STRAW Urine Appearance CLEAR Urine pH 6.0 Ur Specific [place] 1.027 Urine Protein NEGATIVE Urine Glucose (UA) >=500 H Urine Ketones NEGATIVE Urine Blood SMALL H Urine Nitrite NEGATIVE Urine Bilirubin NEGATIVE Urine Urobilinogen NEGATIVE Ur Leukocyte Esterase NEGATIVE Urine WBC (Auto) 5 Urine RBC (Auto) 1 Urine Bacteria (Auto) TRACE Urine Mucus (Auto) RARE Urine Ascorbic Acid NEGATIVE 03/23/18 03/23/18 03/23/18 15:14 16:08 17:06 WBC RBC Hgb Hct MCV MCH MCHC RDW Plt Count Seg Neutrophils % Lymphocytes % Monocytes % Eosinophils % Basophils % Absolute Neutrophils Absolute Lymphocytes Absolute Monocytes Absolute Eosinophils Absolute Basophils VBG pH 7.48 H VBG pCO2 20.0 L VBG HCO3 14.5 L VBG Base Excess -8.5 Sodium Potassium Chloride Carbon Dioxide Anion Gap BUN Creatinine Est GFR ( Amer) Est GFR (Non-Af Amer) Glucose POC Glucose 455 H* 340 H Calcium Urine Color Urine Appearance Urine pH Ur Specific [place] Urine Protein Urine Glucose (UA) Urine Ketones Urine Blood Urine Nitrite Urine Bilirubin Urine Urobilinogen Ur Leukocyte Esterase Urine WBC (Auto) Urine RBC (Auto) Urine Bacteria (Auto) Urine Mucus (Auto) Urine Ascorbic Acid - Diagnostic Test Radiology reviewed: Reports reviewed Discharge - Discharge Clinical Impression: Renal calculus, bilateral, Flank pain Type 1 diabetes mellitus Qualifiers: Diabetes mellitus complication status: with hyperglycemia Qualified Code(s): E10.65 - Type 1 diabetes mellitus with hyperglycemia Condition: Stable Disposition: HOME, SELF-CARE Instructions: Anti-Inflammatory Medication ([facility]), Flank Pain ([facility]) Additional Instructions: Return immediately for any new or worsening symptoms Followup with your primary care provider, call tomorrow to make a followup appointment Follow-up with your urologist for recheck Prescriptions: Lidocaine [Lidoderm 5% (700 mg) Transdermal Patch] 1 patch TP DAILY PRN #7 adh..patch PRN Reason: Naproxen [Naprosyn 250 Nmg Tablet] 1 tab PO BID #14 tablet Forms: Smoking Cessation Education Referrals: ELIANA ANTUNEZ MD [Primary Care Provider] - Follow up tomorrow
--- NOTE | 2018-03-23 15:37 | RADIOLOGY REPORT (SQ) ---
EXAM DESCRIPTION: [employer] COMPLETED DATE/TIME: 03/23/2018 3:14 pm REASON FOR STUDY: r flank pain COMPARISON: 11/06/2017 TECHNIQUE: Dynamic and static grayscale images acquired of the kidneys and bladder and recorded on P ACS. Additional selected color Doppler and spectral images recorded. LIMITATIONS: None. FINDINGS: RIGHT KIDNEY: Normal size. Normal echogenicity. No solid or suspicious masses. No h ydronephrosis. Tiny calcifications. LEFT KIDNEY: Normal size. Normal echogenicity. No solid or suspicious masses. No hydronephrosi s. 6 mm calcified stone in the mid body. Additional tiny parenchymal calcifications. BLADDER: No masses. OTHER FINDINGS: No other significant finding. IMPRESSION: Nephrolithiasis. No hydronephrosis. TECHNICAL DOCUMENTATION: JOB ID: [id number] [id number] 2010 [employer]- All Rights Reserved Reading location - IP/workstation name: [employer]
[2018-03-23] MEDS ORDERED: NORMAL SALINE 1000 ML 1,000 ML IV PRN (16:59)
[2018-03-23 17:08] LABS: VENOUS BLOOD BASE EXCESS -8.5 mmol/L; VENOUS BLOOD HCO3 14.5 mmol/L (20-32); VENOUS BLOOD PH 7.48 (7.30-7.42)
[2018-03-23] MEDS ORDERED: LIDOCAINE 5% (700 MG) TRANSDERMAL ADH..PATCH TP ONE (17:58)
[2018-03-23 18:39] VITALS: BP 140/82
== END 2018-03-23 18:35 | disposition home or self-care (01) ==
LOC: ER 13:04
DX: N20.0 Calculus of kidney (principal); E10.65 Type 1 diabetes mellitus with hyperglycemia; R10.9 Unspecified abdominal pain; R11.0 Nausea; M54.9 Dorsalgia, unspecified; F17.200 Nicotine dependence, unspecified, uncomplicated
CPT/HCPCS: 99284; 96360; 36415; 82962; 85025; 80048; 81001; 82803; 76775; J3490; J1815; J7030

== ENCOUNTER 2018-05-06 19:31 | Emergency (ER) | payer MEDICAID ==
--- NOTE | 2018-05-06 23:52 | ER Document Report ---
ED General - General Mode of Arrival: Ambulatory Information source: Patient TRAVEL OUTSIDE OF THE [place] IN LAST 30 DAYS: No <RAD BYRNES - Last Filed: 05/07/18 04:40> <RICO BARNARD - Last Filed: 05/07/18 05:28> - General Chief Complaint: Knee Pain Stated Complaint: SWOLLEN KNEE/ HAND Time Seen by Provider: 05/06/18 22:07 Notes: Patient is a 33 year old male with a history of Pyelonephritis presents to the emergency department complaining of right knee pain and right flank pain. Patient states his right knee is swollen and the pain radiates into calf into his right flank. Patient states he had similar symptoms in the past and was diagnosed with urosepsis. Patient also complains of chills. Patient denies any recent injuries or rashes. (RAD BYRNES) - Related Data Allergies/Adverse Reactions: Penicillins Allergy (Verified 01/07/18 22:14) Past Medical History - General Information source: Patient - Social History Smoking Status: Current Every Day Smoker Chew tobacco use (# tins/day): No Frequency of alcohol use: None Drug Abuse: None Family History: Reviewed & Not Pertinent, DM Patient has suicidal ideation: No Patient has homicidal ideation: No - Past Medical History Cardiac Medical History: Reports: Hx Heart Murmur Endocrine Medical History: Reports: Hx Diabetes Mellitus Type 1 Renal/ Medical History: Reports: Hx Kidney Stones GI Medical History: Reports: Hx Gastroesophageal Reflux Disease Past Surgical History: Reports: Hx Orthopedic Surgery - disc surgery L5-S1., Other - left ankle surgery due to infection in 2017. - Immunizations Immunizations up to date: Yes Hx Diphtheria, Pertussis, Tetanus Vaccination: Yes <RAD BYRNES - Last Filed: 05/07/18 04:40> Review of Systems - Review of Systems Constitutional: See HPI, Chills EENT: No symptoms reported Cardiovascular: No symptoms reported Respiratory: No symptoms reported Gastrointestinal: No symptoms reported Genitourinary: See HPI, Flank pain Male Genitourinary: No symptoms reported Musculoskeletal: See HPI Skin: No symptoms reported Hematologic/Lymphatic: No symptoms reported Neurological/Psychological: No symptoms reported <RAD BYRNES - Last Filed: 05/07/18 04:40> Physical Exam - Vital signs Interpretation: Normal - General General appearance: Appears well, Alert - HEENT Head: Normocephalic, Atraumatic Eyes: Normal Pupils: PERRL - Respiratory Respiratory status: No respiratory distress Chest status: Nontender Breath sounds: Normal Chest palpation: Normal - Cardiovascular Rhythm: Regular Heart sounds: Normal auscultation Murmur: No - Abdominal Inspection: Normal Distension: No distension Bowel sounds: Normal Tenderness: Nontender Organomegaly: No organomegaly - Back Back: Normal, Nontender - Extremities General upper extremity: Normal inspection, Nontender, Normal color, Normal ROM , Normal temperature General lower extremity: Normal color, Normal ROM, Normal temperature, Normal weight bearing. No: Yoel's sign Shoulder: Normal Arm: Normal Elbow: Normal Forearm: Normal Wrist: Normal Hand: Other - Mild swelling diffusely right hand. No erythema. Hip: Normal Thigh: Normal Knee: Joint effusion - Right knee Calf: Normal Ankle: Normal Foot: Normal - Neurological Neuro grossly intact: Yes Cognition: Normal Orientation: AAOx4 [place] Coma Scale Eye Opening: Spontaneous [place] Coma Scale Verbal: Oriented [place] Coma Scale Motor: Obeys Commands Hussein Coma Scale Total: 15 Speech: Normal Motor strength normal: LUE, RUE, LLE, RLE Sensory: Normal - Psychological Associated symptoms: Normal affect, Normal mood - Skin Skin Temperature: Warm Skin Moisture: Dry Skin Color: Normal <RICO BARNARD - Last Filed: 05/07/18 05:28> - Vital signs Vitals: Temp Pulse Resp BP Pulse Ox 99.3 F 84 15 145/90 H 100 05/06/18 20:48 05/06/18 20:48 05/06/18 20:48 05/06/18 20:48 05/06/18 20:48 Course - Laboratory Result Diagrams: 05/07/18 00:10 05/07/18 01:14 <RAD BYRNES - Last Filed: 05/07/18 04:40> - Laboratory Result Diagrams: 05/07/18 00:10 05/07/18 01:14 <RICO BARNARD - Last Filed: 05/07/18 05:28> - Re-evaluation Re-evalutation: 05/07/18 Patient is a 33-year-old male who comes in complaining of nonspecific right knee swelling and hand swelling. Not particularly painful. No erythema or warmth. Full range of motion of hand knee, and all joints. Patient has a history of urosepsis and infected joint in the past. Urine is not showing any sign of infection today. Patient has had blood and urine cultures sent. No evidence for septic joint today. Patient is taking p.o. without difficulty. Patient has eaten a lot of junk food including a can of [employer] in the room before his blood work. He takes insulin and will take his insulin at home. He is to follow-up with orthopedics as needed and return if he has any worsening or concerning symptoms. Stable for discharge. (RICO BARNARD) - Vital Signs Vital signs: Temp Pulse Resp BP Pulse Ox 98.3 F 78 18 140/80 H 100 05/07/18 01:50 05/07/18 01:50 05/07/18 01:50 05/07/18 01:50 05/07/18 01:50 - Laboratory Laboratory results interpreted by me: 05/07/18 05/07/18 05/07/18 00:10 00:10 01:14 WBC 13.0 H Hgb 11.2 L Hct 34.2 L MCV 78 L MCH 25.3 L RDW 17.3 H Plt Count 499 H Seg Neutrophils % 79.9 H Absolute Neutrophils 10.4 H Sodium 131.6 L Chloride 93 L Glucose 556 H* AST 12 L Alkaline Phosphatase 177 H Urine Glucose (UA) >=500 H Discharge <RAD BYRNES - Last Filed: 05/07/18 04:40> <RICO BARNARD - Last Filed: 05/07/18 05:28> - Discharge Clinical Impression: Swelling of knee joint, right, Hyperglycemia Condition: Stable Disposition: HOME, SELF-CARE Instructions: Suspected Internal Knee Injury ([facility]) Referrals: ELIANA ANTUNEZ MD [Primary Care Provider] - Follow up in 3-5 days ZIA BERTRAND DO [ACTIVE STAFF] - Follow up tomorrow Scribe Attestation: 05/07/18 05:28 I personally performed the services described in the documentation, reviewed and edited the documentation which was dictated to the scribe in my presence, and it accurately records my words and actions. (RICO BARNARD) Scribe Documentation - Scribe Written by Henrique:: Henrique Hicks, 05/07/2018 01:43 acting as scribe for :: Kirill <RAD BYRNES - Last Filed: 05/07/18 04:40>
[2018-05-07] MEDS ORDERED: KETOROLAC TROMETHAMINE INJ/PF 30 MG/1 ML SDV IV ONE (00:02)
[2018-05-07 00:40] LABS: ABSOLUTE BASOPHILS # (AUTO) 0.1 10^3/uL (0.0-0.2); ABSOLUTE EOSINOPHILS # (AUTO) 0.1 10^3/uL (0.0-0.6); ABSOLUTE LYMPHOCYTES (AUTO) 1.9 10^3/uL (0.5-4.7); ABSOLUTE MONOCYTES (AUTO) 0.6 10^3/uL (0.1-1.4); ABSOLUTE NEUT (AUTO) 10.4 10^3/uL (1.7-8.2); BASOPHILS % (AUTO) 0.7 % (0-2); EOSINOPHILS % (AUTO) 0.6 % (0-6); HEMATOCRIT 34.2 % (37.9-51.0); HEMOGLOBIN 11.2 g/dL (13.5-17.0); LYMPHOCYTES % (AUTO) 14.3 % (13-45); MEAN CORPUSCULAR HEMOGLOBIN 25.3 pg (27.0-33.4); MEAN CORPUSCULAR HGB CONC 32.6 g/dL (32.0-36.0); MEAN CORPUSCULAR VOLUME 78 fl (80-97); MONOCYTES % (AUTO) 4.5 % (3-13); PLATELET COUNT 499 10^3/uL (150-450); RED CELL DISTRIBUTION WIDTH 17.3 % (11.5-14.0); SEGMENTED NEUTROPHILS % (AUTO) 79.9 % (42-78); TOTAL CELLS COUNTED % (AUTO) 100 %
[2018-05-07 00:58] LABS: INTERNATIONAL RATION (INR) 0.89; PROTHROMBIN TIME 12.5 SEC (11.4-15.4)
[2018-05-07 01:00] LABS: APPEARANCE,URINE CLEAR; BILIRUBIN,URINE NEGATIVE (NEGATIVE); COLOR,URINE COLORLESS; GLUCOSE, URINE >=500 mg/dL (NEGATIVE); KETONES,URINE NEGATIVE (NEGATIVE); LEUKOCYTE ESTERASE,URINE NEGATIVE (NEGATIVE); NITRITE,URINE NEGATIVE (NEGATIVE); PROTEIN,URINE NEGATIVE (NEGATIVE); URINE SPECIFIC GRAVITY 1.014; UROBILINOGEN,URINE NEGATIVE mg/dL (<2.0)
[2018-05-07 01:15] LABS: URINE AMPHETAMINES SCREEN NEGATIVE; URINE BARBITURATES SCREEN NEGATIVE; URINE BENZODIAZEPINES SCREEN NEGATIVE; URINE COCAINE SCREEN NEGATIVE; URINE MARIJUANA (THC) SCREEN NEGATIVE; URINE METHADONE SCREEN NEGATIVE; URINE PHENCYCLIDINE SCREEN NEGATIVE
[2018-05-07 01:38] LABS: ALANINE AMINOTRANSFERASE 23 U/L (21-72); ALKALINE PHOSPHATASE 177 U/L (38-126); ASPARTATE AMINO TRANSFERASE 12 U/L (17-59); BILIRUBIN,DIRECT 0.3 mg/dL (0.0-0.4); BILIRUBIN,TOTAL 0.6 mg/dL (0.2-1.3); CALCIUM 8.9 mg/dL (8.4-10.2)
[2018-05-07 01:49] LABS: ALBUMIN 3.5 g/dL (3.5-5.0); ANION GAP 12 (5-19); BLOOD UREA NITROGEN 10 mg/dL (7-20); CARBON DIOXIDE 27 mmol/L (22-30); CHLORIDE 93 mmol/L (98-107); POTASSIUM 4.1 mmol/L (3.6-5.0); SODIUM 131.6 mmol/L (137-145); TOTAL PROTEIN 7.1 g/dL (6.3-8.2)
[2018-05-07 01:58] LABS: GLUCOSE 556 mg/dL (75-110)
[2018-05-07 02:00] VITALS: BP 140/80
--- NOTE | 2018-05-07 07:43 | EKG REPORT ---
SEVERITY:- ABNORMAL ECG - SINUS RHYTHM NONSPECIFIC ST-T CHANGES DIFFUSE : Confirmed by: Jake Miner MD 07-May-2018 07:43:15
== END 2018-05-07 01:50 | disposition home or self-care (01) ==
LOC: ER 19:31
DX: M25.461 Effusion, right knee (principal); E10.65 Type 1 diabetes mellitus with hyperglycemia; M25.561 Pain in right knee; M79.89 Other specified soft tissue disorders; R10.9 Unspecified abdominal pain; R68.83 Chills (without fever); F17.200 Nicotine dependence, unspecified, uncomplicated; Z87.440 Personal history of urinary (tract) infections; Z87.442 Personal history of urinary calculi
CPT/HCPCS: 93005; 99284; 96374; 36415; 87040; 87086; 85025; 85610; 87088; 80053; 81001; 87186; 80307; 83605; 93010; J1885

== ENCOUNTER 2019-04-06 17:14 | Emergency (ER) | payer MEDICAID ==
--- NOTE | 2019-04-06 18:43 | ER Document Report ---
ED Medical Screen (RME) - General Chief Complaint: Chest Pain > 30 Stated Complaint: VOMITING Time Seen by Provider: 04/06/19 18:37 Primary Care Provider: AMAIRANI DE LA CRUZ MD [Primary Care Provider] - Follow up as needed TRAVEL OUTSIDE OF THE [place] IN LAST 30 DAYS: No - HPI Notes: 04/06/19 18:41 Patient is a 34-year-old male with a history of insulin-dependent diabetes who presents complaining of midsternal chest pain that has been present since last night. Patient states that he can make it worse by pushing in that area. Patient was sent by his gi physician for further evaluation for the chest pain. Patient states that he is also been having left shoulder pain since yesterday morning which became more sore later in the evening. Patient states that movement makes the pain worse. Denies any obvious injury. Denies any prolonged immobilization, distance travel, recent surgery/trauma, personal cancer history, hormone use, smoking, CAD, or previous DVT/PE. Denies BOWERS, fever, neck pain, URI, SOB, Abd pain, dysuria, back pain, or rash. I have treated and performed a rapid initial assessment of this patient. A comprehensive ED assessment and evaluation of the patient, analysis of test results and completion of medical decision making process will be conducted by additional ED providers. PHYSICAL EXAMINATION: GENERAL: Well-appearing, well-nourished and in no acute distress. A&Ox4. Answers questions appropriately. Chest: + tenderness mid sternal area. Lt shoulder: + tenderness with ROM and palp. N/V intact distal. No obvious ecchymosis or erythema. LUNGS: Breath sounds clear to auscultation bilaterally and equal. No wheezes rales or rhonchi. HEART: Regular rate and rhythm without murmurs, rubs, gallops. Extremities: No cyanosis, clubbing, or edema b/l. Yoel negative bilaterally. No lower extremities asymmetry. NEUROLOGICAL: Normal speech, normal gait. PSYCH: Normal mood, normal affect. - Related Data Allergies/Adverse Reactions: Penicillins Allergy (Verified 04/06/19 17:16) Past Medical History - Social History Chew tobacco use (# tins/day): No Frequency of alcohol use: None Drug Abuse: None - Past Medical History Cardiac Medical History: Reports: Hx Heart Murmur Endocrine Medical History: Reports: Hx Diabetes Mellitus Type 1, Hx Diabetes Mellitus Type 2 Renal/ Medical History: Reports: Hx Kidney Stones. Denies: Hx Peritoneal Dialysis GI Medical History: Reports: Hx Gastroesophageal Reflux Disease Psychiatric Medical History: Denies: Hx Depression Past Surgical History: Reports: Hx Orthopedic Surgery - disc surgery L5-S1., Other - left ankle surgery due to infection in 2017. - Immunizations Immunizations up to date: Yes Hx Diphtheria, Pertussis, Tetanus Vaccination: Yes History of Influenza Vaccine for 06/2017 - 11/2017 Season: Refused Physical Exam - Vital signs Vitals: Temp Pulse Resp BP Pulse Ox 98.1 F 91 16 123/63 97 04/06/19 17:29 04/06/19 17:29 04/06/19 17:29 04/06/19 17:29 04/06/19 17:29 Course - Vital Signs Vital signs: Temp Pulse Resp BP Pulse Ox 98.1 F 91 16 123/63 97 04/06/19 17:29 04/06/19 17:29 04/06/19 17:29 04/06/19 17:29 04/06/19 17:29 Doctor's Discharge - Discharge Referrals: AMAIRANI DE LA CRUZ MD [Primary Care Provider] - Follow up as needed
--- NOTE | 2019-04-06 19:34 | RADIOLOGY REPORT (SQ) ---
EXAM DESCRIPTION: SHOULDER LEFT 2 OR MORE VIEWS COMPLETED DATE/TIME: 04/06/2019 7:00 pm REASON FOR STUDY: LT shoulder pain COMPARISON: None. NUMBER OF VIEWS: Three views. TECHNIQUE: Internal rotation, external rotation, and Y view images acquired of the left shoulder. LIMITATIONS: None. FINDINGS: MINERALIZATION: Normal. BONES: No acute fracture. No worrisome bone lesions. JOINTS: No dislocation. VISUALIZED LUNGS AND RIBS: No pneumothorax. No rib fracture. SOFT TISSUES: No radiopaque foreign body. OTHER: No other significant finding. IMPRESSION: NO RADIOGRAPHIC EVIDENCE OF ACUTE INJURY. TECHNICAL DOCUMENTATION: JOB ID: [id number] [place]-72 2010 [employer]- All Rights Reserved Reading location - IP/workstation name: [email or web address]
--- NOTE | 2019-04-06 19:36 | RADIOLOGY REPORT (SQ) ---
EXAM DESCRIPTION: CHEST 2 VIEWS COMPLETED DATE/TIME: 04/06/2019 7:00 pm REASON FOR STUDY: CP COMPARISON: 01/08/2018 TECHNIQUE: Frontal and lateral radiographic views of the chest acquired. NUMBER OF VIEWS: Two view. LIMITATIONS: None. FINDINGS: LUNGS AND PLEURA: No pneumothorax. No consolidation or pleural effusion. MEDIASTINUM AND HILAR STRUCTURES: Stable. HEART AND VASCULAR STRUCTURES: Stable. BONES: No acute findings. HARDWARE: None in the chest. OTHER: No other significant finding. IMPRESSION: NO ACUTE FINDINGS. TECHNICAL DOCUMENTATION: JOB ID: [id number] [place]-72 2010 [employer]- All Rights Reserved Reading location - IP/workstation name: [email or web address]
[2019-04-06 19:49] LABS: ABSOLUTE BASOPHILS # (AUTO) 0.1 10^3/uL (0.0-0.2); ABSOLUTE EOSINOPHILS # (AUTO) 0.1 10^3/uL (0.0-0.6); ABSOLUTE LYMPHOCYTES (AUTO) 1.9 10^3/uL (0.5-4.7); ABSOLUTE MONOCYTES (AUTO) 1.6 10^3/uL (0.1-1.4); ABSOLUTE NEUT (AUTO) 10.1 10^3/uL (1.7-8.2); BASOPHILS % (AUTO) 0.7 % (0-2); EOSINOPHILS % (AUTO) 0.5 % (0-6); HEMATOCRIT 35.2 % (37.9-51.0); HEMOGLOBIN 11.7 g/dL (13.5-17.0); LYMPHOCYTES % (AUTO) 13.7 % (13-45); MEAN CORPUSCULAR HEMOGLOBIN 26.8 pg (27.0-33.4); MEAN CORPUSCULAR HGB CONC 33.2 g/dL (32.0-36.0); MEAN CORPUSCULAR VOLUME 81 fl (80-97); MONOCYTES % (AUTO) 11.4 % (3-13); PLATELET COUNT 215 10^3/uL (150-450); RED BLOOD COUNT 4.36 10^6/uL (4.35-5.55); SEGMENTED NEUTROPHILS % (AUTO) 73.7 % (42-78); TOTAL CELLS COUNTED % (AUTO) 100 %; WHITE BLOOD COUNT 13.7 10^3/uL (4.0-10.5)
[2019-04-06 19:59] LABS: ALANINE AMINOTRANSFERASE 15 U/L (21-72); ALBUMIN 4.2 g/dL (3.5-5.0); ALKALINE PHOSPHATASE 105 U/L (38-126); ANION GAP 10 (5-19); ASPARTATE AMINO TRANSFERASE 20 U/L (17-59); BILIRUBIN,DIRECT 0.3 mg/dL (0.0-0.4); BILIRUBIN,TOTAL 0.6 mg/dL (0.2-1.3); BLOOD UREA NITROGEN 22 mg/dL (7-20); CALCIUM 9.7 mg/dL (8.4-10.2); CARBON DIOXIDE 28 mmol/L (22-30); CHLORIDE 98 mmol/L (98-107); GLUCOSE 167 mg/dL (75-110); POTASSIUM 4.5 mmol/L (3.6-5.0); TOTAL PROTEIN 7.9 g/dL (6.3-8.2)
[2019-04-06] MEDS ORDERED: NORMAL SALINE 1000 ML 1,000 ML IV ONE (20:40)
--- NOTE | 2019-04-06 20:41 | ER Document Report ---
ED Cardiac - General Chief Complaint: Chest Pain > 30 Stated Complaint: VOMITING Time Seen by Provider: 04/06/19 18:37 Primary Care Provider: AMAIRANI DE LA CRUZ MD [ACTIVE STAFF] - Follow up as needed TRAVEL OUTSIDE OF THE [place] IN LAST 30 DAYS: No - HPI Notes: Patient is a 34-year-old male with a history of insulin-dependent diabetes who presents complaining of midsternal chest pain that has been present and constant since last night. Patient states the pain started in his left shoulder and then extended down over the anterior aspect of his left chest to his sternum. Patiysabel t states that he can make it worse by pushing in that area and moving his shoulder. His pain is relieved with rest and he did have some relief yesterday evening after taking Tylenol. 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 He was in his photo finish photographer office today for follow-up on his diabetes and told her about the pain he was having, she obtained an EKG and referred him to the emergency room for further work-up. Denies any obvious injury. Denies any prolonged immobilization, distance travel, recent surgery/trauma, personal cancer history, hormone use, smoking, CAD, or previous DVT/PE. Denies BOWERS, fever, neck pain, URI, SOB, Abd pain, dysu christy, back pain, or rash. Past Medical History: Diabetes Past Surgical History: Back surgery Social History: Reviewed in chart Family History: Reviewed and noncontributory for presenting illness Allergies: Reviewed, see documented allergy list. REVIEW OF SYSTEMS: CONSTITUTIONAL : No fever No chills No diaphoresis No recent illness EENT: No vision changes No congestion No sore throat CARDIOVASCULAR: chest pain No palpitations RESPIRATORY: No shortness of breath No cough No difficulty breathing GASTROINTESTINAL: No abdominal pain No nausea No vomiting No diarrhea GENITOURINARY: No dysuria No hematuria No difficulty urinating MUSCULOSKELETAL: No back pain Left shoulder pain No arm pain SKIN: No rashes No lesions LYMPHATIC: No swollen, enlarged glands. NEUROLOGICAL: No lightheadedness No headache No weakness No paresthesias PSYCHIATRIC: No anxiety No depression PHYSICAL EXAMINATION: Vital signs reviewed, nursing noted reviewed. GENERAL: Well-appearing, well-nourished and in no acute distress. HEAD: Atraumatic, normocephalic. EYES: Eyes appear normal, extraocular movements intact, sclera anicteric, conjunctiva are normal. ENT: nares patent, oropharynx clear without exudates. Moist mucous membranes. NECK: Normal range of motion, supple without lymphadenopathy LUNGS: Tenderness to palpation over anterior left pectoral muscles, no sternal tenderness. Breath sounds clear to auscultation bilaterally and equal. No whe ezes rales or rhonchi. HEART: Regular rate and rhythm without murmurs ABDOMEN: Soft, nontender, normoactive bowel sounds. No rebound, guarding, or rigidity. No masses appreciated. EXTREMITIES: left shoulder pain with range of motion and tenderness to palpation of Biceps tendon insertion site and joint line. No obvious deformity. Full passive range of motion. Normal left elbow exam. no pitting or edema. NEUROLOGICAL: No focal neurological deficits. Moves all extremities spontaneously Motor and sensory grossly intact on exam. PSYCH: Normal mood, normal affect. SKIN: Warm, Dry, normal turgor, no rashes or lesions noted on exposed skin - Related Data Allergies/Adverse Reactions: Penicillins Allergy (Verified 04/06/19 17:16) Past Medical History - Social History Smoking Status: Current Every Day Smoker Chew tobacco use (# tins/day): No Frequency of alcohol use: None Drug Abuse: None Family History: Reviewed & Not Pertinent, DM Patient has suicidal ideation: No Patient has homicidal ideation: No - Past Medical History Cardiac Medical History: Reports: Hx Heart Murmur Endocrine Medical History: Reports: Hx Diabetes Mellitus Type 1, Hx Diabetes Kyra litus Type 2 Renal/ Medical History: Reports: Hx Kidney Stones. Denies: Hx Peritoneal Dialysis GI Medical History: Reports: Hx Gastroesophageal Reflux Disease Psychiatric Medical History: Denies: Hx Depression Past Surgical History: Reports: Hx Orthopedic Surgery - disc surgery L5-S1., Other - left ankle surgery due to infection in 2017. - Immunizations Immunizations up to date: Yes Hx Diphtheria, Pertussis, Tetanus Vaccination: Yes Physical Exam - Vital signs Vitals: Temp Pulse Resp BP Pulse Ox 98.1 F 91 16 123/63 97 04/06/19 17:29 04/06/19 17:29 04/06/19 17:29 04/06/19 17:29 04/06/19 17:29 Course - Re-evaluation Re-evalutation: 04/06/19 20:55 Vitals reviewed. Nursing notes reviewed. Patient had lab work drawn in triage. He does have a leukocytosis but on chart review this is baseline for him. He has no symptoms to suggest acute infection. Patient's troponin is negative and his pain has been constant since yesterday evening. His symptoms are reprod ucible with range of motion of the left shoulder and palpitation. I do not suspect ACS as a cause of his chest pain. He does have T wave inversions on EKG which are unchanged from prior study. Patient's chest x-ray and shoulder x-ray showed no acute process. He does have elevated BUN and creatinine hand on further conversations he states that he has been working out in the sun and sweating. He states when he gets overly hot he vomits and states this has happened a few times this week. His NU is likely related to dehydration. Patient was given a liter of IV fluid in the emergency room. I did advise he have his BUN and creatinine rechecked in the next few days by his photo finish photographer. Patient's chest pain and shoulder pain symptoms are musculoskeletal. He was counseled on rest, ice and stretching. Patient stable for discharge and in agreement with follow-up. Laboratory 04/06/19 04/06/19 04/06/19 19:15 19:15 19:15 WBC 13.7 H RBC 4.36 Hgb 11.7 L Hct 35.2 L MCV 81 MCH 26.8 L MCHC 33.2 RDW 16.0 H Plt Count 215 Seg Neutrophils % 73.7 Lymphocytes % 13.7 Monocytes % 11.4 Eosinophils % 0.5 Basophils % 0.7 Absolute Neutrophils 10.1 H Absolute Lymphocytes 1.9 Absolute Monocytes 1.6 H Absolute Eosinophils 0.1 Absolute Basophils 0.1 Sodium 136.0 L Potassium 4.5 Chloride 98 Carbon Dioxide 28 Anion Gap 10 BUN 22 H Creatinine 1.38 H Est GFR ( Amer) > 60 Est GFR (Non-Af Amer) 59 L Glucose 167 H Calcium 9.7 Total Bilirubin 0.6 Direct Bilirubin 0.3 Neonat Total Bilirubin Not Reportable Neonat Direct Bilirubin Not Reportable Neonat Indirect Bili Not Reportable AST 20 ALT 15 L Alkaline Phosphatase 105 Troponin I < 0.012 Total Protein 7.9 Albumin 4.2 Chest X-Ray 04/06/19 18:40 IMPRESSION: NO ACUTE FINDINGS. Shoulder X-Ray 07/29/19 18:41 IMPRESSION: NO RADIOGRAPHIC EVIDENCE OF ACUTE INJURY. 04/06/19 20:57 - Vital Signs Vital signs: Temp Pulse Resp BP Pulse Ox 98.1 F 74 16 122/66 99 04/06/19 17:29 04/06/19 20:34 04/06/19 20:34 04/06/19 20:34 04/06/19 20:34 - Laboratory Result Diagrams: 04/06/19 19:15 04/06/19 19:15 Laboratory results interpreted by me: 04/06/19 04/06/19 19:15 19:15 WBC 13.7 H Hgb 11.7 L Hct 35.2 L MCH 26.8 L RDW 16.0 H Absolute Neutrophils 10.1 H Absolute Monocytes 1.6 H Sodium 136.0 L BUN 22 H Creatinine 1.38 H Est GFR (Non-Af Amer) 59 L Glucose 167 H ALT 15 L - EKG Interpretation by Me Additional EKG results interpreted by me: 04/06/19 20:59 Interpreted by myself 1724: Normal sinus rhythm, rate 91, normal axis, lateral T wave inversions, unchanged from 05/07/2018, no STEMI Discharge - Discharge Clinical Impression: NU (acute kidney injury), Dehydration Left shoulder pain Qualifiers: Chronicity: acute Qualified Code(s): M25.512 - Pain in left shoulder Chest pain Qualifiers: Chest pain type: unspecified Qualified Code(s): R07.9 - Chest pain, unspecified Condition: Stable Disposition: HOME, SELF-CARE Instructions: Chest Wall Pain ([facility]), Kidney Injury ([facility]), Dehydration ([facility]) Additional Instructions: Please return to the emergency department if you have any worsening, or concern of your symptoms. Please return to the emergency department if you develop chest pain, difficulty breathing, severe abdominal pain, or ongoing vomiting. Please follow-up with your primary care physician in 2-3 days and any other recommended physicians. If prescribed, take all medications as directed. If you have any questions or concerns do not hesitate to return the emergency department for evaluation. Have your photo finish photographer recheck a BMP to reevaluate your BUN and creatinine in the next few days. This is your kidney function test which were elevated today. You can have elevation of your renal function because of dehydration and your recent heat exposure and vomiting. Diabetes can also cause injury to the kidneys and it needs to be monitored closely. Prescriptions: Ondansetron [Zofran Odt 4 mg Tablet] 1 tab PO Q4H PRN #15 tab.rapdis PRN Reason: For Nausea/Vomiting Referrals: AMAIRANI DE LA CRUZ MD [ACTIVE STAFF] - Follow up in 3-5 days
[2019-04-06] MEDS ORDERED: ACETAMINOPHEN 325 MG TABLET PO ONE (20:51)
[2019-04-06 22:29] VITALS: BP 123/60
--- NOTE | 2019-04-06 23:56 | EKG REPORT ---
SEVERITY:- ABNORMAL ECG - SINUS RHYTHM PROBABLE LEFT ATRIAL ABNORMALITY ABNORMAL T, CONSIDER ISCHEMIA, ANT-LAT LEADS : Confirmed by: Kaci Harrington MD 06-Apr-2019 23:56:32
== END 2019-04-06 22:27 | disposition home or self-care (01) ==
LOC: ER 17:14
DX: R07.9 Chest pain, unspecified (principal); M25.512 Pain in left shoulder; E86.0 Dehydration; N17.9 Acute kidney failure, unspecified; D72.829 Elevated white blood cell count, unspecified; E11.9 Type 2 diabetes mellitus without complications; F17.200 Nicotine dependence, unspecified, uncomplicated; Z88.0 Allergy status to penicillin
CPT/HCPCS: 93005; 99285; 96360; 36415; 85025; 80053; 84484; 71046; 73030; 93010; J3490; J7030

== ENCOUNTER 2019-04-12 16:49 | Emergency (ER) | payer MEDICAID ==
--- NOTE | 2019-04-12 17:33 | ER Document Report ---
ED Medical Screen (RME) - General Chief Complaint: Neck Problem Stated Complaint: NECK PAIN Time Seen by Provider: 04/12/19 17:18 Primary Care Provider: ELIANA ANTUNEZ MD [Primary Care Provider] - Follow up as needed Mode of Arrival: Ambulatory Information source: Patient Notes: This 34-year-old male presents to the emergency department with multiple complaints to include chest pain chest wall pain neck pain shoulder pain. That radiates down his arms. 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 He reports no pain at that time but 12 hours later he started having pain. He went to see his wildlife veterinarian and was told he had EKG changes and to come to the emergency department. he was evaluated on April 06 here in the emergency department and discharged home. He is reporting to me that there were changes on the EKG and they had kidney issues. Patient reports he went to [facility] after that because he was still having pain and they did a CT with contrast and did not find anything wrong. Patient presents today because he is having worse pain. He also points to the center of his chest and reports that he is having a bulge there that is new. Sternal notch noted firm no erythema no warmth no signs of infection. He reports pain with palpation. Patient reports he needs antibiotics for the infection. I have greeted and performed a rapid initial assessment of this patient. A comprehensive ED assessment and evaluation of the patient, analysis of test results and completion of the medical decision making process will be conducted by additional ED providers. Dictation of this chart was performed using voice recognition software; therefore, there may be some unintended grammatical errors. TRAVEL OUTSIDE OF THE [place] IN LAST 30 DAYS: No - Related Data Allergies/Adverse Reactions: Penicillins Allergy (Verified 04/12/19 16:50) Past Medical History - Social History Frequency of alcohol use: None Drug Abuse: None - Past Medical History Cardiac Medical History: Reports: Hx Heart Murmur Endocrine Medical History: Reports: Hx Diabetes Mellitus Type 1, Hx Diabetes Mellitus Type 2 Renal/ Medical History: Reports: Hx Kidney Stones. Denies: Hx Peritoneal Dialysis GI Medical History: Reports: Hx Gastroesophageal Reflux Disease Psychiatric Medical History: Denies: Hx Depression Past Surgical History: Reports: Hx Orthopedic Surgery - disc surgery L5-S1., Other - left ankle surgery due to infection in 2017. - Immunizations Immunizations up to date: Yes Hx Diphtheria, Pertussis, Tetanus Vaccination: Yes History of Influenza Vaccine for 06/2017 - 11/2017 Season: Refused Physical Exam - Vital signs Vitals: Temp Pulse Resp BP Pulse Ox 97.5 F 101 H 17 126/71 H 98 04/12/19 16:52 04/12/19 16:52 04/12/19 16:52 04/12/19 16:52 04/12/19 16:52 Course - Vital Signs Vital signs: Temp Pulse Resp BP Pulse Ox 97.5 F 101 H 17 126/71 H 98 04/12/19 16:52 04/12/19 16:52 04/12/19 16:52 04/12/19 16:52 04/12/19 16:52 Doctor's Discharge - Discharge Referrals: ELIANA ANTUNEZ MD [Primary Care Provider] - Follow up as needed
--- NOTE | 2019-04-12 18:31 | RADIOLOGY REPORT (SQ) ---
EXAM DESCRIPTION: CHEST 2 VIEWS COMPLETED DATE/TIME: 04/12/2019 6:08 pm REASON FOR STUDY: chest pain COMPARISON: 04/05/2019 TECHNIQUE: Frontal and lateral radiographic views of the chest acquired. NUMBER OF VIEWS: Two view. LIMITATIONS: None. FINDINGS: LUNGS AND PLEURA: No pneumothorax. No consolidation or pleural effusion. MEDIASTINUM AND HILAR STRUCTURES: Stable. HEART AND VASCULAR STRUCTURES: Stable. BONES: No acute findings. HARDWARE: None in the chest. OTHER: No other significant finding. IMPRESSION: NO ACUTE FINDINGS. TECHNICAL DOCUMENTATION: JOB ID: [id number] [id number] 2010 [employer]- All Rights Reserved Reading location - IP/workstation name: [email or web address]
[2019-04-12 18:49] LABS: ABSOLUTE EOSINOPHILS # (AUTO) 0.1 10^3/uL (0.0-0.6); ABSOLUTE LYMPHOCYTES (AUTO) 1.9 10^3/uL (0.5-4.7); ABSOLUTE MONOCYTES (AUTO) 0.6 10^3/uL (0.1-1.4); ABSOLUTE NEUT (AUTO) 8.9 10^3/uL (1.7-8.2); BASOPHILS % (AUTO) 0.4 % (0-2); EOSINOPHILS % (AUTO) 0.5 % (0-6); HEMATOCRIT 38.5 % (37.9-51.0); HEMOGLOBIN 12.6 g/dL (13.5-17.0); LYMPHOCYTES % (AUTO) 16.6 % (13-45); MEAN CORPUSCULAR HEMOGLOBIN 26.6 pg (27.0-33.4); MEAN CORPUSCULAR HGB CONC 32.8 g/dL (32.0-36.0); MEAN CORPUSCULAR VOLUME 81 fl (80-97); MONOCYTES % (AUTO) 5.2 % (3-13); PLATELET COUNT 492 10^3/uL (150-450); RED BLOOD COUNT 4.73 10^6/uL (4.35-5.55); RED CELL DISTRIBUTION WIDTH 16.1 % (11.5-14.0); SEGMENTED NEUTROPHILS % (AUTO) 77.3 % (42-78); TOTAL CELLS COUNTED % (AUTO) 100 %; WHITE BLOOD COUNT 11.6 10^3/uL (4.0-10.5)
[2019-04-12 19:16] LABS: ALBUMIN 4.1 g/dL (3.5-5.0); ALKALINE PHOSPHATASE 140 U/L (38-126); ANION GAP 15 (5-19); ASPARTATE AMINO TRANSFERASE 11 U/L (17-59); BILIRUBIN,DIRECT 0.5 mg/dL (0.0-0.4); BILIRUBIN,TOTAL 0.6 mg/dL (0.2-1.3); BLOOD UREA NITROGEN 17 mg/dL (7-20); CALCIUM 10.6 mg/dL (8.4-10.2); CARBON DIOXIDE 28 mmol/L (22-30); CHLORIDE 94 mmol/L (98-107); CREATINE KINASE 53 U/L (55-170); GLUCOSE 388 mg/dL (75-110); POTASSIUM 5.3 mmol/L (3.6-5.0); TOTAL PROTEIN 8.1 g/dL (6.3-8.2)
--- NOTE | 2019-04-12 21:12 | ER Document Report ---
ED General - General Chief Complaint: Neck Problem Stated Complaint: NECK PAIN Time Seen by Provider: 04/12/19 17:18 Primary Care Provider: ELIANA ANTUNEZ MD [Primary Care Provider] - Follow up as needed Mode of Arrival: Ambulatory Notes: Patient is a 34-year-old male that comes emergency department for chief complaint of pain in his chest wall. He states he was seen on 04/05 after he had lifted a washer blanket the day before with pain in his left shoulder, left neck, and chest wall. Shoulder is improved now but his chest wall has worsened, he states he can barely move now without a lot of pain. Denies fever/chills, other injuries, nausea/vomiting, dizziness. He states he is worried maybe he has an infection in the chest under the skin because it hurts so much. There is a history of insulin-dependent diabetes, GERD, kidney stones, and he smokes. TRAVEL OUTSIDE OF THE [place] IN LAST 30 DAYS: No - Related Data Allergies/Adverse Reactions: Penicillins Allergy (Verified 04/12/19 16:50) Past Medical History - General Information source: Patient - Social History Smoking Status: Current Every Day Smoker Frequency of alcohol use: None Drug Abuse: None Family History: Reviewed & Not Pertinent, DM Patient has suicidal ideation: No Patient has homicidal ideation: No - Past Medical History Cardiac Medical History: Reports: Hx Heart Murmur Endocrine Medical History: Reports: Hx Diabetes Mellitus Type 1, Hx Diabetes Mellitus Type 2 Renal/ Medical History: Reports: Hx Kidney Stones. Denies: Hx Peritoneal Dialysis GI Medical History: Reports: Hx Gastroesophageal Reflux Disease Psychiatric Medical History: Denies: Hx Depression Past Surgical History: Reports: Hx Orthopedic Surgery - disc surgery L5-S1., Oth er - left ankle surgery due to infection in 2017. - Immunizations Immunizations up to date: Yes Hx Diphtheria, Pertussis, Tetanus Vaccination: Yes Review of Systems - Review of Systems Constitutional: No symptoms reported EENT: No symptoms reported Cardiovascular: See HPI Respiratory: See HPI Gastrointestinal: No symptoms reported Genitourinary: No symptoms reported Male Genitourinary: No symptoms reported Musculoskeletal: See HPI Skin: No symptoms reported Hematologic/Lymphatic: No symptoms reported Neurological/Psychological: No symptoms reported Physical Exam - Vital signs Vitals: Temp Pulse Resp BP Pulse Ox 97.5 F 101 H 17 126/71 H 98 04/12/19 16:52 04/12/19 16:52 04/12/19 16:52 04/12/19 16:52 04/12/19 16:52 - Notes Notes: GENERAL: Alert, interacts well. No acute distress. HEAD: Normocephalic, atraumatic. EYES: Pupils equal, round, and reactive to light. Extraocular movements intact. ENT: Oral mucosa moist, tongue midline. Oropharynx unremarkable. Airway patent. Nares patent, no nasal septal hematoma. NECK: Full range of motion. Supple. Trachea midline. LUNGS: Clear to auscultation bilaterally, no wheezes, rales, or rhonchi. No respiratory distress. Very specific tenderness over the anterior chest wall in especially ribs 2 through 4 on both sides, no crepitus, erythema, swelling, induration, fluctuance. HEART: Regular rate and rhythm. No murmur ABDOMEN: Soft, non-tender. Non-distended. EXTREMITIES: Moves all 4 extremities spontaneously. No edema, normal radial and dorsalis pedis pulses bilaterally. No cyanosis. BACK: no cervical, thoracic, lumbar midline tenderness. No saddle anesthesia, normal distal neurovascular exam. Moves all extremities in full range of motion. NEUROLOGICAL: Alert and oriented x3. Normal speech. Cranial nerves II through XII grossly intact. PSYCH: Initially talks rapidly and anxiously with constant interruptions, however this improved on reevaluation SKIN: Warm, dry, normal turgor. No rashes or lesions noted. Course - Re-evaluation Re-evalutation: CBC non-specific, chemistry showing hyperglycemia without acidosis, somewhat dry shift otherwise which is nonspecific. Troponin is negative. Chest x-ray negative. EKG without acute findings. Patient has had this work-up multiple times for the same symptoms. Patient has definite chest wall tenderness on exam which is very specific, reproducible, worse with movement. There is no evidence of infection. Patient did have a lifting injury, initially had shoulder and neck stiffness but this has resolved. Provided him with a dose of Valium and Toradol. Discussed his work-up. Discussed how he needs to improve hydration, improve glucose control, and he will be treated with muscle relaxers and anti-in flammatories. Patient states that he can do this, he states understanding and agreement with plan, father at bedside states satisfaction and agreement with plan. Stable at time of discharge. - Vital Signs Vital signs: Temp Pulse Resp BP Pulse Ox 97.5 F 92 16 122/69 98 04/12/19 16:52 04/12/19 22:53 04/12/19 22:53 04/12/19 22:53 04/12/19 22:53 - Laboratory Result Diagrams: 04/12/19 18:27 04/12/19 18:27 Laboratory results interpreted by me: 04/12/19 04/12/19 18:27 18:27 WBC 11.6 H Hgb 12.6 L MCH 26.6 L RDW 16.1 H Plt Count 492 H Absolute Neutrophils 8.9 H Sodium 136.9 L Potassium 5.3 H Chloride 94 L Glucose 388 H Calcium 10.6 H Direct Bilirubin 0.5 H AST 11 L Alkaline Phosphatase 140 H Creatine Kinase 53 L Discharge - Discharge Clinical Impression: Chest wall pain Condition: Stable Disposition: HOME, SELF-CARE Additional Instructions: Your chest x-ray, EKG, and heart testing does not show any concerning findings. This appears to be costochondritis, inflammation of the chest wall and cartilage between the ribs. This can be very painful, this can take time to resolve, and recommend the muscle relaxer, anti-inflammatory, heat to the area, and rest. Also improve your hydration and make sure you keep your blood sugar down with y our insulin to reduce your symptoms. Follow-up with primary care. Return if you worsen including severe worsening pain, fever, vomiting, passing out, or any other concerning or worsening symptoms. Prescriptions: Methocarbamol [Robaxin-750] 750 mg PO QID PRN #20 tablet PRN Reason: Naproxen 500 mg PO BID PRN #20 tablet PRN Reason: Referrals: ELIANA ANTUNEZ MD [Primary Care Provider] - Follow up as needed
[2019-04-12] MEDS ORDERED: NORMAL SALINE 1000 ML 1,000 ML IV ONE (21:20)
[2019-04-12] MEDS ORDERED: KETOROLAC TROMETHAMINE INJ/PF 30 MG/1 ML SDV IV ONE (21:20)
[2019-04-12] MEDS ORDERED: DIAZEPAM INJ 10 MG/2 ML DISP.SYRIN IV ONE (21:20)
[2019-04-12 22:53] VITALS: BP 122/69
--- NOTE | 2019-04-12 23:04 | EKG REPORT ---
SEVERITY:- ABNORMAL ECG - SINUS RHYTHM CONSIDER LEFT VENTRICULAR HYPERTROPHY : Confirmed by: Kaci Harrington MD 12-Apr-2019 23:03:15
== END 2019-04-12 22:53 | disposition home or self-care (01) ==
LOC: ER 16:49
DX: R07.89 Other chest pain (principal); X50.0XXA Overexertion from strenuous movement or load, initial encounter; E11.65 Type 2 diabetes mellitus with hyperglycemia; F17.200 Nicotine dependence, unspecified, uncomplicated; Z88.0 Allergy status to penicillin
CPT/HCPCS: 93005; 99284; 96361; 96374; 96375; 36415; 82550; 85025; 80053; 84484; 71046; 93010; J3360; J1885; J7030

== ENCOUNTER → 2019-05-27 | Outpatient (CLI) | payer MEDICAID ==
--- NOTE | 2019-05-27 09:13 | RADIOLOGY REPORT (SQ) ---
EXAM DESCRIPTION: MRI CHEST COMBO COMPLETED DATE/TIME: 05/27/2019 8:45 am REASON FOR STUDY: (M89.50)STEOLYSIS, UNSPECIFIED SITE M89.50 OSTEOLYSIS, UNSPECIFIED SITE R22.2 LO CALIZED SWELLING, MASS AND LUMP, TRUNK COMPARISON: MRI cervical spine 05/27/2019, CT chest 11/04/2017 Chest films 04/12/2019, 04/06/2019 TECHNIQUE: Multiplanar imaging of the sternum to include fat and fluid sensitive sequences. Postcon trast coronal sagittal and axial T1 images were obtained through the sternum after injection of 10 mL IV Dotarem contrast. GFR greater than 60 LIMITATIONS: None. FINDINGS: Prior MRI cervical spine 05/27/2019 was reviewed in conjunction with the current study and the CT chest 11/04/2017 On the MRI cervical spine, characteristic changes of seronegative spondyloarthropathy are present italo ng the C6-7 disc space and the C7-T1 disc space, with disc space loss of height, vertebral body endp late irregularity, and characteristic anterior fatty endplate changes or Romanus lesions. Today's MRI of the sternum was performed without and with contrast. At the manubriosternal joint, th ere is advanced joint space narrowing, articular surface irregularity, enhancing synovial proliferati on with trace fluid in the manubriosternal joint. There is extensive surrounding reactive fatty and sclerotic bony change characteristic for seronegative spondyloarthropathy. Remainder of the study demonstrates fused tiny reactive internal mammary chain lymph nodes less than 5 mm short axis. Mediastinal structures anterior chest wall are otherwise unremarkable. Findings discussed with Stone Onofre. IMPRESSION: Abnormal manubriosternal joint likely due to seronegative spondyloarthropathy with arthr itis. Findings discussed with the referring clinician. COMMENT: [employer] 2005;25:559-570 TECHNICAL DOCUMENTATION: JOB ID: [id number] [employer]- All Rights Reserved Reading location - IP/workstation name: [email or web address]
--- NOTE | 2019-05-27 10:11 | RADIOLOGY REPORT (SQ) ---
EXAM DESCRIPTION: MRI CERVICAL SPINE WITHOUT COMPLETED DATE/TIME: 05/27/2019 8:44 am REASON FOR STUDY: (M89.50)STEOLYSIS, UNSPECIFIED SITE M89.50 OSTEOLYSIS, UNSPECIFIED SITE R22.2 LO CALIZED SWELLING, MASS AND LUMP, TRUNK COMPARISON: MRI of the sternum without and with contrast same date TECHNIQUE: Sagittal and Axial imaging includes T1, T2, STIR and gradient echo sequences. LIMITATIONS: None. FINDINGS: ALIGNMENT: Slight retrolisthesis of C6 over C7 VERTEBRAE: No compression deformities BONE MARROW: Subtle marrow signal abnormalities at the C6-7 and T1-2 levels adjacent to the vertebral body endplates with mixed fatty and sclerotic changes DISCS: At C6-7, there is disc space loss of height, erosive change along the vertebral body endplates with an irregular disc space, degenerative retrolisthesis of C6 over C7, characteristic for seronega tive spondyloarthropathy. Similar changes are present at the T1-2 level. HARDWARE: None in the spine. CORD AND BASE OF BRAIN: Normal in size and signal intensity. SOFT TISSUES: No soft tissue masses. C1-C2: No central stenosis C2-C3: No central or foraminal stenosis C3-C4: Minimal posterior disc bulging is present without significant central or foraminal stenosis C4-C5: Minimal posterior disc bulging is present without significant central or foraminal stenosis C5-C6: Mild posterior disc bulging is present without significant central or foraminal stenosis C6-C7: Slight retrolisthesis of C6 over C7, broad diffuse posterior disc bulging with right paracentr al bulge and bony spurring. This is best shown on axial T2 image 22, no central or foraminal stenosi s. Sagittal images demonstrate vertebral body endplate irregularity and ankylosis across the C6-7 di sc space suggestive of seronegative spondyloarthropathy. C7-T1: No central or foraminal stenosis. Mild bilateral facet hypertrophy T1-2: Disc space loss of height is present with vertebral body endplate irregularity, fatty changes are present along the anterior longitudinal ligament at the T1-2 level characteristic for seronegativ e spondyloarthropathy. No central or foraminal stenosis. OTHER: Findings discussed with Stone Muro IMPRESSION: No significant central canal or foraminal stenosis./vertebral body endplate changes at C 6-7 and T1-2 worrisome for seronegative spondyloarthropathy TECHNICAL DOCUMENTATION: JOB ID: [id number] [employer]- All Rights Reserved Reading location - IP/workstation name: [email or web address]
== END ==
LOC: RAD 06:59
PROVIDERS: ATTEND Physician Assistant
DX: M47.892 Other spondylosis, cervical region (principal); M89.50 Osteolysis, unspecified site; R22.2 Localized swelling, mass and lump, trunk
CPT/HCPCS: 82565; 72141; 71552; A9576

== ENCOUNTER 2020-07-05 10:44 | Emergency (ER) | payer MEDICAID ==
--- NOTE | 2020-07-05 11:10 | ER Document Report ---
ED Medical Screen (RME) - General Chief Complaint: Abscess Stated Complaint: POSSIBLE ABSCESS Time Seen by Provider: 07/05/20 11:06 Primary Care Provider: PEG PHILLIPS MD [Primary Care Provider] - Follow up as needed TRAVEL OUTSIDE OF THE [place] IN LAST 30 DAYS: No - HPI Notes: 07/05/20 11:09 35-year-old male presents to the emergency room today for complaints of a left forearm abscess that started about 3 to 4 days ago. Patient has not tried any heat or icing. Reports pain is 2 out of 5, throbbing achy. Denies any history of MRSA. Patient denies any IV drug use. Denies any fevers or chills. Worse with time, nothing makes better. Allergic to penicillin. I have greeted and performed a rapid initial assessment of this patient. A comprehensive ED assessment and evaluation of the patient, analysis of test results and completion of the medical decision making process will be conducted by additional ED providers. PHYSICAL EXAMINATION: SKIN: Warm, Dry, normal turgor. 5cm x5cm erythema induration and warmth to touch to left forearm - Related Data Allergies/Adverse Reactions: Penicillins Allergy (Verified 07/05/20 11:05) Past Medical History - Social History Chew tobacco use (# tins/day): No Frequency of alcohol use: None Drug Abuse: None - Past Medical History Cardiac Medical History: Reports: Hx Heart Murmur Endocrine Medical History: Reports: Hx Diabetes Mellitus Type 1, Hx Diabetes Mellitus Type 2 Renal/ Medical History: Reports: Hx Kidney Stones. Denies: Hx Peritoneal Dialysis GI Medical History: Reports: Hx Gastroesophageal Reflux Disease Psychiatric Medical History: Denies: Hx Depression Past Surgical History: Reports: Hx Orthopedic Surgery - disc surgery L5-S1., Other - left ankle surgery due to infection in 2017. - Immunizations Immunizations up to date: Yes Hx Diphtheria, Pertussis, Tetanus Vaccination: Yes Doctor's Discharge - Discharge Referrals: PEG PHILLIPS MD [Primary Care Provider] - Follow up as needed
[2020-07-05] MEDS ORDERED: LIDOCAINE 1% INJ-PF (10 MG/ML) 30 ML SDV INJ ONE (12:40)
--- NOTE | 2020-07-05 13:24 | ER Document Report ---
ED General - General Chief Complaint: Abscess Stated Complaint: POSSIBLE ABSCESS Time Seen by Provider: 07/05/20 11:06 Primary Care Provider: PEG PHILLIPS MD [Primary Care Provider] - Follow up as needed Mode of Arrival: Ambulatory Information source: Patient TRAVEL OUTSIDE OF THE [place] IN LAST 30 DAYS: No - HPI Notes: Patient presents with left forearm pain. States been present for several days. It is severe and constant. Is a burning sensation. It does radiate up his left arm. Is worse if touched and better if left alone. He states it appears consistent with an abscess as he has had these before. - Related Data Allergies/Adverse Reactions: Penicillins Allergy (Verified 07/05/20 11:05) Past Medical History - General Information source: Patient - Social History Smoking Status: Current Every Day Smoker Chew tobacco use (# tins/day): No Frequency of alcohol use: None Drug Abuse: None Family History: Reviewed & Not Pertinent, DM Patient has homicidal ideation: No - Past Medical History Cardiac Medical History: Reports: Hx Heart Murmur Endocrine Medical History: Reports: Hx Diabetes Mellitus Type 1, Hx Diabetes Mellitus Type 2 Renal/ Medical History: Reports: Hx Kidney Stones. Denies: Hx Peritoneal Dialysis GI Medical History: Reports: Hx Gastroesophageal Reflux Disease Psychiatric Medical History: Denies: Hx Depression Past Surgical History: Reports: Hx Orthopedic Surgery - disc surgery L5-S1., Other - left ankle surgery due to infection in 2017. - Immunizations Immunizations up to date: Yes Hx Diphtheria, Pertussis, Tetanus Vaccination: Yes Review of Systems - Review of Systems Constitutional: denies: Chills, Fever Cardiovascular: denies: Chest pain, Palpitations Respiratory: denies: Cough, Short of breath -: Yes All other systems reviewed and negative Physical Exam - Vital signs Vitals: Temp Pulse Resp BP Pulse Ox 98.2 F 87 18 152/89 H 100 07/05/20 11:09 07/05/20 11:09 07/05/20 11:09 07/05/20 11:09 07/05/20 11:09 Interpretation: Normal - General General appearance: Appears well, Alert - HEENT Head: Normocephalic, Atraumatic Eyes: Normal Pupils: PERRL - Respiratory Respiratory status: No respiratory distress Chest status: Nontender Breath sounds: Normal Chest palpation: Normal - Cardiovascular Rhythm: Regular Heart sounds: Normal auscultation Murmur: No - Abdominal Inspection: Normal Distension: No distension Bowel sounds: Normal Tenderness: Nontender Organomegaly: No organomegaly - Back Back: Normal, Nontender - Extremities General upper extremity: Other - Left forearm has a large indurated erythematous tender area consistent with abscess. General lower extremity: Normal inspection, Nontender, Normal color, Normal ROM, Normal temperature, Normal weight bearing. No: Yoel's sign - Neurological Neuro grossly intact: Yes Cognition: Normal Orientation: AAOx4 [place] Coma Scale Eye Opening: Spontaneous Hussein Coma Scale Verbal: Oriented Hussein Coma Scale Motor: Obeys Commands [place] Coma Scale Total: 15 Speech: Normal Motor strength normal: LUE, RUE, LLE, RLE Sensory: Normal - Psychological Associated symptoms: Normal affect, Normal mood - Skin Skin Temperature: Warm Skin Moisture: Dry Skin Color: Erythema Course - Vital Signs Vital signs: Temp Pulse Resp BP Pulse Ox 98.2 F 87 18 152/89 H 100 07/05/20 11:09 07/05/20 11:09 07/05/20 11:09 07/05/20 11:09 07/05/20 11:09 Procedures - Incision and Drainage Left Arm Time completed: 13:20 Type: Simple Anesthetic type: 1% Lidocaine mL's of anesthetic: 3 Blade size: 11 I&D procedure: Iodoform packing placed, Sterile dressing applied Incision Method: Incision made by scalpel Amount/type of drainage: Copious Notes: 07/05/20 13:21 Procedure performed by the PA student under my direct supervision. Discharge - Discharge Clinical Impression: Abscess of left forearm Condition: Stable Disposition: HOME, SELF-CARE Instructions: Abscess ([facility]), Trimethoprim-Sulfa ([facility]), Cephalexin ([facility]) Additional Instructions: Please have wound reevaluated in 2 to 3 days for possible removal of packing Prescriptions: Sulfamethoxazole/Trimethoprim [Septra-Ds 800-160 mg Tablet] 1 tab PO BID 5 Days #10 tablet Forms: Return to Work Referrals: PEG PHILLIPS MD [Primary Care Provider] - 07/07/20
[2020-07-05 13:46] VITALS: BP 156/92
== END 2020-07-05 13:44 | disposition home or self-care (01) ==
LOC: ER 10:44
DX: L02.414 Cutaneous abscess of left upper limb (principal); M79.632 Pain in left forearm; F17.200 Nicotine dependence, unspecified, uncomplicated; Z88.0 Allergy status to penicillin; Z87.442 Personal history of urinary calculi
CPT/HCPCS: 99283